=== PATIENT | female | born 1955 | race Caucasian/White ===

== ENCOUNTER 2017-03-29 13:55 | Emergency (ER) | payer MEDICAID ==
[2017-03-29] MEDS ORDERED: NS 0.9% 1000 ML* 1,000 ML IV ONE (14:28)
[2017-03-29 16:38] LABS: Hematocrit 40 % (35-47); Hemoglobin 13.1 g/dl (12.0-16.0); Mean Corpuscular HGB Conc 32 g/dl (31-36); Mean Corpuscular Hemoglobin 29 pg (27-31); Mean Corpuscular Volume 89 fL (80-97); Mean Platelet Volume 8 um3 (7.4-10.4); Red Blood Count 4.53 10^6/ul (4.0-5.4); Red Cell Distribution Width 14 % (10.5-15); White Blood Count 8.1 10^3/ul (3.5-10.8)
[2017-03-29 16:55] LABS: ALT 22 U/L (7-52); Albumin 3.6 g/dL (3.2-5.2); Alkaline Phosphatase 75 U/L (34-104); BUN/Creatinine Ratio 47.8 (8-20); Blood Urea Nitrogen 22 mg/dL (6-24); CO2 Carbon Dioxide 26 mmol/L (22-32); Calcium 9.4 mg/dL (8.6-10.3); Chloride 101 mmol/L (101-111); Creatine Kinase 81 U/L (10-223); EGFR African American 177.6 (>60); EGFR Non-African American 138.1 (>60); Globulin 3.6 g/dL (2-4); Glucose 75 mg/dL (70-100); Sodium 134 mmol/L (133-145); Total Protein 7.2 g/dL (6.4-8.9)
--- NOTE | 2017-03-29 17:13 | RAD ---
INDICATION: Unresponsive COMPARISON: Chest x-ray October 06, 2016 TECHNIQUE: AP seated and lateral views were obtained. FINDINGS: Bones/Soft Tissues: There are no acute bony findings. There is prior cervical fusion Cardiomediastinal: The heart is normal in size. Lungs: There are 5 suspicious for a right hilar and/or right middle lobe infiltrate although positioning is suboptimal. Pleura: There are no pleural effusions. Other: None IMPRESSION: LIMITED EXAMINATION DUE TO POSITIONING. POSSIBLE RIGHT-SIDED INFILTRATE
[2017-03-29 17:19] LABS: TSH (Thyroid Stimulating Horm) 0.96 mcIU/mL (0.34-5.60)
[2017-03-29] MEDS ORDERED: Levofloxacin 750 MG IVPREMIX(* 750 MG/150 ML BAG IVPB ONE (17:43)
[2017-03-29 17:56] LABS: Troponin I 0.03 ng/mL (<0.04)
[2017-03-29 18:02] LABS: Urine Bacteria 1+ (Absent); Urine Bilirubin Negative (Negative); Urine Glucose Negative (Negative); Urine Nitrite Positive (Negative)
[2017-03-29 18:09] LABS: C Reactive Protein 37.55 mg/L (< 5.00); Magnesium 1.8 mg/dL (1.9-2.7)
[2017-03-29 20:33] VITALS: BP 138/74
--- NOTE | 2017-03-29 21:53 | ED ---
Marie Argueta Anna, scribed for Isidro Haas MD on 03/29/17 at 1433 . Altered Mental Status - HPI Summary HPI Summary: Patient is a 61 y/o female coming to [facility] presenting after an episode of altered mental status that occurred this afternoon. The patient was sitting in her chair when she became unresponsive and kept falling asleep. The staff at [facility] reported her as unrousable. Upon arrival at [facility], the patient is awake. She reports that she feels fine. She has occasionally felt dizzy while turning in bed the last few days. Denies fever, chills, cough, CP, SOB, YU, diarrhea, constipation. Patient history is significant for MS. Patient medications were reviewed on this visit. - History Of Current Complaint Chief Complaint: EDAltMentalStatus Stated Complaint: UNRESPONSIVE Time Seen by Provider: 03/29/17 14:25 Hx Obtained From: Patient - Allergies/Home Medications Allergies/Adverse Reactions: Allergies Allergy/AdvReac Type Severity Reaction Status Date / Time Methylprednisolone Allergy Intermediate Rash Verified 10/07/16 04:00 [From Solu-Medrol] Penicillin G Allergy Intermediate Hives Verified 10/07/16 04:00 PMH/Surg Hx/FS Hx/Imm Hx Endocrine/Hematology History: Denies: Hx Diabetes Cardiovascular History: Denies: Hx Hypertension, Hx Pacemaker/ICD Respiratory History: Denies: Hx Chronic Obstructive Pulmonary Disease (COPD) History: Denies: Hx Dialysis, Hx Renal Disease Musculoskeletal History: Reports: Other Musculoskeletal History - cervical spine dysectomy Sensory History: Reports: Hx Contacts or Glasses Denies: Hx Hearing Aid Opthamlomology History: Reports: Hx Contacts or Glasses Neurological History: Denies: Hx Dementia, Hx Seizures Psychiatric History: Denies: Hx Eating Disorder, Hx Panic Disorder - Surgical History Surgery Procedure, Year, and Place: , CSP DISCECTOMY (WITH PLATES) Infectious Disease History: Yes Infectious Disease History: Reports: Hx Shingles Denies: Traveled Outside the [place] in Last 30 Days - Family History Known Family History: Positive: Other - Denies FHx psychotic disorders, schizophrenia, mood disorders - Social History Alcohol Use: None Substance Use Type: Reports: None Smoking Status (MU): Never Smoked Tobacco Review of Systems Negative: Fever, Chills Negative: Chest Pain Negative: Shortness Of Breath, Cough Gastrointestinal: Other - Denies constipation Negative: Diarrhea Negative: Headache Psychological: Other - Altered mental status. Dizziness. All Other Systems Reviewed And Are Negative: Yes Physical Exam - Summary Physical Exam Summary: VITAL SIGNS: Reviewed. GENERAL: Patient is a well-developed and nourished female who is lying comfortable in the stretcher. Patient is not in any acute respiratory distress. HEAD AND FACE: No signs of trauma. No ecchymosis, hematomas or skull depressions. No sinus tenderness. EYES: PERRLA, EOMI x 2, No injected conjunctiva, no nystagmus. EARS: Hearing grossly intact. Ear canals and tympanic membranes are within normal limits. MOUTH: Oropharynx within normal limits. NECK: Supple, trachea is midline, no adenopathy, no JVD, no carotid bruit, no c- spine tenderness, neck with full ROM. CHEST: Symmetric, no tenderness at palpation LUNGS: Clear to auscultation bilaterally. No wheezing or crackles. CVS: Regular rate and rhythm, S1 and S2 present, no murmurs or gallops appreciated. ABDOMEN: Soft, non-tender. No signs of distention. No rebound no guarding, and no masses palpated. Bowel sounds are normal. EXTREMITIES: Contracted knees secondary to MS. NEURO: Alert and oriented x 3. No acute neurological deficits. Speech is normal and follows commands. SKIN: Dry and scaly Triage Information Reviewed: Yes Vital Signs On Initial Exam: Initial Vitals Temp Pulse Resp BP Pulse Ox 98.1 F 74 20 124/92 99 03/29/17 14:06 03/29/17 14:06 03/29/17 14:06 03/29/17 14:06 03/29/17 14:06 Vital Signs Reviewed: Yes Diagnostics - Vital Signs Vital Signs Temp Pulse Resp BP Pulse Ox 03/29/17 14:06 98.1 F 74 20 124/92 99 - Laboratory Lab Results: Lab Results 03/29/17 03/29/17 03/29/17 Range/Units 16:25 16:25 16:25 WBC 8.1 (3.5-10.8) 10^3/ul RBC 4.53 (4.0-5.4) 10^6/ul Hgb 13.1 (12.0-16.0) g/dl Hct 40 (35-47) % MCV 89 (80-97) fL MCH 29 (27-31) pg MCHC 32 (31-36) g/dl RDW 14 (10.5-15) % Plt Count 353 (150-450) 10^3/ul MPV 8 (7.4-10.4) um3 Neut % (Auto) 55.8 (38-83) % Lymph % (Auto) 34.5 (25-47) % Cherry % (Auto) 7.7 (1-9) % Eos % (Auto) 1.5 (0-6) % Baso % (Auto) 0.5 (0-2) % Absolute Neuts (auto) 4.5 (1.5-7.7) 10^3/ul Absolute Lymphs (auto) 2.8 (1.0-4.8) 10^3/ul Absolute Monos (auto) 0.6 (0-0.8) 10^3/ul Absolute Eos (auto) 0.1 (0-0.6) 10^3/ul Absolute Basos (auto) 0 (0-0.2) 10^3/ul Absolute Nucleated RBC 0.01 10^3/ul Nucleated RBC % 0.1 Sodium 134 (133-145) mmol/L Potassium TNP Chloride 101 (101-111) mmol/L Carbon Dioxide 26 (22-32) mmol/L Anion Gap TNP BUN 22 (6-24) mg/dL Creatinine 0.46 L (0.51-0.95) mg/dL Est GFR ( Amer) 177.6 (>60) Est GFR (Non-Af Amer) 138.1 (>60) BUN/Creatinine Ratio 47.8 H (8-20) Glucose 75 (70-100) mg/dL Lactic Acid 0.7 (0.5-2.0) mmol/L Calcium 9.4 (8.6-10.3) mg/dL Magnesium TNP Total Bilirubin 0.40 (0.2-1.0) mg/dL AST TNP ALT 22 (7-52) U/L Alkaline Phosphatase 75 (34-104) U/L Total Creatine Kinase 81 (10-223) U/L Troponin I 0.03 (<0.04) ng/mL C-Reactive Protein (< 5.00) mg/L Total Protein 7.2 (6.4-8.9) g/dL Albumin 3.6 (3.2-5.2) g/dL Globulin 3.6 (2-4) g/dL Albumin/Globulin Ratio 1.0 (1-3) TSH 0.96 (0.34-5.60) mcIU/mL Urine Color Urine Appearance Urine pH (5-9) Ur Specific Rogers (1.010-1.030) Urine Protein (Negative) Urine Ketones (Negative) Urine Blood (Negative) Urine Nitrate (Negative) Urine Bilirubin (Negative) Urine Urobilinogen (Negative) Ur Leukocyte Esterase (Negative) Urine WBC (Auto) (Absent) Urine RBC (Auto) (Absent) Ur Squamous Epith Cells (Absent) Amorphous Crystals (Absent) Urine Bacteria (Absent) Urine Glucose (Negative) 03/29/17 03/29/17 Range/Units 17:41 17:41 WBC (3.5-10.8) 10^3/ul RBC (4.0-5.4) 10^6/ul Hgb (12.0-16.0) g/dl Hct (35-47) % MCV (80-97) fL MCH (27-31) pg MCHC (31-36) g/dl RDW (10.5-15) % Plt Count (150-450) 10^3/ul MPV (7.4-10.4) um3 Neut % (Auto) (38-83) % Lymph % (Auto) (25-47) % Cherry % (Auto) (1-9) % Eos % (Auto) (0-6) % Baso % (Auto) (0-2) % Absolute Neuts (auto) (1.5-7.7) 10^3/ul Absolute Lymphs (auto) (1.0-4.8) 10^3/ul Absolute Monos (auto) (0-0.8) 10^3/ul Absolute Eos (auto) (0-0.6) 10^3/ul Absolute Basos (auto) (0-0.2) 10^3/ul Absolute Nucleated RBC 10^3/ul Nucleated RBC % Sodium (133-145) mmol/L Potassium 4.2 Chloride (101-111) mmol/L Carbon Dioxide (22-32) mmol/L Anion Gap BUN (6-24) mg/dL Creatinine (0.51-0.95) mg/dL Est GFR ( Amer) (>60) Est GFR (Non-Af Amer) (>60) BUN/Creatinine Ratio (8-20) Glucose (70-100) mg/dL Lactic Acid (0.5-2.0) mmol/L Calcium (8.6-10.3) mg/dL Magnesium 1.8 L Total Bilirubin (0.2-1.0) mg/dL AST 17 ALT (7-52) U/L Alkaline Phosphatase (34-104) U/L Total Creatine Kinase (10-223) U/L Troponin I (<0.04) ng/mL C-Reactive Protein 37.55 H (< 5.00) mg/L Total Protein (6.4-8.9) g/dL Albumin (3.2-5.2) g/dL Globulin (2-4) g/dL Albumin/Globulin Ratio (1-3) TSH (0.34-5.60) mcIU/mL Urine Color Yellow Urine Appearance Cloudy Urine pH 7.0 (5-9) Ur Specific Rogers 1.013 (1.010-1.030) Urine Protein 1+(30 mg/dl) H (Negative) Urine Ketones Trace H (Negative) Urine Blood Negative (Negative) Urine Nitrate Positive H (Negative) Urine Bilirubin Negative (Negative) Urine Urobilinogen Negative (Negative) Ur Leukocyte Esterase 2+ H (Negative) Urine WBC (Auto) 3+(>20/hpf) H (Absent) Urine RBC (Auto) 3+(>10/hpf) H (Absent) Ur Squamous Epith Cells Present H (Absent) Amorphous Crystals Present H (Absent) Urine Bacteria 1+ H (Absent) Urine Glucose Negative (Negative) Result Diagrams: 03/29/17 16:25 03/29/17 17:41 Lab Statement: Any lab studies that have been ordered have been reviewed, and results considered in the medical decision making process. - Radiology CXR Xray Interpretation: Positive (See Comments) Radiology Interpretation Completed By: Radiologist - IMPRESSION: LIMITED EXAMINATION DUE TO POSITIONING. POSSIBLE RIGHT-SIDED INFILTRATE - EKG 1730 Cardiac Rate: NL - 83 bpm, Other Rate EKG Rhythm: Sinus Rhythm ST Segment: Normal Ectopy: None EKG Interpretation: No ST elevation Altered Mental Statu Course/Dx - Course Course Of Treatment: Patient is a 61 y/o female coming to [facility] presenting after an episode of altered mental status that occurred this afternoon. The patient was sitting in her chair when she became unresponsive and kept falling asleep. The staff at [facility] reported her as unrousable. Upon arrival at [facility], the patient is awake. She reports that she feels fine. She has occasionally felt dizzy while turning in bed the last few days. Denies fever, chills, cough, CP, SOB, YU, diarrhea, constipation. Patient history is significant for MS. Patient medications were reviewed on this visit. Assessment/Plan: Test results WNL except for Creatinine of .46. UA with positive nitrates, therefore positive UTI. CXR shows pt has PNA. Pt was placed on Levaquin, which will cover PNA and UTI. I did not perform a head CT since patient is A+Ox 3 and back to her base line. She has no complaints. Pt is hemodynamically stable and A&Ox3. She will be discharged home with follow up from her PCP. Patient was given instructions to return to the ED if she develops fever, chills, AMS, worsening symptoms. She understands and agrees, - Diagnoses Discharge Diagnoses: UTI (urinary tract infection), PNA (pneumonia) Discharge - Discharge Plan Condition: Stable Disposition: HOME Prescriptions: Levofloxacin TAB* [Levaquin TAB*] 750 mg PO DAILY #9 tab Patient Education Materials: Levofloxacin (By mouth), Urinary Tract Infection in Women (ED), Pneumonia (ED) Referrals: Jodie Tucker MD [Primary Care Provider] - Additional Instructions: Follow up with primary care physician in 2-3 days. Return to ED for new or worsening symptoms. The documentation as recorded by the Marie mojica Anna accurately reflects the service I personally performed and the decisions made by , Isidro Haas MD.
--- NOTE | 2017-03-31 09:59 | PN ---
Progress Note - Progress Note Note: Patient urine culture grew Citrobacter amalonaticus >100,000/ patient place on levofloxacin will wait for final culture
== END 2017-03-29 20:29 | disposition home or self-care (01) ==
LOC: ED 13:55
DX: N39.0 Urinary tract infection, site not specified (principal); J18.9 Pneumonia, unspecified organism; R42 Dizziness and giddiness
CPT/HCPCS: 36415; 71020; 80053; 81003; 81015; 82550; 83605; 83735; 84443; 84484; 85025; 86140; 87077; 87086; 87186; 93005; 96365; 96366; 99283

== ENCOUNTER 2017-08-27 13:54 | Emergency (ER) | payer MEDICAID ==
[2017-08-27] MEDS ORDERED: NS 0.9% 1000 ML* 1,000 ML IV ONE (14:46)
[2017-08-27 15:36] LABS: Hematocrit 42 % (35-47); Hemoglobin 13.7 g/dl (12.0-16.0); Mean Corpuscular HGB Conc 33 g/dl (31-36); Mean Corpuscular Hemoglobin 29 pg (27-31); Mean Corpuscular Volume 88 fL (80-97); Mean Platelet Volume 7 um3 (7.4-10.4); Red Blood Count 4.72 10^6/ul (4.0-5.4); Red Cell Distribution Width 14 % (10.5-15); White Blood Count 11.2 10^3/ul (3.5-10.8)
[2017-08-27 15:53] LABS: Troponin I 0.01 ng/mL (<0.04)
[2017-08-27 16:00] LABS: ALT 16 U/L (7-52); AST 21 U/L (13-39); Albumin 4.1 g/dL (3.2-5.2); Alkaline Phosphatase 79 U/L (34-104); Anion Gap 4 mmol/L (2-11); BUN/Creatinine Ratio 53.7 (8-20); Blood Urea Nitrogen 29 mg/dL (6-24); CO2 Carbon Dioxide 35 mmol/L (22-32); Calcium 9.9 mg/dL (8.6-10.3); Chloride 100 mmol/L (101-111); Creatine Kinase 614 U/L (10-223); EGFR African American 147.1 (>60); EGFR Non-African American 114.4 (>60); Globulin 4.5 g/dL (2-4); Glucose 73 mg/dL (70-100); Magnesium 2.2 mg/dL (1.9-2.7); Potassium 3.5 mmol/L (3.5-5.0); Sodium 139 mmol/L (133-145); Total Protein 8.6 g/dL (6.4-8.9)
[2017-08-27 16:10] LABS: Acetaminophen < 15 mcg/mL
[2017-08-27 16:25] LABS: TSH (Thyroid Stimulating Horm) 1.15 mcIU/mL (0.34-5.60)
--- NOTE | 2017-08-27 18:16 | RAD ---
INDICATION: Cough COMPARISON: March 29, 2017 TECHNIQUE: An AP portable view obtained at 1748 hours is submitted. FINDINGS: Bones/Soft Tissues: There are no acute bony findings. There is prior cervical fusion. Cardiomediastinal: The cardiomediastinal silhouette is normal. Lungs: There are no definite infiltrates. Pleura: There are no pleural effusions. Other: None IMPRESSION: NO ACTIVE DISEASE.
[2017-08-27] MEDS ORDERED: Azithromycin TAB* 250 MG PO ONE (18:20)
[2017-08-27 19:22] VITALS: BP 138/65
--- NOTE | 2017-08-28 18:19 | ED ---
Jeffery Argueta Thomas, scribed for Isidro Haas MD on 08/27/17 at 1536 . Complex/Multi-Sys Presentation - HPI Summary HPI Summary: The pt is a 62 y/o F with a Hx of multiple sclerosis BIBA after she was found unresponsive. In the ED, the patient is awake and alert. She has been dealing with a cold recently and c/o fatigue, a headache, and a cough. She denies fever , CP, SOB, and dizziness. The lower extremities are contracted secondary to MS. - History Of Current Complaint Chief Complaint: EDAltMentalStatus Time Seen by Provider: 08/27/17 14:31 Hx Obtained From: Patient Onset/Duration: Lasting Hours - BIBA after found unresponsive earlier todays, Resolved Severity Currently: None Aggravating Factor(s): None. Alleviating Factor(s): Sponteneous resolution. Associated Signs And Symptoms: Positive: Other - Unresponsive, fatigue, headache , cough; NEGATIVE: fever, CP, SOB, dizziness - Allergies/Home Medications Allergies/Adverse Reactions: Allergies Allergy/AdvReac Type Severity Reaction Status Date / Time Methylprednisolone Allergy Intermediate Rash Verified 10/07/16 04:00 [From Solu-Medrol] Penicillin G Allergy Intermediate Hives Verified 10/07/16 04:00 Home Medications: Home Medications Carboxymethylcellulose Sodium [Refresh Tears] 0.5 % BOTH EYES Q6HR PRN 08/27/17 [History Confirmed 08/27/17] Cholecalciferol TAB* [Vitamin D TAB*] 2,000 units PO EVERY OTHER DAY 08/27/17 [ History Confirmed 08/27/17] Cyclosporine 0.05% OPHTH (NF) [Restasis 0.05% OPHTH] 1 drop BOTH EYES BID [History Confirmed 08/27/17] Miconazole TOPICAL CREAM 2%* [Monistat 2%*] 1 applic TOPICAL QPM 08/27/17 [ History Confirmed 08/27/17] Multivitamins/Minerals TAB* [Theragran/minerals TAB*] 1 tab PO DAILY 08/27/17 [ History Confirmed 08/27/17] tiZANidine TAB* [Zanaflex TAB*] 4 mg PO QID 08/27/17 [History Confirmed 08/27/17 ] PMH/Surg Hx/FS Hx/Imm Hx Previously Healthy: No Endocrine/Hematology History: Denies: Hx Diabetes Cardiovascular History: Denies: Hx Hypertension, Hx Pacemaker/ICD Respiratory History: Denies: Hx Chronic Obstructive Pulmonary Disease (COPD) History: Denies: Hx Dialysis, Hx Renal Disease Musculoskeletal History: Reports: Other Musculoskeletal History - cervical spine dysectomy Sensory History: Reports: Hx Contacts or Glasses Denies: Hx Hearing Aid Opthamlomology History: Reports: Hx Contacts or Glasses Neurological History: Denies: Hx Dementia, Hx Seizures Psychiatric History: Denies: Hx Eating Disorder, Hx Panic Disorder - Surgical History Surgery Procedure, Year, and Place: , CSP DISCECTOMY (WITH PLATES) Infectious Disease History: No Infectious Disease History: Reports: Hx Shingles Denies: Traveled Outside the [place] in Last 30 Days - Family History Known Family History: Positive: Other - Denies FHx psychotic disorders, schizophrenia, mood disorders - Social History Alcohol Use: None Hx Substance Use: No Substance Use Type: Reports: None Hx Tobacco Use: No Smoking Status (MU): Never Smoked Tobacco Review of Systems Positive: Fatigue. Negative: Fever Negative: Chest Pain Positive: Cough. Negative: Shortness Of Breath Neurological: Other - Unresponsive (prior to arrival-awake and alert in the ED) ; NEGATIVE: dizziness Positive: Headache All Other Systems Reviewed And Are Negative: Yes Physical Exam - Summary Physical Exam Summary: VITAL SIGNS: Reviewed. GENERAL: ~Patient is a well-developed and nourished female who is lying comfortable in the stretcher. ~Patient is not in any acute respiratory distress. HEAD AND FACE: No signs of trauma. ~No ecchymosis, hematomas or skull depressions. No sinus tenderness. EYES: PERRLA, EOMI x 2, No injected conjunctiva, no nystagmus. EARS: Hearing grossly intact. Ear canals and tympanic membranes are within normal limits. MOUTH: Oropharynx within normal limits. NECK: Supple, trachea is midline, no adenopathy, no JVD, no carotid bruit, no c- spine tenderness, neck with full ROM. CHEST: Symmetric, no tenderness at palpation LUNGS: She has bilateral crackles. No wheezing. CVS: Regular rate and rhythm, S1 and S2 present, no murmurs or gallops appreciated. ABDOMEN: Soft, non-tender. No signs of distention. No rebound no guarding, and no masses palpated. Bowel sounds are normal. EXTREMITIES: No edema, no cyanosis or clubbing. She has constricted lower extremities secondary to multiple sclerosis. There is hypotonia in the lower extremities. NEURO: Alert and oriented x 3. No acute neurological deficits. Speech is normal and follows commands. SKIN: Dry and warm. Triage Information Reviewed: Yes Vital Signs On Initial Exam: Initial Vitals Temp Pulse Resp BP Pulse Ox 96.9 F 65 20 135/73 95 08/27/17 14:01 08/27/17 14:01 08/27/17 14:01 08/27/17 14:01 08/27/17 14:01 Vital Signs Reviewed: Yes Diagnostics - Vital Signs Vital Signs Temp Pulse Resp BP Pulse Ox 08/27/17 15:00 10 150/80 08/27/17 14:30 71 19 136/80 95 08/27/17 14:23 67 12 135/73 94 08/27/17 14:17 69 94 08/27/17 14:01 96.9 F 65 20 135/73 95 - Laboratory Lab Results: Lab Results 08/27/17 08/27/17 08/27/17 Range/Units 15:20 15:20 15:20 WBC 11.2 H (3.5-10.8) 10^3/ul RBC 4.72 (4.0-5.4) 10^6/ul Hgb 13.7 (12.0-16.0) g/dl Hct 42 (35-47) % MCV 88 (80-97) fL MCH 29 (27-31) pg MCHC 33 (31-36) g/dl RDW 14 (10.5-15) % Plt Count 526 H D (150-450) 10^3/ul MPV 7 L (7.4-10.4) um3 Neut % (Auto) 64.3 (38-83) % Lymph % (Auto) 26.3 (25-47) % [place] % (Auto) 6.1 (1-9) % Eos % (Auto) 2.4 (0-6) % Baso % (Auto) 0.9 (0-2) % Absolute Neuts (auto) 7.2 (1.5-7.7) 10^3/ul Absolute Lymphs (auto) 2.9 (1.0-4.8) 10^3/ul Absolute Monos (auto) 0.7 (0-0.8) 10^3/ul Absolute Eos (auto) 0.3 (0-0.6) 10^3/ul Absolute Basos (auto) 0.1 (0-0.2) 10^3/ul Absolute Nucleated RBC 0 10^3/ul Nucleated RBC % 0 Sodium 139 (133-145) mmol/L Potassium 3.5 (3.5-5.0) mmol/L Chloride 100 L (101-111) mmol/L Carbon Dioxide 35 H (22-32) mmol/L Anion Gap 4 (2-11) mmol/L BUN 29 H (6-24) mg/dL Creatinine 0.54 (0.51-0.95) mg/dL Est GFR ( Amer) 147.1 (>60) Est GFR (Non-Af Amer) 114.4 (>60) BUN/Creatinine Ratio 53.7 H (8-20) Glucose 73 (70-100) mg/dL Lactic Acid 0.7 (0.5-2.0) mmol/L Calcium 9.9 (8.6-10.3) mg/dL Magnesium 2.2 (1.9-2.7) mg/dL Total Bilirubin 0.30 (0.2-1.0) mg/dL AST 21 (13-39) U/L ALT 16 (7-52) U/L Alkaline Phosphatase 79 (34-104) U/L Total Creatine Kinase 614 H (10-223) U/L Troponin I 0.01 (<0.04) ng/mL Total Protein 8.6 (6.4-8.9) g/dL Albumin 4.1 (3.2-5.2) g/dL Globulin 4.5 H (2-4) g/dL Albumin/Globulin Ratio 0.9 L (1-3) TSH 1.15 (0.34-5.60) mcIU/mL Acetaminophen < 15 mcg/mL Result Diagrams: 08/27/17 15:20 08/27/17 15:20 Lab Statement: Any lab studies that have been ordered have been reviewed, and results considered in the medical decision making process. - Radiology CXR Xray Interpretation: No Acute Changes - No active disease. ED physician has reviewed this report and agrees. Radiology Interpretation Completed By: Radiologist - EKG 15:25 Cardiac Rate: NL - 64 BPM EKG Rhythm: Sinus Rhythm EKG Interpretation: No ST elevations. TWI in II and III. Complex Multi-Symp Course/Dx Assessment/Plan: The pt is a 62 y/o F with a Hx of multiple sclerosis BIBA after she was found unresponsive. In the ED, the patient is awake and alert. She has been dealing with a cold recently and c/o fatigue, a headache, and a cough. She denies fever, CP, SOB, and dizziness. The lower extremities are contracted secondary to MS. Test results are without significant abnormalities except WBC 11.2, platelet count 526, and CPK is 614. CXR shows no active disease. Since the patient is having this productive cough, I believe the patient is dealing with bronchitis. Initially, EMS reported that the patient was unresponsive. However, the patient denies this and reports that she was always alert and oriented x3. She reports that she was tired and sleepy but not unresponsive. Therefore, since the patient is feeling better, she request discharge back to the halfway. She was given Azithromycin. The patient is alert and oriented x3 and back to baseline. - Diagnoses Provider Diagnoses: Bronchitis Discharge - Discharge Plan Condition: Stable Disposition: HOME Prescriptions: Azithromycin TAB* [Zithromax TAB (Z-RALPH) 250 mg #6 tabs] 250 mg PO DAILY #4 tab Patient Education Materials: Acute Bronchitis (ED) Referrals: Jodie Tucker MD [Primary Care Provider] - 3 Days Additional Instructions: Follow up with your primary care provider in 3 days. Return to the emergency department for any new or worsening symptoms. The documentation as recorded by the Jeffery mojica Thomas accurately reflects the service I personally performed and the decisions made by , Isidro Haas MD.
== END 2017-08-27 19:20 | disposition home or self-care (01) ==
LOC: ED 13:54
DX: J40 Bronchitis, not specified as acute or chronic (principal); R53.83 Other fatigue; R51 Headache; R05 Cough
CPT/HCPCS: 36415; 71010; 80053; 80329; 82550; 83605; 83735; 84443; 84484; 85025; 93005; 96360; 99285; A9270-GY; G0480

== ENCOUNTER 2018-10-04 09:47 | Inpatient (IN) | payer MEDICAID ==
[2018-10-04] MEDS ORDERED: NS 0.9% 1000 ML* 1,000 ML IV ONE ×3 (09:58→13:15)
--- NOTE | 2018-10-04 10:11 | ED ---
Shortness of Breath - HPI Summary HPI Summary: This pt is a 63 y/o female presenting to [facility] via EMS from [facility] for SOB x3 days. Pt reports she is unable to get a deep breath in. Per EMS pt was saturating on room air at 87% and increased to 92% with 4L of oxygen. EMS administered a duoneb and pt improved a bit more. Pt denies fever, chills, chest pain, calf pain, abd pain, vomiting. Pt also reports she has had vaginal bleeding for the past 3 days. She had an ultrasound 2 days ago and it was normal. Pt notes they were unable to figure out what was causing it. Pt is able to get around with a wheel chair. Denies hx of COPD or asthma. Pt does not use oxygen at baseline. She is a former smoker. - History of Current Complaint Time Seen by Provider: 10/04/18 09:51 Hx Obtained From: Patient, EMS Onset/Duration: Lasting Days - 3, Still Present Current Severity: Moderate Dyspnea At: Rest Aggrevating Factors: Nothing Alleviating Factors: Nothing Associated Signs & Symptoms: Negative - Allergy/Home Medications Allergies/Adverse Reactions: Allergies Allergy/AdvReac Type Severity Reaction Status Date / Time methylprednisolone Allergy Intermediate Rash Verified 10/04/18 15:53 penicillin G Allergy Intermediate Hives Verified 10/04/18 15:53 Home Medications: Home Medications Acetaminophen [Acetaminophen Extra Strength] 1,000 mg PO Q8HR PRN 10/04/18 [ History Confirmed 10/04/18] Aspirin EC TAB* [Ecotrin EC Low Dose 81 MG*] 81 mg PO DAILY 10/04/18 [History Confirmed 10/04/18] Aspirin EC TAB* [Ecotrin EC TAB*] 325 mg PO DAILY PRN 10/04/18 [History Confirmed 10/04/18] Baclofen TAB* [Lioresal TAB*] 30 mg PO QID 10/04/18 [History Confirmed 10/04/18 ] Carboxymethylcellulose Sodium [Refresh] 1 % BOTH EYES QID PRN 10/04/18 [History Confirmed 10/04/18] Cholecalciferol (Vitamin D3) [Vitamin D3] 4,000 unit PO DAILY 10/04/18 [History Confirmed 10/04/18] Cyclosporine 0.05% OPHTH (NF) [Restasis 0.05% OPHTH] 1 drop BOTH EYES BID [History Confirmed 10/04/18] Donepezil TAB* [Aricept 5 MG TAB*] 10 mg PO QPM 10/04/18 [History Confirmed 02/16] Dronabinol CAP* [Marinol CAP*] 5 mg PO QID 10/04/18 [History Confirmed 10/04/18] Hydrocortisone 1% CREAM* [Hytone Cream 1%*] 1 applic TOPICAL DAILY PRN 10/04/18 [History Confirmed 10/04/18] Ketoconazole [Nizoral A-D] 125 ml TOPICAL SUWEFR 10/04/18 [History Confirmed 02/16] Meclizine TAB* [Antivert 12.5 TAB*] 25 mg PO Q6HR PRN 10/04/18 [History Confirmed 10/04/18] Methylphenidate TAB* [Ritalin TAB*] 10 mg PO BID 10/04/18 [History Confirmed 02/16] Methylphenidate TAB* [Ritalin TAB*] 20 mg PO DAILY 10/04/18 [History Confirmed 10/04/18] Miconazole Nitrate [Antifungal] 1 % TOPICAL QPM 10/04/18 [History Confirmed 02/16] Mv-Min/Vit C/Glut/Lysine/Hb124 [Airborne] 1 tab PO Q4HR PRN 10/04/18 [History Confirmed 10/04/18] Oxybutynin TAB* [Ditropan TAB*] 15 mg PO BID 10/04/18 [History Confirmed ] Polyethylene Glycol 3350* [Miralax*] 17 gm PO DAILY PRN 10/04/18 [History Confirmed 10/04/18] Skin Cleanser [Baby Wash] 1 liq TOPICAL QPM 10/04/18 [History Confirmed 10/04/18 ] Triamcinolone 0.1% CREAM(NF) [Kenalog Cream 0.1%(NF)] 1 applic TOPICAL TUTHSA [History Confirmed 10/04/18] tiZANidine TAB* [Zanaflex TAB*] 4 mg PO QID 10/04/18 [History Confirmed 10/04/18 ] PMH/Surg Hx/FS Hx/Imm Hx Endocrine/Hematology History: Denies: Hx Diabetes Cardiovascular History: Denies: Hx Hypertension, Hx Pacemaker/ICD Respiratory History: Denies: Hx Asthma, Hx Chronic Obstructive Pulmonary Disease (COPD) History: Denies: Hx Dialysis, Hx Renal Disease Musculoskeletal History: Reports: Other Musculoskeletal History - cervical spine dysectomy Sensory History: Reports: Hx Contacts or Glasses Denies: Hx Hearing Aid Opthamlomology History: Reports: Hx Contacts or Glasses Neurological History: Denies: Hx Dementia, Hx Seizures Psychiatric History: Denies: Hx Eating Disorder, Hx Panic Disorder - Surgical History Surgery Procedure, Year, and Place: , CSP DISCECTOMY (WITH PLATES) Infectious Disease History: Reports: Hx Shingles - Family History Known Family History: Positive: Other - Denies FHx psychotic disorders, schizophrenia, mood disorders - Social History Alcohol Use: None Hx Substance Use: No Substance Use Type: Reports: None Hx Tobacco Use: No Smoking Status (MU): Never Smoked Tobacco Review of Systems Negative: Fever, Chills Negative: Chest Pain Positive: Shortness Of Breath Negative: Abdominal Pain, Vomiting Genitourinary: Other - POS: vaginal bleeding Negative: Other - calf pain All Other Systems Reviewed And Are Negative: Yes Physical Exam - Summary Physical Exam Summary: VITAL SIGNS: Reviewed. GENERAL: Patient is a well-developed and nourished female who is lying comfortable in the stretcher. Patient is SOB but is able to speak in full sentences. HEAD AND FACE: No signs of trauma. No ecchymosis, hematomas or skull depressions. No sinus tenderness. EYES: PERRLA, EOMI x 2, No injected conjunctiva, no nystagmus. EARS: Hearing grossly intact. Ear canals and tympanic membranes are within normal limits. MOUTH: Oropharynx within normal limits. NECK: Supple, trachea is midline, no adenopathy, no JVD, no carotid bruit, no c- spine tenderness, neck with full ROM. CHEST: Symmetric, no tenderness at palpation LUNGS: Decreased breath sounds especially in both bases of the lungs. Some crackles. No wheezing. CVS: Regular rate and rhythm, S1 and S2 present, no murmurs or gallops appreciated. ABDOMEN: Soft, non-tender. Abdomen is distended. No rebound, no guarding, and no masses palpated. Positive bowel sounds. EXTREMITIES: contracted. NEURO: Alert and oriented x 3. No acute neurological deficits. Speech is normal and follows commands. SKIN: Dry and warm. Pt has 3 decubitus ulcers, stage 2, on both buttocks. Triage Information Reviewed: Yes Vital Signs On Initial Exam: Initial Vitals Temp Pulse Resp BP Pulse Ox 97.3 F 93 23 140/88 95 10/04/18 10:04 10/04/18 10:04 10/04/18 10:04 10/04/18 10:04 10/04/18 10:04 Vital Signs Reviewed: Yes Diagnostics - Laboratory Result Diagrams: 10/04/18 10:24 10/04/18 10:24 Lab Statement: Any lab studies that have been ordered have been reviewed, and results considered in the medical decision making process. - Radiology Chest XR Radiology Interpretation Completed By: Radiologist Summary of Radiographic Findings: IMPRESSION: No active cardiopulmonary disease is noted. Dr. Haas has reviewed this report. - EKG 10:03 Cardiac Rate: NL - at 91 bpm EKG Rhythm: Sinus Rhythm EKG Comparison: No Significant Change - Similar to prior EKG on 08/27/17. Summary of EKG Findings: No ST elevations. Inverted T waves in V1-V4. Course/Dx - Course Assessment/Plan: This pt is a 63 y/o female presenting to [facility] via EMS from [facility] for SOB x3 days. Pt reports she is unable to get a deep breath in. Per EMS pt was saturating on room air at 87% and increased to 92% with 4L of oxygen. EMS administered a duoneb and pt improved a bit more. Pt denies fever, chills, chest pain, calf pain, abd pain, vomiting. Pt also reports she has had vaginal bleeding for the past 3 days. She had an ultrasound 2 days ago and it was normal. Pt notes they were unable to figure out what was causing it. Pt is able to get around with a wheelchair. Denies hx of COPD or asthma. Pt does not use oxygen at baseline. She is a former smoker. In the ED course the patient remained stable. I was informed by the nurse that the patient admits criteria for sepsis. Therefore the patient was given IV fluids and started on Rocephin as a broad-spectrum antibiotic. Anesthetic Rocephin since I believe the symptoms are coming from her lungs. Chest x-ray impression: No acute pathology. Blood work without any significant abnormality except for potassium of 3.4 for which the patient was given potassium chloride. The CRP is 22.2. Lactic acid is 0.7. In the ED course the patient was given almost 3 L of IV fluids, we placed a Tinoco catheter since we could not get urine from the patient and it seems that the patient is dry. There was no urine produced up to this point. We performed a bladder scan and it was reported that the bladder scan is only 80 cc at this time. I discussed my physical exam, findings and test results with Dr. Sheppard from the hospitalist services and she agrees to admit patient to her services. Patient is hemodynamically stable, alert and oriented x 3. - Diagnoses Provider Diagnoses: Dehydration, Dyspnea - Physician Notifications Discussed Care of Patient With: Maria Sheppard - hospitalist Time Discussed With Above Provider: 13:27 Instructed by Provider To: Admit As Inpatient Discharge - Sign-Out/Discharge Documenting (check all that apply): Patient Departure [place] [facility] [place] completed and their final reports reviewed: Yes - Discharge Plan Condition: Stable Disposition: ADMITTED TO [facility] - Billing Disposition and Condition Condition: STABLE Disposition: Admitted to [facility] - Attestation Statements Document Initiated by Jennifer: Yes Documenting Scribe: Noa Brunson Provider For Whom Pamellaibe is Documenting (Include Credential): Isidro Haas MD Scribe Attestation: I, Noa Brunson, scribed for Isidro Haas MD on 10/04/18 at 1834. Scribe Documentation Reviewed: Yes Provider Attestation: The documentation as recorded by the Noa mojica accurately reflects the service I personally performed and the decisions made by me, Isidro Haas MD Status of Scribe Document: Viewed
[2018-10-04] MEDS ORDERED: cefTRIAXone(*) 1 GM in NS 0.9% 50 ML* 50 ML IVPB ONE (10:14)
[2018-10-04 10:40] LABS: ABS Basophils 0.1 10^3/ul (0-0.2); ABS Eosinophils 0.1 10^3/ul (0-0.6); ABS Lymphocytes 2.9 10^3/ul (1.0-4.8); ABS Monocytes 0.7 10^3/ul (0-0.8); ABS Neutrophils 4.6 10^3/ul (1.5-7.7); ABS Nucleated RBC 0 10^3/ul; Hematocrit 39 % (35-47); Hemoglobin 12.9 g/dl (12.0-16.0); Lymphocyte % 34.7 %; Mean Corpuscular HGB Conc 33 g/dl (31-36); Mean Corpuscular Hemoglobin 29 pg (27-31); Mean Corpuscular Volume 89 fL (80-97); Mean Platelet Volume 7.9 fL (7.4-10.4); Nucleated Red Blood Cells % 0.1; Platelet Count 411 10^3/ul (150-450); Red Blood Count 4.42 10^6/ul (4.00-5.40); Red Cell Distribution Width 14 % (10.5-15); White Blood Count 8.5 10^3/ul (3.5-10.8)
[2018-10-04 11:03] LABS: INR 0.98 (0.77-1.02)
[2018-10-04 11:14] LABS: EGFR Non-African American 140.7 (>60)
[2018-10-04] MEDS ORDERED: Potassium Chlor TAB* 20 MEQ TAB.ER PO ONE (11:26)
[2018-10-04] MEDS ORDERED: Acetaminophen TAB* 325 MG PO ONE (12:14)
[2018-10-04] MEDS ORDERED: Albuterol 2.5 MG/3 ML NEB.SOL* (0.083%) INH PRN (15:42)
[2018-10-04] MEDS ORDERED: Senna TAB PO PRN (15:44)
[2018-10-04] MEDS ORDERED: Meclizine TAB* 12.5 MG PO PRN (15:44)
[2018-10-04] MEDS ORDERED: Polyethylene Glycol 3350* 17 GM PACKET PO PRN (15:44)
[2018-10-04] MEDS ORDERED: Iohexol 350* (CONTRAST) 500 ML MDV IV ONE (17:00)
[2018-10-04 18:35] LABS: Urine Appearance Cloudy; Urine Specific Gravity 1.009 (1.010-1.030)
[2018-10-04] MEDS: Dronabinol CAP* 2.5 MG PO SCH ×2 (18:35→21:12)
[2018-10-04 18:36] LABS: Urine Color Red
[2018-10-04] MEDS: Baclofen TAB* 20 MG PO SCH ×2 (18:36→21:12)
[2018-10-04] MEDS: tiZANidine TAB* 2 MG PO SCH ×2 (18:37→21:12)
[2018-10-04] MEDS: Donepezil TAB* 5 MG PO SCH (18:38)
[2018-10-04 18:45] LABS: Urine Red Blood Cell 3+(>10/hpf) (Absent); Urine White Blood Cell 3+(>20/hpf) (Absent)
[2018-10-04] MEDS: Oxybutynin TAB* 5 MG PO SCH (21:13)
[2018-10-04] MEDS: Azithromycin IV(*) 500 MG in NS 0.9% 250 ML* 250 ML IVPB SCH (22:27)
[2018-10-05] MEDS: Acetaminophen TAB* 325 MG PO PRN ×2 (01:37→07:43)
--- NOTE | 2018-10-05 03:30 | HP ---
CC: Aleta Reis * HISTORY AND PHYSICAL: DATE OF ADMISSION: 10/04/18 PROVIDER: Mariana Herr NP PRIMARY CARE PROVIDER: Aleta Reis. ATTENDING PHYSICIAN WHILE IN THE HOSPITAL: Maria Chapa MD * (dictated by Mariana Herr NP) CHIEF COMPLAINT: 1. Bloody urine. 2. Shortness of breath. HISTORY OF PRESENT ILLNESS: Ms. Salas is a 63-year-old female with a past medical history significant for MS, depression, urinary incontinence, who presented to the emergency room with complaints of bloody urine and increased shortness of breath. The patient reports that she had increased shortness of breath over the past 3 days and complained of headache and shortness of breath and bloody urine. So, she presented to the emergency room for further evaluation. She denies any fever. Denies any decreased appetite. Denies any chest pain or edema. Denies any cough, hemoptysis. She does report shortness of breath. Denies any nausea, vomiting, diarrhea. Denies any abdominal pain. She does report gross hematuria. Denies any dysuria. She is chronically incontinent. Denies any focal weakness or sensory loss. Denied other than her baseline as she does have MS and does have contractures, visual complaints. Denies any dysphagia, arthralgias, myalgias. Denies any rashes. She does report sores on her buttock. Denies any psychosis or anxiety. Due to her symptoms of shortness of breath and hematuria, we were asked to see and evaluate her for admission. PAST MEDICAL HISTORY: Significant for: 1. Depression. 2. Multiple sclerosis. 3. History of urinary incontinence. PAST SURGICAL HISTORY: 1. Cervical diskectomy. 2. . HOME MEDICATIONS: 1. Oxybutynin 15 mg p.o. b.i.d. 2. Aspirin 81 mg p.o. daily. 3. Zanaflex 4 mg p.o. 4 times a day. 4. Restasis 1 drop to both eyes b.i.d. 5. Enteric-coated aspirin 325 mg p.o. daily p.r.n. 6. MiraLAX 17 g p.o. daily p.r.n. 7. Acetaminophen 1000 mg p.o. q.8 hours as needed. 8. Aricept 10 mg p.o. p.m. 9. Vitamin D 4000 units p.o. daily. 10. Refresh 1% both eyes 4 times a day p.r.n. 11. Nizoral AD 125 mL topical Wednesday, Wednesday, and Wednesday. 12. Baclofen 30 mg p.o. 4 times a day. 13. Hydrocortisone 1% cream topically p.r.n. 14. Senna 2 tabs p.o. b.i.d. p.r.n. 15. Antivert 25 mg p.o. q.6 hours p.r.n. 16. Kenalog cream 1 topically Wednesday, , and Wednesday. 17. Miconazole 1% topical q.p.m. 18. Ritalin 20 mg p.o. daily. 19. Ritalin 10 mg p.o. b.i.d. 20. Marinol 5 mg p.o. 4 times a day. ALLERGIES: To METHYLPREDNISOLONE and PENICILLIN G. FAMILY HISTORY: Reviewed and noncontributory. SOCIAL HISTORY: The patient quit smoking approximately 10 years ago. Reports occasional alcohol use. Denies any illicit drug use. She is a current resident at [facility]. Surrogate decision maker in the event she is unable to make her own decisions is her son, Evin Salas. His phone number is . She is a full code. REVIEW OF SYSTEMS: There is no documented fever. There has been no significant weight change. No double vision, no ear discharge, no rhinorrhea, no sore throat. Denies any chest pain, orthopnea. Does report shortness of breath. Denies any cough, congestion or hemoptysis. Denies any nausea, vomiting, or diarrhea. Denies any abdominal pain. Does report gross hematuria. Denies any dysuria. Does have chronic urinary incontinence. Denies changes in vision, dysphagia. Denies any arthralgias, myalgias. Does report sores to buttocks. Denies any psychosis or anxiety. Review of 14 systems was completed, all others were negative. PHYSICAL EXAMINATION GENERAL: At this time, Ms. Salas is a 63-year-old female. She appears comfortable resting on the stretcher in the emergency room. She is not in any acute distress. VITAL SIGNS: Temperature was 98.9, heart rate 77, respirations 20, O2 saturation 100% on 2 L liters nasal cannula, blood pressure 149/64. HEENT: Head is atraumatic, normocephalic. Eyes: EOMs are intact. Sclerae anicteric and not pale. Oral mucosa is moist. NECK: Supple. LUNGS: Diminished bilaterally. No wheezes. A few scattered rhonchi. CARDIOVASCULAR: S1, S2. Regular rate and rhythm. No murmurs, rubs, or gallops. ABDOMEN: Soft and nontender. Bowel sounds are present x4. EXTREMITIES: Pedal pulses are +2 bilaterally. She does have contracture to the left arm and right lower leg. She is able to move. Does have minimal movement to all 4 extremities. NEUROLOGIC: She is awake, alert and oriented x3. Speech is clear. SKIN: Open areas noted to buttocks. DIAGNOSTIC STUDIES/LAB DATA: WBCs are 8.5, RBCs 4.42, hemoglobin 12.9, hematocrit is 39, platelet count was 411, INR was 0.98, APTT was 41.0, D-dimer less than 200. Sodium was 139, potassium 3.4, chloride was 97, carbon dioxide was 31, anion gap was 11, BUN was 13, creatinine 0.45, lactic acid was 0.7, calcium 9.4, ASTs are 13, ALTs are 10, alkaline phosphatase was 79. C-reactive protein was 22.2. BNP was 15. Urine color is red, urine appearance is cloudy. Specific gravity is 1.009. Urine wbc's are 3+, rbc's 3+. Chest x-ray, no active cardiopulmonary disease. Electrocardiogram shows sinus rhythm at a rate of 91. He had a CTA of the chest, radiologist impression: There is bilateral scattered regions of parenchymal consolidation noted at the lung bases concerning for infectious versus inflammatory process. No evidence of pulmonary embolus. ASSESSMENT AND PLAN: Ms. Salas is a 63-year-old female, who presented to the emergency room from [facility] today for evaluation of hematuria and shortness of breath. We were asked to see and evaluate her due to her shortness of breath and hematuria. 1. Shortness of breath. The patient does have bilateral consolidations noted on CT scan. I will place her on azithromycin, ceftriaxone as this is related to pneumonia. We will continue oxygen support as needed. I will get a procalcitonin, urine for Strep pneumoniae and legionella. She has blood cultures that are currently pending. We will obtain sputum culture if the patient develops productive cough. 2. Hematuria. The patient does have gross hematuria. Her urine culture is currently pending. She did receive ceftriaxone 1 g in the emergency room. She does have a history of ESBL and E. coli in her urine. At this time, culture is pending and we will adjust antibiotics as necessary. I will also get a renal and bladder ultrasound to evaluate for gross hematuria. We will consult Urology in the a.m. 3. Multiple sclerosis. Continue her Zanaflex 4 mg 4 times a day and baclofen 30 mg p.o. 4 times a day. 4. DVT prophylaxis. I will place her on SCDs as chemical prophylaxis is contraindicated at this time as the patient does have gross hematuria. 5. Code status. She is a full code. 6. Fluids, electrolytes, and nutrition. She can have a regular diet. TIME SPENT: Time spent on this admission was 60 minutes, greater than half the time was spent with the patient and his obtaining my history and physical, the other half of the time was spent going over my plan of care and implementing my plan of care. I have discussed this with my attending, Dr. Maria Chapa, she is in agreement with my plan. MARIANA HERR, MARBLE CUTTER OPERATOR [id number]/CPS #: [id number] MTDD
[2018-10-05] MEDS: traMADol TAB* 50 MG PO PRN ×2 (04:16→12:38)
[2018-10-05 06:56] LABS: ABS Basophils 0.1 10^3/ul (0-0.2); ABS Eosinophils 0.1 10^3/ul (0-0.6); ABS Lymphocytes 2.4 10^3/ul (1.0-4.8); ABS Monocytes 0.8 10^3/ul (0-0.8); ABS Neutrophils 4.3 10^3/ul (1.5-7.7); ABS Nucleated RBC 0 10^3/ul; Eosinophil % 1.3 %; Hematocrit 38 % (35-47); Hemoglobin 12.4 g/dl (12.0-16.0); Lymphocyte % 31.4 %; Mean Corpuscular HGB Conc 33 g/dl (31-36); Mean Corpuscular Hemoglobin 30 pg (27-31); Mean Corpuscular Volume 90 fL (80-97); Mean Platelet Volume 7.8 fL (7.4-10.4); Nucleated Red Blood Cells % 0.2; Platelet Count 330 10^3/ul (150-450); Red Blood Count 4.17 10^6/ul (4.00-5.40); Red Cell Distribution Width 14 % (10.5-15); White Blood Count 7.7 10^3/ul (3.5-10.8)
[2018-10-05 07:24] LABS: EGFR Non-African American 201.3 (>60)
[2018-10-05] MEDS ORDERED: Aspirin EC TAB* 81 MG TAB.EC PO SCH (09:00)
[2018-10-05] MEDS: cefTRIAXone(*) 1 GM in NS 0.9% 50 ML* 50 ML IVPB SCH (10:50)
[2018-10-05] MEDS: tiZANidine TAB* 2 MG PO SCH ×4 (10:53→21:14)
[2018-10-05] MEDS: Oxybutynin TAB* 5 MG PO SCH ×2 (10:53→21:14)
[2018-10-05] MEDS: Methylphenidate TAB* 10 MG PO SCH ×4 (10:53→21:09)
[2018-10-05] MEDS: Dronabinol CAP* 2.5 MG PO SCH ×4 (10:53→21:14)
[2018-10-05] MEDS: Baclofen TAB* 20 MG PO SCH ×4 (10:54→21:06)
[2018-10-05] MEDS ORDERED: Iohexol 300* (CONTRAST) 10 ML SDV IV ONE (17:14)
[2018-10-05] MEDS: Donepezil TAB* 5 MG PO SCH (17:46)
--- NOTE | 2018-10-05 20:37 | PN ---
Subjective Date of Service: 10/05/18 Interval History: patient c/o headache . denies neck pain.denies fever or chills denies n/v/d . denies abd pain . Does continue to have hematuria. denies chest pain or shortness of breath. reports that breath has improved since yesterday Family History: Unchanged from Admission Social History: Unchanged from Admission Past Medical History: Unchanged from Admission Objective Active Medications: Acetaminophen (Tylenol Tab*) 650 mg PO Q4H PRN PRN Reason: FEVER/PAIN Last Admin: 10/05/18 07:43 Dose: 650 mg Albuterol (Ventolin 2.5 Mg/3 Ml Neb.Romelia*) 2.5 mg INH [id number] AWAKE PRN PRN Reason: sob/wheezing Baclofen (Lioresal Tab*) 30 mg PO QID [facility] Last Admin: 10/05/18 17:42 Dose: 30 mg Donepezil HCl (Aricept Tab*) 10 mg PO QPM [facility] Last Admin: 10/05/18 17:46 Dose: 10 mg Dronabinol (Marinol Cap*) 5 mg PO QID [facility] Last Admin: 10/05/18 17:42 Dose: 5 mg Ceftriaxone Sodium 1 gm/ (Sodium Chloride) 50 mls @ 200 mls/hr IVPB Q24H [facility] Last Admin: 10/05/18 10:50 Dose: 200 mls/hr Azithromycin 500 mg/ Sodium (Chloride) 250 mls @ 250 mls/hr IVPB Q24H [facility] Last Admin: 10/04/18 22:27 Dose: 250 mls/hr Meclizine HCl (Antivert Tab*) 25 mg PO Q6HR PRN PRN Reason: DIZZINESS Methylphenidate HCl (Ritalin Tab*) 20 mg PO DAILY@0800 [facility] Last Admin: 10/05/18 10:53 Dose: 20 mg Methylphenidate HCl (Ritalin Tab*) 10 mg PO BID@1200,1600 [facility] Last Admin: 10/05/18 12:49 Dose: 10 mg Oxybutynin Chloride (Ditropan Tab*) 15 mg PO BID [facility] Last Admin: 10/05/18 10:53 Dose: 15 mg Polyethylene Glycol/Electrolytes (Miralax*) 17 gm PO DAILY PRN PRN Reason: CONSTIPATION Last Admin: 10/05/18 01:38 Dose: 17 gm Senna (Senokot Tab*) 2 tab PO BID PRN PRN Reason: CONSTIPATION Last Admin: 10/05/18 01:38 Dose: 2 tab Tizanidine HCl (Zanaflex Tab*) 4 mg PO QID MIHIR Last Admin: 10/05/18 17:41 Dose: 4 mg Tramadol HCl (Ultram*) 50 mg PO Q8H PRN PRN Reason: PAIN Last Admin: 10/05/18 12:38 Dose: 50 mg Vital Signs - 8 hr 10/05/18 10/05/18 10/05/18 12:38 12:39 12:40 Temperature Pulse Rate Respiratory 18 18 18 Rate Blood Pressure (mmHg) O2 Sat by Pulse Oximetry 10/05/18 10/05/18 10/05/18 13:44 13:56 15:39 Temperature 97.8 F 97.4 F Pulse Rate 83 76 Respiratory 18 20 16 Rate Blood Pressure 124/64 93/46 (mmHg) O2 Sat by Pulse 98 100 Oximetry 10/05/18 10/05/18 10/05/18 15:44 17:42 19:40 Temperature 97.5 F Pulse Rate 73 Respiratory 16 16 16 Rate Blood Pressure 116/59 (mmHg) O2 Sat by Pulse 99 Oximetry 10/05/18 10/05/18 20:00 20:04 Temperature Pulse Rate Respiratory 20 16 Rate Blood Pressure (mmHg) O2 Sat by Pulse Oximetry Oxygen Devices in Use Now: Nasal Cannula Appearance: appear uncomfortable resting in bed, no acute distress Eyes: No Scleral Icterus Ears/Nose/Mouth/Throat: Clear Oropharnyx, Mucous Membranes Moist Neck: NL Appearance and Movements; NL JVP, Trachea Midline, - - diminshed in the bases bilat Respiratory: Clear to Auscultation Cardiovascular: NL Sounds; No Murmurs; No JVD, No Edema Abdominal: NL Sounds; No Tenderness; No Distention Extremities: No Edema, No Clubbing, Cyanosis, - - left arm and right leg contracted Skin: - - small healing wound noted to coccyx and open area noted to right inner buttock Neurological: Alert and Oriented x 3 Nutrition: Taking PO's Result Diagrams: 10/05/18 06:28 10/05/18 06:28 Microbiology and Other Data: Microbiology 10/04/18 10:20 Aerobic Blood Culture - Preliminary Blood Venous No Growth Day 1 Anaerobic Blood Culture - Preliminary No Growth Day 1 10/04/18 10:24 Aerobic Blood Culture - Preliminary Blood Venous No Growth Day 1 Anaerobic Blood Culture - Preliminary No Growth Day 1 10/04/18 17:30 Nasal Screen MRSA (PCR) - Final Nasal Mrsa Not Detected Assess/Plan/Problems-Billing Assessment: Ms slade is a 63 y.o female with a pmhx of MS, depression and urinary incontinence who presented to the emergency room with shortness of breath and blood in the urine. - Patient Problems (1) Pneumonia Current Visit: Yes Status: Acute Code(s): J18.9 - PNEUMONIA, UNSPECIFIED ORGANISM SNOMED Code(s): 194342946 Comment: CTA of the chest shows bilat consolidation - will continue azithromycin and ceftriaxone blood culture pending (2) Hematuria Current Visit: Yes Status: Acute Code(s): R31.9 - HEMATURIA, UNSPECIFIED SNOMED Code(s): 54849911 Comment: consulted DR. arroyo- will get urogram gross hematuria will continue to monitor h/h kidney and bladder ultrasound showed - bilat hydronephrosis and collasped bladder (3) Multiple sclerosis exacerbation Current Visit: No Status: Acute Priority: Medium Code(s): G35 - MULTIPLE SCLEROSIS SNOMED Code(s): 383078667 Comment: stable continue medications as per home supportive care (4) DVT prophylaxis Current Visit: Yes Status: Acute Code(s): MQX8783 - SNOMED Code(s): 091080936 Comment: scd (5) Full code status Current Visit: Yes Status: Acute Code(s): Z78.9 - OTHER SPECIFIED HEALTH STATUS SNOMED Code(s): 279406022
--- NOTE | 2018-10-05 21:05 | PN ---
Progress Note - Progress Note Date of Service: 10/05/18 Note: CAT call for unresponsive behavior. RN went in to give meds and patient was unresponsive. Vitals WNL, 100% on oxygen. Patient unresponsive to sternal rub , not moving any air. Concern for GCS <8 and unable to protect her airway. Plans for intubation and then patient woke up yelling that we were hurting her and rubbing her chest. States she was aware of why we were doing it but it hurt and she states she was trying to communicate but was unable to. No neuro deficits. DDx; sleep paralysis vs partial seizure. Plan to keep on floor with frequent neuro checks. Spoke with Dr. Marquez
[2018-10-05] MEDS: Azithromycin IV(*) 500 MG in NS 0.9% 250 ML* 250 ML IVPB SCH (23:19)
[2018-10-06 01:13] LABS: Urine Appearance Cloudy; Urine Blood 3+ (Negative); Urine Color Yellow; Urine Ketones 1+ (Negative); Urine Protein 1+(30 mg/dL) (Negative); Urine Red Blood Cell 3+(>10/hpf) (Absent); Urine Specific Gravity 1.039 (1.010-1.030); Urine Urobilinogen Negative (Negative); Urine White Blood Cell 3+(>20/hpf) (Absent)
[2018-10-06 01:22] LABS: ABS Basophils 0 10^3/ul (0-0.2); ABS Eosinophils 0.2 10^3/ul (0-0.6); ABS Lymphocytes 2.3 10^3/ul (1.0-4.8); ABS Neutrophils 5.6 10^3/ul (1.5-7.7); ABS Nucleated RBC 0 10^3/ul; Eosinophil % 1.8 %; Hematocrit 39 % (35-47); Hemoglobin 12.7 g/dl (12.0-16.0); Lymphocyte % 25.1 %; Mean Corpuscular HGB Conc 32 g/dl (31-36); Mean Corpuscular Hemoglobin 29 pg (27-31); Mean Corpuscular Volume 91 fL (80-97); Mean Platelet Volume 7.4 fL (7.4-10.4); Nucleated Red Blood Cells % 0; Platelet Count 363 10^3/ul (150-450); Red Blood Count 4.34 10^6/ul (4.00-5.40); Red Cell Distribution Width 14 % (10.5-15)
--- NOTE | 2018-10-06 03:30 | CONS ---
CONSULTATION NOTE: DATE OF CONSULT: 10/05/18 LOCATION: Patient is on the 4th floor. HISTORY OF PRESENT ILLNESS: I was asked by Ms. Carmenza Coppola, from the hospitalist service, to see this 63-year-old white female, who was admitted with gross hematuria. Ms. Salas has had multiple sclerosis for many years. This resulted in significant contractures of her knees and of her hip joints. She has been in chronic diapers because of urge urinary incontinence and also because of difficulty getting out of bed to use the bathroom or to use the bed ascencio. She has had history of recurrent urinary tract infections and her urine cultures last year grew Citrobacter. The patient presented to the emergency room yesterday because of shortness of breath and 3 weeks' history of on and off gross hematuria. The hematuria was totally asymptomatic, not associated with any flank or abdominal pain and with no changes in her voiding. She did not have any fever or chills. Her lab work showed normal CBC and differential and normal serum creatinine. Urinalysis and cultures are pending. The patient had a renal ultrasound, which showed mild bilateral hydronephrosis but no other abnormalities. The bladder was empty. On interview and examination today, she is lying in bed. She has contractures of her knee and of her hip joints. There is no CVA tenderness and no suprapubic tenderness. After my initial evaluation, I requested a CT urogram. The study was performed this afternoon. The study showed normal kidneys without any hydronephrosis or renal masses and no abnormal filling defects in the ureters or the collecting system. The bladder is empty and could not be well visualized. There was significant amount of stool indicating impaction. IMPRESSION: Gross hematuria with history of multiple sclerosis, overactive bladder, urge urinary incontinence, and recurrent urinary tract infections, and distant history of smoking with normal kidneys and ureters by CT urogram. PLAN: We will await the result of the urine culture. If the urine culture is positive, then the hematuria can be explained on that basis and would re- evaluate after she is fully treated. If the urine culture is negative, then the patient will need cystoscopy to rule out any bladder lesions. [id number]/CPS #: [id number] MTDD
[2018-10-06] MEDS: Dronabinol CAP* 2.5 MG PO SCH ×4 (09:24→22:13)
[2018-10-06] MEDS: Methylphenidate TAB* 10 MG PO SCH ×3 (09:24→17:41)
[2018-10-06] MEDS: Baclofen TAB* 20 MG PO SCH ×4 (09:25→21:25)
[2018-10-06] MEDS: cefTRIAXone(*) 1 GM in NS 0.9% 50 ML* 50 ML IVPB SCH (10:33)
[2018-10-06] MEDS: Oxybutynin TAB* 5 MG PO SCH ×2 (12:35→21:29)
[2018-10-06] MEDS: tiZANidine TAB* 2 MG PO SCH ×4 (12:36→21:29)
--- NOTE | 2018-10-06 15:20 | PN ---
Subjective Date of Service: 10/06/18 Interval History: Patient was seen today in ICU, s/p Acute respiratory failure yesterday and altered mental status manifested by transient period of unresponsiveness and respiratory acidosis with hypercapnea, that required being transferred to ICU and placement on Bipap. this morning the patient is fully awake and alert and able to follow up all commands. She endorses the fact that while she could not respond to medical staff during the CAT call last night, she was able to hear and feel everything but could not move her extremities nor could she talk. She express no concerns today. She denies any headache this morning (for which she was taking tramadol) Social History: Unchanged from Admission Past Medical History: Unchanged from Admission Objective Active Medications: Acetaminophen (Tylenol Tab*) 650 mg PO Q4H PRN PRN Reason: FEVER/PAIN Last Admin: 10/05/18 07:43 Dose: 650 mg Albuterol (Ventolin 2.5 Mg/3 Ml Neb.Romelia*) 2.5 mg INH [id number] AWAKE PRN PRN Reason: sob/wheezing Baclofen (Lioresal Tab*) 30 mg PO QID [facility] Last Admin: 10/06/18 12:36 Dose: 30 mg Donepezil HCl (Aricept Tab*) 10 mg PO QPM [facility] Last Admin: 10/05/18 17:46 Dose: 10 mg Dronabinol (Marinol Cap*) 5 mg PO QID [facility] Last Admin: 10/06/18 12:37 Dose: 5 mg Ceftriaxone Sodium 1 gm/ (Sodium Chloride) 50 mls @ 200 mls/hr IVPB Q24H [facility] Last Admin: 10/06/18 10:33 Dose: 200 mls/hr Azithromycin 500 mg/ Sodium (Chloride) 250 mls @ 250 mls/hr IVPB Q24H [facility] Last Admin: 10/05/18 23:19 Dose: 250 mls/hr Meclizine HCl (Antivert Tab*) 25 mg PO Q6HR PRN PRN Reason: DIZZINESS Methylphenidate HCl (Ritalin Tab*) 20 mg PO DAILY@0800 [facility] Last Admin: 10/06/18 09:24 Dose: 20 mg Methylphenidate HCl (Ritalin Tab*) 10 mg PO BID@1200,1600 [facility] Last Admin: 10/06/18 12:42 Dose: 10 mg Oxybutynin Chloride (Ditropan Tab*) 15 mg PO 0900,2100 [facility] Last Admin: 10/06/18 12:35 Dose: 15 mg Polyethylene Glycol/Electrolytes (Miralax*) 17 gm PO DAILY PRN PRN Reason: CONSTIPATION Last Admin: 10/05/18 01:38 Dose: 17 gm Senna (Senokot Tab*) 2 tab PO BID PRN PRN Reason: CONSTIPATION Last Admin: 10/05/18 01:38 Dose: 2 tab Tizanidine HCl (Zanaflex Tab*) 4 mg PO QID [facility] Last Admin: 10/06/18 12:36 Dose: 4 mg Vital Signs - 8 hr 10/06/18 10/06/18 10/06/18 07:15 07:30 07:45 Temperature Pulse Rate 84 77 76 Respiratory 22 14 19 Rate Blood Pressure 148/70 141/77 131/66 (mmHg) O2 Sat by Pulse 97 98 97 Oximetry 10/06/18 10/06/18 10/06/18 07:50 08:00 08:01 Temperature 98.4 F Pulse Rate 86 89 Respiratory 20 19 Rate Blood Pressure 146/74 (mmHg) O2 Sat by Pulse 98 99 Oximetry 10/06/18 10/06/18 10/06/18 08:15 08:30 08:45 Temperature Pulse Rate 93 82 82 Respiratory 17 19 17 Rate Blood Pressure 159/75 140/71 158/69 (mmHg) O2 Sat by Pulse 96 99 99 Oximetry 10/06/18 10/06/18 10/06/18 09:00 09:15 09:30 Temperature Pulse Rate 83 80 87 Respiratory 21 15 16 Rate Blood Pressure 149/86 144/76 158/75 (mmHg) O2 Sat by Pulse 99 100 99 Oximetry 10/06/18 10/06/18 10/06/18 09:46 10:00 10:01 Temperature Pulse Rate 88 86 89 Respiratory 19 24 24 Rate Blood Pressure 138/64 149/81 (mmHg) O2 Sat by Pulse 98 98 99 Oximetry 10/06/18 10/06/18 10/06/18 10:15 10:30 10:45 Temperature Pulse Rate 85 95 90 Respiratory 21 18 20 Rate Blood Pressure 164/92 167/90 151/80 (mmHg) O2 Sat by Pulse 99 95 99 Oximetry 10/06/18 10/06/18 10/06/18 11:00 11:01 11:15 Temperature Pulse Rate 88 88 86 Respiratory 19 11 13 Rate Blood Pressure 146/77 145/75 (mmHg) O2 Sat by Pulse 99 99 100 Oximetry 10/06/18 10/06/18 10/06/18 11:30 11:45 12:00 Temperature 97 F Pulse Rate 86 91 82 Respiratory 22 26 14 Rate Blood Pressure 133/77 136/82 139/71 (mmHg) O2 Sat by Pulse 98 99 100 Oximetry 10/06/18 10/06/18 10/06/18 12:01 12:15 12:30 Temperature Pulse Rate 83 80 79 Respiratory 14 17 17 Rate Blood Pressure 148/72 147/81 (mmHg) O2 Sat by Pulse 100 100 99 Oximetry Oxygen Devices in Use Now: Nasal Cannula Appearance: awake, alert Eyes: No Scleral Icterus Ears/Nose/Mouth/Throat: NL Teeth, Lips, Gums, Clear Oropharnyx Neck: NL Appearance and Movements; NL JVP, Trachea Midline Respiratory: Symmetrical Chest Expansion and Respiratory Effort, - - diminished at bases Cardiovascular: NL Sounds; No Murmurs; No JVD, RRR Abdominal: NL Sounds; No Tenderness; No Distention Extremities: No Edema, - - bilateral upper and lower extremeties contracted with muscular hypotrophy Neurological: Alert and Oriented x 3 Result Diagrams: 10/06/18 01:12 10/05/18 06:28 Microbiology and Other Data: Microbiology 10/04/18 10:20 Aerobic Blood Culture - Preliminary Blood Venous No Growth Day 1 Anaerobic Blood Culture - Preliminary No Growth Day 1 10/04/18 10:24 Aerobic Blood Culture - Preliminary Blood Venous No Growth Day 1 Anaerobic Blood Culture - Preliminary No Growth Day 1 10/04/18 17:30 Nasal Screen MRSA (PCR) - Final Nasal Mrsa Not Detected Assess/Plan/Problems-Billing Assessment: Ms slade is a 63 y.o female with a pmhx of MS, depression and urinary incontinence who presented to the emergency room with shortness of breath and blood in the urine. - Patient Problems (1) UTI (urinary tract infection) Current Visit: Yes Status: Acute Comment: - Urine culture shows weak positivity for morganella morganii only 10-25K; Whether it is sufficient to trigger the hematuria is hard to be certain. - I will continue treatment (as the culture could have been partially treated before the specimen was collected) for now and reasess post treatment as she may still required cystoscopy. Will follow up with urology. (2) Hematuria Current Visit: Yes Status: Acute Code(s): R31.9 - HEMATURIA, UNSPECIFIED SNOMED Code(s): 25569810 Comment: - Consulted Dr. Sandoval - Input appreciated. CTY Urogram unremarkable - kidney and bladder ultrasound showed - bilat hydronephrosis and collasped bladder - Urine culture shows weak positivity for morganella morganii only 10-25K; Whether it is sufficient to trigger the hematuria is hard to be certain. - I will continue treatment (as the culture could have been partially treated before the specimen was collected) for now and reasess post treatment as she may still required cystoscopy. Will follow up with urology. (3) Pneumonia Current Visit: Yes Status: Acute Code(s): J18.9 - PNEUMONIA, UNSPECIFIED ORGANISM SNOMED Code(s): 663290639 Comment: - CTA of the chest shows bilat consolidation; will continue azithromycin Day # 2 and ceftriaxone Day # 2 - blood culture so far negative (4) Altered mental status Current Visit: No Status: Acute Priority: High Code(s): R41.82 - ALTERED MENTAL STATUS, UNSPECIFIED SNOMED Code(s): 447944475 Comment: - I suspect it was multifactorial due to acute cystitis, associated with muscle relaxant superimposed with tramadol in the setting of pneumonaie - Improving slowly; Will keep her in ICU overnight and in am if she has uneventful night will transfer out from ICU. - Patient and I discussed tramadol in length and agreed to discontinue it as it will put her at risk of respiratory depression, espesically now that she has no headache (5) Multiple sclerosis exacerbation Current Visit: No Status: Acute Priority: Medium Code(s): G35 - MULTIPLE SCLEROSIS SNOMED Code(s): 704492922 Comment: stable continue medications as per home supportive care (6) DVT prophylaxis Current Visit: Yes Status: Acute Code(s): ZNP4636 - SNOMED Code(s): 932210185 Comment: scd due to gross hematuria
[2018-10-06] MEDS: Donepezil TAB* 5 MG PO SCH (17:41)
[2018-10-06] MEDS: Azithromycin IV(*) 500 MG in NS 0.9% 250 ML* 250 ML IVPB SCH (21:30)
[2018-10-07 06:49] LABS: ABS Basophils 0.1 10^3/ul (0-0.2); ABS Eosinophils 0.1 10^3/ul (0-0.6); ABS Lymphocytes 2.3 10^3/ul (1.0-4.8); ABS Monocytes 0.6 10^3/ul (0-0.8); ABS Neutrophils 3.2 10^3/ul (1.5-7.7); ABS Nucleated RBC 0 10^3/ul; Eosinophil % 1.8 %; Hematocrit 38 % (35-47); Hemoglobin 12.1 g/dl (12.0-16.0); Lymphocyte % 36.3 %; Mean Corpuscular HGB Conc 32 g/dl (31-36); Mean Corpuscular Hemoglobin 29 pg (27-31); Mean Corpuscular Volume 90 fL (80-97); Nucleated Red Blood Cells % 0; Platelet Count 381 10^3/ul (150-450); Red Blood Count 4.17 10^6/ul (4.00-5.40); Red Cell Distribution Width 14 % (10.5-15); White Blood Count 6.3 10^3/ul (3.5-10.8)
[2018-10-07 07:06] LABS: EGFR Non-African American 182.1 (>60)
[2018-10-07] MEDS: Oxybutynin TAB* 5 MG PO SCH ×2 (09:59→20:52)
[2018-10-07] MEDS: Baclofen TAB* 20 MG PO SCH ×4 (10:00→20:50)
[2018-10-07] MEDS: Methylphenidate TAB* 10 MG PO SCH ×3 (10:00→18:16)
[2018-10-07] MEDS: tiZANidine TAB* 2 MG PO SCH ×4 (10:01→20:50)
[2018-10-07] MEDS: Dronabinol CAP* 2.5 MG PO SCH ×4 (10:02→20:52)
[2018-10-07] MEDS: cefTRIAXone(*) 1 GM in NS 0.9% 50 ML* 50 ML IVPB SCH (10:21)
[2018-10-07 13:00] LABS: Urine Appearance Cloudy; Urine Blood 3+ (Negative); Urine Color Yellow; Urine Ketones 1+ (Negative); Urine Protein 2+(100 mg/dL) (Negative); Urine Red Blood Cell 3+(>10/hpf) (Absent); Urine Specific Gravity 1.016 (1.010-1.030); Urine Urobilinogen Negative (Negative); Urine White Blood Cell 2+(11-20/hpf) (Absent)
--- NOTE | 2018-10-07 16:47 | PN ---
Subjective Date of Service: 10/07/18 Interval History: Patient seen today, much more awake. doing well. Asking to have regular diet. no concerns overnight. Taking po well. Did not have any respiratory distress overnight Social History: Unchanged from Admission Past Medical History: Unchanged from Admission Objective Active Medications: Acetaminophen (Tylenol Tab*) 650 mg PO Q4H PRN PRN Reason: FEVER/PAIN Last Admin: 10/05/18 07:43 Dose: 650 mg Albuterol (Ventolin 2.5 Mg/3 Ml Neb.Romelia*) 2.5 mg INH [id number] AWAKE PRN PRN Reason: sob/wheezing Azithromycin (Zithromax Tab*) 250 mg PO BEDTIME [facility] Baclofen (Lioresal Tab*) 30 mg PO QID [facility] Last Admin: 10/07/18 13:13 Dose: 30 mg Donepezil HCl (Aricept Tab*) 10 mg PO QPM [facility] Last Admin: 10/06/18 17:41 Dose: 10 mg Dronabinol (Marinol Cap*) 5 mg PO QID [facility] Last Admin: 10/07/18 13:11 Dose: 5 mg Ceftriaxone Sodium 1 gm/ (Sodium Chloride) 50 mls @ 200 mls/hr IVPB Q24H [facility] Last Admin: 10/07/18 10:21 Dose: 200 mls/hr Meclizine HCl (Antivert Tab*) 25 mg PO Q6HR PRN PRN Reason: DIZZINESS Methylphenidate HCl (Ritalin Tab*) 20 mg PO DAILY@0800 [facility] Last Admin: 10/07/18 10:00 Dose: 20 mg Methylphenidate HCl (Ritalin Tab*) 10 mg PO BID@1200,1600 [facility] Last Admin: 10/07/18 13:22 Dose: 10 mg Oxybutynin Chloride (Ditropan Tab*) 15 mg PO 0900,2100 [facility] Last Admin: 10/07/18 09:59 Dose: 15 mg Polyethylene Glycol/Electrolytes (Miralax*) 17 gm PO DAILY PRN PRN Reason: CONSTIPATION Last Admin: 10/05/18 01:38 Dose: 17 gm Senna (Senokot Tab*) 2 tab PO BID PRN PRN Reason: CONSTIPATION Last Admin: 10/05/18 01:38 Dose: 2 tab Tizanidine HCl (Zanaflex Tab*) 4 mg PO QID [facility] Last Admin: 12/07/18 13:12 Dose: 4 mg Vital Signs - 8 hr 10/07/18 10/07/18 10/07/18 10:02 11:31 13:11 Temperature 98.1 F Pulse Rate 104 Respiratory 16 16 16 Rate Blood Pressure 105/55 (mmHg) O2 Sat by Pulse 95 Oximetry Oxygen Devices in Use Now: None Appearance: Awake, alert. no acute distress Eyes: No Scleral Icterus, - - EOMI Ears/Nose/Mouth/Throat: NL Teeth, Lips, Gums, Mucous Membranes Moist Neck: NL Appearance and Movements; NL JVP, Trachea Midline Respiratory: Symmetrical Chest Expansion and Respiratory Effort, Clear to Auscultation Cardiovascular: NL Sounds; No Murmurs; No JVD, RRR Abdominal: NL Sounds; No Tenderness; No Distention Extremities: No Edema Neurological: Alert and Oriented x 3 Result Diagrams: 10/07/18 06:17 10/07/18 06:17 Microbiology and Other Data: Microbiology 10/04/18 10:20 Aerobic Blood Culture - Preliminary Blood Venous No Growth Day 1 Anaerobic Blood Culture - Preliminary No Growth Day 1 10/04/18 10:24 Aerobic Blood Culture - Preliminary Blood Venous No Growth Day 1 Anaerobic Blood Culture - Preliminary No Growth Day 1 10/04/18 17:30 Nasal Screen MRSA (PCR) - Final Nasal Mrsa Not Detected Assess/Plan/Problems-Billing Assessment: Ms slade is a 63 y.o female with a pmhx of MS, depression and urinary incontinence who presented to the emergency room with shortness of breath and blood in the urine. - Patient Problems (1) UTI (urinary tract infection) Current Visit: Yes Status: Acute Comment: - Urine culture shows weak positivity for morganella morganii only 10-25K; Whether it is sufficient to trigger the hematuria is hard to be certain. - I will continue treatment (as the culture could have been partially treated before the specimen was collected) for now and reasess post treatment as she may still required cystoscopy. Will follow up with urology. - UA much cleared today. will try to d/c see in am and refer for outpatient urology (2) Hematuria Current Visit: Yes Status: Acute Code(s): R31.9 - HEMATURIA, UNSPECIFIED SNOMED Code(s): 46459510 Comment: - Consulted Dr. Sandoval - Input appreciated. CTY Urogram unremarkable - kidney and bladder ultrasound showed - bilat hydronephrosis and collasped bladder - Urine culture shows weak positivity for morganella morganii only 10-25K; Whether it is sufficient to trigger the hematuria is hard to be certain. - I will continue treatment (as the culture could have been partially treated before the specimen was collected) for now and reasess post treatment as she may still required cystoscopy. Will follow up with urology. - UA much cleared today. will try to d/c see in am and refer for outpatient urology (3) Pneumonia Current Visit: Yes Status: Acute Code(s): J18.9 - PNEUMONIA, UNSPECIFIED ORGANISM SNOMED Code(s): 660883067 Comment: - CTA of the chest shows bilat consolidation; will continue azithromycin Day # 3 and ceftriaxone Day # 3 - blood culture so far negative (4) Altered mental status Current Visit: No Status: Acute Priority: High Code(s): R41.82 - ALTERED MENTAL STATUS, UNSPECIFIED SNOMED Code(s): 930906005 Comment: - I suspect it was multifactorial consistent with metabolic encephalopathy due acute cystitis, in the setting of pneumonaie as well as drug induced encephalopaty of combination of muscle relaxant and tramadol - Improving slowly; Will keep her in ICU overnight and in am if she has uneventful night will transfer out from ICU. - Patient and I discussed tramadol in length and agreed to discontinue it as it will put her at risk of respiratory depression, espesically now that she has no headache (5) Multiple sclerosis exacerbation Current Visit: No Status: Acute Priority: Medium Code(s): G35 - MULTIPLE SCLEROSIS SNOMED Code(s): 870320475 Comment: stable continue medications as per home supportive care (6) DVT prophylaxis Current Visit: Yes Status: Acute Code(s): YWL9391 - SNOMED Code(s): 333753475 Comment: scd due to gross hematuria Status and Disposition: Discharge potential Wednesday to intermediate
[2018-10-07] MEDS: Donepezil TAB* 5 MG PO SCH (18:01)
[2018-10-07] MEDS: Azithromycin TAB* 250 MG PO SCH (20:51)
[2018-10-08] MEDS: tiZANidine TAB* 2 MG PO SCH ×4 (08:26→20:25)
[2018-10-08] MEDS: Methylphenidate TAB* 10 MG PO SCH ×3 (08:26→17:06)
[2018-10-08] MEDS: Oxybutynin TAB* 5 MG PO SCH ×2 (08:27→20:28)
[2018-10-08] MEDS: Baclofen TAB* 20 MG PO SCH ×4 (08:28→20:26)
[2018-10-08] MEDS: Dronabinol CAP* 2.5 MG PO SCH ×4 (10:18→20:25)
[2018-10-08] MEDS: cefTRIAXone(*) 1 GM in NS 0.9% 50 ML* 50 ML IVPB SCH (10:19)
--- NOTE | 2018-10-08 10:55 | PN ---
Subjective Date of Service: 10/08/18 Interval History: Patient seen, she is not in any distress. She slept well. denies any fever or chills. Her hematuria resolved. clear yellow. Plan to return to [facility] in am Social History: Unchanged from Admission Past Medical History: Unchanged from Admission Objective Active Medications: Acetaminophen (Tylenol Tab*) 650 mg PO Q4H PRN PRN Reason: FEVER/PAIN Last Admin: 10/05/18 07:43 Dose: 650 mg Albuterol (Ventolin 2.5 Mg/3 Ml Neb.Romelia*) 2.5 mg INH [id number] AWAKE PRN PRN Reason: sob/wheezing Azithromycin (Zithromax Tab*) 250 mg PO BEDTIME [facility] Last Admin: 10/07/18 20:51 Dose: 250 mg Baclofen (Lioresal Tab*) 30 mg PO QID [facility] Last Admin: 10/08/18 08:28 Dose: 30 mg Donepezil HCl (Aricept Tab*) 10 mg PO QPM [facility] Last Admin: 10/07/18 18:01 Dose: 10 mg Dronabinol (Marinol Cap*) 5 mg PO QID [facility] Last Admin: 10/08/18 10:18 Dose: 5 mg Ceftriaxone Sodium 1 gm/ (Sodium Chloride) 50 mls @ 200 mls/hr IVPB Q24H [facility] Last Admin: 10/08/18 10:19 Dose: 200 mls/hr Meclizine HCl (Antivert Tab*) 25 mg PO Q6HR PRN PRN Reason: DIZZINESS Methylphenidate HCl (Ritalin Tab*) 20 mg PO DAILY@0800 [facility] Last Admin: 10/08/18 08:26 Dose: 20 mg Methylphenidate HCl (Ritalin Tab*) 10 mg PO BID@1200,1600 [facility] Last Admin: 10/07/18 18:16 Dose: 10 mg Oxybutynin Chloride (Ditropan Tab*) 15 mg PO 0900,2100 [facility] Last Admin: 10/08/18 08:27 Dose: 15 mg Polyethylene Glycol/Electrolytes (Miralax*) 17 gm PO DAILY PRN PRN Reason: CONSTIPATION Last Admin: 10/05/18 01:38 Dose: 17 gm Senna (Senokot Tab*) 2 tab PO BID PRN PRN Reason: CONSTIPATION Last Admin: 10/05/18 01:38 Dose: 2 tab Tizanidine HCl (Zanaflex Tab*) 4 mg PO QID [facility] Last Admin: 10/08/18 08:26 Dose: 4 mg Vital Signs - 8 hr 10/08/18 10/08/18 10/08/18 04:58 07:38 10:18 Temperature 97.4 F 98.4 F Pulse Rate 67 73 Respiratory 18 24 16 Rate Blood Pressure 156/70 146/64 (mmHg) O2 Sat by Pulse 96 87 Oximetry Oxygen Devices in Use Now: None Appearance: Awake, alert. no distress Eyes: No Scleral Icterus, - - EOMI Ears/Nose/Mouth/Throat: Clear Oropharnyx, Mucous Membranes Moist Neck: NL Appearance and Movements; NL JVP, Trachea Midline Respiratory: Symmetrical Chest Expansion and Respiratory Effort, Clear to Auscultation Cardiovascular: NL Sounds; No Murmurs; No JVD, RRR Abdominal: NL Sounds; No Tenderness; No Distention Extremities: - - contracted, bilateral. Skin: - - sacral decub x 3 present on admission at sacral Result Diagrams: 10/07/18 06:17 10/07/18 06:17 Microbiology and Other Data: Microbiology 10/04/18 10:20 Aerobic Blood Culture - Preliminary Blood Venous No Growth Day 1 Anaerobic Blood Culture - Preliminary No Growth Day 1 10/04/18 10:24 Aerobic Blood Culture - Preliminary Blood Venous No Growth Day 1 Anaerobic Blood Culture - Preliminary No Growth Day 1 10/04/18 17:30 Nasal Screen MRSA (PCR) - Final Nasal Mrsa Not Detected Assess/Plan/Problems-Billing Assessment: Ms slade is a 63 y.o female with a pmhx of MS, depression and urinary incontinence who presented to the emergency room with shortness of breath and blood in the urine. - Patient Problems (1) Pneumonia Current Visit: Yes Status: Acute Code(s): J18.9 - PNEUMONIA, UNSPECIFIED ORGANISM SNOMED Code(s): 325424698 Comment: - CTA of the chest shows bilat consolidation; will continue azithromycin Day # 4 and ceftriaxone Day # 4, will change to vantin 200 mg bid on discharge to complete 10 days course - blood culture so far negative (2) UTI (urinary tract infection) Current Visit: Yes Status: Acute Comment: - Urine culture shows weak positivity for morganella morganii only 10-25K; Whether it is sufficient to trigger the hematuria is hard to be certain. - I will continue treatment (as the culture could have been partially treated before the specimen was collected) for now and reasess post treatment as she may still required cystoscopy. Will follow up with urology. - UA much cleared today. will d/c see and refer for outpatient urology (3) Hematuria Current Visit: Yes Status: Acute Code(s): R31.9 - HEMATURIA, UNSPECIFIED SNOMED Code(s): 54736952 Comment: - Consulted Dr. Sandoval - Input appreciated. CTY Urogram unremarkable - kidney and bladder ultrasound showed - bilat hydronephrosis and collasped bladder - Urine culture shows weak positivity for morganella morganii only 10-25K; Whether it is sufficient to trigger the hematuria is hard to be certain. - I will continue treatment (as the culture could have been partially treated before the specimen was collected) for now and reasess post treatment as she may still required cystoscopy. Will follow up with urology. - UA much cleared today. gio d/c see in and refer for outpatient urology (4) Altered mental status Current Visit: No Status: Acute Priority: High Code(s): R41.82 - ALTERED MENTAL STATUS, UNSPECIFIED SNOMED Code(s): 305925967 Comment: - I suspect it was multifactorial consistent with metabolic encephalopathy due acute cystitis, in the setting of pneumonaie as well as drug induced encephalopaty of combination of muscle relaxant and tramadol - Improving slowly; Will keep her in ICU overnight and in am if she has uneventful night will transfer out from ICU. - Patient and I discussed tramadol in length and agreed to discontinue it as it will put her at risk of respiratory depression, espesically now that she has no headache (5) Multiple sclerosis exacerbation Current Visit: No Status: Acute Priority: Medium Code(s): G35 - MULTIPLE SCLEROSIS SNOMED Code(s): 307225838 Comment: stable continue medications as per home supportive care (6) DVT prophylaxis Current Visit: Yes Status: Acute Code(s): PWL7280 - SNOMED Code(s): 984565562 Comment: scd due to gross hematuria Status and Disposition: Discharge potential Wednesday to [facility]
[2018-10-08] MEDS: Donepezil TAB* 5 MG PO SCH (17:02)
[2018-10-08] MEDS: Azithromycin TAB* 250 MG PO SCH (20:28)
[2018-10-08] MEDS ORDERED: Amitriptyline TAB* 50 MG PO SCH (21:00)
[2018-10-09 08:11] VITALS: BP 147/67
[2018-10-09] MEDS: Oxybutynin TAB* 5 MG PO SCH (08:29)
[2018-10-09] MEDS: Baclofen TAB* 20 MG PO SCH (08:30)
[2018-10-09] MEDS: Dronabinol CAP* 2.5 MG PO SCH (08:31)
[2018-10-09] MEDS: tiZANidine TAB* 2 MG PO SCH (08:31)
[2018-10-09] MEDS: Methylphenidate TAB* 10 MG PO SCH (08:31)
--- NOTE | 2018-10-09 09:25 | PN ---
Subjective Date of Service: 10/09/18 Interval History: Patient seen today, in bed tolerating breakfast well. No acute disease. No distress. she had a good night. No fever or chills. 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 Social History: Unchanged from Admission Past Medical History: Unchanged from Admission Objective Active Medications: Acetaminophen (Tylenol Tab*) 650 mg PO Q4H PRN PRN Reason: FEVER/PAIN Last Admin: 10/05/18 07:43 Dose: 650 mg Albuterol (Ventolin 2.5 Mg/3 Ml Neb.Romelia*) 2.5 mg INH [id number] AWAKE PRN PRN Reason: sob/wheezing Amitriptyline HCl (Elavil Tab*) 150 mg PO BEDTIME [facility] Last Admin: 10/08/18 20:58 Dose: 150 mg Azithromycin (Zithromax Tab*) 250 mg PO BEDTIME [facility] Last Admin: 10/08/18 20:28 Dose: 250 mg Baclofen (Lioresal Tab*) 30 mg PO QID [facility] Last Admin: 10/09/18 08:30 Dose: 30 mg Donepezil HCl (Aricept Tab*) 10 mg PO QPM [facility] Last Admin: 10/08/18 17:02 Dose: 10 mg Dronabinol (Marinol Cap*) 5 mg PO QID [facility] Last Admin: 10/09/18 08:31 Dose: 5 mg Ceftriaxone Sodium 1 gm/ (Sodium Chloride) 50 mls @ 200 mls/hr IVPB Q24H [facility] Last Admin: 10/08/18 10:19 Dose: 200 mls/hr Meclizine HCl (Antivert Tab*) 25 mg PO Q6HR PRN PRN Reason: DIZZINESS Methylphenidate HCl (Ritalin Tab*) 20 mg PO DAILY@0800 [facility] Last Admin: 10/09/18 08:31 Dose: 20 mg Methylphenidate HCl (Ritalin Tab*) 10 mg PO BID@1200,1600 [facility] Last Admin: 10/08/18 17:06 Dose: 10 mg Oxybutynin Chloride (Ditropan Tab*) 15 mg PO 0900,2100 [facility] Last Admin: 10/09/18 08:29 Dose: 15 mg Polyethylene Glycol/Electrolytes (Miralax*) 17 gm PO DAILY PRN PRN Reason: CONSTIPATION Last Admin: 10/05/18 01:38 Dose: 17 gm Senna (Senokot Tab*) 2 tab PO BID PRN PRN Reason: CONSTIPATION Last Admin: 10/05/18 01:38 Dose: 2 tab Tizanidine HCl (Zanaflex Tab*) 4 mg PO QID [facility] Last Admin: 10/09/18 08:31 Dose: 4 mg Vital Signs - 8 hr 10/09/18 10/09/18 10/09/18 03:26 08:00 08:31 Temperature 97.0 F 97.4 F Pulse Rate 69 72 Respiratory 18 16 16 Rate Blood Pressure 140/69 147/67 (mmHg) O2 Sat by Pulse 90 96 Oximetry Oxygen Devices in Use Now: None Appearance: awake alert. no distress Eyes: No Scleral Icterus, - Ears/Nose/Mouth/Throat: NL Teeth, Lips, Gums, Clear Oropharnyx Neck: NL Appearance and Movements; NL JVP, Trachea Midline Respiratory: Symmetrical Chest Expansion and Respiratory Effort, Clear to Auscultation Cardiovascular: NL Sounds; No Murmurs; No JVD, RRR Abdominal: NL Sounds; No Tenderness; No Distention Extremities: - - + contracture and increase spasticity. Skin shows positive livedo reticularis to both upper and lower extremeties. these has been present chronically as acknowledge by patient Neurological: Alert and Oriented x 3, - - increase spasticity Result Diagrams: 10/07/18 06:17 10/07/18 06:17 Microbiology and Other Data: Microbiology 10/04/18 10:20 Aerobic Blood Culture - Preliminary Blood Venous No Growth Day 1 Anaerobic Blood Culture - Preliminary No Growth Day 1 10/04/18 10:24 Aerobic Blood Culture - Preliminary Blood Venous No Growth Day 1 Anaerobic Blood Culture - Preliminary No Growth Day 1 10/04/18 17:30 Nasal Screen MRSA (PCR) - Final Nasal Mrsa Not Detected Assess/Plan/Problems-Billing Assessment: Ms slade is a 63 y.o female with a pmhx of MS, depression and urinary incontinence who presented to the emergency room with shortness of breath and blood in the urine. - Patient Problems (1) Pneumonia Current Visit: Yes Status: Acute Code(s): J18.9 - PNEUMONIA, UNSPECIFIED ORGANISM SNOMED Code(s): 162899603 Comment: - CTA of the chest shows bilat consolidation; she needs one more day of azithromycin to complete 5 days. will change ceftriaxone Day # 4 to vantin 200 mg bid to complete 10 days course, - blood culture so far negative (2) UTI (urinary tract infection) Current Visit: Yes Status: Acute Comment: - Urine culture shows weak positivity for morganella morganii only 10-25K; Whether it is sufficient to trigger the hematuria is hard to be certain. - I will continue treatment (as the culture could have been partially treated before the specimen was collected) for now and reasess post treatment as she may still required cystoscopy. Will follow up with urology. - UA much cleared today. will d/c see and refer for outpatient urology (3) Hematuria Current Visit: Yes Status: Acute Code(s): R31.9 - HEMATURIA, UNSPECIFIED SNOMED Code(s): 65701191 Comment: - Consulted Dr. Sandoval - Input appreciated. CTY Urogram unremarkable - kidney and bladder ultrasound showed - bilat hydronephrosis and collasped bladder - Urine culture shows weak positivity for morganella morganii only 10-25K; Whether it is sufficient to trigger the hematuria is hard to be certain. - I will continue treatment (as the culture could have been partially treated before the specimen was collected) for now and reasess post treatment as she may still required cystoscopy. Will follow up with urology. - UA much cleared today. gio d/c see in and refer for outpatient urology (4) Altered mental status Current Visit: No Status: Resolved Priority: High Code(s): R41.82 - ALTERED MENTAL STATUS, UNSPECIFIED SNOMED Code(s): 773824623 Comment: - I suspect it was multifactorial consistent with metabolic encephalopathy due acute cystitis, in the setting of pneumonaie as well as drug induced encephalopaty of combination of muscle relaxant and tramadol - Improving slowly; Will keep her in ICU overnight and in am if she has uneventful night will transfer out from ICU. - Patient and I discussed tramadol in length and agreed to discontinue it as it will put her at risk of respiratory depression, espesically now that she has no headache (5) Multiple sclerosis exacerbation Current Visit: No Status: Chronic Priority: Medium Code(s): G35 - MULTIPLE SCLEROSIS SNOMED Code(s): 432246502 Comment: stable continue medications as per home supportive care (6) DVT prophylaxis Current Visit: Yes Status: Acute Code(s): UWP3116 - SNOMED Code(s): 914314938 Comment: scd due to gross hematuria Status and Disposition: Discharge potential Wednesday to [facility]
[2018-10-09] MEDS: cefTRIAXone(*) 1 GM in NS 0.9% 50 ML* 50 ML IVPB SCH (10:00)
--- NOTE | 2018-10-09 11:50 | DS ---
CC: PCP; Dr. Parker DISCHARGE SUMMARY: DATE OF ADMISSION: 10/04/18 DATE OF DISCHARGE: 10/09/18 FINAL DISCHARGE DIAGNOSES: 1. Bilateral pneumonia. 2. Urinary tract infection. 3. Hematuria. 4. Toxic metabolic encephalopathy secondary to her cystitis with pneumonia, complicated with the reji g-induced muscle relaxants along with tramadol, requiring BIPAP treatment for respiratory failure. 5. Status post respiratory failure secondary to metabolic toxic encephalopathy. 6. Multiple sclerosis. 7. Livedo reticularis. HISTORY OF PRESENT ILLNESS: This is a 63-year-old female who presented to [facility] on 12/05/17 for shortness of breath and blood in the urine associated with urinary incontinence and short ness of breath progression over the past 3 days. She also has underlying history of multiple scleros is and she resides at [facility]. On presentation in the emergency room, her physical exam was rebekah rly unremarkable with no temperature, normal blood pressure; however, she did have gross hematuria on insertion of her Tinoco catheter, and her diagnostic study revealed evidence of UTI on her urinalysis . Therefore, the patient was admitted, placed on IV antibiotic and a CT angiogram of the chest revea led bilateral parenchymal consolidation suggestive of pneumonia but no evidence of PE. She was start ed on ceftriaxone and azithromycin, and over the course of 24 to 48 hours she did improve but on 04/18, she was found to be unresponsive, difficult to arouse with evidence of respiratory acidosis on her ABG with pH of 7.33, pCO2 of 72, and she was transferred to ICU for BIPAP treatment and rescue BI PAP. I did evaluate the patient the following morning, 10/06/18. She was off the BIPAP, awake, aler t. I did review her medication and I discontinued her tramadol, which she was taking in addition to h er amitriptyline, Zanaflex, and baclofen. I believe with the combination of her multi-drug and polyp harmacy of opiate therapy with tramadol, muscle relaxant, and tricyclic with underlying multiple scle rosis must have caused slight decrease of her respiratory drive causing hypercapnia and respiratory a cidosis. The patient agreed with discontinuation of tramadol. She was transferred out of the ICU an d she was maintained on IV antibiotic therapy. She continued to improve without any acute event over the next few days and today she was seen and evaluated. She had been stable. Vitals unremarkable. She will still have one more day of azithromycin for which I would switch to p.o. and I will transit ion her from ceftriaxone to Vantin to complete a total 10-day course therapy. For her hematuria, she was consulted with Urology, Dr. Parker who saw her. He recommended to rule out UTI, which did com e back positive for Morganella morganii whether it was partially treated before cultures, was hard to determine. Nonetheless, her hematuria resolved and repeat urine culture on 10/07/18 revealed no growth, which probably sensitive to ceftriaxone as well. Nonetheless, I would recommend t o have followup with Dr. Parker as an outpatient for further recommendation for her UTI and cystiti s along with hematuria. Therefore, the patient was seen and evaluated by me this morning and she was deemed stable for discharge. PHYSICAL EXAMINATION: Temperature 97.4, pulse 72, respiratory rate 16, satting 96%, pressure 147/67. Generally, she is awake, alert. She does have evidence of livedo reticularis which the patient say s is chronic. Her upper and lower extremities have increased spasticity. Lower extremities are cont racted. She does have stage 1 to 2 sacral ulcer on the buttocks, which has been present prior to adm ission. Her lungs are clear to auscultation. Trachea is midline. Cardiovascular: S1, S2. Regular rate and rhythm. Abdomen: Positive bowel sounds, soft, nontender, nondistended. DISCHARGE MEDICATIONS: 1. Baclofen 30 mg 4 times a day, resume. 2. Aricept 10 mg at night. 3. Marinol 5 mg 4 times a day. 4. Meclizine 25 mg q.6 hours p.r.n. 5. Reglan 10 mg b.i.d. 6. Reglan 20 mg daily. 7. Oxybutynin 15 mg b.i.d. 8. Zanaflex 4 mg 4 times a day. 9. Tylenol 1 g every 8 hours as needed. 10. Amitriptyline 150 mg at bedtime. 11. Aspirin 81 mg daily. 12. Azithromycin 250 mg daily for 1 more day. 13. Refresh liquid gel 1% to both eyes 4 times a day. 14. Vantin 200 mg b.i.d. for 6 more days. 15. Vitamin D 4000 units daily. 16. Cyclosporin 1 drop twice a day. 17. Hydrocortisone 1 application daily. 18. Ketoconazole shampoo daily. 19. Miconazole antifungal cream q.p.m. 20. Multivitamin daily. 21. MiraLax 17 g daily. 22. Senna 2 tabs b.i.d. 23. Triamcinolone 1 application daily. DISCHARGE INSTRUCTIONS: 1. I recommended to complete her antibiotic as prescribed, azithromycin for 1 day, Vantin for 6 days . 2. I recommend to repeat a chest x-ray in about 4 to 6 weeks to ensure complete resolution of her in filtrate. 3. I recommend to follow up with Urology, Dr. Parker, in 1 to 2 weeks for her hematuria. [id number]/[facility] #: [id number]
== END 2018-10-09 11:10 | DRG 139 ==
LOC: ED 09:47 → MEDTELE 14:47 → MED 16:04 → MEDTELE 16:08 → OBSVTOIN 10-05 15:26 → ICU 10-05 23:41 → MEDTELE 10-06 22:05
PROVIDERS: ADMIT Internal Medicine; ATTEND Internal Medicine
PROC: 5A09357 Assistance with Respiratory Ventilation, Less than 24 Consecutive Hours, Continuous Positive Airway Pressure (ICD-10-PCS; principal; 2018-10-05)
DX: J18.9 Pneumonia, unspecified organism (principal); J96.02 Acute respiratory failure with hypercapnia; G92 Toxic encephalopathy; E87.2 Acidosis; N39.0 Urinary tract infection, site not specified; L89.302 Pressure ulcer of unspecified buttock, stage 2; G35 Multiple sclerosis; B96.89 Other specified bacterial agents as the cause of diseases classified elsewhere; R31.0 Gross hematuria; T40.4X5A Adverse effect of other synthetic narcotics, initial encounter; Y92.230 Patient room in hospital as the place of occurrence of the external cause; X58.XXXA Exposure to other specified factors, initial encounter; R23.1 Pallor; F32.9 Major depressive disorder, single episode, unspecified; R32 Unspecified urinary incontinence; Z79.1 Long term (current) use of non-steroidal anti-inflammatories (NSAID); Z79.82 Long term (current) use of aspirin; Z79.899 Other long term (current) drug therapy; Z88.0 Allergy status to penicillin; Z88.8 Allergy status to other drugs, medicaments and biological substances; Z87.891 Personal history of nicotine dependence
CPT/HCPCS: 36415; 36600; 70450; 71045; 71275; 74178; 76377; 76770; 80048; 80053; 80076; 81003; 81015; 82140; 82550; 82553; 82803; 83605; 83735; 83880; 84100; 84484; 85025; 85379; 85610; 85730; 86140; 87040; 87077; 87086; 87186; 87641; 93005; 94660; 99285; A9270-GY; G0378; J0456; J0696; Q9967

== ENCOUNTER 2019-04-20 08:26 | Observation (INO) | payer MEDICAID ==
--- NOTE | 2019-04-20 09:57 | ED ---
Complex/Multi-Sys Presentation - HPI Summary HPI Summary: This patient is a 63 year old F presenting to [facility] via ambulance with a chief complaint of SOB since AMS and SOB per EMS. The patient rates the pain 0/10 in severity. Symptoms aggravated by nothing. Symptoms alleviated by nothing. Patient reports being depressed and fatigue. Pt denies any fever, chills, erythema of eyes, sore throat, CP, SOB, cough, abdominal pain, N/V, dysuria, hematuria, myalgia, edema, rash, dizziness, or YU. Pt was sent to ER from [facility] after a night of AMS per staff. Per staff, the patient kept yelling help, help. Patient Staff was unable to get VS as patient was too restless. She stated she did not feel well. Patient was alert and oriented to place and name. - History Of Current Complaint Chief Complaint: EDGeneral Time Seen by Provider: 04/20/19 08:49 Hx Obtained From: Patient, EMS, Other: - medical records Timing: Intermittent, Lasting: Severity Currently: None Aggravating Factor(s): nothing Alleviating Factor(s): nothing Associated Signs And Symptoms: Positive: Other - negative - hematuria. Negative : Headache, Chest Pain, Nausea, Vomiting, Abdominal Pain, Dysuria, Fever - Allergies/Home Medications Allergies/Adverse Reactions: Allergies Allergy/AdvReac Type Severity Reaction Status Date / Time methylprednisolone Allergy Intermediate Rash Verified 04/20/19 08:59 penicillin G Allergy Intermediate Hives Verified 04/20/19 08:59 tramadol AdvReac Severe See Comment Verified 04/20/19 08:59 PMH/Surg Hx/FS Hx/Imm Hx Previously Healthy: No Endocrine/Hematology History: Denies: Hx Diabetes Cardiovascular History: Denies: Hx Hypertension, Hx Pacemaker/ICD Respiratory History: Denies: Hx Asthma, Hx Chronic Obstructive Pulmonary Disease (COPD) History: Denies: Hx Dialysis, Hx Renal Disease Musculoskeletal History: Reports: Other Musculoskeletal History - cervical spine dysectomy Sensory History: Reports: Hx Contacts or Glasses Denies: Hx Hearing Aid Opthamlomology History: Reports: Hx Contacts or Glasses Neurological History: Denies: Hx Dementia, Hx Seizures Psychiatric History: Denies: Hx Eating Disorder, Hx Panic Disorder - Surgical History Surgical History: Yes Surgery Procedure, Year, and Place: , CSP DISCECTOMY (WITH PLATES) Infectious Disease History: No Infectious Disease History: Reports: Hx of Known/Suspected MRSA - hx in 2015, Hx Shingles Denies: Traveled Outside the [place] in Last 30 Days - Family History Known Family History: Positive: Other - Denies FHx psychotic disorders, schizophrenia, mood disorders - Social History Alcohol Use: None Hx Substance Use: No Substance Use Type: Reports: None Hx Tobacco Use: No Smoking Status (MU): Never Smoked Tobacco Do You Chew or Dip Tobacco: No Have You Chewed or Dipped Tobacco in the LAST YEAR: No Have You Smoked in the Last Year: No Review of Systems Positive: Fatigue. Negative: Fever, Chills Negative: Erythema Negative: Sore Throat Negative: Chest Pain Negative: Shortness Of Breath, Cough Negative: Abdominal Pain, Vomiting, Nausea Negative: dysuria, hematuria Negative: Myalgia, Edema Negative: Rash Neurological: Other - negative - dizziness Negative: Headache Positive: Depressed All Other Systems Reviewed And Are Negative: Yes Physical Exam - Summary Physical Exam Summary: Constitutional: Well-developed, Well-nourished, Alert. (-) Distressed Skin: Warm, Dry HENT: Oral muscosa dry, Normocephalic; Atraumatic Eyes: Conjunctiva normal Neck: Musculoskeletal ROM normal neck. (-) JVD, (-) Stridor, (-) Tracheal deviation Cardio: Rhythm regular, rate normal, Heart sounds normal; Intact distal pulses; The pedal pulses are 2+ and symmetric. Radial pulses are 2+ and symmetric. (-) Murmur Pulmonary/Chest wall: Effort normal. (-) Respiratory distress, (-) Wheezes, (-) Rales Abd: Soft, (-) tenderness, (-) Distension, (-) Guarding, (-) Rebound Musculoskeletal: Lower extremity bandaged, Brace on right ankle, Lower extremity weak symmetric bilaterally, (-) Edema, Lymph: (-) Cervical adenopathy Neuro: Disoriented, Speech is slow Psych: Mood and affect Normal GCS: 13 (Best eye response 4/4, best motor response 5/6, best verbal response 4/5) Triage Information Reviewed: Yes Vital Signs On Initial Exam: Initial Vitals Temp Pulse Resp BP Pulse Ox 97.9 F 79 20 146/89 100 04/20/19 08:33 04/20/19 08:33 04/20/19 08:33 04/20/19 08:33 04/20/19 08:33 Vital Signs Reviewed: Yes - Smooth Coma Scale Best Eye Response: 4 - Spontaneous Best Motor Response: 5 - Purposeful Movement Best Verbal Response: 4 - Confused Coma Scale Total: 13 Diagnostics - Vital Signs Vital Signs Temp Pulse Resp BP Pulse Ox 04/20/19 08:34 78 100 04/20/19 08:33 97.9 F 78 20 146/89 100 - Laboratory Result Diagrams: 04/20/19 09:00 04/20/19 10:30 Lab Statement: Any lab studies that have been ordered have been reviewed, and results considered in the medical decision making process. - Radiology CXR Radiology Interpretation Completed By: Radiologist Summary of Radiographic Findings: IMPRESSION: NO ACTIVE CARDIOPULMONARY DISEASE. These findings were reviewed by Dr. Romo. - CT BRAIN CT Interpretation Completed By: Radiologist Summary of CT Findings: IMPRESSION: LIMITED STUDY. NO ACUTE INTRACRANIAL PATHOLOGY. These findings were reviewed by Dr. Romo. - EKG 0903 Cardiac Rate: NL - 79 BPM EKG Rhythm: Sinus Rhythm Summary of EKG Findings: 79 BPM, sinus rhythm, no STEMI Re-Evaluation - Re-Evaluation First Eval Re-Evaluation Time: 11:40 Comment: I discussed admission with the patient. She is agreeable. Complex Multi-Symp Course/Dx Course Of Treatment: This patient is a 63 year old F presenting to [facility] via ambulance with a chief complaint of SOB since AMS and SOB per EMS. The patient rates the pain 0/10 in severity. Symptoms aggravated by nothing. Symptoms alleviated by nothing. Patient reports being depressed and fatigue. Pt denies any fever, chills, erythema of eyes, sore throat, CP, SOB, cough, abdominal pain , N/V, dysuria, hematuria, myalgia, edema, rash, dizziness, or YU. Pt was sent to ER from [facility] after a night of AMS per staff. Per staff , the patient kept yelling help, help. Patient Staff was unable to get VS as patient was too restless. She stated she did not feel well. Patient was alert and oriented to place and name. Physical Exam findings show GCS: 13 (Best eye response 4/4, best motor response 5/6, best verbal response 4/5), lower extremity bandaged, brace on right ankle, lower extremity weak, symmetric bilaterally, oral muscosa dry, speech is slow, and patient is disoriented. Lab results show Chloride 99, creatinine 0.50, BUN/creatinine ratio 24.0, urine protein 1+(30 mg/dl) A, urine ketones trace A, urine blood 3+ A, urine nitrate positive A, Ur leukocyte esterase 2+ A, urine WBC (Auto) 2+ (11-20/hpf) A, Urine RBC (auto) 3+ (>10/hpf) A, Ur squamous epith cells present A, urine bacteria 1+ A. CT Brain Impression: LIMITED STUDY. NO ACUTE INTRACRANIAL PATHOLOGY. EKG at 0903: 79 BPM, sinus rhythm, no STEMI. CXR Impression: NO ACTIVE CARDIOPULMONARY DISEASE. During the ED Course, the patient was given cefTRIAXone. The patient is diagnosed with multiple sclerosis, UTI, and delirium. She is admitted to Dr. Blanton, hospitalist. She agrees with plan. - Diagnoses Provider Diagnoses: Multiple sclerosis, UTI (urinary tract infection), Delirium - Physician Notifications Discussed Care Of Patient With: Carie Blanton - hospitalist Time Discussed With Above Provider: 11:35 Instructed by Provider To: Other - I discussed the patient's case with Dr. Blanton , hospitalist. Dr. Blanton agrees to admit patient. Discharge - Sign-Out/Discharge Documenting (check all that apply): Patient Departure - admit Patient Received Moderate/Deep Sedation with Procedure: No - Discharge Plan Condition: Stable Disposition: ADMITTED TO [facility] - Billing Disposition and Condition Condition: STABLE Disposition: Admitted to [facility] - Attestation Statements Document Initiated by Scribe: Yes Documenting Scribe: Alexandre Boggs Provider For Whom Scribe is Documenting (Include Credential): Dr. Harry Romo MD Scribe Attestation: Alexandre Argueta, scribed for Dr. Harry Romo MD on 04/20/19 at 2. Status of Scribe Document: Ready
[2019-04-20 10:26] LABS: Urine Appearance Cloudy; Urine Bacteria 1+ (Absent); Urine Bilirubin Negative (Negative); Urine Blood 3+ (Negative); Urine Color Amber; Urine Glucose Negative (Negative); Urine Ketones Trace (Negative); Urine Nitrite Positive (Negative); Urine Protein 1+(30 mg/dL) (Negative); Urine Red Blood Cell 3+(>10/hpf) (Absent); Urine Specific Gravity 1.013 (1.010-1.030); Urine Squamous Epithelial Cell Present (Absent); Urine Urobilinogen Negative (Negative); Urine White Blood Cell 2+(11-20/hpf) (Absent)
[2019-04-20 11:12] LABS: Albumin 3.8 g/dL (3.2-5.2); Albumin/Globulin Ratio 1.2 (1-3); Calcium 9.6 mg/dL (8.6-10.3); EGFR African American 150.8 (>60); EGFR Non-African American 124.6 (>60); Globulin 3.1 g/dL (2-4); Potassium 4.3 mmol/L (3.5-5.0); Total Bilirubin 0.2 mg/dL (0.2-1.0); Total Protein 6.9 g/dL (6.4-8.9)
[2019-04-20] MEDS ORDERED: cefTRIAXone(*) 1 GM in NS 0.9% 50 ML* 50 ML IVPB ONE (11:13)
[2019-04-20 11:47] LABS: ABS Eosinophils 0.2 10^3/ul (0-0.6); ABS Lymphocytes 2.2 10^3/ul (1.0-4.8); ABS Monocytes 0.5 10^3/ul (0-0.8); Eosinophil % 2.3 %; Hematocrit 41 % (35-47); Hemoglobin 12.9 g/dL (12.0-16.0); Lymphocyte % 31.9 %; Mean Corpuscular HGB Conc 32 g/dL (31-36); Mean Corpuscular Hemoglobin 29 pg (27-31); Mean Corpuscular Volume 92 fL (80-97); Mean Platelet Volume 8.1 fL (7.4-10.4); Platelet Count 379 10^3/uL (150-450); Red Blood Count 4.39 10^6 /uL (3.70-4.87); Red Cell Distribution Width 15 % (10-15); White Blood Count 6.9 10^3/uL (3.5-10.8)
[2019-04-20] MEDS ORDERED: Acetaminophen TAB* 325 MG PO PRN (12:56)
[2019-04-20] MEDS ORDERED: NS 0.9% 1000 ML** 1,000 ML IV SCH (13:00)
[2019-04-20] MEDS ORDERED: VIT C PO PRN (13:12)
[2019-04-20] MEDS ORDERED: LYSINE PO PRN (13:12)
[2019-04-20] MEDS ORDERED: [UNRECOGNIZED DRUG - OTHER] PO PRN (13:12)
[2019-04-20] MEDS ORDERED: GLUT PO PRN (13:12)
[2019-04-20] MEDS ORDERED: MV MIN PO PRN (13:12)
[2019-04-20] MEDS ORDERED: Senna TAB PO PRN (13:12)
[2019-04-20] MEDS ORDERED: Polyethylene Glycol 3350* 17 GM PACKET PO PRN (13:12)
[2019-04-20] MEDS ORDERED: Carboxymethylcellulos 1% OPTH* 1 DROP AMP BOTH EYES PRN (13:17)
--- NOTE | 2019-04-20 16:07 | HP ---
CC: [facility] MEDICINE HISTORY AND PHYSICAL: DATE OF ADMISSION: 04/20/19 PROVIDER: Mariana Mitchell NP PRIMARY CARE PROVIDER: [facility]. ATTENDING PHYSICIAN WHILE IN THE HOSPITAL: Dr. Carie Blanton * (dictated by Mariana Mitchell NP) CHIEF COMPLAINT: Fatigue, altered mental status. HISTORY OF PRESENT ILLNESS: Ms. Salas is a 63-year-old female with past medical history significant for MS, depression, urinary incontinence, paraplegia , depression, history of urinary tract infections, who currently resides at [facility]. Per the emergency room record, the patient was at [facility] and overnight had some altered mental status per the staff. Per the staff, the patient was yelling for help, help and the staff was unable to get vital signs because the patient was too restless. The patient was stating that she did not feel well and the patient was only oriented to her name. Due to these symptoms, EMS was called and the patient was brought to the emergency room for further evaluation. While in the emergency room, the patient had routine lab work drawn. Vital signs were taken. She had a chest x-ray and CT of the head which were within normal limits and she was found to have a urinary tract infection. Due to her altered mental status and underlying urinary tract infection, we were asked to see and evaluate her for admission. PAST MEDICAL HISTORY: Significant for: 1. Depression. 2. Multiple sclerosis. 3. History of urinary incontinence with UTIs. 4. Paraplegia. PAST SURGICAL HISTORY: 1. Cervical diskectomy. 2. . HOME MEDICATIONS: Include: 1. Acetaminophen 1000 mg every 8 hours as needed for pain. 2. Airborne chewable 1 tab every 4 hours as needed for cold symptoms. 3. Amitriptyline 150 mg 1 tablet by mouth at bedtime for depression. 4. Aspirin 325 mg 1 tab every 24 hours as needed for pain. 5. Aspirin 81 mg p.o. daily. 6. Baclofen 30 mg 4 times a day. 7. Calazime skin protectant paste apply to left buttock every 12 hours. 8. Donepezil 10 mg 1 tab daily. 9. MiraLAX 17 g p.o. daily. 10. Hydrocortisone cream to arms as needed for dry skin. 11. lotion to face as needed for dry skin. 12. Marinol 5 mg 4 times a day as appetite stimulant. 13. Meclizine 25 mg every 6 hours as needed for dizziness. 14. Methylphenidate 10 mg 1 tablet by mouth 2 times daily. 15. Methylphenidate 20 mg by mouth in the morning. 16. Multivitamin 1 tab daily. 17. Ketoconazole shampoo Wednesday and Wednesday. 18. Oxybutynin 15 mg twice daily. 19. Refresh liquid tears 1 drop to both eyes 4 times a day as needed for dry eyes. 20. Restasis 1 drop to both eyes 2 times a day for dry eyes. 21. Senna Plus 2 tabs at bedtime. 22. Senna Plus 2 tabs in the morning. 23. Vitamin D3 4000 units p.o. daily. 24. Zanaflex 4 mg 1 tab 4 times a day for MS. ALLERGIES: 1. METHYLPREDNISOLONE. 2. PENICILLIN G. 3. TRAMADOL. FAMILY HISTORY: Reviewed and noncontributory. SOCIAL HISTORY: The patient quit smoking approximately 11 years ago. She denies any alcohol or illicit drug use. She is a current resident at [facility]. She is wheelchair bound. Surrogate decision maker in the event she is unable to make her own decisions is her son, Evin Salas. According to the detention records, his phone number is [phone]. She is a full code. She does have a MOLST form in her chart, which has been signed and updated. REVIEW OF SYSTEMS: There is no documented fever, no significant weight change. The patient denies any double vision, rhinorrhea, or sore throat. She denies any chest pain, orthopnea. She denies any shortness of breath, cough, congestion or hemoptysis. She denies any nausea, vomiting, or diarrhea. She denies any abdominal pain. Denies any dysuria. She does have chronic urinary incontinence. Denies dysphagia, arthralgias, myalgias, worse than normal. Denies any psychosis or anxiety. She does report fatigue. A review of 14 systems was completed, all others were negative. PHYSICAL EXAMINATION GENERAL: At this time, Ms. Salas is a 63-year-old female. She appears comfortable, resting on the stretcher in the emergency room. She is in no acute distress. She is oriented to self. She is confused to place and time. VITAL SIGNS: Blood pressure is 143/75, heart rate 84, respirations are 18, O2 saturation 98%, temperature was 97.9. HEENT: Head is atraumatic, normocephalic. Eyes: EOMs are intact. Sclerae anicteric and not pale. Oral mucosa is dry. She does have a red rash noted around her nose. NECK: Supple. LUNGS: Clear to auscultation bilaterally. No wheezes, rales or rhonchi. CARDIAC: S1, S2. Regular rate and rhythm. No murmurs, rubs, or gallops. ABDOMEN: Soft and nontender. Bowel sounds are present x4. She has no suprapubic tenderness. EXTREMITIES: She does have mild swelling noted to bilateral feet. Pedal pulses are +2 bilaterally. She does have contracture of her left arm and right lower leg. She does have minimal movement of all 4 extremities. She does have dressing that is dry and intact to her left great toe. She does have an open ulceration noted to her left great toe. There is no surrounding erythema or drainage noted to the dressing. Her right foot is with mild redness. There is no open ulcerations on her heels. NEUROLOGIC: She is awake, alert, oriented to person. She is confused to place and time. Her speech is clear. SKIN: She does have an open ulcer noted to her left great toe. Dressing is intact. There is no drainage. Surrounding skin is pink without associated erythema or warmth. DIAGNOSTIC STUDIES AND LABORATORY DATA: WBCs are 6.9, RBCs 4.39, hemoglobin 12.9, hematocrit is 41, platelet count is 379. Sodium 137, potassium 4.3, chloride 99, carbon dioxide was 31, anion gap was 7, BUN was 12, creatinine 0.50. Glucose was 95, calcium 9.6, T. bili 0.20, ASTs were 17, ALTs were 15, alkaline phosphatase was 64, troponin 0.00, T. protein was 6.9. Urine color was dmitry, cloudy. PH was 7.0, specific gravity 1.013, urine protein was 1+, ketones were trace, blood was 3+, nitrites were positive. Bilirubin, urobilinogen were both negative. Urine leukocyte esterase was 2+, wbc's were 2+ , rbc's were 3+, squamous epithelial cells were present. Bacteria was 1+, glucose was negative. She had a CT of the brain, radiologist's impression: Limited study. No acute intracranial pathology. She had a chest x-ray, radiologist's impression: No active cardiopulmonary disease. She had an electrocardiogram which showed sinus rhythm at a rate of 79. The EKG tracing is poor with lot of artifact noted in the EKG. ASSESSMENT AND PLAN: Ms. Salas is a 63-year-old female who presented to the emergency room from [facility] with altered mental status, found to have a urinary tract infection. We were asked to see and evaluate her due to her altered mental status and a urinary tract infection. She will be admitted inpatient for: 1. Altered mental status. I suspect her underlying altered mental status is related to her underlying urinary tract infection. We will treat her urinary tract infection with ceftriaxone. I will give her gentle hydration overnight. We will repeat a CBC and BMP in the a.m. The patient's last urinary culture from October of 2018 grew out Morganella morganii which was susceptible to the ceftriaxone, so we will continue with ceftriaxone at this time. If her susceptibility or bacteria growth is not susceptible, we will change antibiotics to a broader coverage at the time the susceptibility is available. 2. Urinary tract infection. She will be continued on ceftriaxone 1 g q.24 hours. I will give her IV hydration overnight, normal saline at 75 cc/h. Her urine culture is currently pending. Blood cultures are also currently pending. The patient is afebrile at this time without a white count and previous urine culture from October 2018 grew Morganella morganii which was susceptible to ceftriaxone at that time. Urine culture and sensitivity is currently pending at this time. 3. Multiple sclerosis. We will continue on her Zanaflex and baclofen as previously prescribed as well as Aricept. 4. DVT prophylaxis: I will give her Lovenox subcu. 5. Code status: She is a full code. 6. Fluid, electrolytes, and nutrition: She can have a regular diet. TIME SPENT: Time spent on this admission was approximately 60 minutes, greater than half that time was spent at the bedside reviewing events leading thus far to her hospitalization, performing physical exam, and reviewing my plan of care. I have discussed this with my attending, Dr. Carie Blanton; she is in agreement with my plan. MARIANA MITCHELL, ASSISTANT ATTORNEY GENERAL [id number]/[facility] #: [id number] [facility] HOSPITALReynaldo
[2019-04-20] MEDS: tiZANidine TAB* 2 MG PO SCH ×2 (16:13→22:49)
[2019-04-20] MEDS: Enoxaparin(*) 40 MG/0.4 ML SYR SUBCUT SCH (16:13)
[2019-04-20] MEDS: Baclofen TAB* 10 MG PO SCH ×2 (16:14→22:49)
[2019-04-20] MEDS: Dronabinol CAP* 2.5 MG PO SCH ×2 (16:14→22:48)
[2019-04-20] MEDS: Methylphenidate TAB* 10 MG PO SCH (16:36)
[2019-04-20] MEDS ORDERED: Donepezil TAB* 5 MG PO SCH (18:00)
[2019-04-20] MEDS ORDERED: Amitriptyline TAB* 50 MG PO SCH (21:00)
[2019-04-20] MEDS: Oxybutynin TAB* 5 MG PO SCH (22:49)
[2019-04-21] MEDS ORDERED: LORazepam TAB(*) 0.5 MG PO ONE (02:30)
[2019-04-21 06:39] LABS: ABS Eosinophils 0.2 10^3/ul (0-0.6); ABS Lymphocytes 2.7 10^3/ul (1.0-4.8); ABS Monocytes 0.8 10^3/ul (0-0.8); ABS Neutrophils 3.9 10^3/ul (1.5-7.7); Hematocrit 36 % (35-47); Hemoglobin 12.1 g/dL (12.0-16.0); Lymphocyte % 35.3 %; Mean Corpuscular HGB Conc 33 g/dL (31-36); Mean Corpuscular Hemoglobin 30 pg (27-31); Mean Corpuscular Volume 90 fL (80-97); Mean Platelet Volume 7.8 fL (7.4-10.4); Platelet Count 380 10^3/uL (150-450); Red Cell Distribution Width 15 % (10-15); White Blood Count 7.6 10^3/uL (3.5-10.8)
[2019-04-21 07:02] LABS: BUN/Creatinine Ratio 23.1 (8-20); EGFR African American 144.1 (>60); EGFR Non-African American 119.1 (>60)
[2019-04-21] MEDS ORDERED: Methylphenidate TAB* 10 MG PO SCH (08:00)
[2019-04-21] MEDS ORDERED: Cholecalciferol TAB* 1000 UNITS PO SCH (09:00)
[2019-04-21] MEDS ORDERED: Aspirin EC TAB* 81 MG TAB.EC PO SCH (09:00)
[2019-04-21] MEDS: Oxybutynin TAB* 5 MG PO SCH (09:12)
[2019-04-21] MEDS: Dronabinol CAP* 2.5 MG PO SCH ×2 (09:12→15:00)
[2019-04-21] MEDS: tiZANidine TAB* 2 MG PO SCH ×2 (09:12→15:00)
[2019-04-21] MEDS: Baclofen TAB* 10 MG PO SCH ×2 (09:12→15:00)
[2019-04-21] MEDS ORDERED: cefTRIAXone(*) 1 GM in NS 0.9% 50 ML* 50 ML IVPB SCH (11:00)
[2019-04-21] MEDS: Enoxaparin(*) 40 MG/0.4 ML SYR SUBCUT SCH (15:01)
[2019-04-21] MEDS: Methylphenidate TAB* 10 MG PO SCH (15:10)
[2019-04-21 15:29] VITALS: BP 143/67
--- NOTE | 2019-04-21 16:24 | DS ---
DISCHARGE SUMMARY: DATE OF ADMISSION: 04/20/19 DATE OF DISCHARGE: 04/21/19 PRIMARY CARE PROVIDER: Dr. Giraldo at [facility]. ATTENDING PHYSICIAN WHILE IN THE HOSPITAL: Dr. Carie Blanton * (dictated by SUSAN Allen). PRIMARY DIAGNOSES: 1. Urinary tract infection. 2. Altered mental status, resolved, likely related to urinary tract infection. SECONDARY DIAGNOSES: 1. Depression. 2. Multiple sclerosis. 3. History of urinary incontinence with frequent urinary tract infections. 4. Paraplegia. STUDIES WHILE IN THE HOSPITAL: CT brain on 04/20/19, no intracranial pathology. Chest x-ray on 04/20/19, no active cardiopulmonary disease. Pertinent lab data: White blood cell count 6.9 on date of admission. Urinalysis, 3+ blood, positive nitrite, 1+ protein, trace ketones, +2 leukocyte esterase, +2 white blood cell, +3 red blood cell, squamous cells present, bacteria +1. Blood culture, no growth to date. HISTORY OF PRESENT ILLNESS/HOSPITAL COURSE: Erendira Salas is a 63-year-old white female with past medical history significant for frequent UTIs and urinary incontinence, MS., paraplegia, who presented to the emergency department from [facility] where she is a long-term resident due to nursing staff finding her to have altered mental status. Please see admitting history and physical dictated by Mariana Herr NP, for further details. During her hospital stay , she was not found to have a leukocytosis. She was afebrile during her hospital stay and did not meet criteria for sepsis at any point during her hospital stay. On the date of discharge, she is returned to her baseline mental status. She has no complaints. She denies hematuria and dysuria. She denies fever, chills, chest pain, abdominal pain, difficulty breathing. The urine culture is currently growing in the lab. However, the culture has not yet been determined at the time of discharge. The patient was given ceftriaxone during her hospital stay to treat her UTI. Given that the patient was stable, asymptomatic, and without evidence of sepsis, it was deemed safe to discharge the patient back to [facility]. REVIEW OF SYSTEMS: An 11-point review of systems was completed and all pertinent positives and negatives are above in the HPI and all other systems are negative. PHYSICAL EXAM: General: Thin elderly white female lying in hospital bed, appearing in no acute distress. Head: Normocephalic, atraumatic. Eyes: PERRL. Sclerae anicteric. ENT: Mucous membranes moist. Neck: Supple without JVD. Lungs: Clear to auscultation throughout. Cardiac: Regular rate and rhythm without murmurs, rubs, or gallops. Abdomen: Soft, nontender. Bowel sounds normoactive x4 quadrants. No suprapubic tenderness. Extremities: No cyanosis, clubbing, or edema. Small dry wound to the left knee. Positive contracture of her left arm. Neuro: The patient is alert and oriented to self , location, time and situation. No focal deficits. Able to move all extremities. DISCHARGE PLAN: Diet: Regular unrestricted diet. Activity: The patient may return to her normal activity as tolerated; the patient uses wheelchair at baseline. The patient is to take the 10-day supply of Cefdinir 300 mg p.o. b.i.d. The providers at [facility] should follow up on the urine culture and sensitivity and adjust the medication as needed. Especially given that the patient does have a history of ESBL E. coli in her urine. There are no cultures or sensitivities at this time; however, the lab did confirm that there is bacterial growth. It would be of benefit to also follow the blood culture, which has no growth at this point. The patient should return to the emergency department if she again experiences altered mental status, she begins experiencing dysuria or hematuria or fever or chills, suprapubic or flank pain, or chest pain or difficulty breathing. The patient is to return to taking her normal home medications. In addition to this new antibiotic. DISCHARGE MEDICATIONS: 1. Cefdinir 300 mg p.o. b.i.d. x10 days. Continued home medications: 1. Miconazole cream 1% topical q.p.m. 2. Zanaflex 2 mg p.o. 4 times a day. 3. Triamcinolone 1 application topically Wednesday, , Wednesday. 4. Skin cleanser 1 liquid topical q.p.m. 5. Senna 2 tabs p.o. b.i.d. p.r.n. 6. MiraLAX 17 g p.o. daily p.r.n. 7. Cyclosporine 0.05% ophthalmic solution 1 drop both eyes b.i.d. 8. Vitamin D3 4000 units p.o. daily. 9. Refresh Liquigel 1% both eyes q.i.d. p.r.n. 10. Oxybutynin 15 mg p.o. b.i.d. 11. Airborne effervescent tablet 1 tab p.o. q.4 hours p.r.n. 12. Ritalin 10 mg p.o. b.i.d. 13. Ritalin 20 mg p.o. daily. 14. Meclizine 25 mg p.o. q.6 hours p.r.n. 15. Ketoconazole 125 mL topical Wednesday, Wednesday, Wednesday. 16. Marinol cap 5 mg p.o. 4 times a day. 17. Hydrocortisone 1% cream topically daily p.r.n. 18. Donepezil 10 mg p.o. q.p.m. 19. Baclofen 30 mg p.o. q.i.d. 20. Aspirin 81 mg daily. 21. Amitriptyline 150 mg p.o. at bedtime. 22. Acetaminophen 1000 mg p.o. q.8 hours p.r.n. CONDITION ON DISCHARGE: Stable. DISPOSITION: To [facility]. TIME SPENT: Approximately 40 minutes was spent on this discharge, approximately half of this time spent at bedside. SUSAN ALLEN [id number]/[facility] #: [id number] PR[place]CE
== END 2019-04-21 17:50 ==
LOC: ED 08:26 → MED 12:56 → INTOOBSV 12:56
PROVIDERS: ADMIT Internal Medicine; ATTEND Internal Medicine
DX: N39.0 Urinary tract infection, site not specified (principal); R41.82 Altered mental status, unspecified; F32.9 Major depressive disorder, single episode, unspecified; G35 Multiple sclerosis; G82.20 Paraplegia, unspecified; Z87.440 Personal history of urinary (tract) infections; Z79.899 Other long term (current) drug therapy; Z79.82 Long term (current) use of aspirin; Z88.0 Allergy status to penicillin; R53.83 Other fatigue; E53.8 Deficiency of other specified B group vitamins
CPT/HCPCS: 36415; 70450; 71045; 80048; 80053; 81003; 81015; 84484; 85025; 87040; 87077; 87086; 87186; 87641; 93005; 96365; 96372; 96375; 99284; A9270-GY; G0378; J0696; J1650

== ENCOUNTER 2019-04-22 12:47 | Inpatient (IN) | payer MEDICAID ==
--- NOTE | 2019-04-22 13:06 | ED ---
Shortness of Breath - HPI Summary HPI Summary: 63 year old F [facility] with a chief complaint of difficulty breathing since this morning. The patient rates the pain 0/10 in severity. Symptoms aggravated by nothing. Symptoms alleviated by nothing. Patient reports that she is "not able to get a full cough out." Patient was discharged yesterday [place] [facility] [place] being admitted x1 night for dx UTI. - History of Current Complaint Chief Complaint: EDShortnessOfBreath Time Seen by Provider: 04/22/19 12:56 Hx Obtained From: Patient Onset/Duration: Sudden Onset, Lasting Hours - this morning, Still Present Timing: Constant Current Severity: None Aggravating Factors: Nothing Alleviating Factors: Nothing - Allergy/Home Medications Allergies/Adverse Reactions: Allergies Allergy/AdvReac Type Severity Reaction Status Date / Time methylprednisolone Allergy Intermediate Rash Verified 04/20/19 08:59 penicillin G Allergy Intermediate Hives Verified 04/20/19 08:59 tramadol AdvReac Severe See Comment Verified 04/20/19 08:59 PMH/Surg Hx/FS Hx/Imm Hx Previously Healthy: No Endocrine/Hematology History: Denies: Hx Diabetes Cardiovascular History: Denies: Hx Hypertension, Hx Pacemaker/ICD Respiratory History: Denies: Hx Asthma, Hx Chronic Obstructive Pulmonary Disease (COPD) History: Denies: Hx Dialysis, Hx Renal Disease Musculoskeletal History: Reports: Other Musculoskeletal History - cervical spine dysectomy Sensory History: Reports: Hx Contacts or Glasses Denies: Hx Cataracts, Hx Eye Injury, Hx Eye Prosthesis, Hx Glaucoma, Hx Legally Blind, Hx Macular Degeneration, Hx Vision Problem, Hx Deafness, Hx Hearing Aid, Other Sensory Impairments Opthamlomology History: Reports: Hx Contacts or Glasses Denies: Hx Cataracts, Hx Eye Injury, Hx Eye Prosthesis, Hx Glaucoma, Hx Legally Blind, Hx Macular Degeneration, Hx Vision Problem, Other Sensory Impairments Neurological History: Reports: Other Neuro Impairments/Disorders - ms Denies: Hx Dementia, Hx Seizures Psychiatric History: Denies: Hx Eating Disorder, Hx Panic Disorder - Surgical History Surgery Procedure, Year, and Place: , CSP DISCECTOMY (WITH PLATES) Infectious Disease History: No Infectious Disease History: Reports: Hx of Known/Suspected MRSA - hx in 2014, Hx Shingles Denies: Traveled Outside the [place] in Last 30 Days - Family History Known Family History: Positive: Other - Denies FHx psychotic disorders, schizophrenia, mood disorders - Social History Alcohol Use: None Hx Substance Use: No Substance Use Type: Reports: None Hx Tobacco Use: No Smoking Status (MU): Never Smoked Tobacco Have You Smoked in the Last Year: No Review of Systems Negative: Fever Positive: Other - difficulty breathing, "not able to get a full cough out" All Other Systems Reviewed And Are Negative: Yes Physical Exam - Summary Physical Exam Summary: VITAL SIGNS: Reviewed. GENERAL: Patient is a well-developed and nourished FEMALE who is lying comfortable in the stretcher. Patient is not in any acute respiratory distress. HEAD AND FACE: No signs of trauma. No ecchymosis, hematomas or skull depressions. No sinus tenderness. EYES: PERRLA, EOMI x 2, No injected conjunctiva, no nystagmus. EARS: Hearing grossly intact. Ear canals and tympanic membranes are within normal limits. MOUTH: Oropharynx within normal limits. NECK: Supple, trachea is midline, no adenopathy, no JVD, no carotid bruit, no c- spine tenderness, neck with full ROM. CHEST: Symmetric, no tenderness at palpation LUNGS: Decreased breath sounds bilaterally, crackles in bases CVS: Regular rate and rhythm, S1 and S2 present, no murmurs or gallops appreciated. ABDOMEN: Soft, non-tender. No signs of distention. No rebound no guarding, and no masses palpated. Bowel sounds are normal. EXTREMITIES: Patient is contracted in the lower and upper extremities NEURO: Alert and oriented x 3. No acute neurological deficits. Speech is normal and follows commands. SKIN: Dry and warm. Triage Information Reviewed: Yes Vital Signs On Initial Exam: Initial Vitals Temp Pulse Resp BP Pulse Ox 96.6 F 88 18 132/84 94 04/22/19 12:55 04/22/19 12:55 04/22/19 12:55 04/22/19 12:55 04/22/19 12:55 Vital Signs Reviewed: Yes Diagnostics - Vital Signs Vital Signs Temp Pulse Resp BP Pulse Ox 04/22/19 12:55 96.6 F 88 18 132/84 94 - Laboratory Result Diagrams: 04/22/19 13:48 04/22/19 13:48 Lab Statement: Any lab studies that have been ordered have been reviewed, and results considered in the medical decision making process. - Radiology CXR Radiology Interpretation Completed By: Radiologist Summary of Radiographic Findings: 1. Airspace consolidation at the RIGHT lung base medially is new compared with the prior exam concerning for pneumonia. ED physician has reviewed this report. - CT Brain CT Interpretation Completed By: Radiologist Summary of CT Findings: 1. Involutional change most prominent at the frontal lobes. 2. No acute CT abnormality of the brain. 3. Correlate for potential acute sphenoid sinusitis. ED physician has reviewed this report. Re-Evaluation - Re-Evaluation First Eval Re-Evaluation Time: 17:54 Comment: Patient is desating. Her O2 sat is in the 80s. She will be placed on 2L oxygen. Course/Dx - Course Assessment/Plan: 63 year old F brought in by ambulance to [facility] from [facility] with a chief complaint of difficulty breathing since this morning. The patient rates the pain 0/10 in severity. Symptoms aggravated by nothing. Symptoms alleviated by nothing. Patient reports that she is "not able to get a full cough out." Patient was [place] yesterday [place] [facility] [place] being admitted x1 night for dx UTI. Blood test results without any significant abnormality except for glucose of 105,. Head Ct impression IMPRESSION: #. Involutional change most prominent at the frontal lobes. #. No acute CT abnormality of the brain. #. Correlate for potential acute sphenoid sinusitis. CXR IMPRESSION: #. Airspace consolidation at the RIGHT lung base medially is new compared with the prior exam concerning for pneumonia. The patient was already on antibiotics therefore, she was started on Levaquin and cefepime. I discuss my physical exam and test results with Dr. Blanton from the hospitalist services and he agrees to admit patient to his services. Patient is hemodynamically stable alert and oriented x 3. After the patient was admitted to hospitalist services, Dr. Blanton came to the ED and examined the patient, and does not think that patient has pneumonia. She thinks that patient can be discharged back to senior care with a prescription for Bactrim which Dr. Blanton prescribed. Therefore, we'll discharge patient for Dr. Blanton back to senior care. The patient became tachycardic and hypoxic before discharge. I discussed the findings and test results with Dr. Doshi who agrees to admit the patient. The patient will be admitted to the hospitalist services. - Diagnoses Provider Diagnoses: Pneumonia - Physician Notifications Discussed Care of Patient With: Carie Blanton Time Discussed With Above Provider: 16:14 Instructed by Provider To: Other - Dr. Blanton, hospitalist, agrees to admit patient. Spoke with Dr. Doshi, hospitalist, at 1754 who agrees to come see the patient. Discharge - Sign-Out/Discharge Documenting (check all that apply): Patient Departure - Admit Patient Received Moderate/Deep Sedation with Procedure: No - Discharge Plan Condition: Stable Disposition: ADMITTED TO [facility] - Billing Disposition and Condition Condition: STABLE Disposition: Admitted to [facility] - Attestation Statements Document Initiated by Scribe: Yes Documenting Scribe: Milana Tena Provider For Whom Jennifer is Documenting (Include Credential): Isidro Haas MD Scribe Attestation: Milana Argueta, scribed for Isidro Haas MD on 04/22/19 at 1912. Scribe Documentation Reviewed: Yes Provider Attestation: The documentation as recorded by the scribeMilana accurately reflects the service I personally performed and the decisions made by ks, Isidro Haas MD Status of Scribe Document: Viewed
[2019-04-22 14:04] LABS: ABS Basophils 0.1 10^3/ul (0-0.2); ABS Eosinophils 0.1 10^3/ul (0-0.6); ABS Lymphocytes 1.7 10^3/ul (1.0-4.8); ABS Monocytes 0.4 10^3/ul (0-0.8); ABS Neutrophils 4.3 10^3/ul (1.5-7.7); Eosinophil % 1.4 %; Hematocrit 38 % (35-47); Hemoglobin 12.4 g/dL (12.0-16.0); Lymphocyte % 26.4 %; Mean Corpuscular HGB Conc 33 g/dL (31-36); Mean Corpuscular Hemoglobin 30 pg (27-31); Mean Corpuscular Volume 91 fL (80-97); Mean Platelet Volume 8.3 fL (7.4-10.4); Platelet Count 378 10^3/uL (150-450); Red Blood Count 4.15 10^6 /uL (3.70-4.87); Red Cell Distribution Width 15 % (10-15); White Blood Count 6.6 10^3/uL (3.5-10.8)
[2019-04-22 14:16] LABS: Albumin 3.8 g/dL (3.2-5.2); Albumin/Globulin Ratio 1.2 (1-3); BUN/Creatinine Ratio 37.2 (8-20); C Reactive Protein 6.32 mg/L (<8.01); Calcium 9.5 mg/dL (8.6-10.3); EGFR African American 179.4 (>60); EGFR Non-African American 148.3 (>60); Globulin 3.3 g/dL (2-4); Potassium 4.1 mmol/L (3.5-5.0); Total Bilirubin 0.3 mg/dL (0.2-1.0); Total Protein 7.1 g/dL (6.4-8.9)
[2019-04-22 14:21] LABS: CKMB ng/mL 4.9 ng/mL (0.6-6.3)
[2019-04-22] MEDS ORDERED: Cefepime(*) 2 GM in NS 0.9% 50 ML* 50 ML IVPB ONE (16:01)
[2019-04-22] MEDS ORDERED: Levofloxacin 750 MG IVPREMIX(* 750 MG/150 ML BAG IVPB ONE (16:01)
[2019-04-22] MEDS ORDERED: Furosemide IV* 10 MG/ML 2 ML VIAL (20 MG) IV ONE (16:30)
[2019-04-22] MEDS ORDERED: Cefepime 2 GM in Dextrose(*) 2 GM/50 ML BAG IV ONE (16:30)
[2019-04-22] MEDS ORDERED: Acetaminophen TAB* 325 MG PO PRN (16:42)
--- NOTE | 2019-04-22 18:20 | CONS ---
CC: Dr. Giraldo; Dr. Haas * CONSULTATION REPORT: DATE OF CONSULT: 04/22/19 PRIMARY CARE PROVIDER: Dr. Giraldo from [facility]. REASON FOR CONSULT: Right lower lobe pneumonia. Consultation was requested by Dr. Haas from the emergency department in regards of the patient's possibility of admission. CHIEF COMPLAINT: Shortness of breath. HISTORY OF PRESENT ILLNESS: Erendira Salas is a 63-year-old female with history of multiple sclerosis, who is paraplegic due to that and who is a long-term resident of [facility]. Erendira was admitted from 04/20/19 to 04/21/19 for likely UTI. At this point, the urine cultures just resulted as ESBL E. coli, sensitive to Zosyn and Bactrim. Erendira was given cefdinir to go home with since at that point sensitivities were not back. She had been doing well despite that. Due to her multiple sclerosis, she does not have symptoms of urinary tract infection and she would not be able to have any problems with specific sensation once again due to multiple sclerosis. She stated that today in the morning she was somewhat short of breath and apparently she needed to be suctioned, but when she is visited in the emergency department room, her oxygen saturations are 98% on room air and she is pleasant and wishes to go back to [facility]. The patient was initially sent from [facility] for evaluation of desaturation and shortness of breath. The patient denies any cough or fevers. The patient's chest x-ray showed right lower lobe infiltrate and Dr. Haas asked me to evaluate the patient for possibility of admission for pneumonia. PAST MEDICAL HISTORY: 1. Depression. 2. Multiple sclerosis. 3. History of urinary incontinence with frequent UTIs and ESBL resistant bacteria in the past. 4. History of paraplegia. PAST SURGICAL HISTORY: 1. Status post cervical diskectomy. 2. History of . MEDICATIONS AT HOME: Include: 1. Cefdinir 300 mg twice a day. 2. Zanaflex 4 mg 4 times a day. 3. Triamcinolone cream 1 application on Tuesdays, , and Saturdays to affected area of the face. 4. Skin cleanser q.p.m. 5. Senna 2 tabs b.i.d. p.r.n. 6. MiraLAX 17 g daily p.r.n. 7. Oxybutynin 15 mg b.i.d. 8. Multivitamin 1 tablet daily. 9. Miconazole 1% solution apply to affected areas p.r.n. 10. Ritalin 10 mg b.i.d. and 20 mg in the morning. 11. Antivert 25 mg every 6 hours p.r.n. 12. Ketoconazole lotion on Wednesday, Wednesdays, and Fridays. 13. Marinol cap 5 mg 4 times a day. 14. Aricept 10 mg q.p.m. 15. Restasis eye drops 1 drop both eyes b.i.d. 16. Vitamin D3 4000 units daily. 17. Refresh eye gel 1% both eyes 4 times a day p.r.n. 18. Baclofen 30 mg 4 times a day. 19. Aspirin 81 mg daily. 20. Amitriptyline 150 mg at bedtime. 21. Acetaminophen 1000 mg every 8 hours p.r.n. ALLERGIES: Include METHYLPREDNISOLONE, PENICILLIN G, and TRAMADOL. FAMILY HISTORY: Reviewed and noncontributory. SOCIAL HISTORY: The patient is a long-term resident of [facility]. As her surrogate, she names her son, Evin Salas. REVIEW OF SYSTEMS: The patient stated that she did feel short of breath earlier on today. She denies any cough. She denies any fevers. She denies any problems with urinary symptoms, but she is chronically incontinent. She has chronic paraplegia. She denies any skin wounds. All the remaining 12 systems were reviewed with the patient and were otherwise negative. PHYSICAL EXAM: Blood pressure of 157/72, heart rate of 86 and regular, respiratory rate 19, oxygen saturation 98% on room air, temperature of 96.6. General: The patient is a pleasant 63-year-old female, who is in no acute distress. Alert, awake, and oriented x3. HEENT: Head: Atraumatic, normocephalic. Eyes: Pupils equal, reactive to light and accommodation. Oropharynx clear. Mucosa moist. Neck: Supple. No JVD. No bruits bilaterally. Cardiovascular: Regular rate and rhythm. No murmur. Respiratory : Crackles at right lung base, otherwise clear. Abdomen: Slightly distended, soft, nontender. Bowel sounds are present in all 4 quadrants. Extremities: There is no edema. Pulses are +2 bilaterally. No clubbing or cyanosis. On neuro evaluation, speech is clear. Cranial nerves II through XII grossly intact. The patient is contracted in the left arm. The right arm motor strength is 4+/5. Bilateral lower extremity motor strength is 3+/5. They are contracted at the knees. Psychiatric Evaluation: The patient is pleasant and cooperative with evaluation with no evidence of anxiety or depression. DIAGNOSTIC STUDIES/LAB DATA: Laboratory data showed sodium of 138, potassium 4.1, chloride 101, carbon dioxide 32, BUN 16, creatinine 0.43. Liver function tests unremarkable. Troponin of 0. C-reactive protein of 6.3. White blood cell count of 6.6, hemoglobin of 12.4, hematocrit of 38, and platelets of 378. ABG showed pH of 7.40, pCO2 of 57, pO2 of 75. Urinalysis was not obtained yet. Portable chest x-ray, impression: "Airspace consolidation in the right lung base medially is new compared to the prior exam concerning for pneumonia." The patient's EKG showed normal sinus rhythm with heart rate of 87 beats per minute with no significant ST changes. Brain CT, impression: "Involutional change most prominent in the frontal lobes. No acute abnormality of the brain. Correlate with potential acute sphenoid sinusitis." ASSESSMENT AND PLAN: The patient's shortness of breath and new consolidation at the right lung base with what appears to be fluid in the fissure when I reviewed chest x-ray myself is likely due to mild fluid overload in a patient who was hospitalized and received intravenous fluids in the past 48 hours. I do not believe the patient has new hospital-acquired pneumonia. It would be very rapid evolution of pneumonia in a patient who just was in the hospital 24 hours ago for just 24 hours. In addition to that, the patient's C-reactive protein is not indicative of any new acute infectious process at this point. In regards to the patient's diagnosed 24 hours ago urinary tract infection, the urinalysis was positive and urine cultures obtained 2 days ago on 04/20/19 are growing ESBL E. coli sensitive to Zosyn, tetracycline, nitrofurantoin, meropenem and gentamicin. They are also sensitive to Bactrim. The patient is allergic to PENICILLINS. At this point, I believe the best choice is for the patient to be placed on Bactrim at least for 5 days and that was recommended and discussed with Dr. Haas. If the patient had developing pneumonia, Bactrim should also cover that infection. For the patient's likely fluid overload and fluid in the right lung fissure, I recommended 20 mg of IV Lasix to be administered in the ED and that is already being done. In regards of the remaining chronic conditions, I am not changing the patient's medications. At this point, the recommendation is for the patient to be discharged back to [facility] with treatment of her extended-spectrum beta-lactamase Escherichia coli urinary tract infection with Bactrim. She can follow up with her doctor at [facility] on Wednesday or Wednesday depending on when available. The above-mentioned was discussed with Dr. Haas, who agrees with the plan. Thank you very much for allowing me to see your patient in consultation. TIME SPENT: Approximately 55 minutes was spent on the patient's consultation, more than half that time was spent [id number] with the patient in the patient' s room. [id number]/[facility] #: [id number] PRINCE
[2019-04-22] MEDS ORDERED: Meclizine TAB* 12.5 MG PO PRN (18:28)
[2019-04-22] MEDS ORDERED: Senna TAB PO PRN (18:28)
[2019-04-22] MEDS ORDERED: Polyethylene Glycol 3350* 17 GM PACKET PO PRN (18:28)
[2019-04-22] MEDS ORDERED: Vancomycin per Pharmacy* NOTE FOLLOW UP PRN (18:55)
[2019-04-22] MEDS ORDERED: Meropenem 1 GM PREMIX(*) 1 GM/50 ML BAG IV SCH (19:00)
[2019-04-22] MEDS ORDERED: Vancomycin(*) 1,000 MG in NS 0.9% 250 ML* 250 ML IVPB SCH ×2 (19:00→20:30)
[2019-04-22] MEDS ORDERED: Zosyn per Pharmacy* NOTE FOLLOW UP SCH (19:00)
[2019-04-22] MEDS ORDERED: Vancomycin per Pharmacy* NOTE FOLLOW UP SCH (19:00)
[2019-04-22] MEDS ORDERED: Vancomycin(*) 1,000 MG - ED ONCE IVPB ONE ×2 (19:00)
--- NOTE | 2019-04-22 19:25 | HP ---
AMENDED REPORT NOW INCLUDES DESIGNATED COSIGNER HISTORY AND PHYSICAL: ADDENDUM: DATE OF ADMISSION: 04/22/19 ATTENDING PROVIDER: Carie Blanton MD * (DICTATED BY KLARISSA MORGAN NP) Ms. Salas was evaluated again in the emergency room at the request of Dr. Haas. Since Dr. Blanton's evaluation, the patient has become more hypoxic and tachycardic. Initially, her heart rate was running in the 80s and now is running about 115. She is also currently on 3 L nasal cannula with O2 saturation of 89% to 90%. On examination, Ms. Salas states that she does not feel short of breath, although she has been told that she is. She has diminished lung sounds bilaterally. I note that she has a normal white blood cell count and normal CRP, which makes pneumonia less likely. She was given 20 mg of Lasix out of concern that perhaps she had mild CHF in the setting of recent administration of IV fluids for urinary tract infection. t this time, I would like to add on a D-dimer to rule out pulmonary embolism because the etiology of her tachycardia and hypoxia is unclear and do not seem to be clearly attributable to CHF or pneumonia. The patient's troponin is normal. Her BNP is only 21. She does have a urinary tract infection with ESBL coli and for now, we plan to treat with meropenem for a UTI and question of possible pneumonia, though this seems less likely. We will repeat all her labs in the a.m. We will be watching her closely. She will have oxygen therapy available. We will make adjustments to the plan of care based on the clinical course going forward. KLARISSA MORGAN NP [id number]/[facility] #: [id number] PRINCE
[2019-04-22] MEDS: Meropenem 1 GM PREMIX(*) 1 GM/50 ML BAG IV SCH (20:33)
[2019-04-22] MEDS: Baclofen TAB* 10 MG PO SCH (20:33)
[2019-04-22] MEDS: Amitriptyline TAB* 50 MG PO SCH (20:33)
[2019-04-22] MEDS: Docusate CAP* 100 MG PO SCH (20:34)
[2019-04-22] MEDS: Dronabinol CAP* 2.5 MG PO SCH (20:34)
[2019-04-22] MEDS: Oxybutynin TAB* 5 MG PO SCH (20:37)
[2019-04-22] MEDS: tiZANidine TAB* 2 MG PO SCH (20:38)
[2019-04-22] MEDS: Heparin VIAL(*) 5000 UNITS/ML VIAL (FIVE THOUSAND) SUBCUT SCH (20:44)
[2019-04-22] MEDS: Melatonin 3 MG TAB PO PRN (22:39)
[2019-04-23] MEDS: Meropenem 1 GM PREMIX(*) 1 GM/50 ML BAG IV SCH ×3 (01:21→18:01)
[2019-04-23] MEDS: Heparin VIAL(*) 5000 UNITS/ML VIAL (FIVE THOUSAND) SUBCUT SCH ×3 (05:32→20:04)
[2019-04-23 05:46] LABS: ABS Eosinophils 0.1 10^3/ul (0-0.6); ABS Lymphocytes 2.4 10^3/ul (1.0-4.8); ABS Monocytes 0.8 10^3/ul (0-0.8); Eosinophil % 1.7 %; Hematocrit 36 % (35-47); Hemoglobin 11.7 g/dL (12.0-16.0); Lymphocyte % 37.8 %; Mean Corpuscular HGB Conc 33 g/dL (31-36); Mean Corpuscular Hemoglobin 30 pg (27-31); Mean Corpuscular Volume 91 fL (80-97); Mean Platelet Volume 7.7 fL (7.4-10.4); Nucleated Red Blood Cells % 0.1; Platelet Count 306 10^3/uL (150-450); Red Blood Count 3.91 10^6 /uL (3.70-4.87); Red Cell Distribution Width 15 % (10-15); White Blood Count 6.3 10^3/uL (3.5-10.8)
[2019-04-23 06:02] LABS: BUN/Creatinine Ratio 37.8 (8-20); Calcium 9.2 mg/dL (8.6-10.3); EGFR African American 170.3 (>60); EGFR Non-African American 140.7 (>60); Potassium 3.8 mmol/L (3.5-5.0)
[2019-04-23] MEDS: Baclofen TAB* 10 MG PO SCH ×4 (10:16→19:57)
[2019-04-23] MEDS: Methylphenidate TAB* 10 MG PO SCH ×3 (10:16→16:30)
[2019-04-23] MEDS: Oxybutynin TAB* 5 MG PO SCH ×2 (10:16→19:55)
[2019-04-23] MEDS: Dronabinol CAP* 2.5 MG PO SCH ×4 (10:17→19:56)
[2019-04-23] MEDS: tiZANidine TAB* 2 MG PO SCH ×4 (10:17→19:57)
[2019-04-23] MEDS: Aspirin EC TAB* 81 MG TAB.EC PO SCH (10:17)
[2019-04-23] MEDS: Docusate CAP* 100 MG PO SCH ×2 (10:17→19:57)
[2019-04-23] MEDS ORDERED: Albuterol/Ipratropium NEB.SOL* Albuterol 2.5 MG/Ipratropium 0.5 MG 3 ML INH ONE (14:04)
--- NOTE | 2019-04-23 14:16 | ECHO ---
*[facility]* [place] [address] Fax #: [phone] Transthoracic Echocardiogram Patient: , Height: 65 in / Erendira S 165.1 cm : 1955 Weight: 124.7 lb / Study Date: 04/23/2019 56.7 kg Age: 63 BP: 97 / 56 Gender: F BMI/BSA: 20.8 kg/m^2 HR: 81 bpm / 1.62 m^2 *Mathematics Department Chair: * Jie Balderrama [facility] *Referring Physician: * Cecilia JeanReading Physician: * Abdoulaye Donis MD Indications: SOB. History: Multiple sclerosis. Conclusions Summary: 1. Left ventricle: The cavity size is normal. Wall thickness is normal. Systolic function is normal. The estimated ejection fraction is 55-60%. Wall motion is normal; there are no regional wall motion abnormalities. 2. Right ventricle: The cavity size is normal. Systolic function is normal. 3. Left atrium: The atrium is normal in size. 4. Pulmonary arteries: Systolic pressure can not be accurately estimated. 5. No significant valvular abnormalities noted Recommendations: None prior for comparison at time of interpretation. Study data: Transthoracic echocardiogram. Procedure: Transthoracic echocardiography was performed. Image quality was adequate. Complete 2D, spectral Doppler, and color flow Doppler. Location: Bedside. Patient status: Inpatient. Patient room number: 433. Rhythm: Normal sinus rhythm. Findings Left ventricle: The cavity size is normal. Wall thickness is normal. Systolic function is normal. The estimated ejection fraction is 55-60%. Wall motion is normal; there are no regional wall motion abnormalities. Left ventricular diastolic function parameters are indeterminate. Right ventricle: The cavity size is normal. Systolic function is normal. Left atrium: The atrium is normal in size. Right atrium: The atrium is normal in size. Mitral valve: The leaflets are normal thickness. There is no evidence of stenosis. There is no significant regurgitation. Aortic valve: The leaflets are normal thickness. There is no evidence of stenosis. There is no significant regurgitation. Tricuspid valve: The leaflets are normal thickness. There is no evidence of stenosis. There is no significant regurgitation. Pulmonic valve: Not well visualized. The leaflets are normal thickness. There is no significant regurgitation. Aorta: Aortic arch: The aortic arch is poorly visualized. The aortic root is not dilated. Pericardium: There is no significant pericardial effusion. Pulmonary arteries: Not well visualized. Systolic pressure can not be accurately estimated. Systemic veins: Inferior vena cava: The vessel is normal in size. The respirophasic diameter changes are in the normal range (>= 50%). Measurements Left ventricle Value Ref Right atrium Value Ref ROSI, LAX 4.3 cm 3.8 - 5.2 SI dim, ES 4.7 cm 3.4 - 5.3 ESD, LAX 3.0 cm 2.2 - 3.5 ML dim, ES, A4C 3.7 cm 2.6 - 4.4 FS, LAX 31 % 27 - 45 Estimated RAP 3 mm Hg --------- PW, ED, LAX 0.8 cm 0.6 - 0.9 EF 58 % 54 - 74 Aortic valve Value Ref E', lat roseanna, TDI (L) 4.6 cm/sec >=10.0 Roseanna diam, ED 2.3 cm ------ --- E/e', lat roseanna, 13 Peak v, S 1.04 m/sec --------- TDI VTI, S 15.8 cm --------- E', med roseanna, TDI (L) 5.9 cm/sec >=7.0 Mean grad, S 2.0 mm Hg ------ --- E/e', med roseanna, 10 Peak grad, S 4.0 mm Hg --------- TDI E', avg, TDI 5.3 cm/sec Mitral valve Value Ref E/e', avg, TDI 11 <=14 Peak E 0.59 m/sec ------ --- Peak A 0.53 m/sec --------- LVOT Value Ref Decel time 158 ms --------- Peak mann, S 0.76 m/sec Peak E/A ratio 1.1 --------- Mean grad, S 1 mm Hg Pulmonic valve Value Ref Ventricular septum Value Ref Peak v, S 0.59 m/sec --------- IVS, ED (H) 1.0 cm 0.6 - 0.9 Peak grad, S 1.0 mm Hg --------- Right ventricle Value Ref Aortic root Value Ref ROSI, LAX 2.7 cm Root diam 2.8 cm <3.9 Left atrium Value Ref Ascending aorta Value Ref AP dim, ES 3.00 cm 2.70 - AAo AP diam, S 2.8 cm --------- 3.80 ML dim, A4C 2.9 cm Inferior vena cava Value Ref SI dim, A4C 4.1 cm Diam 1.4 cm --------- Vol/bsa, ES, 1-p 17 ml/m^2 11 - 40 A4C Legend: (L) and (H) cesar values outside specified reference range. Prepared and electronically signed by Abdoulaye Donis MD 04/23/2019 14:16
[2019-04-23] MEDS: Donepezil TAB* 5 MG PO SCH (16:30)
--- NOTE | 2019-04-23 17:05 | PN ---
Subjective Date of Service: 04/23/19 Interval History: Patient feels her breathing is comfortable. She denies SOB, dyspnea, chest pain , fever/chills, abd pain, flank pain. Objective Active Medications: Acetaminophen (Tylenol Tab*) 650 mg PO Q4H PRN PRN Reason: FEVER/PAIN Amitriptyline HCl (Elavil Tab*) 150 mg PO BEDTIME [facility] Last Admin: 04/22/19 20:33 Dose: 150 mg Aspirin (Aspirin Ec Tab*) 81 mg PO DAILY [facility] Last Admin: 04/23/19 10:17 Dose: 81 mg Baclofen (Lioresal Tab*) 30 mg PO QID [facility] Last Admin: 04/23/19 16:27 Dose: 30 mg Docusate Sodium (Colace Cap*) 100 mg PO BID [facility] Last Admin: 04/23/19 10:17 Dose: 100 mg Donepezil HCl (Aricept Tab*) 10 mg PO QPM [facility] Last Admin: 04/23/19 16:30 Dose: 10 mg Dronabinol (Marinol Cap*) 5 mg PO QID [facility] Last Admin: 04/23/19 16:27 Dose: 5 mg Heparin Sodium (Porcine) (Heparin Vial(*)) 5,000 units SUBCUT Q8HR [facility] Last Admin: 04/23/19 12:56 Dose: 5,000 units Meropenem (Merrem 1 Gm Premix(*)) 1 gm in 50 mls @ 100 mls/hr IV Q8H [facility]; Protocol Last Admin: 04/23/19 10:18 Dose: 100 mls/hr Meclizine HCl (Antivert Tab*) 25 mg PO Q6HR PRN PRN Reason: DIZZINESS Melatonin (Melatonin) 3 mg PO BEDTIME PRN PRN Reason: INSOMNIA Last Admin: 04/22/19 22:39 Dose: 3 mg Methylphenidate HCl (Ritalin Tab*) 10 mg PO BID@1300,1700 [facility] Last Admin: 04/23/19 16:30 Dose: 10 mg Methylphenidate HCl (Ritalin Tab*) 20 mg PO DAILY@0800 [facility] Last Admin: 04/23/19 10:16 Dose: 20 mg Oxybutynin Chloride (Ditropan Tab*) 15 mg PO BID [facility] Last Admin: 04/23/19 10:16 Dose: 15 mg Polyethylene Glycol/Electrolytes (Miralax*) 17 gm PO DAILY PRN PRN Reason: CONSTIPATION Senna (Senokot Tab*) 2 tab PO BID PRN PRN Reason: CONSTIPATION Tizanidine HCl (Zanaflex Tab*) 4 mg PO QID MIHIR Last Admin: 04/23/19 16:27 Dose: 4 mg Vital Signs - 8 hr 04/23/19 04/23/19 04/23/19 10:17 11:32 12:08 Temperature 97.4 F Pulse Rate 82 Respiratory 20 18 20 Rate Blood Pressure 98/47 (mmHg) O2 Sat by Pulse 92 Oximetry 04/23/19 04/23/19 04/23/19 12:24 14:40 15:19 Temperature Pulse Rate 75 Respiratory 17 Rate Blood Pressure (mmHg) O2 Sat by Pulse 92 92 93 Oximetry 04/23/19 04/23/19 16:00 16:27 Temperature 97.6 F Pulse Rate 80 Respiratory 20 20 Rate Blood Pressure 106/70 (mmHg) O2 Sat by Pulse 100 Oximetry Oxygen Devices in Use Now: None Appearance: Thin, white female who appears older than stated age laying in hospital bed appearing in NAD Eyes: No Scleral Icterus, PERRLA Ears/Nose/Mouth/Throat: Mucous Membranes Moist Neck: NL Appearance and Movements; NL JVP Respiratory: Symmetrical Chest Expansion and Respiratory Effort, - - diminished lung sounds Cardiovascular: NL Sounds; No Murmurs; No JVD, RRR Abdominal: - - abd soft, nontender, nondistended Extremities: No Edema, No Clubbing, Cyanosis, - - left UE contracture Skin: - - dry region erythema surrounding yoli oral region Neurological: Alert and Oriented x 3, - - no focal deficits Result Diagrams: 04/24/19 10:01 04/23/19 05:10 Microbiology and Other Data: Microbiology 04/22/19 13:47 Aerobic Blood Culture - Preliminary Blood Venous No Growth Day 1 Anaerobic Blood Culture - Preliminary No Growth Day 1 04/22/19 13:47 Aerobic Blood Culture - Preliminary Blood Venous No Growth Day 1 Anaerobic Blood Culture - Preliminary No Growth Day 1 Assess/Plan/Problems-Billing Assessment: 63 yo female with PMHx MS, paraplegia, urinary incontinence and frequent UTIs, and depression presents to the ED from [facility] due to patient newly requiring 3L oxygen. - Patient Problems (1) Acute respiratory failure with hypoxia Code(s): J96.01 - ACUTE RESPIRATORY FAILURE WITH HYPOXIA SNOMED Code(s): 76529880 Comment: -required 3L oxygen at admission -recent hospitalization with large volume IV fluid administration, possibility of pulmonary edema -echo demonstrates EF 55-60%, pulmonary edema seems less likely at this point -nursing at [facility] reports patient choked on morning pills on day of presentation -aspiration pneumonia possible, CXR has questionable consolidation in right lower lobe -currently O2 sats >90% on RA -continuing meropenem for coverage of both possible aspiration PNA and known ESBL E.coli UTI, will convert to po augmentin at discharge -ordered incentive spirometry and flutter valve -cyanotic right toes today, ABG pending (2) UTI (urinary tract infection) Comment: -recently discharged and urine sensitivities now demonstrate ESBL E. coli -continue meropenem -patient asymptomatic, afebrile, without leukocytosis -will convert to po bactrim at discharge (3) Multiple sclerosis Code(s): G35 - MULTIPLE SCLEROSIS SNOMED Code(s): 77443689 Comment: -continue baclofen, marinol, donepezil, prn zanaflex (4) Depression Code(s): F32.9 - MAJOR DEPRESSIVE DISORDER, SINGLE EPISODE, UNSPECIFIED SNOMED Code(s): 45415908 Comment: -continue amitriptyline (5) DVT prophylaxis Code(s): GBM4777 - SNOMED Code(s): 919185810 Comment: -heparin subQ (6) Full code status Code(s): Z78.9 - OTHER SPECIFIED HEALTH STATUS SNOMED Code(s): 280803179
[2019-04-23] MEDS: Melatonin 3 MG TAB PO PRN (23:43)
[2019-04-24] MEDS: Amitriptyline TAB* 50 MG PO SCH ×2 (00:01→21:21)
[2019-04-24] MEDS: Meropenem 1 GM PREMIX(*) 1 GM/50 ML BAG IV SCH ×3 (01:26→17:57)
[2019-04-24] MEDS ORDERED: Vancomycin Trough Check NOTE FOLLOW UP ONE (05:30)
[2019-04-24] MEDS: Heparin VIAL(*) 5000 UNITS/ML VIAL (FIVE THOUSAND) SUBCUT SCH ×3 (05:47→21:20)
[2019-04-24] MEDS: Oxybutynin TAB* 5 MG PO SCH ×2 (08:53→21:21)
[2019-04-24] MEDS: Aspirin EC TAB* 81 MG TAB.EC PO SCH (08:53)
[2019-04-24] MEDS: Dronabinol CAP* 2.5 MG PO SCH ×4 (08:54→21:20)
[2019-04-24] MEDS: Docusate CAP* 100 MG PO SCH ×2 (08:54→21:22)
[2019-04-24] MEDS: tiZANidine TAB* 2 MG PO SCH ×4 (08:54→21:21)
[2019-04-24] MEDS: Methylphenidate TAB* 10 MG PO SCH ×3 (08:54→18:08)
[2019-04-24] MEDS: Baclofen TAB* 10 MG PO SCH ×4 (08:54→21:22)
[2019-04-24 10:10] LABS: ABS Basophils 0.1 10^3/ul (0-0.2); ABS Eosinophils 0.2 10^3/ul (0-0.6); ABS Lymphocytes 2.2 10^3/ul (1.0-4.8); ABS Monocytes 0.5 10^3/ul (0-0.8); ABS Neutrophils 2.4 10^3/ul (1.5-7.7); Eosinophil % 3.4 %; Hematocrit 34 % (35-47); Hemoglobin 11.1 g/dL (12.0-16.0); Mean Corpuscular HGB Conc 33 g/dL (31-36); Mean Corpuscular Hemoglobin 30 pg (27-31); Mean Corpuscular Volume 91 fL (80-97); Mean Platelet Volume 7.6 fL (7.4-10.4); Nucleated Red Blood Cells % 0.1; Platelet Count 314 10^3/uL (150-450); Red Blood Count 3.67 10^6 /uL (3.70-4.87); Red Cell Distribution Width 15 % (10-15); White Blood Count 5.3 10^3/uL (3.5-10.8)
--- NOTE | 2019-04-24 11:12 | PN ---
Subjective Date of Service: 04/24/19 Interval History: Patient feels she has a difficult time taking a deep breath, which started overnight. She denies fever/chills, chest pain, abd pain, dizziness, blurred vision. Later in the day, patient reports epigastric pain. Denies feeling anxious. Does not improve with tums. Objective Active Medications: Acetaminophen (Tylenol Tab*) 650 mg PO Q4H PRN PRN Reason: FEVER/PAIN Amitriptyline HCl (Elavil Tab*) 150 mg PO BEDTIME [facility] Last Admin: 04/24/19 00:01 Dose: 150 mg Aspirin (Aspirin Ec Tab*) 81 mg PO DAILY [facility] Last Admin: 04/24/19 08:53 Dose: 81 mg Baclofen (Lioresal Tab*) 30 mg PO QID [facility] Last Admin: 04/24/19 08:54 Dose: 30 mg Docusate Sodium (Colace Cap*) 100 mg PO BID [facility] Last Admin: 04/24/19 08:54 Dose: 100 mg Donepezil HCl (Aricept Tab*) 10 mg PO QPM [facility] Last Admin: 04/23/19 16:30 Dose: 10 mg Dronabinol (Marinol Cap*) 5 mg PO QID [facility] Last Admin: 04/24/19 08:54 Dose: 5 mg Heparin Sodium (Porcine) (Heparin Vial(*)) 5,000 units SUBCUT Q8HR [facility] Last Admin: 04/24/19 05:47 Dose: 5,000 units Meropenem (Merrem 1 Gm Premix(*)) 1 gm in 50 mls @ 100 mls/hr IV Q8H [facility]; Protocol Last Admin: 04/24/19 01:26 Dose: 100 mls/hr Meclizine HCl (Antivert Tab*) 25 mg PO Q6HR PRN PRN Reason: DIZZINESS Melatonin (Melatonin) 3 mg PO BEDTIME PRN PRN Reason: INSOMNIA Last Admin: 04/23/19 23:43 Dose: 3 mg Methylphenidate HCl (Ritalin Tab*) 10 mg PO BID@1300,1700 [facility] Last Admin: 04/23/19 16:30 Dose: 10 mg Methylphenidate HCl (Ritalin Tab*) 20 mg PO DAILY@0800 [facility] Last Admin: 04/24/19 08:54 Dose: 20 mg Oxybutynin Chloride (Ditropan Tab*) 15 mg PO BID [facility] Last Admin: 04/24/19 08:53 Dose: 15 mg Polyethylene Glycol/Electrolytes (Miralax*) 17 gm PO DAILY PRN PRN Reason: CONSTIPATION Senna (Senokot Tab*) 2 tab PO BID PRN PRN Reason: CONSTIPATION Tizanidine HCl (Zanaflex Tab*) 4 mg PO QID [facility] Last Admin: 04/24/19 08:54 Dose: 4 mg Vital Signs - 8 hr 04/24/19 04/24/19 04/24/19 04:43 07:41 08:54 Temperature 96.8 F 95.4 F Pulse Rate 65 62 Respiratory 16 16 16 Rate Blood Pressure 107/60 100/60 (mmHg) O2 Sat by Pulse 92 90 Oximetry 04/24/19 09:10 Temperature 95.7 F Pulse Rate Respiratory Rate Blood Pressure (mmHg) O2 Sat by Pulse Oximetry Oxygen Devices in Use Now: None Appearance: Thin, elderly white female laying in hospital bed appearing in NAD Eyes: No Scleral Icterus, PERRLA Ears/Nose/Mouth/Throat: Mucous Membranes Moist Neck: NL Appearance and Movements; NL JVP Respiratory: Symmetrical Chest Expansion and Respiratory Effort, - - diminished lung sounds but otherwise clear Cardiovascular: NL Sounds; No Murmurs; No JVD, RRR Abdominal: - - abd soft, nontender, nondistended Extremities: No Edema, - - cold and cyanotic right toes; difficulty palpating right DP pulse but PT pulse intact 2/4 Skin: - - some mottling to bilateral UEs Neurological: Alert and Oriented x 3, - - sensation to light touch intact to toes Result Diagrams: 04/24/19 10:01 04/23/19 05:10 Microbiology and Other Data: Microbiology 04/22/19 13:47 Aerobic Blood Culture - Preliminary Blood Venous No Growth Day 1 Anaerobic Blood Culture - Preliminary No Growth Day 1 04/22/19 13:47 Aerobic Blood Culture - Preliminary Blood Venous No Growth Day 1 Anaerobic Blood Culture - Preliminary No Growth Day 1 Assess/Plan/Problems-Billing Assessment: 63 yo female with PMHx MS, paraplegia, urinary incontinence and frequent UTIs, and depression presents to the ED from [facility] due to patient newly requiring 3L oxygen. - Patient Problems (1) Acute respiratory failure with hypoxia Code(s): J96.01 - ACUTE RESPIRATORY FAILURE WITH HYPOXIA SNOMED Code(s): 36993250 Comment: -required 3L oxygen at admission -recent hospitalization with large volume IV fluid administration, possibility of pulmonary edema -echo demonstrates EF 55-60%, pulmonary edema seems less likely at this point -nursing at [facility] reports patient choked on morning pills on day of presentation -aspiration pneumonia possible, CXR has questionable consolidation in right lower lobe -currently O2 sats >90% on RA -continuing meropenem for coverage of both possible aspiration PNA and known ESBL E.coli UTI, will convert to po augmentin at discharge -ordered incentive spirometry and flutter valve (2) UTI (urinary tract infection) Comment: -recently discharged and urine sensitivities now demonstrate ESBL E. coli -continue meropenem -patient asymptomatic, afebrile, without leukocytosis -will convert to po bactrim at discharge (3) Toe cyanosis Code(s): R23.0 - CYANOSIS SNOMED Code(s): 131305470 Comment: -cyanotic right toes today, neurovascularly intact -occurring in setting of hypothermia and hypoxia, though hypoxia is resolving; ABG with oxygen of 71 -would perhaps benefit from SON if continues despite continued resolution of hypothermia and hypoxia (4) Hypothermia Code(s): T68.XXXA - HYPOTHERMIA, INITIAL ENCOUNTER SNOMED Code(s): 057193623 Comment: -confirmed with rectal temp of 95.7 F, however later resolved to 97.4 after temperature of hospital room increased; bear hugger had been ordered but not yet delivered by time of resolution -CBC without leukocytosis or leukopenia and all VS otherwise normal, does not meet criteria for sepsis at this time -lactic acid wnl -ABG with hypercapnia and mild hypoxemia but normal pH (5) Epigastric pain Code(s): R10.13 - EPIGASTRIC PAIN SNOMED Code(s): 83108266 Comment: -troponin negative, EKG without ischemic changes -not resolved with tums; famotidine not recommended due to increasing tizanidine which could cause sedation -will add PPI and continue to monitor, possibly dyspepsia; will check lipase if persists (6) Multiple sclerosis Code(s): G35 - MULTIPLE SCLEROSIS SNOMED Code(s): 53667716 Comment: -continue baclofen, marinol, donepezil, prn zanaflex (7) Depression Current Visit: Yes Status: Acute Code(s): F32.9 - MAJOR DEPRESSIVE DISORDER , SINGLE EPISODE, UNSPECIFIED SNOMED Code(s): 51475685 Comment: -continue amitriptyline (8) DVT prophylaxis Code(s): XGH9011 - SNOMED Code(s): 310647335 Comment: -heparin subQ (9) Full code status Code(s): Z78.9 - OTHER SPECIFIED HEALTH STATUS SNOMED Code(s): 252500894 Status and Disposition: continuing inpatient treatment; patient should remain hospitalized to observe temperature for 24 hours
[2019-04-24] MEDS ORDERED: Calcium Carbonate CHEW TAB* 500 MG (TUMS) PO PRN (14:03)
[2019-04-24] MEDS ORDERED: Ketorolac INJ* 15 MG/ML 1 ML VIAL IV PUSH ONE (15:54)
[2019-04-24] MEDS: Pantoprazole TAB * 40 MG TAB PO SCH (17:56)
[2019-04-24] MEDS: Donepezil TAB* 5 MG PO SCH (17:57)
[2019-04-24] MEDS ORDERED: Albuterol/Ipratropium NEB.SOL* Albuterol 2.5 MG/Ipratropium 0.5 MG 3 ML INH SCH (21:00)
[2019-04-25] MEDS ORDERED: Albuterol/Ipratropium NEB.SOL* Albuterol 2.5 MG/Ipratropium 0.5 MG 3 ML INH PRN (01:00)
[2019-04-25] MEDS: Meropenem 1 GM PREMIX(*) 1 GM/50 ML BAG IV SCH ×2 (02:59→10:38)
[2019-04-25] MEDS: Heparin VIAL(*) 5000 UNITS/ML VIAL (FIVE THOUSAND) SUBCUT SCH (06:19)
[2019-04-25 07:41] LABS: ABS Eosinophils 0.2 10^3/ul (0-0.6); ABS Monocytes 0.6 10^3/ul (0-0.8); ABS Neutrophils 2.2 10^3/ul (1.5-7.7); Eosinophil % 3.5 %; Hematocrit 36 % (35-47); Lymphocyte % 39.9 %; Mean Corpuscular HGB Conc 33 g/dL (31-36); Mean Corpuscular Hemoglobin 30 pg (27-31); Mean Corpuscular Volume 91 fL (80-97); Mean Platelet Volume 7.5 fL (7.4-10.4); Nucleated Red Blood Cells % 0.1; Platelet Count 330 10^3/uL (150-450); Red Blood Count 3.96 10^6 /uL (3.70-4.87); Red Cell Distribution Width 15 % (10-15); White Blood Count 5.1 10^3/uL (3.5-10.8)
[2019-04-25 07:57] LABS: BUN/Creatinine Ratio 38.6 (8-20); Calcium 9.4 mg/dL (8.6-10.3); EGFR African American 174.7 (>60); EGFR Non-African American 144.4 (>60)
[2019-04-25] MEDS: Methylphenidate TAB* 10 MG PO SCH ×2 (09:39→13:18)
[2019-04-25] MEDS: Aspirin EC TAB* 81 MG TAB.EC PO SCH (09:40)
[2019-04-25] MEDS: tiZANidine TAB* 2 MG PO SCH ×2 (09:40→13:19)
[2019-04-25] MEDS: Baclofen TAB* 10 MG PO SCH ×2 (09:40→13:19)
[2019-04-25] MEDS: Oxybutynin TAB* 5 MG PO SCH (09:40)
[2019-04-25] MEDS: Pantoprazole TAB * 40 MG TAB PO SCH (09:40)
[2019-04-25] MEDS: Docusate CAP* 100 MG PO SCH (09:40)
[2019-04-25] MEDS: Dronabinol CAP* 2.5 MG PO SCH ×2 (09:41→13:19)
[2019-04-25 11:35] VITALS: BP 108/64
--- NOTE | 2019-04-25 14:14 | DS ---
CC: Goldie Giraldo DO, [facility] * DISCHARGE SUMMARY: DATE OF ADMISSION: 04/22/19 DATE OF DISCHARGE: 04/25/19 PRIMARY CARE PHYSICIAN: Goldie Giraldo DO. PRIMARY DIAGNOSES: 1. Urinary tract infection 2. Pulmonary edema likely from prior IV fluid resuscitation. SECONDARY DIAGNOSES: 1. Multiple sclerosis. 2. Depression. 3. Paraplegia. DISCHARGE MEDICATIONS: 1. Bactrim 1 double strength tablet twice a day for 5 more days. 2. Tizanidine 4 mg every 4 hours as needed for muscle spasm. 3. Oxybutynin 15 mg twice a day. 4. Methylphenidate 30 mg in the morning and 10 mg in the evening. 5. Meclizine 25 mg every 6 hours as needed. 6. Ketoconazole topical. 7. Dronabinol 5 mg 4 times a day. 8. Donepezil 10 mg nightly. 9. Baclofen 30 mg 4 times a day as needed for muscle spasm. 10. Aspirin 81 mg daily. 11. Amitriptyline 150 mg nightly. 12. Vitamin D3 4000 units daily. HISTORY OF PRESENT ILLNESS: Ms. Salas is a 63-year-old woman with MS complicated by paraplegia, frequent UTIs with recent admission 2 days prior to this presentation for likely UTI. By time of discharge, those urine cultures had not yet resulted with sensitivities and the patient had been discharged on cefdinir. Now, the urine cultures resulted as ESBL E. coli sensitive to Zosyn and Bactrim. Due to the patient's MS, she has not exhibited symptoms of UTI since discharge and did not have these symptoms during prior admission. The patient states that on day of presentation, she was somewhat short of breath and apparently required suctioning at [facility]. HOSPITAL COURSE: When she presented to the emergency room, her oxygen saturations were 90% on room air and the patient expressed desire to go back to [facility]. Medicine was consulted for further management. Initially, hospitalist consult recommended that the patient be switched to Bactrim and discharged back to her nursing facility. However, in ER, the patient became nearly hypoxic, requiring 3 L of oxygen to maintain O2 saturations above 90%. Given evidence of fluid overload in right lung fissures, she was started on IV Lasix 20 mg and admitted to Medicine. By the next morning, she no longer had oxygen requirements and was again denying symptoms and asking to return to her detention. D-dimer was checked given the patient was tachycardic at the time of hypoxia and this resulted less than 200. Throughout admission, the patient had no leukocytosis nor elevated CRP. During hospitalization, the patient was covered with meropenem, as there was initially concern for aspiration pneumonia on top of needing to cover for ESBL E. coli seen in urine during previous admission, but it was thought more likely that the patient had possibly aspiration pneumonitis given her normal CRP and rapid improvement of hypoxia with 1 dose of furosemide. On the day of discharge, the patient had denied 10-point review of systems. PHYSICAL EXAM: Afebrile. Heart rate 80, blood pressure 108/64, respiratory rate 18, oxygen saturation 96% on room air. In general, she is a chronically ill appearing woman in no acute distress lying flat on her back without increased work of breathing. She is alert and interactive. HEENT: Moist mucous membranes. Neck: No JVD. Lungs: Clear to auscultation bilaterally. Heart: Regular rate and rhythm. No murmurs, gallops, or rubs. Abdomen: Soft , nontender, nondistended. Extremities: Warm and well perfused without edema. Contractures of upper and lower extremities noted. Scattered scabs over lower extremities. Skin: Face notable for seborrheic dermatitis with dry flaky erythematous skin around the skin flexures. PERTINENT STUDIES AND LABS: WBC 5.3. Creatinine 0.54. CRP 6. BNP 21. Urine cultures from 04/20/19 with ESBL E. coli over 100,000 CFUs. Sensitive to gentamicin, meropenem, nitrofurantoin, tetracycline, Zosyn, and Bactrim; resistant to cephalosporins. Chest x-ray with airspace consolidation at the right lung base, medial, new compared to prior exam. Brain CT with involutional change, most prominent at the frontal lobes. No acute CT abnormality of the brain. Kidney ultrasound was normal with mild bladder wall thickening suggestive of cystitis. DISCHARGE PLAN: The patient is to return to [facility] and will continue to be seen by Dr. Goldie Giraldo. The patient to continue Bactrim for 5 more days after discharge to complete course for cystitis with ESBL with sensitivities listed above. Otherwise, her home medications have not been changed. She should resume regular unrestricted diet with a normal level of activity as tolerated. She uses a wheelchair at baseline. The patient should return to the emergency department if she experiences recurrence of hypoxia and shortness of breath or has fevers, chills, or abdominal pain. DISPOSITION: [facility]. CONDITION: Improved. TIME SPENT: Approximately 60 minutes were spent on discharge of this patient, more than half of which was spent with care and coordination at bedside for interview and exam. [id number]/[facility] #: [id number] PRINCE
== END 2019-04-25 14:05 | DRG 133 ==
LOC: ED 12:47 → MEDTELE 18:24 → OBSVTOIN 04-23 12:00
PROVIDERS: ADMIT Internal Medicine; ATTEND Internal Medicine
DX: J96.01 Acute respiratory failure with hypoxia (principal); J81.1 Chronic pulmonary edema; G82.20 Paraplegia, unspecified; N30.90 Cystitis, unspecified without hematuria; G35 Multiple sclerosis; F32.9 Major depressive disorder, single episode, unspecified; B96.29 Other Escherichia coli [E. coli] as the cause of diseases classified elsewhere; E87.70 Fluid overload, unspecified; R00.0 Tachycardia, unspecified; R10.13 Epigastric pain; R23.0 Cyanosis; R68.0 Hypothermia, not associated with low environmental temperature; R32 Unspecified urinary incontinence; Z79.82 Long term (current) use of aspirin; Z87.440 Personal history of urinary (tract) infections; Z88.8 Allergy status to other drugs, medicaments and biological substances; Z88.0 Allergy status to penicillin; Z88.6 Allergy status to analgesic agent
CPT/HCPCS: 36415; 36600; 70450; 71046; 76770; 80048; 80053; 82550; 82553; 82803; 83605; 83880; 84484; 85025; 85379; 85730; 86140; 87040; 93005; 93306; 94640; 99285; A9270-GY; G0378; J0692; J1644; J1885; J1940; J2185; J3370

== ENCOUNTER 2019-04-29 14:40 | Inpatient (IN) | payer MEDICAID ==
--- NOTE | 2019-04-29 15:09 | ED ---
Respiratory - HPI Summary HPI Summary: This patient is a 63 year old F brought to ED via EMS with a chief complaint of respiratory distress since 1449 today. Per [facility] staff, patient had some mottling. Per EMS, patient was not verbally responsive. She uses 2L O2 NC at home, and EMS increased this to 4L and gave Duoneb. After treatment, patient was verbally responsive. Patient was recently diagnosed with UTI and was admitted to [facility] on 04/22/19 for similar respiratory symptoms. The patient rates the pain 0/10 in severity. Symptoms aggravated by nothing. Symptoms alleviated by nothing. Patient denies CP, fever, cough. - History of Current Complaint Chief Complaint: EDShortnessOfBreath Stated Complaint: "RESPIRATORY DISTRESS PER EMS" Hx Obtained From: Patient, EMS Onset/Duration: Resolved Initial Severity: Moderate Current Severity: None Pain Intensity: 0 Sputum Amount: None Aggravating Factor(s): Nothing Alleviating Factor(s): Nothing Associated Signs and Symptoms: Negative - CP, fever, cough, SOB - Allergy/Home Medications Allergies/Adverse Reactions: Allergies Allergy/AdvReac Type Severity Reaction Status Date / Time methylprednisolone Allergy Intermediate Rash Verified 04/29/19 14:46 penicillin G Allergy Intermediate Hives Verified 04/29/19 14:46 tramadol AdvReac Severe See Comment Verified 04/29/19 14:46 PMH/Surg Hx/FS Hx/Imm Hx Endocrine/Hematology History: Denies: Hx Diabetes Cardiovascular History: Denies: Hx Hypertension, Hx Pacemaker/ICD Respiratory History: Denies: Hx Asthma, Hx Chronic Obstructive Pulmonary Disease (COPD) History: Denies: Hx Dialysis, Hx Renal Disease Musculoskeletal History: Reports: Other Musculoskeletal History - cervical spine dysectomy Sensory History: Reports: Hx Contacts or Glasses Denies: Hx Cataracts, Hx Eye Injury, Hx Eye Prosthesis, Hx Glaucoma, Hx Legally Blind, Hx Macular Degeneration, Hx Vision Problem, Hx Deafness, Hx Hearing Aid, Other Sensory Impairments Opthamlomology History: Reports: Hx Contacts or Glasses Denies: Hx Cataracts, Hx Eye Injury, Hx Eye Prosthesis, Hx Glaucoma, Hx Legally Blind, Hx Macular Degeneration, Hx Vision Problem, Other Sensory Impairments Neurological History: Reports: Other Neuro Impairments/Disorders - ms Denies: Hx Dementia, Hx Seizures Psychiatric History: Denies: Hx Eating Disorder, Hx Panic Disorder - Surgical History Surgery Procedure, Year, and Place: , CSP DISCECTOMY (WITH PLATES) Infectious Disease History: No Infectious Disease History: Reports: Hx of Known/Suspected MRSA - hx in 2015, Hx Shingles Denies: Traveled Outside the [place] in Last 30 Days - Family History Known Family History: Positive: Other - Denies FHx psychotic disorders, schizophrenia, mood disorders - Social History Alcohol Use: None Hx Substance Use: No Substance Use Type: Reports: None Hx Tobacco Use: No Smoking Status (MU): Never Smoked Tobacco Have You Smoked in the Last Year: No Review of Systems Negative: Fever Negative: Chest Pain Positive: Shortness Of Breath. Negative: Cough All Other Systems Reviewed And Are Negative: Yes Physical Exam - Summary Physical Exam Summary: Appearance: Well appearing, no pain distress Skin: warm, dry, reflects adequate perfusion Head/face: normal Eyes: EOMI, DES ENT: normal Neck: supple, non-tender Respiratory: decreased breath sounds Cardiovascular: tachycardic Abdomen: non-tender, soft Musculoskeletal: extremities contracted Neuro: normal, sensory motor intact, A&Ox3 Triage Information Reviewed: Yes Vital Signs On Initial Exam: Initial Vitals Temp Pulse Resp BP Pulse Ox 99.7 F 111 19 117/78 97 04/29/19 14:46 04/29/19 14:46 04/29/19 14:46 04/29/19 14:46 04/29/19 14:46 Vital Signs Reviewed: Yes Diagnostics - Vital Signs Vital Signs Temp Pulse Resp BP Pulse Ox 04/29/19 14:46 99.7 F 111 19 117/78 97 - Laboratory Result Diagrams: 04/29/19 16:14 04/29/19 16:14 Lab Statement: Any lab studies that have been ordered have been reviewed, and results considered in the medical decision making process. - Radiology CXR Radiology Interpretation Completed By: Radiologist Summary of Radiographic Findings: No active cardiopulmonary disease is noted. Dr. Lucia has reviewed this radiology report. - EKG 1537 Cardiac Rate: Tachycardia - 109 Summary of EKG Findings: Sinus tachycardia at [address] changes. Disposition - Course Course Of Treatment: This patient is a 63 year old F brought to ED via EMS with a chief complaint of respiratory distress since 1449 today. In the ED course, patient received Solu Medrol and Duoneb. EKG at 1537 revealed sinus tachycardia at [address] changes. CXR revealed no active cardiopulmonary disease is noted. Blood work obtained. Discussed patient case with Dr. Sheppard, hospitalist , who recommended a chest CTA and accepted the patient for admission to [facility]. Patient will be admitted with dx of dyspnea and bronchospasm to rule out PE. Patient understands and agrees with this plan. - Differential Dx - Cardiopulmonary Differential Diagnoses - Cardiopulmonary: Acute Dyspnea, Chest Wall Pain, Exacerbation Of COPD, Pulmonary Embolism - Diagnoses Provider Diagnoses: Dyspnea, Bronchospasm, Multiple sclerosis - Physician Notifications Discussed Care Of Patient With: Maria Sheppard Time Discussed With Above Provider: 18:11 Instructed by Provider To: Other - Discussed patient case with Dr. Sheppard, hospitalist, who recommended a chest CTA and accepted the patient for admission to [facility]. - Critical Care Time Critical Care Time: 30-74 min Discharge - Sign-Out/Discharge Documenting (check all that apply): Patient Departure - Admit Patient Received Moderate/Deep Sedation with Procedure: No - Discharge Plan Condition: Fair Disposition: ADMITTED TO [facility] Referrals: Goldie Giraldo DO [Doctor of Osteopathy] - - Billing Disposition and Condition Condition: FAIR Disposition: Admitted to [facility] - Attestation Statements Document Initiated by Scribe: Yes Documenting Scribe: Сергей Mai Provider For Whom Scribe is Documenting (Include Credential): Nahun Lucia MD Scribe Attestation: Сергей Argueta, scribed for Nahun Lucia MD on 04/29/19 at 1845. Scribe Documentation Reviewed: Yes Provider Attestation: The documentation as recorded by the Сергей mojica accurately reflects the service I personally performed and the decisions made by me, Nahun Lucia MD Status of Scribe Document: Viewed
[2019-04-29] MEDS ORDERED: Albuterol/Ipratropium NEB.SOL* Albuterol 2.5 MG/Ipratropium 0.5 MG 3 ML INH ONE (15:15)
[2019-04-29] MEDS ORDERED: methylPREDNISolone 125 MG* 2 ML VIAL IV ONE (15:15)
[2019-04-29 16:22] LABS: ABS Basophils 0.1 10^3/ul (0-0.2); ABS Eosinophils 0.1 10^3/ul (0-0.6); ABS Lymphocytes 1.9 10^3/ul (1.0-4.8); ABS Neutrophils 6.5 10^3/ul (1.5-7.7); Eosinophil % 0.8 %; Hematocrit 41 % (35-47); Hemoglobin 13.7 g/dL (12.0-16.0); Lymphocyte % 19.9 %; Mean Corpuscular HGB Conc 34 g/dL (31-36); Mean Corpuscular Hemoglobin 31 pg (27-31); Mean Corpuscular Volume 91 fL (80-97); Mean Platelet Volume 8.2 fL (7.4-10.4); Nucleated Red Blood Cells % 0.1; Platelet Count 366 10^3/uL (150-450); Red Blood Count 4.48 10^6 /uL (3.70-4.87); Red Cell Distribution Width 15 % (10-15); White Blood Count 9.5 10^3/uL (3.5-10.8)
[2019-04-29 16:30] LABS: Activated Partial Thrombo Time 44.8 seconds (26.0-38.0); INR 1.05 (0.82-1.09)
[2019-04-29 16:38] LABS: Albumin 3.9 g/dL (3.2-5.2); Albumin/Globulin Ratio 1.1 (1-3); BUN/Creatinine Ratio 41.1 (8-20); Calcium 9.9 mg/dL (8.6-10.3); EGFR African American 132.3 (>60); EGFR Non-African American 109.3 (>60); Globulin 3.5 g/dL (2-4); Potassium 4.5 mmol/L (3.5-5.0); Total Bilirubin 0.3 mg/dL (0.2-1.0); Total Protein 7.4 g/dL (6.4-8.9)
[2019-04-29] MEDS ORDERED: Iohexol 350* (CONTRAST) 500 ML MDV IV ONE (18:19)
[2019-04-29 18:44] LABS: Urine Appearance Clear; Urine Bacteria Absent (Absent); Urine Bilirubin Negative (Negative); Urine Blood Negative (Negative); Urine Color Yellow; Urine Glucose Negative (Negative); Urine Ketones Trace (Negative); Urine Nitrite Negative (Negative); Urine Protein Negative (Negative); Urine Red Blood Cell Trace(0-2/hpf) (Absent); Urine Specific Gravity 1.014 (1.010-1.030); Urine Squamous Epithelial Cell Present (Absent); Urine Urobilinogen Negative (Negative); Urine White Blood Cell 1+(6-10/hpf) (Absent)
[2019-04-29] MEDS ORDERED: Polyethylene Glycol 3350* 17 GM PACKET PO PRN (20:09)
[2019-04-29] MEDS ORDERED: Senna TAB PO PRN (20:09)
[2019-04-29] MEDS ORDERED: Meclizine TAB* 12.5 MG PO PRN (20:09)
[2019-04-29] MEDS ORDERED: Hydrocortisone 1% CREAM* 30 GM TUBE TOPICAL PRN (20:09)
[2019-04-29 20:11] LABS: C Reactive Protein 10.95 mg/L (<8.01)
[2019-04-29] MEDS ORDERED: Acetaminophen TAB* 325 MG PO PRN (20:17)
[2019-04-29] MEDS ORDERED: Albuterol/Ipratropium NEB.SOL* Albuterol 2.5 MG/Ipratropium 0.5 MG 3 ML INH PRN (20:18)
[2019-04-29] MEDS: Amitriptyline TAB* 50 MG PO SCH (21:33)
[2019-04-29] MEDS: Heparin VIAL(*) 5000 UNITS/ML VIAL (FIVE THOUSAND) SUBCUT SCH (21:33)
[2019-04-29] MEDS: Oxybutynin TAB* 5 MG PO SCH (22:03)
[2019-04-29] MEDS: CMCS:Cyclosporine 0.05% OPHTH (NF) 0.4 ML VIAL BOTH EYES SCH ×2 (22:03→22:33)
[2019-04-29] MEDS: Dronabinol CAP* 2.5 MG PO SCH (22:04)
[2019-04-29] MEDS: tiZANidine TAB* 2 MG PO SCH (22:04)
[2019-04-29] MEDS: Baclofen TAB* 20 MG PO SCH (22:33)
--- NOTE | 2019-04-30 01:42 | HP ---
CC: [facility] * HISTORY AND PHYSICAL: DATE OF ADMISSION: 04/29/19 PRIMARY CARE PROVIDER: Dr. Goldie Giraldo at [facility]. ATTENDING PHYSICIAN: Dr. Ling Curtis * (dictated by Malika Hahn NP). CHIEF COMPLAINT: Dyspnea. HISTORY OF PRESENT ILLNESS: Ms. Salas is a 63-year-old female with past medical history significant for multiple sclerosis, depression, urinary incontinence, paraplegia, recurrent urinary tract infections who resides at [facility]. The patient initially presented on 04/20/19 to the emergency room with complaints of fatigue and altered mental status. At that time, she was admitted and diagnosed with urinary tract infection. Her altered mental status was felt to be secondary to that. She was discharged back to [facility] on 04/21/19 on cefdinir to treat her urinary tract infection. She again returned to the emergency room on 04/22/19 and was treated for urinary tract infection as the urine culture from the previous admission had grown an ESBL E. coli and Morganella morganii. She was also found to have pulmonary edema secondary to the IV fluids that she received during that admission. She was discharged back to [facility] on 04/25/19. According to the nursing notes at [facility], she had been on 2 L of nasal cannula satting 94% since her return. She was reporting body spasms and feeling hot though her body was cool to the touch. She reported not feeling well, she was unable to really describe this. She was noted to be pale and her extremities, where they are normally a light purple, were felt to be a more darker purple. They were unable to obtain O2 sat. She was seen by a provider at the longterm, this was on 04/27/19. She had a chest x-ray yesterday showing basilar atelectasis. The longterm this morning noted that the patient was 91% on 2 L via nasal cannula with diminished lung sounds. They discussed with the provider admissions counselor. She was also having difficulty eating and drinking, taking her meds because she was unable to keep her head still and would not stop speaking with arm twitching, her face was noted to be blotchy and red. She was too weak to operate her electric wheelchair. She received a one time dose of 40 mg of Lasix due to her low O2 sat and abnormal lung sounds. The patient was again unable to take her pills. The on-call was called again and recommendations were made to send the patient to the emergency room for further evaluation. While in the emergency room, the patient had labs. They were fairly unremarkable. She was noted to have a CO2 of 33, which is consistent with previous results. Troponin of 0.00. She had a normal CBC. Urinalysis showing trace ketones, 2+ leukocyte esterase, 1+ wbc's, squamous epithelial cells present. She had a blood gas on 4 L nasal cannula showing pH of 7.42, pCO2 of 64, pO2 of 132, bicarb 35.8, O2 sat 99.9, base excess 14. She had a chest x- ray showing no acute disease. She had an EKG showing ST depressions in leads V3 to V4, sinus tachycardia. She had a chest CTA, showed no pulmonary embolism or additional findings to correlate with the patient's symptomatology, mild emphysema with stable bibasilar parenchymal scarring. She was referred to the hospitalist service for possible admission. She denies fevers, chills, chest pain, nausea, vomiting, diarrhea, abdominal pain, urinary symptoms such as dysuria. She has urinary incontinence at baseline. She reports shortness of breath, but this has improved since being in the emergency room. She denies abdominal pain or constipation. Denies any joint pain, dizziness, lightheadedness. States that she is just feeling unwell. PAST MEDICAL HISTORY: 1. Multiple sclerosis. 2. Depression. 3. Paraplegia. 4. Frequent urinary tract infections and urinary incontinence. PAST SURGICAL HISTORY: 1. Status post C-spine diskectomy. 2. Status post section. HOME MEDICATIONS: Include: 1. MiraLAX 17 g by mouth daily as needed for constipation. 2. Meclizine 25 mg by mouth every 6 hours as needed for dizziness. 3. Amitriptyline 150 mg by mouth at bedtime. 4. Airborne Multivitamin 1 tablet by mouth every 4 hours as needed for congestion. 5. Ketoconazole shampoo 1% apply to scalp and hair topically every Wednesday and every evening shift. 6. Cyclosporine emulsion 0.05% one drop to both eyes every morning and bedtime. 7. Vitamin D 4000 units by mouth daily. 8. Oxybutynin ER 50 mg by mouth every morning and night for bladder spasms. 9. Tizanidine 4 mg by mouth 4 times daily as needed for muscle spasms. 10. Marinol 5 mg by mouth 4 times daily for appetite stimulation. 11. Ritalin 20 mg by mouth every morning. 12. Calamine skin protectant to left buttock daily. 13. Acetaminophen 1000 mg by mouth every 8 hours. 14. Aspirin 81 mg by mouth daily. 15. Senna 8.6 mg 2 tablets by mouth every 12 hours as needed for constipation. 16. Carboxymethylcellulose sodium gel 1% applied to both eyes every 6 hours as needed for dry eye. 17. Donepezil 10 mg by mouth at bedtime. 18. Baclofen 30 mg by mouth 4 times daily for muscle spasms. 19. Clotrimazole 1% applied to toenails topically every evening for toenail fungus. 20. Bactrim 1 tablet by mouth twice daily, due to end on 04/30/19. 21. Ritalin 1 tablet by mouth 2 times daily for MS. 22. Lasix 40 mg by mouth 1 time daily today. ALLERGIES: 1. METHYLPREDNISOLONE. 2. PENICILLIN G. 3. TRAMADOL. FAMILY HISTORY: Reviewed and noncontributory. SOCIAL HISTORY: She is a smoker, quit smoking approximately 11 years ago. Denies alcohol or recreational drug use. Her surrogate decision maker would be her son, Evin Salas, if she is unable to make decisions for herself. REVIEW OF SYSTEMS: I performed a 10-point review of systems. All the pertinent positives and negatives are mentioned in the history of present illness. Remaining review of systems are negative. PHYSICAL EXAMINATION GENERAL APPEARANCE: Alert, ill-appearing female, lying in bed, in no acute distress. VITAL SIGNS: Temperature 98.7, heart rate 100, respiratory rate 19, O2 sat 96% on 4 L via nasal cannula, blood pressure 116/72. HEENT: Normocephalic, atraumatic. Pupils equal and reactive to light. Extraocular movements are intact. NECK: Supple. No lymphadenopathy. RESPIRATORY: No accessory muscle use. The lungs are clear and diminished bilateral to auscultation. CARDIOVASCULAR: Regular rhythm. S1, S2 present. No murmurs, rubs, or gallops heard. Rate is tachycardic. ABDOMEN: Bowel sounds present x4. Abdomen is large, soft, and nontender. EXTREMITIES: Mild bilateral lower extremity edema. MUSCULOSKELETAL: No clubbing or cyanosis noted. The patient has bilateral upper extremity contractures. She has contractures to her lower extremities. She does have minimal movement in her extremities. NEUROLOGIC: Alert and oriented to person and place. Cranial nerves II through XII are grossly intact. PSYCHOLOGIC: Calm and cooperative. SKIN: There is an erythematous rash over her nose and around her mouth. DIAGNOSTIC STUDIES/LAB DATA: Sodium 135, potassium 4.5, chloride 95, CO2 of 33 , BUN 23, creatinine 0.56, glucose 116. White blood cell count 9.5, hemoglobin 13.7, hematocrit 41, platelet count 366. Troponin 0.00. ABG shows pH 7.42, pCO2 of 64, pO2 of 134, O2 sat 99.9%, bicarb is 35, and base excess 14 on 4 L via nasal cannula. Urinalysis is significant for leukocyte esterase, 2+ wbc's, 1+ squamous epithelial cells present. EKG shows a sinus tachycardia with a rate of 109. There are ST depression and T - wave inversions in leads V3 to V6. The T-wave inversion is consistent with previous results, but the ST depression is new when compared to previous EKG from 04/24/19. Chest x-ray from today, no active cardiopulmonary disease. Chest CTA from today, no pulmonary emboli. No additional findings to correlate with the patient's symptomatology. Mild emphysema with stable bibasilar parenchymal scarring. IMPRESSION: Ms. Salas is a 63-year-old female with past medical history significant for multiple sclerosis who is wheelchair bound, depression, paraplegia, frequent urinary tract infections who presented to the emergency room for third time in just over a week with complaints of dyspnea. She will be admitted as an observation for dyspnea. ASSESSMENT: 1. Dyspnea. Differential includes pulmonary embolism, pneumonia, atelectasis, chronic obstructive pulmonary disease exacerbation, complication of multiple sclerosis. There is no pulmonary embolism seen on CTA or signs of pneumonia. CTA does show emphysema, so this could represent a chronic obstructive pulmonary disease exacerbation. She is feeling better after receiving Solu- Medrol and DuoNeb in the emergency room. Additionally, I question if her symptoms could be secondary to a complication from her multiple sclerosis such as weakening of her diaphragm muscles. Continue DuoNebs as needed for shortness of breath and hold off on steroids. We can consider discussing the case with Neurology in the morning to see if they have any thoughts on if this is related to her multiple sclerosis. Additionally, I have ordered an incentive spirometer. Give oxygen as needed. She is currently satting in the mid 90s on 4 L via nasal cannula. 2. Abnormal EKG. There is new ST depression seen on the EKG in leads V3-V6. The T wave inversions have been present in the past. She denies chest pain and has had 2 negative troponins in the emergency room. I suspect that the EKG changes are secondary to her rate is she is tachycardic in the low 100s. Will check another EKG and see if the ST depression has changed. 3. Multiple sclerosis. She will be continued on her home Ritalin and tizanidine. 4. Recurrent urinary tract infections. Her urinalysis is unremarkable at this time. She has recently completed a course of treatment for an extended- spectrum beta-lactamase Escherichia coli urinary tract infection. I suspect she has neurogenic bladder secondary to her multiple sclerosis that contributes to her urinary incontinence and her recurrent urinary tract infections. 5. Fluids, electrolytes, and nutrition. Regular diet. 6. Code status. Full code. She has a MOLST on her chart that has been signed. 7. DVT prophylaxis. She is a moderate risk. She will have subcu heparin. 8. Disposition. Observation. TIME SPENT: Time for this admission was approximately 50 minutes, greater than half of that was spent with the patient discussing past medical history, the events leading to her arrival today, and performing physical examination. The case has been reviewed with the attending, Dr. Curtis, who agrees with the plan of care. Reviewed by YOHAN LYNNE 05/05/19 1151 [id number]/[facility] #: [id number] PRINCE
[2019-04-30] MEDS: Heparin VIAL(*) 5000 UNITS/ML VIAL (FIVE THOUSAND) SUBCUT SCH ×3 (05:17→22:34)
[2019-04-30] MEDS: Methylphenidate TAB* 10 MG PO SCH ×3 (09:31→18:10)
[2019-04-30] MEDS: Aspirin EC TAB* 81 MG TAB.EC PO SCH (09:36)
[2019-04-30] MEDS: Baclofen TAB* 20 MG PO SCH ×4 (09:38→22:31)
[2019-04-30] MEDS: Dronabinol CAP* 2.5 MG PO SCH ×4 (09:47→23:04)
[2019-04-30] MEDS: Oxybutynin TAB* 5 MG PO SCH ×2 (09:49→22:31)
[2019-04-30] MEDS: tiZANidine TAB* 2 MG PO SCH ×4 (09:50→22:30)
[2019-04-30] MEDS: CMCS:Cyclosporine 0.05% OPHTH (NF) 0.4 ML VIAL BOTH EYES SCH ×2 (09:51→22:34)
[2019-04-30 13:28] LABS: ABS Lymphocytes 1.7 10^3/ul (1.0-4.8); ABS Monocytes 0.7 10^3/ul (0-0.8); Eosinophil % 0.2 %; Hematocrit 37 % (35-47); Hemoglobin 12.2 g/dL (12.0-16.0); Lymphocyte % 19.8 %; Mean Corpuscular HGB Conc 33 g/dL (31-36); Mean Corpuscular Hemoglobin 31 pg (27-31); Mean Corpuscular Volume 92 fL (80-97); Mean Platelet Volume 8.1 fL (7.4-10.4); Platelet Count 389 10^3/uL (150-450); Red Cell Distribution Width 14 % (10-15); White Blood Count 8.5 10^3/uL (3.5-10.8)
[2019-04-30 13:45] LABS: BUN/Creatinine Ratio 48.1 (8-20); Calcium 9.6 mg/dL (8.6-10.3); EGFR African American 144.1 (>60); EGFR Non-African American 119.1 (>60); Potassium 4.2 mmol/L (3.5-5.0)
--- NOTE | 2019-04-30 14:28 | PN ---
Subjective Date of Service: 04/30/19 Interval History: Received call from RN that patient has noted to be retaining a large amount of urine in the ED and required straight cath. This morning at post void patient was retaining over 300 mls. Ordered placed for see. Resting in bed on assessment. Patient is currently on 2L NC (which is her baseline at [facility]). She is alert and oriented. She denies sob. She reports that she is breathing at her baseline. Denies cp, palpitations, nausea, vomiting, fever, chills. Objective Active Medications: Acetaminophen (Tylenol Tab*) 650 mg PO Q4H PRN PRN Reason: FEVER/PAIN Albuterol/Ipratropium (Duoneb (Albuterol 2.5 Mg/Ipratropium 0.5 Mg)) 1 neb INH Q4H PRN PRN Reason: SOB/WHEEZING Amitriptyline HCl (Elavil Tab*) 150 mg PO BEDTIME [facility] Last Admin: 04/29/19 21:33 Dose: 150 mg Aspirin (Aspirin Ec Tab*) 81 mg PO DAILY [facility] Last Admin: 04/30/19 09:36 Dose: 81 mg Baclofen (Lioresal Tab*) 30 mg PO QID [facility] Last Admin: 04/30/19 13:32 Dose: 30 mg Cyclosporine (Restasis 0.05% [facility]) 1 drop BOTH EYES BID [facility]; Protocol Last Admin: 04/30/19 09:51 Dose: 1 drop Donepezil HCl (Aricept Tab*) 10 mg PO QPM [facility] Dronabinol (Marinol Cap*) 5 mg PO QID [facility] Last Admin: 04/30/19 13:32 Dose: 5 mg Heparin Sodium (Porcine) (Heparin Vial(*)) 5,000 units SUBCUT Q8HR [facility] Last Admin: 04/30/19 13:32 Dose: 5,000 units Hydrocortisone (Hytone Cream 1%*) 1 applic TOPICAL DAILY PRN PRN Reason: DRY SKIN Last Admin: 04/30/19 13:32 Dose: 1 applic Meclizine HCl (Antivert Tab*) 25 mg PO Q6HR PRN PRN Reason: DIZZINESS Last Admin: 04/29/19 21:33 Dose: 25 mg Methylphenidate HCl (Ritalin Tab*) 10 mg PO BID@1300,1700 [facility] Last Admin: 04/30/19 13:32 Dose: 10 mg Methylphenidate HCl (Ritalin Tab*) 20 mg PO DAILY@0800 [facility] Last Admin: 04/30/19 09:31 Dose: 20 mg Oxybutynin Chloride (Ditropan Tab*) 15 mg PO BID [facility] Last Admin: 04/30/19 09:49 Dose: 15 mg Polyethylene Glycol/Electrolytes (Miralax*) 17 gm PO DAILY PRN PRN Reason: CONSTIPATION Senna (Senokot Tab*) 2 tab PO BID PRN PRN Reason: CONSTIPATION Last Admin: 04/29/19 21:34 Dose: 2 tab Tizanidine HCl (Zanaflex Tab*) 4 mg PO QID [facility] Last Admin: 04/30/19 13:32 Dose: 4 mg Vital Signs - 8 hr 04/30/19 04/30/19 04/30/19 07:55 08:00 09:47 Temperature 97.8 F Pulse Rate 74 Respiratory 12 14 Rate Blood Pressure 102/58 (mmHg) O2 Sat by Pulse 100 96 Oximetry 04/30/19 04/30/19 13:20 13:32 Temperature Pulse Rate Respiratory 14 14 Rate Blood Pressure (mmHg) O2 Sat by Pulse Oximetry Oxygen Devices in Use Now: Nasal Cannula Appearance: Comfortable, NAD Eyes: No Scleral Icterus Ears/Nose/Mouth/Throat: Clear Oropharnyx, Mucous Membranes Moist Neck: NL Appearance and Movements; NL JVP Respiratory: Symmetrical Chest Expansion and Respiratory Effort, - - Deecreased aeration, but otherwise clear Cardiovascular: NL Sounds; No Murmurs; No JVD, RRR, No Edema Abdominal: NL Sounds; No Tenderness; No Distention Lymphatic: No Cervical Adenopathy Extremities: - - Contracted. Discoloraton of bilateral feet. Possible poor circulation Skin: - - Patient has reddened scaly rash to face and scabs to bilateral LEs Neurological: Alert and Oriented x 3 Nutrition: Taking PO's Result Diagrams: 04/30/19 13:14 04/30/19 13:14 Additional Lab and Data: Laboratory Results - last 24 hr 04/29/19 04/29/19 04/29/19 16:14 16:14 16:14 WBC RBC Hgb Hct MCV MCH MCHC RDW Plt Count MPV Neut % (Auto) Lymph % (Auto) [place] % (Auto) Eos % (Auto) Baso % (Auto) Absolute Neuts (auto) Absolute Lymphs (auto) Absolute Monos (auto) Absolute Eos (auto) Absolute Basos (auto) Absolute Nucleated RBC Nucleated RBC % INR (Anticoag Therapy) 1.05 APTT 44.8 H Sodium 135 Potassium 4.5 Chloride 95 L Carbon Dioxide 33 H Anion Gap 7 BUN 23 Creatinine 0.56 Est GFR ( Amer) 132.3 Est GFR (Non-Af Amer) 109.3 BUN/Creatinine Ratio 41.1 H Glucose 116 H Lactic Acid 0.8 Calcium 9.9 Total Bilirubin 0.30 AST 21 ALT 14 Alkaline Phosphatase 66 Troponin I 0.00 C-Reactive Protein 10.95 H B-Natriuretic Peptide Total Protein 7.4 Albumin 3.9 Globulin 3.5 Albumin/Globulin Ratio 1.1 Urine Color Urine Appearance Urine pH Ur Specific [place] Urine Protein Urine Ketones Urine Blood Urine Nitrate Urine Bilirubin Urine Urobilinogen Ur Leukocyte Esterase Urine WBC (Auto) Urine RBC (Auto) Ur Squamous Epith Cells Urine Bacteria Urine Glucose 04/29/19 04/29/19 04/29/19 16:14 18:30 18:40 WBC RBC Hgb Hct MCV MCH MCHC RDW Plt Count MPV Neut % (Auto) Lymph % (Auto) [place] % (Auto) Eos % (Auto) Baso % (Auto) Absolute Neuts (auto) Absolute Lymphs (auto) Absolute Monos (auto) Absolute Eos (auto) Absolute Basos (auto) Absolute Nucleated RBC Nucleated RBC % INR (Anticoag Therapy) APTT Sodium Potassium Chloride Carbon Dioxide Anion Gap BUN Creatinine Est GFR ( Amer) Est GFR (Non-Af Amer) BUN/Creatinine Ratio Glucose Lactic Acid Calcium Total Bilirubin AST ALT Alkaline Phosphatase Troponin I 0.00 C-Reactive Protein B-Natriuretic Peptide 11 Total Protein Albumin Globulin Albumin/Globulin Ratio Urine Color Yellow Urine Appearance Clear Urine pH 6.0 Ur Specific [place] 1.014 Urine Protein Negative Urine Ketones Trace A Urine Blood Negative Urine Nitrate Negative Urine Bilirubin Negative Urine Urobilinogen Negative Ur Leukocyte Esterase 2+ A Urine WBC (Auto) 1+(6-10/hpf) A Urine RBC (Auto) Trace(0-2/hpf) Ur Squamous Epith Cells Present A Urine Bacteria Absent Urine Glucose Negative 04/30/19 04/30/19 13:14 13:14 WBC 8.5 RBC 4.00 Hgb 12.2 Hct 37 MCV 92 MCH 31 MCHC 33 RDW 14 Plt Count 389 MPV 8.1 Neut % (Auto) 70.9 Lymph % (Auto) 19.8 [place] % (Auto) 8.6 Eos % (Auto) 0.2 Baso % (Auto) 0.5 Absolute Neuts (auto) 6.0 Absolute Lymphs (auto) 1.7 Absolute Monos (auto) 0.7 Absolute Eos (auto) 0.0 Absolute Basos (auto) 0.0 Absolute Nucleated RBC 0.0 Nucleated RBC % 0.0 INR (Anticoag Therapy) APTT Sodium 134 L Potassium 4.2 Chloride 93 L Carbon Dioxide 38 H Anion Gap 3 BUN 25 H Creatinine 0.52 Est GFR ( Amer) 144.1 Est GFR (Non-Af Amer) 119.1 BUN/Creatinine Ratio 48.1 H Glucose 149 H Lactic Acid Calcium 9.6 Total Bilirubin AST ALT Alkaline Phosphatase Troponin I C-Reactive Protein B-Natriuretic Peptide Total Protein Albumin Globulin Albumin/Globulin Ratio Urine Color Urine Appearance Urine pH Ur Specific [place] Urine Protein Urine Ketones Urine Blood Urine Nitrate Urine Bilirubin Urine Urobilinogen Ur Leukocyte Esterase Urine WBC (Auto) Urine RBC (Auto) Ur Squamous Epith Cells Urine Bacteria Urine Glucose Diagnostic Imaging: EXAM DATE/TIME: 04/29/2019 6:55 PM COMPARISON: CTA CHEST CTA CHEST 10/04/2018 7:34 PM FINDINGS: Pulmonary arteries: Pulmonary arteries are well opacified to the subsegmental branches. Normal caliber main pulmonary artery. No filling defects throughout the pulmonary artery tree. Aorta: Normal caliber aorta with no evidence of dissection or rupture. Thyroid: No thyroid nodules. Lungs: Parenchymal scarring posterior lower lobes bilaterally, left greater than right, unchanged from prior study. Mild centrilobular emphysematous disease. No masses or consolidation. No bronchiectasis, peribronchial thickening, or luminal defects. Pleural space: Normal. No pneumothorax. No pleural effusion. Heart: Normal. No cardiomegaly. No pericardial effusion. Lymph nodes: Normal. No enlarged lymph nodes. Bones/joints: The thoracic spine demonstrates mild degenerative changes at multiple levels. No acute fractures. No suspicious bone lesions. Soft tissues: Normal. IMPRESSION: 1. No pulmonary emboli. No additional findings to correlate with patient's symptomatology. 2. Mild emphysema with stable bibasilar parenchymal scarring. Assess/Plan/Problems-Billing Assessment: 63 yr old female from [facility] with pmh of MS, depression, paraplegia, recurrent uti; who presented to ED due to concern for increase oxygen need, dyspnea, and discoloration of extremities - Patient Problems (1) Dyspnea Comment: - On admission patient was requiring 4L NC, but she is now at her baseline 2L and saturating wnl. - Patient reports breathing is at baseline. - Concern for frequent aspiration, therefore, swallow evaluation by speech therapy ordered. (2) Recurrent urinary tract infection Comment: - Patient has hx of recurrent UTIs - Current UA is unremarkable - Patient noted to be significantly retaining and requiring straight cath in ED. Also retaining on floor, therefore, see placed. - Frequent UTIs and incontinence could be secondary to retention. - May need see at discharge and follow up with Urology (3) Hypoxia Comment: - Improved - Now on home oxygen supplementation of 2L (4) Urinary retention Comment: - As above under "Reucrrent Urinary Tract Infections" (5) Depression Comment: - Amitriptyline (6) Multiple sclerosis Comment: - Continue baclofen, marinol, donepezil, prn zanaflex, and ritilan (7) DVT prophylaxis Comment: -heparin subQ Status and Disposition: Discharge when medically stable Attending: Craie Blanton
[2019-04-30] MEDS: Donepezil TAB* 5 MG PO SCH (18:10)
[2019-04-30] MEDS: Amitriptyline TAB* 50 MG PO SCH (22:32)
[2019-05-01] MEDS: Heparin VIAL(*) 5000 UNITS/ML VIAL (FIVE THOUSAND) SUBCUT SCH ×3 (06:16→22:05)
[2019-05-01 06:33] LABS: Hematocrit 34 % (35-47); Hemoglobin 11.3 g/dL (12.0-16.0); Mean Corpuscular HGB Conc 33 g/dL (31-36); Mean Corpuscular Hemoglobin 30 pg (27-31); Mean Corpuscular Volume 92 fL (80-97); Red Blood Count 3.74 10^6 /uL (3.70-4.87); Red Cell Distribution Width 14 % (10-15); White Blood Count 8.9 10^3/uL (3.5-10.8)
[2019-05-01 06:44] LABS: BUN/Creatinine Ratio 61.8 (8-20); Calcium 8.5 mg/dL (8.6-10.3); EGFR African American 235.3 (>60); EGFR Non-African American 194.5 (>60)
[2019-05-01 07:49] LABS: Potassium 4.3 mmol/L (3.5-5.0)
[2019-05-01 08:32] LABS: ABS Basophils 0.1 10^3/ul (0-0.2); ABS Eosinophils 0.2 10^3/ul (0-0.6); ABS Monocytes 1.1 10^3/ul (0-0.8); ABS Neutrophils 4.6 10^3/ul (1.5-7.7); Eosinophil % 2.2 %; Lymphocyte % 33.3 %; Nucleated Red Blood Cells % 0.1; Platelet Count Platelets clumped. 10^3/uL (150-450)
[2019-05-01] MEDS ORDERED: Morphine 4 MG/ML VIAL (1 ml) 4 MG/ML VIAL IV ONE (13:45)
[2019-05-01] MEDS: Aspirin EC TAB* 81 MG TAB.EC PO SCH (14:53)
[2019-05-01] MEDS: tiZANidine TAB* 2 MG PO SCH ×4 (14:53→21:07)
[2019-05-01] MEDS: Dronabinol CAP* 2.5 MG PO SCH ×3 (14:53→21:05)
[2019-05-01] MEDS: Oxybutynin TAB* 5 MG PO SCH ×2 (14:53→21:06)
[2019-05-01] MEDS: Baclofen TAB* 20 MG PO SCH ×3 (14:53→21:04)
[2019-05-01] MEDS: Methylphenidate TAB* 10 MG PO SCH ×3 (14:53→17:57)
[2019-05-01] MEDS: CMCS:Cyclosporine 0.05% OPHTH (NF) 0.4 ML VIAL BOTH EYES SCH ×2 (14:58→21:05)
--- NOTE | 2019-05-01 15:01 | PN ---
Subjective Date of Service: 05/01/19 Interval History: CAT call this am for choking with breakfast. Patient was eating breakfast and seemed to have aspirated scrambled eggs. Patient unable to produce a strong cough and required suctioning. Patient complaining of pain thereafter and had some low saturations. Respiratory was at the bedside, patient remained stable throughout the episode. Patient denied any other symptoms, no fever or chills, no acute SOB, no further complaints. Objective Active Medications: Acetaminophen (Tylenol Tab*) 650 mg PO Q4H PRN PRN Reason: FEVER/PAIN Albuterol/Ipratropium (Duoneb (Albuterol 2.5 Mg/Ipratropium 0.5 Mg)) 1 neb INH Q4H PRN PRN Reason: SOB/WHEEZING Amitriptyline HCl (Elavil Tab*) 150 mg PO BEDTIME [facility] Last Admin: 04/30/19 22:32 Dose: 150 mg Aspirin (Aspirin Ec Tab*) 81 mg PO DAILY [facility] Last Admin: 05/01/19 14:53 Dose: Not Given Baclofen (Lioresal Tab*) 30 mg PO QID [facility] Last Admin: 05/01/19 14:53 Dose: Not Given Cyclosporine (Restasis 0.05% [facility]) 1 drop BOTH EYES BID [facility]; Protocol Last Admin: 04/30/19 22:34 Dose: 1 drop Donepezil HCl (Aricept Tab*) 10 mg PO QPM [facility] Last Admin: 04/30/19 18:10 Dose: 10 mg Dronabinol (Marinol Cap*) 5 mg PO QID [facility] Last Admin: 05/01/19 14:53 Dose: Not Given Heparin Sodium (Porcine) (Heparin Vial(*)) 5,000 units SUBCUT Q8HR [facility] Last Admin: 05/01/19 06:16 Dose: 5,000 units Hydrocortisone (Hytone Cream 1%*) 1 applic TOPICAL DAILY PRN PRN Reason: DRY SKIN Last Admin: 04/30/19 13:32 Dose: 1 applic Meclizine HCl (Antivert Tab*) 25 mg PO Q6HR PRN PRN Reason: DIZZINESS Last Admin: 04/29/19 21:33 Dose: 25 mg Methylphenidate HCl (Ritalin Tab*) 10 mg PO BID@1300,1700 [facility] Last Admin: 05/01/19 14:53 Dose: Not Given Methylphenidate HCl (Ritalin Tab*) 20 mg PO DAILY@0800 [facility] Last Admin: 05/01/19 14:54 Dose: Not Given Oxybutynin Chloride (Ditropan Tab*) 15 mg PO BID [facility] Last Admin: 05/01/19 14:53 Dose: Not Given Polyethylene Glycol/Electrolytes (Miralax*) 17 gm PO DAILY PRN PRN Reason: CONSTIPATION Senna (Senokot Tab*) 2 tab PO BID PRN PRN Reason: CONSTIPATION Last Admin: 04/29/19 21:34 Dose: 2 tab Tizanidine HCl (Zanaflex Tab*) 4 mg PO QID [facility] Last Admin: 05/01/19 14:54 Dose: Not Given Vital Signs - 8 hr 05/01/19 14:43 Respiratory 12 Rate Oxygen Devices in Use Now: Nasal Cannula Appearance: alert, mild distress Eyes: No Scleral Icterus, PERRLA Ears/Nose/Mouth/Throat: Mucous Membranes Moist Neck: NL Appearance and Movements; NL JVP, Trachea Midline Respiratory: Symmetrical Chest Expansion and Respiratory Effort, - - bilateral rhonchi with course breath sound pre-suction, improved post suction Cardiovascular: NL Sounds; No Murmurs; No JVD, RRR Abdominal: NL Sounds; No Tenderness; No Distention Extremities: No Edema, No Clubbing, Cyanosis Skin: No Rash or Ulcers, - - LE mottling at baseline, pulses intact Neurological: - - paraplegia 2/2 MS Lines/Tubes/Other Access: Clean, Dry and Intact Tinoco - clear urine Result Diagrams: 05/01/19 05:57 05/01/19 05:57 Additional Lab and Data: Laboratory Results - last 24 hr 04/29/19 04/29/19 04/29/19 16:14 16:14 16:14 WBC RBC Hgb Hct MCV MCH MCHC RDW Plt Count MPV Neut % (Auto) Lymph % (Auto) Mayes % (Auto) Eos % (Auto) Baso % (Auto) Absolute Neuts (auto) Absolute Lymphs (auto) Absolute Monos (auto) Absolute Eos (auto) Absolute Basos (auto) Absolute Nucleated RBC Nucleated RBC % INR (Anticoag Therapy) 1.05 APTT 44.8 H Sodium 135 Potassium 4.5 Chloride 95 L Carbon Dioxide 33 H Anion Gap 7 BUN 23 Creatinine 0.56 Est GFR ( Amer) 132.3 Est GFR (Non-Af Amer) 109.3 BUN/Creatinine Ratio 41.1 H Glucose 116 H Lactic Acid 0.8 Calcium 9.9 Total Bilirubin 0.30 AST 21 ALT 14 Alkaline Phosphatase 66 Troponin I 0.00 C-Reactive Protein 10.95 H B-Natriuretic Peptide Total Protein 7.4 Albumin 3.9 Globulin 3.5 Albumin/Globulin Ratio 1.1 Urine Color Urine Appearance Urine pH Ur Specific [place] Urine Protein Urine Ketones Urine Blood Urine Nitrate Urine Bilirubin Urine Urobilinogen Ur Leukocyte Esterase Urine WBC (Auto) Urine RBC (Auto) Ur Squamous Epith Cells Urine Bacteria Urine Glucose 04/29/19 04/29/19 04/29/19 16:14 18:30 18:40 WBC RBC Hgb Hct MCV MCH MCHC RDW Plt Count MPV Neut % (Auto) Lymph % (Auto) Mayes % (Auto) Eos % (Auto) Baso % (Auto) Absolute Neuts (auto) Absolute Lymphs (auto) Absolute Monos (auto) Absolute Eos (auto) Absolute Basos (auto) Absolute Nucleated RBC Nucleated RBC % INR (Anticoag Therapy) APTT Sodium Potassium Chloride Carbon Dioxide Anion Gap BUN Creatinine Est GFR ( Amer) Est GFR (Non-Af Amer) BUN/Creatinine Ratio Glucose Lactic Acid Calcium Total Bilirubin AST ALT Alkaline Phosphatase Troponin I 0.00 C-Reactive Protein B-Natriuretic Peptide 11 Total Protein Albumin Globulin Albumin/Globulin Ratio Urine Color Yellow Urine Appearance Clear Urine pH 6.0 Ur Specific [place] 1.014 Urine Protein Negative Urine Ketones Trace A Urine Blood Negative Urine Nitrate Negative Urine Bilirubin Negative Urine Urobilinogen Negative Ur Leukocyte Esterase 2+ A Urine WBC (Auto) 1+(6-10/hpf) A Urine RBC (Auto) Trace(0-2/hpf) Ur Squamous Epith Cells Present A Urine Bacteria Absent Urine Glucose Negative 04/30/19 04/30/19 13:14 13:14 WBC 8.5 RBC 4.00 Hgb 12.2 Hct 37 MCV 92 MCH 31 MCHC 33 RDW 14 Plt Count 389 MPV 8.1 Neut % (Auto) 70.9 Lymph % (Auto) 19.8 Mayes % (Auto) 8.6 Eos % (Auto) 0.2 Baso % (Auto) 0.5 Absolute Neuts (auto) 6.0 Absolute Lymphs (auto) 1.7 Absolute Monos (auto) 0.7 Absolute Eos (auto) 0.0 Absolute Basos (auto) 0.0 Absolute Nucleated RBC 0.0 Nucleated RBC % 0.0 INR (Anticoag Therapy) APTT Sodium 134 L Potassium 4.2 Chloride 93 L Carbon Dioxide 38 H Anion Gap 3 BUN 25 H Creatinine 0.52 Est GFR ( Amer) 144.1 Est GFR (Non-Af Amer) 119.1 BUN/Creatinine Ratio 48.1 H Glucose 149 H Lactic Acid Calcium 9.6 Total Bilirubin AST ALT Alkaline Phosphatase Troponin I C-Reactive Protein B-Natriuretic Peptide Total Protein Albumin Globulin Albumin/Globulin Ratio Urine Color Urine Appearance Urine pH Ur Specific [place] Urine Protein Urine Ketones Urine Blood Urine Nitrate Urine Bilirubin Urine Urobilinogen Ur Leukocyte Esterase Urine WBC (Auto) Urine RBC (Auto) Ur Squamous Epith Cells Urine Bacteria Urine Glucose Microbiology and Other Data: . Diagnostic Imaging: EXAM DATE/TIME: 04/29/2019 6:55 PM COMPARISON: CTA CHEST CTA CHEST 10/04/2018 7:34 PM FINDINGS: Pulmonary arteries: Pulmonary arteries are well opacified to the subsegmental branches. Normal caliber main pulmonary artery. No filling defects throughout the pulmonary artery tree. Aorta: Normal caliber aorta with no evidence of dissection or rupture. Thyroid: No thyroid nodules. Lungs: Parenchymal scarring posterior lower lobes bilaterally, left greater than right, unchanged from prior study. Mild centrilobular emphysematous disease. No masses or consolidation. No bronchiectasis, peribronchial thickening, or luminal defects. Pleural space: Normal. No pneumothorax. No pleural effusion. Heart: Normal. No cardiomegaly. No pericardial effusion. Lymph nodes: Normal. No enlarged lymph nodes. Bones/joints: The thoracic spine demonstrates mild degenerative changes at multiple levels. No acute fractures. No suspicious bone lesions. Soft tissues: Normal. IMPRESSION: 1. No pulmonary emboli. No additional findings to correlate with patient's symptomatology. 2. Mild emphysema with stable bibasilar parenchymal scarring. Assess/Plan/Problems-Billing Assessment: 63 yr old female from [facility] with pmh of MS, depression, paraplegia, recurrent uti; who presented to ED due to concern for increase oxygen need, dyspnea, and discoloration of extremities - Patient Problems (1) Dyspnea Code(s): R06.00 - DYSPNEA, UNSPECIFIED SNOMED Code(s): 331508741 Comment: - Oxygen requirement changing based on what appears to be low level aspirations ? - Speech eval ordered - Barium swallow today, recommending puree with thin liquids, no clinical signs of aspiration but lacks muscle controll for proper mastication (2) Hypoxia Code(s): R09.02 - HYPOXEMIA SNOMED Code(s): 662139567 Comment: - PRN oxygen, back on 2L (3) Recurrent urinary tract infection Code(s): N39.0 - URINARY TRACT INFECTION, SITE NOT SPECIFIED SNOMED Code(s): 807982129 Comment: - Frequent UTIs in setting of neurogenic bladder, advanced MS and urinary retention - Tinoco placed (4) Depression Current Visit: No Status: Acute Code(s): F32.9 - MAJOR DEPRESSIVE DISORDER, SINGLE EPISODE, UNSPECIFIED SNOMED Code(s): 29377506 Comment: - Amitriptyline (5) Epigastric pain Current Visit: No Status: Acute Code(s): R10.13 - EPIGASTRIC PAIN SNOMED Code(s): 11538967 Comment: - troponin negative, EKG without ischemic changes - Appears to be triggered when eating - Post barium swallow recommends pureed diet, should help with post-prandial pain - Continue PPI (6) Multiple sclerosis Code(s): G35 - MULTIPLE SCLEROSIS SNOMED Code(s): 90825739 Comment: - Continue baclofen, marinol, donepezil, prn zanaflex and methylphenidate (7) Full code status Code(s): Z78.9 - OTHER SPECIFIED HEALTH STATUS SNOMED Code(s): 521840788 Status and Disposition: Discharge back to SNF in AM.
[2019-05-01] MEDS: Morphine 4 MG/ML VIAL (1 ml) 4 MG/ML VIAL IV PRN ×2 (17:44→22:05)
[2019-05-01] MEDS: Donepezil TAB* 5 MG PO SCH (17:48)
[2019-05-01] MEDS: Amitriptyline TAB* 50 MG PO SCH (22:04)
[2019-05-02] MEDS: Heparin VIAL(*) 5000 UNITS/ML VIAL (FIVE THOUSAND) SUBCUT SCH ×2 (05:23→14:28)
[2019-05-02] MEDS: Baclofen TAB* 20 MG PO SCH ×2 (09:00→13:14)
[2019-05-02] MEDS: Aspirin EC TAB* 81 MG TAB.EC PO SCH (09:01)
[2019-05-02] MEDS: Dronabinol CAP* 2.5 MG PO SCH ×2 (09:01→13:15)
[2019-05-02] MEDS: Oxybutynin TAB* 5 MG PO SCH (09:01)
[2019-05-02] MEDS: tiZANidine TAB* 2 MG PO SCH ×2 (09:01→13:15)
[2019-05-02] MEDS: Methylphenidate TAB* 10 MG PO SCH ×2 (10:40→13:15)
[2019-05-02 11:03] VITALS: BP 113/63
[2019-05-02] MEDS: CMCS:Cyclosporine 0.05% OPHTH (NF) 0.4 ML VIAL BOTH EYES SCH (13:15)
--- NOTE | 2019-05-02 14:01 | DS ---
CC: Dr. Goldie Giraldo, [facility] * DISCHARGE SUMMARY/ADMITTING HISTORY AND PHYSICAL TO [facility] DATE OF ADMISSION: 04/29/2019. DATE OF DISCHARGE: 05/02/2019. PRIMARY CARE PHYSICIAN: Dr. Goldie Giraldo. MY ATTENDING PHYSICIAN FOR TODAY: Dr. Maria Chapa * (dictated by Desire Dee NP). HOSPITAL COURSE: Please refer to admitting history and physical on 04/29/2019. In short, Ms. Salas is a 63-year-old female patient with a past medical history significant for advanced MS, depression, urinary incontinence, paraplegia, and recurrent UTI's who was residing at [facility] in her usual state of health when she initially presented to the ED on with complaints of fatigue and some altered mental status. She was admitted with a urinary tract infection at that time. She was discharged back to [facility] 24 hours later on Cefdinir, but then she returned to the ED again on the and was treated for a urinary tract infection a second time. However, her urine culture at that time had grown out ESBL E. coli. She was also found to be in pulmonary edema secondary to fluid overload. She was discharged back to [facility] again on the on two liters of oxygen nasal cannula. Upon return back to [facility] after that second admission, the patient reportedly had continued to have general malaise and some cool extremities with some mottling and lower O2 saturations. She was sent back to the ED for evaluation again. She had a chest x-ray at that time that showed bibasilar atelectasis and some desaturations. They were having trouble keeping her sats at above 90 percent on 2 liters nasal cannula. The patient was also reporting some difficulty with eating and drinking and some generalized weakness and an inability to operate her electric wheelchair. For all of these reasons, she was sent back to the emergency department and then was subsequently admitted for dyspnea and hypoxic respiratory failure with an increased oxygen requirement. After her admission, the patient did have some trouble eating again and the thought was that because of the patient's advancing MS, that she was perhaps having some low level aspirations which was the cause of her increased oxygen requirement. She was set for a speech language pathology evaluation and swallowing evaluation; however, she also was found to have acute urinary retention. She had been retaining a large volume of urine. She was initially straight cathed and then was found to be retaining again. A Tinoco catheter was then placed given her history of frequent UTI's and what is likely a neurogenic bladder secondary to her MS. It was felt that the patient would benefit from a Tinoco catheter at this time. Her urinalysis does appear to be clear and her frequent UTI's are likely secondary to her retention and incontinence. At this time, it was felt to leave the Tinoco catheter in place and have the patient follow-up with Urology as an outpatient. She may need long-term Tinoco catheter treatment, again given the advancement of her disease. In terms of her dyspnea and potential swallowing difficulty with meals, on the morning of 05/01/2019, a clinical assessment team call was placed as the patient was eating breakfast. She started choking and having trouble catching her breath. She did have desaturations into the 80s with tachypnea. Respiratory was at the bedside. She did have deep orotracheal suction which produced a large volume of secretions as well as what appeared to be breakfast items, eggs, and things of that nature. The patient did have a significant amount of pain as well with this aspirate. We kept the patient NPO after that. Her saturations did improve somewhat after the deep suctioning. Speech Language Pathology evaluated her after the episode and did recommend barium swallow under fluoroscopy. She underwent that procedure. She did not appear to be clinically aspirating under the barium swallow; however, she did appear to be having difficulties with mastication and large boluses of food which may have caused her choking episode. Because of her weak musculature, it was determined that the patient is likely just having problems actually chewing her food and being able to pass the food down her esophagus. Dietary modifications were recommended. She was placed on a pureed diet with thin liquids. She was given a few doses of IV Morphine because of the leftover pain she was having after the initial aspiration. This pain has now resolved. She is tolerating her pureed meals. Her oxygen saturation is 95 to 96 percent on her baseline two liters. She has not had any acute overnight events. REVIEW OF SYSTEMS TODAY: The patient denies any fever, fatigue, or chills. No acute shortness of breath. No chest pains, no nausea or vomiting. No cough. No abdominal pains and no further constitutional complaints. PHYSICAL EXAMINATION TODAY: General: She is well-appearing and in no acute distress. Vital Signs: Blood pressure 113/63, heart rate 85, respiratory rate 16, O2 saturation 96 percent on two liters nasal cannula, temperature 97.5. HEENT: The patient is atraumatic, normocephalic. PERRLA. Nonicteric sclera. Oral mucosa is somewhat dry. Skin on the face is also somewhat dry with some erythema around the mouth at her baseline. Neck: Supple. Nontender. No JVD noted. No carotid bruit auscultated. Cardiovascular: S1, S2 present. No murmurs, gallops, or rubs noted. Rate and rhythm are regular. Lungs: Clear bilaterally to auscultation with no wheezing, rhonchi or rales. Abdomen: Soft , nontender, nondistended. Positive bowel sounds all four quadrants. No organomegaly noted. : She has a Tinoco catheter draining clear yellow urine. Musculoskeletal: She has baseline paraplegia with brisk cap refill. Warm extremities. Decreased motor and sensation, again at her baseline consistent with her paraplegia. Neurologic: Baseline paraplegia. Otherwise no acute focal deficits are noted. Psychiatric: She is cooperative, pleasant, and appropriate. Alert and oriented times three. LABORATORY DATA: WBC 8.9, RBC 3.74, hemoglobin 11.3, hematocrit 34, platelets 389; sodium 134, potassium 4.3, chloride 99, BUN 21, creatinine 0.34, GFR 194.5 , glucose 91, lactic acid 0.8, calcium 8.5, total bilirubin 0.30, AST 21, ALT 14 , alk phos 66, troponin 0.00, CRP 10.95, BNP 11, total protein 7.4, albumin 3.9 , globulin 3.5. INR 1.04. Blood gas dated 04/29/2019: pH 7.42, CO2 64, pO2 134, bicarb 35.8, O2 saturation 99.9. Urinalysis showed yellow clear urine, pH of 6, protein negative, trace ketones. Negative for blood, nitrate, bilirubin, urobilinogen. 2+ leukocyte esterase, 1 + WBC, trace RBC, present squamous epithelials cells, absent bacteria, negative for glucose. IMAGING STUDIES: 1. Chest x-ray dated 04/29/2019 shows no active cardiopulmonary disease. 2. CTA of the chest to rule out PE shows no pulmonary emboli, shows mild emphysema with stable bibasilar parenchymal scarring. 3. 05/01/2019, dysphagia screening barium swallow shows fluoroscopic examination of swallowing function and according to the dysphagia severity rating scale, she demonstrated a rating of 3 which was mild to moderate dysphagia with a potential for aspiration. Time for eating was significantly increased with supplemental nutrition possibly indicated. Recommendations are sitting upright with small sips or bites, alternating liquids and solids, tucking of the chin, pureed texture and thin liquids, straws are okay. She did report some retrosternal and hiatal pain after trials of poorly chewed soft solids suggesting esophageal or hiatal dysmotility. DISCHARGE DIAGNOSES: 1. Dyspnea likely secondary to dysphagia. 2. Recurrent urinary tract infection secondary to urinary retention. 3. Urinary retention, now Tinoco dependent. 4. Hypoxia secondary to number one. SECONDARY DIAGNOSES: 1. History of multiple sclerosis. 2. History of paraplegia. 3. History of depression. DISCHARGE MEDICATIONS: 1. Zanaflex 4 mg p.o. 4 times daily. 2. Kenalog cream topical Wednesday, , and Wednesday. 3. Skin cleanser topical in the evening. 4. Senna two tabs p.o. 2 times a day as needed. 5. MiraLax 17 gm daily prn. 6. Ditropan 15 mg p.o. b.i.d. 7. Airborne effervescent tablet one tab q.4 hours as needed. 8. Miconazole antifungal 1% topical in the evening. 9. Methylphenidate 10 mg p.o. b.i.d. and 20 mg p.o. daily. 10. Meclizine 25 mg p.o. q.6 hours as needed. 11. Ketoconazole 125 ml topical on Wednesday, Wednesday, and Wednesday. 12. Hydrocortisone cream one application topical daily as needed. 13. Marinol cap 5 mg p.o. 4 times a day. 14. Donepezil 10 mg in the evening. 15. Restasis eye drops one drop to each eye 2 times a day. 16. Vitamin D3 4,000 units daily. 17. Refresh Liquigel 1% to both eyes 4 times a day as needed. 18. Baclofen 30 mg p.o. 4 times a day. 19. Aspirin 81 mg p.o. daily. 20. Amitriptyline 150 mg at bedtime. 21. Extra Strength Tylenol 1,000 mg p.o. q.8 hours as needed. 22. New Medication: Albuterol nebulizer one neb q.4 hours as needed. 23. Continue oxygen 2 liters nasal cannula continuous and/or prn. DISPOSITION: The patient will be discharged via ambulance transport on oxygen in stable condition to [facility]. FOLLOW-UP: The patient should follow-up with Dr. Goldie Giraldo, medical scientific officer at [facility]. ACTIVITY: Progress activity as tolerated. DIET: Pureed, thin liquids, straws okay as tolerated. Medications as above. TIME SPENT: 45 minutes on discharge planning. DESIRE DEE NP [id number]/CPS #: [id number] [place]
== END 2019-05-02 15:15 | DRG 43 ==
LOC: ED 14:40 → MED 20:06 → OBSVTOIN 05-01 16:30
PROVIDERS: ADMIT Internal Medicine; ATTEND Internal Medicine
PROC: 0T9B70Z Drainage of Bladder with Drainage Device, Via Natural or Artificial Opening (ICD-10-PCS; principal; 2019-05-01)
DX: G35 Multiple sclerosis (principal); J96.91 Respiratory failure, unspecified with hypoxia; G82.20 Paraplegia, unspecified; F32.9 Major depressive disorder, single episode, unspecified; R33.9 Retention of urine, unspecified; R13.10 Dysphagia, unspecified; R10.13 Epigastric pain; N31.9 Neuromuscular dysfunction of bladder, unspecified; N39.498 Other specified urinary incontinence; R94.31 Abnormal electrocardiogram [ECG] [EKG]; X58.XXXA Exposure to other specified factors, initial encounter; Y92.239 Unspecified place in hospital as the place of occurrence of the external cause; T17.920A Food in respiratory tract, part unspecified causing asphyxiation, initial encounter; R06.82 Tachypnea, not elsewhere classified; Z87.440 Personal history of urinary (tract) infections; Z79.82 Long term (current) use of aspirin; Z88.0 Allergy status to penicillin; Z88.8 Allergy status to other drugs, medicaments and biological substances; Z88.6 Allergy status to analgesic agent; Z87.891 Personal history of nicotine dependence; Z99.3 Dependence on wheelchair
CPT/HCPCS: 36415; 71045; 71275; 74230; 80048; 80053; 81003; 81015; 82803; 83605; 83880; 84484; 85025; 85610; 85730; 86140; 87040; 87086; 93005; 99285; A9270-GY; G0378; G8996-GN-CK; G8997-GN-CK; G8998-GN-CK; J1644; J2270; J2930; Q9967

== ENCOUNTER 2019-09-02 12:09 | Inpatient (IN) | payer MEDICAID ==
[2019-09-02] MEDS ORDERED: NS 0.9% 1000 ML** 1,000 ML IV.FLUID IV ONE (12:26)
--- NOTE | 2019-09-02 12:30 | ED ---
Complex/Multi-Sys Presentation - HPI Summary HPI Summary: This patient is a 64 year old F w hx MS, presenting to [facility] by EMS with a chief complaint of fever and low O2 sat since today morning. Pt was recently treated for a decubitus ulcer per EMS, and pt is on Bactrim/zosyn. Pt is alert and oriented x3. Patient reports mild YU. Patient denies coughing, nausea/ vomiting and abdominal pain. Per triage, the patient rates the pain 2/10 in severity. At [facility] patient noted to be febrile, got APAP at 8 am. Was also given zosyn and bactrim at 8 am (hx ESBL) for decubitus ulcer. - History Of Current Complaint Chief Complaint: EDGeneral Time Seen by Provider: 09/02/19 12:18 Hx Obtained From: Patient, EMS Onset/Duration: Gradual Onset, Still Present Timing: Constant Severity Currently: Mild Severity Initially: Mild Character: Typical Headache Aggravating Factor(s): Nothing Alleviating Factor(s): Nothing Associated Signs And Symptoms: Positive: Decreased Responsiveness, Headache, SOB , Fever, Other - infected ulcer. Negative: Cough, Abdominal Pain Related History: Recent Illness - Allergies/Home Medications Allergies/Adverse Reactions: Allergies Allergy/AdvReac Type Severity Reaction Status Date / Time methylprednisolone Allergy Intermediate Rash Verified 09/02/19 12:47 penicillin G Allergy Intermediate Hives Verified 09/02/19 12:47 tramadol AdvReac Severe See Comment Verified 09/02/19 12:47 PMH/Surg Hx/FS Hx/Imm Hx Endocrine/Hematology History: Denies: Hx Diabetes Cardiovascular History: Denies: Hx Hypertension, Hx Pacemaker/ICD Respiratory History: Denies: Hx Asthma, Hx Chronic Obstructive Pulmonary Disease (COPD) History: Denies: Hx Dialysis, Hx Renal Disease Musculoskeletal History: Reports: Other Musculoskeletal History - cervical spine dysectomy Sensory History: Reports: Hx Contacts or Glasses Denies: Hx Cataracts, Hx Eye Injury, Hx Eye Prosthesis, Hx Glaucoma, Hx Legally Blind, Hx Macular Degeneration, Hx Vision Problem, Hx Deafness, Hx Hearing Aid, Other Sensory Impairments Opthamlomology History: Reports: Hx Contacts or Glasses Denies: Hx Cataracts, Hx Eye Injury, Hx Eye Prosthesis, Hx Glaucoma, Hx Legally Blind, Hx Macular Degeneration, Hx Vision Problem, Other Sensory Impairments Neurological History: Reports: Other Neuro Impairments/Disorders - ms Denies: Hx Dementia, Hx Seizures Psychiatric History: Denies: Hx Eating Disorder, Hx Panic Disorder - Surgical History Surgery Procedure, Year, and Place: , CSP DISCECTOMY (WITH PLATES) Infectious Disease History: No Infectious Disease History: Reports: Hx of Known/Suspected MRSA - hx in 2014, Hx Shingles Denies: Traveled Outside the [place] in Last 30 Days - Family History Known Family History: Positive: Other - Denies FHx psychotic disorders, schizophrenia, mood disorders - Social History Alcohol Use: unable to assess Hx Substance Use: No Substance Use Type: Reports: None Hx Tobacco Use: No Smoking Status (MU): Never Smoked Tobacco Have You Smoked in the Last Year: No Review of Systems Positive: Fever Positive: Shortness Of Breath. Negative: Cough Negative: Abdominal Pain Positive: Other - ulcer on buttock Positive: Headache All Other Systems Reviewed And Are Negative: Yes Physical Exam - Summary Physical Exam Summary: Constitutional: Alert. (-) Distressed; chronically ill- appearing Skin: Warm, Dry, L buttock, 5 cm 6cm with pink granulation tissue; 2 pressure wounds to the R knee, 1 pressure wound on left knee HENT: Atraumatic; dry mucous membranes Eyes: Conjunctiva normal Neck: Musculoskeletal ROM normal neck. (-) JVD, (-) Stridor, (-) Nuchal rigidity Cardio: Rhythm regular, rate normal, Heart sounds normal; Intact distal pulses; Radial pulses are 2+ and symmetric. (-) Murmur Pulmonary/Chest wall: Effort normal. (-) Respiratory distress, (-) Wheezes, (-) Rales Abd: Soft, (-) tenderness, (-) Distension, (-) Guarding, (-) Rebound Musculoskeletal: (-) Edema; contractions of lower extremities Lymph: (-) Cervical adenopathy Neuro: Alert, Oriented x3 Psych: Mood and affect Normal Triage Information Reviewed: Yes Vital Signs On Initial Exam: Initial Vitals Temp Pulse Resp BP Pulse Ox 101.0 F 103 19 128/74 98 09/02/19 12:16 09/02/19 12:16 09/02/19 12:16 09/02/19 12:16 09/02/19 12:16 Vital Signs Reviewed: Yes Procedures - Sedation Patient Received Moderate/Deep Sedation with Procedure: No Diagnostics - Vital Signs Vital Signs Temp Pulse Resp BP Pulse Ox 09/02/19 12:16 101.0 F 103 19 128/74 98 - Laboratory Result Diagrams: 09/02/19 12:49 09/02/19 12:48 Lab Statement: Any lab studies that have been ordered have been reviewed, and results considered in the medical decision making process. - Radiology CXR Radiology Interpretation Completed By: Radiologist Summary of Radiographic Findings: CXR reveals, per radiologist, IMPRESSION: #. No compelling evidence for pneumonia. #. Chronic LEFT basilar atelectasis. ED physician has reviewed this radiology report. Re-Evaluation - Re-Evaluation First Eval Change: Improved - UA with 2+ LE, nitrite positive, WBC 12. LA normal. Complex Multi-Symp Course/Dx Course Of Treatment: 64 y/o F w hx MS p/w fever, hypoxia. - PE with ill appearing female, dry MM, pressure ulcer to L buttocks. - CXR clear, buttock wound w minimal drainage. Suspected source of infection. likely , also consider skin and lungs. Plan. Initiated the inpatient sepsis 3 hour provider orderset. IV fluid bolus. serum lactate. blood cultures x 2. broad spectrum antibiotics (vanc here, got zosyn at [facility] at 8 am). transfer to higher level of care - Diagnoses Provider Diagnoses: Fever - Physician Notifications Discussed Care Of Patient With: Maria Sheppard Time Discussed With Above Provider: 14:20 Instructed by Provider To: Other - Discussed case with Dr. Sheppard, who accepts pt for admission. Discharge ED - Sign-Out/Discharge Documenting (check all that apply): Patient Departure - Admit - Discharge Plan Condition: Stable Disposition: ADMITTED TO [facility] Referrals: No Primary Care Phys,NOPCP [Medical Doctor] - - Billing Disposition and Condition Condition: STABLE Disposition: Admitted to [facility] - Attestation Statements Document Initiated by Scribe: Yes Documenting Scribe: Mirna Mart Provider For Whom Scribe is Documenting (Include Credential): Santy Rockwell MD Scribe Attestation: Mirna Argueta, scryashed for Santy Rockwell MD on 09/02/19 at 1606. Scribe Documentation Reviewed: Yes Provider Attestation: The documentation as recorded by the Mirna mojica accurately reflects the service I personally performed and the decisions made by me, Santy Rockwell MD Status of Scribe Document: Viewed
[2019-09-02] MEDS ORDERED: Vancomycin(*) 750 MG in NS 0.9% 250 ML* 250 ML IVPB ONE (13:00)
[2019-09-02] MEDS ORDERED: Vancomycin(*) 1,000 MG VIAL IVPB SCH (13:00)
[2019-09-02 13:03] LABS: ABS Basophils 0.1 10^3/ul (0-0.2); ABS Lymphocytes 1.7 10^3/ul (1.0-4.8); ABS Monocytes 1.1 10^3/ul (0-0.8); ABS Neutrophils 9.9 10^3/ul (1.5-7.7); Eosinophil % 0.3 %; Hematocrit 28 % (35-47); Hemoglobin 9.3 g/dL (12.0-16.0); Lymphocyte % 13.3 %; Mean Corpuscular HGB Conc 33 g/dL (31-36); Mean Corpuscular Hemoglobin 26 pg (27-31); Mean Corpuscular Volume 80 fL (80-97); Mean Platelet Volume 7.1 fL (7.4-10.4); Nucleated Red Blood Cells % 0.1; Platelet Count 642 10^3/uL (150-450); Red Blood Count 3.55 10^6 /uL (3.70-4.87); Red Cell Distribution Width 15 % (10-15); White Blood Count 12.8 10^3/uL (3.5-10.8)
[2019-09-02 13:12] LABS: INR 1.15 (0.82-1.09)
[2019-09-02 13:20] LABS: Albumin/Globulin Ratio 0.8 (1-3); BUN/Creatinine Ratio 57.5 (8-20); Calcium 8.9 mg/dL (8.6-10.3); EGFR African American 194.4 (>60); EGFR Non-African American 160.7 (>60); Globulin 3.6 g/dL (2-4); Potassium 4.2 mmol/L (3.5-5.0); Total Bilirubin 0.2 mg/dL (0.2-1.0); Total Protein 6.6 g/dL (6.4-8.9)
[2019-09-02 13:22] LABS: Troponin I 0.01 ng/mL (<0.04)
[2019-09-02 15:28] LABS: Urine Appearance Turbid; Urine Bacteria Absent (Absent); Urine Bilirubin Negative (Negative); Urine Blood 1+ (Negative); Urine Color Yellow; Urine Glucose Negative (Negative); Urine Ketones Negative (Negative); Urine Nitrite Positive (Negative); Urine Protein 3+(>=500 mg/dL) (Negative); Urine Red Blood Cell Absent (Absent); Urine Urobilinogen Negative (Negative); Urine White Blood Cell Absent (Absent)
[2019-09-02] MEDS ORDERED: Vancomycin per Pharmacy* NOTE FOLLOW UP SCH (16:00)
[2019-09-02] MEDS: NS 0.9% 1000 ML** 1,000 ML IV SCH (17:59)
[2019-09-02] MEDS: Enoxaparin(*) 40 MG/0.4 ML SYR SUBCUT SCH (18:00)
[2019-09-02] MEDS: Cefepime 1 GM in Dextrose(*) 1 GM/50 ML BAG IV SCH (18:11)
[2019-09-02] MEDS: tiZANidine TAB* 2 MG PO SCH ×2 (18:12→21:33)
[2019-09-02] MEDS: Baclofen TAB* 10 MG PO SCH ×2 (18:12→21:31)
[2019-09-02] MEDS: Dronabinol CAP* 2.5 MG PO SCH ×2 (18:12→21:31)
[2019-09-02] MEDS: Acetaminophen TAB* 325 MG PO PRN (18:12)
[2019-09-02] MEDS: Donepezil TAB* 5 MG PO SCH (18:12)
[2019-09-02 19:04] LABS: % Iron Saturation 7 % (15-55); Iron < 20 ug/dL (50-212); Total Iron Binding Capacity 273 mcg/dL (250-450); Transferrin 195 mg/dL (203-362)
[2019-09-02] MEDS: metroNIDAZOLE IV 500 MG/100ML* 500 MG/100 ML BAG IVPB SCH (19:12)
[2019-09-02] MEDS: Methylphenidate TAB* 10 MG PO SCH (19:20)
--- NOTE | 2019-09-02 19:21 | HP ---
CC: Goldie Giraldo DO, at [facility] * ADMISSION HISTORY AND PHYSICAL: DATE OF ADMISSION: 09/02/19 PRIMARY CARE PROVIDER: Goldie Giraldo DO at [facility]. MY ATTENDING WHILE IN THE HOSPITAL: Dr. Maria Chapa.* (DICTATED BY SUSAN AGUILERA) CHIEF COMPLAINT: Tiredness x2 to 3 days. HISTORY OF PRESENT ILLNESS: Ms. Salas is a 64-year-old female with past medical history significant for multiple sclerosis at this time likely secondary progressive, who is a current resident of [facility]. The patient has been having issues for several months with wounds related to her inability to reposition herself in bed and inability to sit in a wheelchair anymore due to lower extremity contractures and has been developing a sacral wound, which has been undergoing wound care at [facility]. This was recently seen by Dr. Giraldo at [facility] and the patient was started on Bactrim and Flagyl due to erythema and worsening smell coming from the wound. The patient had been having one quarter strength Dakin's solution applied to this wound as well. The patient states that last 3 days she has been getting more tired and per nursing staff, she has been getting more confused particularly this morning when she had fever, hypoxia and much significantly worsening confusion. The patient was sent into the emergency department. The patient has no other complaints. The patient's main concern is getting to [place] for her Botox injections for her lower extremity contractures as these are quite uncomfortable for her generally, though she is not in discomfort at this time. The patient in the emergency department was found to have purulent urine, was given vancomycin to supplement her Bactrim and Flagyl for broad spectrum coverage and we were asked by the patient for admission to the hospital. PAST MEDICAL HISTORY: Multiple sclerosis likely secondary progressive, urinary tract infection, paraplegia, depression, lower extremity contractures. PAST SURGICAL HISTORY: Diskectomy of the C-spine, . MEDICATIONS: 1. Aspirin 81 mg p.o. daily. 2. Oxybutynin 15 mg p.o. b.i.d. 3. Cholecalciferol 4000 units p.o. b.i.d. 4. Cyclosporine emulsion 0.05% one drop both eyes twice a day. 5. Tizanidine 4 mg p.o. 4 times daily. 6. Tylenol 1000 mg p.o. q.8 hours as needed. 7. Senna 8.6 mg p.o. q.12 hours as needed for constipation. 8. Carboxymethylcellulose sodium 1% solution every 6 hours as needed for dry eyes. 9. Baclofen 30 mg p.o. 4 times daily for spasm. 10. Amitriptyline 100 mg p.o. nightly. 11. Triamcinolone 1 application topical to face Wednesday, , Wednesday. 12. Ketoconazole 2% shampoo apply topically to face Wednesday, Wednesday and Wednesday. 13. Donepezil 10 mg p.o. daily. 14. Biotin 50 mL p.o. q.12 hours as needed for dry mouth. 15. Docusate 2 tablets by mouth at bedtime for constipation. 16. Marinol 5 mg p.o. daily for appetite stimulation. 17. Methylphenidate 3 tabs in the morning and 1 tab at night. 18. Flagyl 500 mg p.o. twice daily. 19. Ativan 0.5 mg p.o. at bedtime. 20. Bactrim DS 1 tab p.o. twice daily. ALLERGIES: METHYLPREDNISOLONE, PENICILLIN G, TRAMADOL. FAMILY HISTORY: The patient's mother of old age. The patient's father of stroke. The patient has no siblings. SOCIAL HISTORY: The patient quit smoking over 11 years ago. The patient has never abused alcohol or used illicit drugs. The patient developed MS at 22 and has been disabled for most of her life. The patient is not and has one child, Evin Salas who will be her surrogate decision maker. The patient is currently a resident of [facility]. REVIEW OF SYSTEMS: A 10-point review of systems was reviewed and is negative, except as above in the HPI. PHYSICAL EXAMINATION GENERAL: The patient is a 64-year-old female who appears older than stated age , is sitting in the bed, has erythematous rash around her mouth and is in no acute distress. VITAL SIGNS: At the time of evaluation, temperature 97.3, pulse rate 82, respiratory rate 14, oxygen saturation 100% on 4 L, blood pressure 117/70. HEENT: Head: Normocephalic, atraumatic. Sclerae anicteric. No conjunctival injection. Nasal mucosa dry. Oral mucosa dry. No pharyngeal erythema, discharge, or exudate. NECK: Supple, nontender. No lymphadenopathy. No carotid bruits auscultated. No JVD. RESPIRATORY: Clear to auscultation bilaterally. No wheezes, rales, or rhonchi. Good air exchange bilaterally. CARDIAC: Regular rate and rhythm. No clicks, murmurs, gallops, or rubs. Pulses are 2+ in the bilateral dorsalis pedis, posterior tibialis and radial areas. ABDOMEN: Soft, nontender, nondistended. Bowel sounds present and normoactive in all 4 quadrants. No hepatosplenomegaly. No abdominal bruits auscultated. No hepatojugular reflux. GENITOURINARY: No suprapubic or CVA tenderness. NEURO: Cranial nerves II through XII are intact. Alert and oriented to self and place, not to time. Diffuse muscle weakness and contractures spastic. PSYCHIATRIC: Pleasant and cooperative. SKIN: Large tunneling sacral decubitus ulcer, not measured at this time with surrounding erythema. No purulent discharge. Dressing is soaked in urine. Small approximately 1 cm circular open areas on the bilateral knees. Erythematous rash with serpiginous border surrounding the mouth. DIAGNOSTIC STUDIES/LAB DATA: Laboratory data: White blood cell count 12.8, hemoglobin 9.3, platelet count 642. INR 1.15, APTT 37.0. Sodium 135, potassium 4.2, chloride 98, carbon dioxide 32, anion gap 5, BUN 23, creatinine 0.4, glucose 110, lactic acid 0.5, calcium 8.9. Bilirubin 0.2, AST 14, ALT 17, alkaline phosphatase 92. Troponin I 0.01. Protein 6.6, albumin 3.0, globulin 3.6. Urine, yellow, turbid, 3+ protein, 1+ blood, positive nitrite, 2+ leukocyte esterase, negative white blood cells, red blood cells and bacteria. Studies: Chest x-ray read as no compelling evidence for pneumonia, chronic left basilar atelectasis. ASSESSMENT AND PLAN: Impression: Ms. Salas is a 64- year-old female with past medical history significant for advanced likely secondary progressive multiple sclerosis and frequent urinary tract infections as well as recent development of sacral decubitus ulcers, who presents to the emergency department from [facility] for concern for fever, altered mental status, and tachycardia. The patient was admitted to the hospital for sepsis of unknown origin likely urinary or related to her sacral decubitus ulcer. 1. Sepsis, unknown source. The patient on arrival to the emergency department was tachycardic at 103, had an elevated temperature, has an elevated white blood cell count. The patient had no initial hypotension, no elevated lactic acid, but did receive a fluid bolus of 30 mL per kg. The patient was covered appropriately with vancomycin, this was in addition to her Bactrim and Flagyl, which she received outpatient. The patient will be continued on cefepime, Flagyl and vancomycin and the Infectious Disease consult will be obtained for further narrowing. Culture data is pending from her urine, blood and wound at this time. The patient's fever has resolved. The patient's tachycardia has resolved. The patient is perfusing well. 2. Sacral decubitus ulcer. The patient will have aggressive pressure reduction and wet-to-dry dressings. A wound care consult will be obtained for this and for her knees. This wound has been noticed to be tunnelling all the way down to her sacrum. If there is concern for osteomyelitis of the sacrum, an MRI may be obtained, though this will be deferred until Infectious Disease consultation may be obtained. 3. Urinary tract infection. The patient has leukocyte esterase and nitrite in her urine with a high possibility of urinary tract infection. This will be covered by the patient's broad spectrum antibiotics and the culture is pending, though it should be noted that this patient was on antibiotics at the residential and received vancomycin before her urine samples were able to be obtained. 4. Multiple sclerosis. The patient has numerous complications with multiple sclerosis including somnolence, spasms, and neurogenic bladder. Continue chronic treatments for these including baclofen, tizanidine, amitriptyline, methylphenidate, donepezil and oxybutynin. The patient has an appointment next Wednesday with her MS specialist for a Botox injection for her spasms. 5. Anemia. The patient has relatively new onset anemia of unclear cause. The patient does have a low mean corpuscular hemoglobin and a borderline low MCV, but no elevated RDW and iron panel will be checked. Folate and B12 may also be considered to be checked, this is likely related to anemia of chronic disease given the patient's infection that has been becoming chronic. Iron supplementation may be considered if appropriate. The patient does have an elevated BUN to creatinine ratio, but there is a low clinical suspicion for GI bleed at this time given the patient's dehydration and the gradual worsening in her anemia. 6. Depression. Continue the patient's amitriptyline. 7. FEN: The patient will have a regular unrestricted diet and fluids 75 mL an hour at this time given her objective dehydration. 8. Disposition: The patient is admitted to the hospital. Estimated length of stay greater than 2 midnights. 9. Code status: The patient would like to be a full code. The patient's surrogate decision maker will be her son, Evin Salas as above. TIME SPENT: Approximately 60 minutes were spent on the admission of this patient, 30 of which were spent [id number] with the patient obtaining a history and physical and discussing treatment plan. This plan has been discussed with my attending, Dr. Maria Chapa, and she is in agreement. SUSAN AGUILERA [id number]/[facility] #: [id number] [place]
[2019-09-02 19:24] LABS: Ferritin 53.2 ng/mL (11-307)
[2019-09-02] MEDS: Oxybutynin TAB* 5 MG PO SCH (21:33)
[2019-09-02] MEDS: Amitriptyline TAB* 50 MG PO SCH (21:33)
[2019-09-03] MEDS: Vancomycin(*) 1,000 MG in NS 0.9% 250 ML* 250 ML IVPB SCH ×2 (00:47→11:28)
[2019-09-03] MEDS: metroNIDAZOLE IV 500 MG/100ML* 500 MG/100 ML BAG IVPB SCH (01:58)
[2019-09-03] MEDS: Morphine INJ* 2 MG/ML 1 ML SYRINGE (TWO MG - NEW SYRINGE VERSION) IV PRN ×7 (03:33→21:31)
[2019-09-03 05:04] LABS: BUN/Creatinine Ratio 60.6 (8-20); C Reactive Protein 167.33 mg/L (<8.01); Calcium 8.6 mg/dL (8.6-10.3); EGFR African American 242.8 (>60); EGFR Non-African American 200.6 (>60); Magnesium 1.6 mg/dL (1.9-2.7)
[2019-09-03 05:41] LABS: ABS Eosinophils 0.1 10^3/ul (0-0.6); ABS Lymphocytes 0.6 10^3/ul (1.0-4.8); ABS Monocytes 0.8 10^3/ul (0-0.8); ABS Neutrophils 11.5 10^3/ul (1.5-7.7); Eosinophil % 0.7 %; Hematocrit 30 % (35-47); Hemoglobin 9.6 g/dL (12.0-16.0); Lymphocyte % 4.9 %; Mean Corpuscular HGB Conc 32 g/dL (31-36); Mean Corpuscular Hemoglobin 26 pg (27-31); Mean Corpuscular Volume 81 fL (80-97); Mean Platelet Volume 7.4 fL (7.4-10.4); Platelet Count 619 10^3/uL (150-450); Red Blood Count 3.69 10^6 /uL (3.70-4.87); Red Cell Distribution Width 16 % (10-15); White Blood Count 13.1 10^3/uL (3.5-10.8)
[2019-09-03] MEDS: Cefepime 1 GM in Dextrose(*) 1 GM/50 ML BAG IV SCH (05:50)
[2019-09-03] MEDS ORDERED: Magnesium Sulfate 1 GM IV* 1 GM/100 ML BAG IV ONE (06:45)
[2019-09-03] MEDS: NS 0.9% 1000 ML** 1,000 ML IV SCH (07:11)
[2019-09-03] MEDS: Meropenem 1 GM PREMIX(*) 1 GM/50 ML BAG IV SCH ×2 (08:51→16:44)
[2019-09-03] MEDS: Dronabinol CAP* 2.5 MG PO SCH ×5 (10:18→23:39)
[2019-09-03] MEDS: Baclofen TAB* 10 MG PO SCH ×5 (10:19→23:39)
[2019-09-03] MEDS: Aspirin EC TAB* 81 MG TAB.EC PO SCH (10:20)
[2019-09-03] MEDS: Methylphenidate TAB* 10 MG PO SCH ×4 (10:20→16:45)
[2019-09-03] MEDS: Cholecalciferol TAB* 1000 UNITS PO SCH (10:21)
[2019-09-03] MEDS: Clotrimazole 1% CREAM* 45 GM TOPICAL SCH (10:21)
--- NOTE | 2019-09-03 10:53 | PN ---
Subjective Date of Service: 09/03/19 Interval History: Patient overnight complained of SOB, was found to be retaining CO2 and was transferred to the ICU for BiPAP. Patient this Am complains of diffuse pain, she does no describe this to be either in her joints or muscles. Patient denies CP, Dizziness, chills, palpitations. Patient does not complain of significant spasms. Family History: Unchanged from Admission Social History: Unchanged from Admission Past Medical History: Unchanged from Admission Objective Active Medications: Acetaminophen (Tylenol Tab*) 650 mg PO Q6H PRN PRN Reason: MILD PAIN or TEMP > 100.4 Last Admin: 09/02/19 18:12 Dose: 650 mg Amitriptyline HCl (Elavil Tab*) 150 mg PO BEDTIME [facility] Last Admin: 09/02/19 21:33 Dose: 150 mg Aspirin (Aspirin Ec Tab*) 81 mg PO DAILY [facility] Last Admin: 09/03/19 10:20 Dose: 81 mg Baclofen (Lioresal Tab*) 20 mg PO QID [facility] Last Admin: 09/03/19 10:19 Dose: 20 mg Cholecalciferol (Vitamin D Tab*) 4,000 units PO DAILY [facility] Last Admin: 09/03/19 10:21 Dose: 4,000 units Clotrimazole (Clotrimazole 1%*) 1 applic TOPICAL DAILY [facility] Last Admin: 09/03/19 10:21 Dose: 1 applic Donepezil HCl (Aricept Tab*) 10 mg PO QPM [facility] Last Admin: 09/02/19 18:12 Dose: 10 mg Dronabinol (Marinol Cap*) 5 mg PO QID [facility] Last Admin: 09/03/19 10:18 Dose: 5 mg Enoxaparin Sodium (Lovenox(*)) 40 mg SUBCUT Q24H [facility] Last Admin: 09/02/19 18:00 Dose: 40 mg Sodium Chloride (Ns 0.9% 1000 Ml) 1,000 mls @ 75 mls/hr IV PER RATE [facility] Last Admin: 09/03/19 07:11 Dose: 75 mls/hr Vancomycin HCl 1,000 mg/ (Sodium Chloride) 250 mls @ 166.667 mls/hr IVPB Q12H [facility] Last Admin: 09/03/19 00:47 Dose: 166.667 mls/hr Meropenem (Merrem 1 Gm Premix(*)) 1 gm in 50 mls @ 100 mls/hr IV Q8H [facility]; Protocol Last Admin: 09/03/19 08:51 Dose: 100 mls/hr Meclizine HCl (Antivert Tab*) 25 mg PO Q6HR PRN PRN Reason: DIZZINESS Methylphenidate HCl (Ritalin Tab*) 10 mg PO 1200,1600 [facility] Last Admin: 09/02/19 19:20 Dose: 10 mg Methylphenidate HCl (Ritalin Tab*) 20 mg PO DAILY [facility] Last Admin: 09/03/19 10:24 Dose: 20 mg Morphine Sulfate (Morphine Inj (Syringe))*) 2 mg IV Q2H PRN PRN Reason: PAIN - SEVERE Last Admin: 09/03/19 07:30 Dose: 2 mg Ondansetron HCl (Zofran Inj*) 4 mg IV Q6H PRN PRN Reason: NAUSEA Oxybutynin Chloride (Ditropan Tab*) 15 mg PO BID [facility] Last Admin: 09/02/19 21:33 Dose: 15 mg Pharmacy Consult (Vancomycin Per Pharmacy*) 1 note FOLLOW UP .VANC PER PHARMACY [facility]; Protocol Pharmacy Profile Note (Vancomycin Trough Check) 1 note FOLLOW UP 1200 ONE Stop: 09/04/19 12:01 Polyethylene Glycol/Electrolytes (Miralax*) 17 gm PO DAILY PRN PRN Reason: CONSTIPATION Senna (Senokot 8.6 Mg Tab*) 2 tab PO BID PRN PRN Reason: CONSTIPATION Tizanidine HCl (Zanaflex Tab*) 4 mg PO QID [facility] Last Admin: 09/02/19 21:33 Dose: 4 mg Vital Signs - 8 hr 09/03/19 09/03/19 09/03/19 03:00 03:15 03:30 Temperature 99.3 F 99.3 F 99.5 F Pulse Rate 100 102 105 Respiratory 15 15 19 Rate Blood Pressure 132/68 132/63 147/73 (mmHg) O2 Sat by Pulse 99 96 94 Oximetry 09/03/19 09/03/19 09/03/19 03:33 03:45 04:00 Temperature 99.7 F 99.9 F Pulse Rate 104 109 Respiratory 22 15 14 Rate Blood Pressure 135/65 131/73 (mmHg) O2 Sat by Pulse 95 90 Oximetry 09/03/19 09/03/19 09/03/19 04:15 04:30 04:45 Temperature 99.9 F 100.0 F 100.2 F Pulse Rate 108 109 109 Respiratory 17 23 21 Rate Blood Pressure 140/68 134/76 141/65 (mmHg) O2 Sat by Pulse 94 96 95 Oximetry 09/03/19 09/03/19 09/03/19 05:00 05:15 05:29 Temperature 100.2 F 100.4 F Pulse Rate 110 111 Respiratory 23 23 26 Rate Blood Pressure 146/58 144/69 (mmHg) O2 Sat by Pulse 94 94 Oximetry 09/03/19 09/03/19 09/03/19 05:30 05:45 06:00 Temperature 100.6 F 100.6 F 100.8 F Pulse Rate 112 112 112 Respiratory 19 25 19 Rate Blood Pressure 148/75 146/62 145/58 (mmHg) O2 Sat by Pulse 94 94 94 Oximetry 09/03/19 09/03/19 09/03/19 06:15 06:30 06:45 Temperature 100.9 F 100.9 F 100.9 F Pulse Rate 114 114 112 Respiratory 19 16 16 Rate Blood Pressure 137/61 140/58 137/57 (mmHg) O2 Sat by Pulse 93 93 94 Oximetry 09/03/19 09/03/19 09/03/19 07:00 07:15 07:30 Temperature 101.1 F 101.3 F 101.3 F Pulse Rate 115 118 116 Respiratory 19 31 25 Rate Blood Pressure 142/67 137/63 143/70 (mmHg) O2 Sat by Pulse 92 94 90 Oximetry 09/03/19 09/03/19 09/03/19 07:45 08:00 08:15 Temperature 101.5 F 101.5 F 101.5 F Pulse Rate 117 115 Respiratory 23 24 16 Rate Blood Pressure 130/60 137/71 131/57 (mmHg) O2 Sat by Pulse 86 96 Oximetry 09/03/19 09/03/19 09/03/19 08:30 08:45 09:00 Temperature 101.5 F 101.5 F 101.7 F Pulse Rate 116 114 114 Respiratory 27 17 16 Rate Blood Pressure 132/68 141/61 124/54 (mmHg) O2 Sat by Pulse 86 98 100 Oximetry 09/03/19 09/03/19 09/03/19 09:15 09:30 09:45 Temperature 101.7 F 101.7 F 101.7 F Pulse Rate 112 112 Respiratory 16 17 14 Rate Blood Pressure 137/55 132/59 129/61 (mmHg) O2 Sat by Pulse 100 100 Oximetry 09/03/19 10:00 Temperature 101.7 F Pulse Rate Respiratory 16 Rate Blood Pressure 133/62 (mmHg) O2 Sat by Pulse Oximetry Oxygen Devices in Use Now: Nasal Cannula Appearance: Patient is a 64yo female who appears older than stated age and is sitting in the bed in NAD. Eyes: No Scleral Icterus Ears/Nose/Mouth/Throat: NL Teeth, Lips, Gums, Clear Oropharnyx, Mucous Membranes Moist Neck: NL Appearance and Movements; NL JVP, Trachea Midline Respiratory: Symmetrical Chest Expansion and Respiratory Effort, Clear to Auscultation Cardiovascular: NL Sounds; No Murmurs; No JVD, No Edema, - - Tachycardia. Abdominal: NL Sounds; No Tenderness; No Distention, No Hepatosplenomegaly Lymphatic: No Cervical Adenopathy Extremities: No Edema, No Clubbing, Cyanosis Skin: No Nodules or Sclerosis, - - Large sacral ulcer, small dry B/L knee ulcers. Flaking Skin and serpiginous rash on face. Neurological: - - Alert, Oriented only to self. Diffusely contracted and spastic. Result Diagrams: 09/03/19 04:39 09/03/19 04:39 Microbiology and Other Data: Microbiology 09/03/19 00:45 Nasal Screen MRSA (PCR) - Final Nasal Mrsa Detected Assess/Plan/Problems-Billing Assessment: Patient is a 64yo female with a PMH for MS, Frequent UTI, here with sepsis of unknown origin, likely from urine or sacral decubitus ulcer, complicated by acute hypoxic and hypercarbic respiratory failure. - Patient Problems (1) Acute on chronic respiratory failure with hypoxia and hypercapnia Current Visit: Yes Status: Acute Code(s): J96.21 - ACUTE AND CHRONIC RESPIRATORY FAILURE WITH HYPOXIA; J96.22 - ACUTE AND CHRONIC RESPIRATORY FAILURE WITH HYPERCAPNIA SNOMED Code(s): 59455491397958 Comment: - Requiring BiPAP overnight. Repeat CXR shows possible right middle lobe opacity. No other signs of pneumonia. Is being treated adequately for any possible pneumonia - Has previously normal echo and CT chest for previous hospitalization with desaturations. - Most likely cause is overmedication causing respiratory depression, decrease dose of baclofen (Maximum daily dose is 80mg and patient was receiving 120mg). Consider also decreasing tizanidine, monitor closely with use of morphine for pain and dyspnea. - No futher need for BiPAP at this time due to normal pCO2 on ABG. - Down to 4L O2 and saturating well. (2) Sepsis Current Visit: Yes Status: Acute Comment: - Not Improved, Still febrile, tachycardic with leukocytosis - No signs of end-organ dysfunction - Broaden antibiotics and continue fluids - Source likely either in urine or wound - Awaiting cultures. (3) Sacral decubitus ulcer Current Visit: Yes Status: Acute Code(s): L89.159 - PRESSURE ULCER OF SACRAL REGION, UNSPECIFIED STAGE SNOMED Code(s): 559405118 Comment: - Severe, Reports of tunneling to sacrum - No overt signs of infection, wound culture pending - Tinoco cath for aid in wound healing - Wet-to-dry dressings at this time, wound care consult pending. - Vanco and Meropenum for broad-spectrum coverage due to history of ESBL in urine and coming form a SNF. (4) Altered mental status Current Visit: No Status: Resolved Priority: High Code(s): R41.82 - ALTERED MENTAL STATUS, UNSPECIFIED SNOMED Code(s): 114828886 Comment: - Likely due to acute septic encephalopathy and hypercarbic respiraotry failure - Improving. (5) Depression Current Visit: No Status: Acute Code(s): F32.9 - MAJOR DEPRESSIVE DISORDER, SINGLE EPISODE, UNSPECIFIED SNOMED Code(s): 69542670 Comment: - Amitriptyline (6) Multiple sclerosis Current Visit: No Status: Acute Code(s): G35 - MULTIPLE SCLEROSIS SNOMED Code(s): 00834603 Comment: - Continue baclofen at decreased dose, marinol, donepezil, prn zanaflex and methylphenidate - Follow up MS specialist for botox injections. (7) UTI (urinary tract infection) Current Visit: No Status: Acute Comment: - UA positive for LE and Nitrates - Frequent UTI - Continue Vanco and Meropenum pending cultures. - Broadened to Meropenum due to no improvement on Cefepime and Vanco. (8) DVT prophylaxis Current Visit: No Status: Acute Code(s): GGP3658 - SNOMED Code(s): 775288250 Comment: - Lovenox. (9) Full code status Current Visit: No Status: Acute Code(s): Z78.9 - OTHER SPECIFIED HEALTH STATUS SNOMED Code(s): 543901730
[2019-09-03] MEDS ORDERED: tiZANidine TAB* 2 MG PO PRN (11:06)
[2019-09-03] MEDS: Oxybutynin TAB* 5 MG PO SCH ×3 (11:29→23:39)
[2019-09-03] MEDS: Acetaminophen TAB* 325 MG PO PRN (11:35)
[2019-09-03] MEDS: Ibuprofen TAB* 400 MG PO PRN (14:35)
[2019-09-03] MEDS: Enoxaparin(*) 40 MG/0.4 ML SYR SUBCUT SCH (16:44)
[2019-09-03] MEDS: Acetaminophen TAB* 325 MG PO SCH (16:44)
[2019-09-03] MEDS: Donepezil TAB* 5 MG PO SCH (18:15)
[2019-09-03] MEDS: tiZANidine TAB* 2 MG PO SCH (19:35)
[2019-09-03] MEDS: Amitriptyline TAB* 50 MG PO SCH ×2 (21:30→23:38)
[2019-09-03] MEDS ORDERED: fentaNYL* 50 MCG/ML 2 ML VIAL (100 MCG VIAL) IV SLOW PU PRN (21:52)
[2019-09-03] MEDS ORDERED: NS 0.9% 1000 ML** 1,000 ML IV ONE (23:28)
[2019-09-04] MEDS: NS 0.9% 1000 ML** 1,000 ML IV SCH (00:45)
[2019-09-04] MEDS: Meropenem 1 GM PREMIX(*) 1 GM/50 ML BAG IV SCH ×2 (00:48→08:24)
[2019-09-04] MEDS: Acetaminophen TAB* 325 MG PO SCH ×3 (01:03→16:04)
[2019-09-04] MEDS: fentaNYL* 50 MCG/ML 2 ML VIAL (100 MCG VIAL) IV SLOW PU PRN ×4 (01:08→20:56)
[2019-09-04] MEDS ORDERED: diPHENhydraMINE IV* 50 MG/ML 1 ml VIAL (BENADRYL) IV ONE (01:21)
[2019-09-04] MEDS: Vancomycin(*) 1,000 MG in NS 0.9% 250 ML* 250 ML IVPB SCH ×3 (01:34→23:25)
[2019-09-04] MEDS: Morphine INJ* 2 MG/ML 1 ML SYRINGE (TWO MG - NEW SYRINGE VERSION) IV PRN ×3 (03:31→14:03)
[2019-09-04 06:00] LABS: ABS Basophils 0.1 10^3/ul (0-0.2); ABS Eosinophils 0.4 10^3/ul (0-0.6); ABS Lymphocytes 0.9 10^3/ul (1.0-4.8); ABS Monocytes 0.8 10^3/ul (0-0.8); ABS Neutrophils 8.6 10^3/ul (1.5-7.7); Eosinophil % 3.8 %; Hematocrit 28 % (35-47); Lymphocyte % 8.2 %; Mean Corpuscular HGB Conc 33 g/dL (31-36); Mean Corpuscular Hemoglobin 27 pg (27-31); Mean Corpuscular Volume 81 fL (80-97); Mean Platelet Volume 6.9 fL (7.4-10.4); Platelet Count 623 10^3/uL (150-450); Red Cell Distribution Width 16 % (10-15); White Blood Count 10.8 10^3/uL (3.5-10.8)
[2019-09-04 06:14] LABS: BUN/Creatinine Ratio 47.1 (8-20); Calcium 8.2 mg/dL (8.6-10.3); EGFR African American 234.6 (>60); EGFR Non-African American 193.8 (>60); Magnesium 1.8 mg/dL (1.9-2.7); Potassium 3.9 mmol/L (3.5-5.0)
[2019-09-04] MEDS ORDERED: Magnesium Sulfate 2 GM IV* 2 GM/50 ML BAG IVPB ONE (08:09)
[2019-09-04] MEDS: Aspirin EC TAB* 81 MG TAB.EC PO SCH (09:49)
[2019-09-04] MEDS: Baclofen TAB* 10 MG PO SCH ×4 (09:49→20:58)
[2019-09-04] MEDS: Dronabinol CAP* 2.5 MG PO SCH ×4 (09:50→20:58)
[2019-09-04] MEDS: Cholecalciferol TAB* 1000 UNITS PO SCH (09:50)
[2019-09-04] MEDS: Oxybutynin TAB* 5 MG PO SCH ×2 (09:50→20:59)
[2019-09-04] MEDS: Methylphenidate TAB* 10 MG PO SCH ×3 (09:50→16:03)
[2019-09-04] MEDS: Clotrimazole 1% CREAM* 45 GM TOPICAL SCH (09:51)
--- NOTE | 2019-09-04 10:24 | PN ---
Subjective Date of Service: 09/04/19 Interval History: Ms. Salas is not feeling well today. She is having a lot of pain, but is unable to further describe the pain or pinpoint any specific location. When asked about back pain, she does admit to that. She did not sleep well. Denies CP , SOB, N/V. No concerns from nursing. Family History: Unchanged from Admission Social History: Unchanged from Admission Past Medical History: Unchanged from Admission Objective Active Medications: Acetaminophen (Tylenol Tab*) 975 mg PO Q8H [facility] Amitriptyline HCl (Elavil Tab*) 150 mg PO BEDTIME [facility] Aspirin (Aspirin Ec Tab*) 81 mg PO DAILY [facility] Baclofen (Lioresal Tab*) 20 mg PO QID [facility] Cholecalciferol (Vitamin D Tab*) 4,000 units PO DAILY [facility] Clotrimazole (Clotrimazole 1%*) 1 applic TOPICAL DAILY [facility] Donepezil HCl (Aricept Tab*) 10 mg PO QPM [facility] Dronabinol (Marinol Cap*) 5 mg PO QID [facility] Enoxaparin Sodium (Lovenox(*)) 40 mg SUBCUT Q24H [facility] Fentanyl Citrate (Fentanyl*) 50 mcg IV SLOW PU Q4H PRN PAIN - SEVERE Sodium Chloride (Ns 0.9% 1000 Ml) 1,000 mls @ 75 mls/hr IV PER RATE [facility] Vancomycin HCl 1,000 mg/ (Sodium Chloride) 250 mls @ 166.667 mls/hr IVPB Q12H [facility] Meropenem (Merrem 1 Gm Premix(*)) 1 gm in 50 mls @ 100 mls/hr IV Q8H [facility]; Protocol Ibuprofen (Motrin Tab*) 400 mg PO Q6H PRN PAIN-MODERATE/TEMP >/= 100.4 Meclizine HCl (Antivert Tab*) 25 mg PO Q6HR PRN DIZZINESS Methylphenidate HCl (Ritalin Tab*) 10 mg PO 1200,1600 [facility] Methylphenidate HCl (Ritalin Tab*) 20 mg PO DAILY [facility] Morphine Sulfate (Morphine Inj (Syringe))*) 2 mg IV Q2H PRN PAIN - SEVERE Ondansetron HCl (Zofran Inj*) 4 mg IV Q6H PRN NAUSEA Oxybutynin Chloride (Ditropan Tab*) 15 mg PO BID [facility] Polyethylene Glycol/Electrolytes (Miralax*) 17 gm PO DAILY PRN CONSTIPATION Senna (Senokot 8.6 Mg Tab*) 2 tab PO BID PRN CONSTIPATION Tizanidine HCl (Zanaflex Tab*) 4 mg PO QID PRN SPASMS Vital Signs - 8 hr 09/04/19 09/04/19 09/04/19 03:00 03:27 03:31 Temperature 98.4 F 98.2 F Pulse Rate 86 89 Respiratory 17 25 27 Rate Blood Pressure 113/64 (mmHg) O2 Sat by Pulse 99 98 Oximetry 09/04/19 09/04/19 09/04/19 04:00 05:01 09:39 Temperature 98.4 F Pulse Rate 95 Respiratory 34 24 18 Rate Blood Pressure 107/68 (mmHg) O2 Sat by Pulse 96 Oximetry Oxygen Devices in Use Now: OxyMask - 4L Appearance: Elderly female lying in bed in NAD Ears/Nose/Mouth/Throat: Mucous Membranes Moist Neck: NL Appearance and Movements; NL JVP, Trachea Midline Respiratory: Symmetrical Chest Expansion and Respiratory Effort, Clear to Auscultation Cardiovascular: NL Sounds; No Murmurs; No JVD, RRR Abdominal: - - Firm, nontender Extremities: No Edema Neurological: - - Oriented to self Lines/Tubes/Other Access: Clean, Dry and Intact Peripheral IV Nutrition: Taking PO's Result Diagrams: 09/04/19 05:49 09/04/19 05:49 Assess/Plan/Problems-Billing Assessment: Ms. Salas is a 64 yo F with PMH of MS, frequent UTI; here with sepsis of unknown origin, likely from urine or sacral decubitus ulcer, complicated by acute hypoxic and hypercarbic respiratory failure. - Patient Problems (1) Acute respiratory failure with hypoxia and hypercapnia Code(s): J96.01 - ACUTE RESPIRATORY FAILURE WITH HYPOXIA; J96.02 - ACUTE RESPIRATORY FAILURE WITH HYPERCAPNIA Comment: - Requiring up to 4L on admission and BiPAP overnight 09/03/19; now back down to 4L and saturating well - Previously had normal echo and CT chest during previous hospitalization with desaturations - Repeat CXR shows possible right middle lobe opacity, but no other clinical signs of pneumonia - Most likely cause is overmedication causing respiratory depression - Baclofen decreased (MDD is 80mg and patient was receiving 120mg); consider also decreasing tizanidine if symptoms persist - Monitor closely with narcotic use and wean oxygen (2) Sepsis Comment: - Met criteria on admission with fever, tachycardia, leukocytosis; source is suspected UTI vs wound infection - Fever and leukocytosis now resolved; remains slightly tachycardic and tachypneic - No signs of end-organ dysfunction - Wound culture pending, + urine culture - Appreciate ID consult - Continue vanco, meropenem (3) UTI (urinary tract infection) Comment: - History of recurrent UTIs, likely r/t retention - Urine culture growing Proteus - Tinoco in place - Continue vanco, meropenem (4) Sacral decubitus ulcer Code(s): L89.159 - PRESSURE ULCER OF SACRAL REGION, UNSPECIFIED STAGE Comment : - Severe with reports of tunneling to sacrum - On admission dressing was noted to be soaked in urine and patient does carry history of ESBL in urine - Wound culture pending - Tinoco for aid in wound healing - Wound care consult - Wet-to-dry dressings at this time until further recommendations from Wound Care - Continue vanco, meropenem (5) Anemia Code(s): D64.9 - ANEMIA, UNSPECIFIED Comment: - New onset beginning in May - Iron studies indicate iron deficiency, but suspect there may also be a component of AOCD d/t recurrent UTIs - Check stool occult - Start ferrous sulfate (6) Altered mental status Code(s): R41.82 - ALTERED MENTAL STATUS, UNSPECIFIED Comment: - Improving - Likely due to acute septic encephalopathy and hypercarbic respiraotry failure (7) Multiple sclerosis Code(s): G35 - MULTIPLE SCLEROSIS Comment: - Follow up MS specialist for Botox injections at d/c - Continue baclofen (decreased dose), Marinol, donepezil, tizanidine, methylphenidate (8) Depression Code(s): F32.9 - MAJOR DEPRESSIVE DISORDER, SINGLE EPISODE, UNSPECIFIED Comment: - Continue amitriptyline (9) DVT prophylaxis Code(s): CAC0628 - Comment: - Lovenox (10) Full code status Code(s): Z78.9 - OTHER SPECIFIED HEALTH STATUS Comment: Status and Disposition: Inpatient. Anticipate d/c back to [facility] when medically stable. Attending: Carie Blanton
[2019-09-04] MEDS: Ferrous Sulfate TAB* 325 MG PO SCH (11:28)
--- NOTE | 2019-09-04 11:37 | CONS ---
CONSULTATION REPORT: DATE OF CONSULT: 09/04/19 REQUESTING PROVIDER: SUSAN Benitez CONSULTING SERVICE: Infectious Disease. REASON FOR CONSULTATION: Sepsis. IMPRESSION: 1. Sepsis with encephalopathy. Sources include urinary tract infection. She apparently does not have a chronic Tinoco catheter. She has proteus in greater than 100,000 colonies, sensitive to ceftriaxone. She is improving on meropenem and vancomycin. Other possibilities include soft tissue infection associated with her sacral decubitus ulcer. She does not have nuchal rigidity to suggest a meningitis. It seems a little more likely that her mental status change could be due to stomach infection. 2. Progressive multiple sclerosis, residing at [facility]. 3. Chronic lower extremity wounds. 4. History of ESBL urinary tract infection. RECOMMENDATIONS: Continue vancomycin while awaiting the wound culture. We will change her meropenem to ceftriaxone. Obtain wound consult and follow her wound treatments for her decubitus ulcer and legs. HISTORY OF PRESENT ILLNESS: This is a 64-year-old woman with multiple sclerosis , admitted with progressive change in her wounds as well as worsening confusion. She came to the hospital on 09/02/19. Chest x-ray was unremarkable on admission. She was febrile. She initially was treated with vancomycin, cefepime, and Flagyl that was changed to vancomycin and meropenem. She has had improvement in her fever, none overnight, had low-grade temp yesterday evening. White count was initially 12, it is down to 10 today. Urine cultures growing proteus. Blood cultures are negative. Decubitus ulceration culture is pending. She denies pain, but otherwise cannot provide much history which is obtained instead from review of the medical records and discussion with SUSAN Benitez. PAST MEDICAL HISTORY: 1. Multiple sclerosis. 2. Upper and lower extremity contractures. 3. 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 4. History of urinary tract infection. 5. Paraplegia. 6. Depression. 7. Status post C-spine diskectomy. 8. Status post . ALLERGIES: METHYLPREDNISOLONE, PENICILLIN, and TRAMADOL. MEDICATIONS: 1. Tylenol. 2. Amitriptyline. 3. Aspirin. 4. Baclofen. 5. Cholecalciferol. 6. Donepezil. 7. Dronabinol. 8. Enoxaparin. 9. Ferrous sulfate. 10. Ibuprofen as needed. 11. Meclizine as needed. 12. Meropenem 1 g IV every 8 hours. 13. Methylphenidate. 14. Zofran as needed. 15. Oxybutynin. 16. Senna as needed. 17. Tizanidine as needed. 18. Vancomycin 1 g every 12 hours. SOCIAL HISTORY: She lives at [facility]. She is a nonsmoker. No alcohol use. FAMILY HISTORY: The patient's mom from old age, father from stroke. REVIEW OF SYSTEMS: Unobtainable given her current mental status. PHYSICAL EXAM: Vital Signs: Temperature 37, heart rate 90, respiratory rate 30 , blood pressure 107/68, oxygen saturation 96% on facemask with 3 L oxygen supplementation. In general, she is not diaphoretic or in distress. Neurologic : She is awake. She answers some yes/no questions. She has some unintelligible speech that has been repetitive. She has upper and lower extremity contractures. HEENT: There is no conjunctival hemorrhage. Oropharynx without lesions. Neck is supple without mass. There is no nuchal rigidity. Heart is regular rate and rhythm without murmurs, rubs, or gallops. Lungs are clear to auscultation bilaterally. Abdomen: Soft, nontender, nondistended. There are bowel sounds present. Skin: There is no rash or splinter hemorrhage. There is a sacral decubitus ulceration with some surrounding erythema, fibrinous debris. The bilateral [id number] wounds on both legs are wrapped and not undressed today. She does have pain with movement of the legs. Musculoskeletal: There is no spine tenderness to palpation. LABORATORY DATA: White blood cell count 10, hemoglobin 9, platelets 623. Creatinine is 0.3. Please see impressions and recommendations outlined above. Thanks for asking me to see Ms. Salas in consultation. [id number]/[facility] #: [id number] [place]
[2019-09-04] MEDS: cefTRIAXone(*) 1 GM in NS 0.9% 50 ML* 50 ML IVPB SCH (11:48)
[2019-09-04] MEDS ORDERED: Vancomycin Trough Check NOTE FOLLOW UP ONE (12:00)
[2019-09-04] MEDS: Ondansetron INJ* 2 MG/ML VIAL IV PRN (14:03)
[2019-09-04] MEDS: Enoxaparin(*) 40 MG/0.4 ML SYR SUBCUT SCH (16:01)
[2019-09-04] MEDS: Donepezil TAB* 5 MG PO SCH (16:41)
[2019-09-04] MEDS ORDERED: Lorazepam PYXIS KEY PRN (17:17)
[2019-09-04] MEDS: LORazepam INJ* 2 MG/ML 1 ML VIAL IV PUSH PRN (17:35)
[2019-09-04] MEDS: Amitriptyline TAB* 50 MG PO SCH (20:59)
[2019-09-05] MEDS: Senna TAB 8.6 mg* TAB PO PRN ×2 (00:09→20:24)
[2019-09-05] MEDS: Acetaminophen TAB* 325 MG PO SCH ×3 (00:11→18:09)
[2019-09-05] MEDS: Polyethylene Glycol 3350* 17 GM PACKET PO PRN (00:13)
[2019-09-05 05:49] LABS: ABS Eosinophils 0.4 10^3/ul (0-0.6); ABS Lymphocytes 1.5 10^3/ul (1.0-4.8); ABS Neutrophils 5.1 10^3/ul (1.5-7.7); Eosinophil % 4.9 %; Hematocrit 23 % (35-47); Hemoglobin 7.5 g/dL (12.0-16.0); Lymphocyte % 19.1 %; Mean Corpuscular HGB Conc 32 g/dL (31-36); Mean Corpuscular Hemoglobin 26 pg (27-31); Mean Corpuscular Volume 82 fL (80-97); Mean Platelet Volume 6.5 fL (7.4-10.4); Platelet Count 625 10^3/uL (150-450); Red Blood Count 2.87 10^6 /uL (3.70-4.87); Red Cell Distribution Width 16 % (10-15)
[2019-09-05] MEDS: Ibuprofen TAB* 400 MG PO PRN ×2 (05:57→20:24)
[2019-09-05] MEDS: fentaNYL* 50 MCG/ML 2 ML VIAL (100 MCG VIAL) IV SLOW PU PRN ×3 (05:59→18:05)
[2019-09-05] MEDS: Clotrimazole 1% CREAM* 45 GM TOPICAL SCH (10:30)
[2019-09-05] MEDS: Ondansetron INJ* 2 MG/ML VIAL IV PRN (10:31)
[2019-09-05] MEDS: Baclofen TAB* 10 MG PO SCH ×4 (10:35→20:23)
[2019-09-05] MEDS: Methylphenidate TAB* 10 MG PO SCH ×3 (10:35→18:11)
[2019-09-05] MEDS: Aspirin EC TAB* 81 MG TAB.EC PO SCH (10:42)
[2019-09-05] MEDS: Ferrous Sulfate TAB* 325 MG PO SCH (10:42)
[2019-09-05] MEDS: Dronabinol CAP* 2.5 MG PO SCH ×4 (10:42→22:25)
[2019-09-05] MEDS: Cholecalciferol TAB* 1000 UNITS PO SCH (10:43)
[2019-09-05] MEDS: Oxybutynin TAB* 5 MG PO SCH ×2 (10:44→20:24)
[2019-09-05] MEDS: cefTRIAXone(*) 1 GM in NS 0.9% 50 ML* 50 ML IVPB SCH (13:00)
[2019-09-05] MEDS: Morphine INJ* 2 MG/ML 1 ML SYRINGE (TWO MG - NEW SYRINGE VERSION) IV PRN (13:44)
[2019-09-05] MEDS: Vancomycin(*) 1,000 MG in NS 0.9% 250 ML* 250 ML IVPB SCH (13:53)
--- NOTE | 2019-09-05 14:59 | PN ---
Subjective Date of Service: 09/05/19 Interval History: Ms. Salas is feeling better today. She is still very tired. Breathing has improved and she denies SOB. No cough. She denies any pain. No CP or N/V. She is not sure who would help her make medical decisions. No concerns from nursing. Family History: Unchanged from Admission Social History: Unchanged from Admission Past Medical History: Unchanged from Admission Objective Active Medications: Acetaminophen (Tylenol Tab*) 975 mg PO Q8H [facility] Amitriptyline HCl (Elavil Tab*) 150 mg PO BEDTIME [facility] Aspirin (Aspirin Ec Tab*) 81 mg PO DAILY [facility] Baclofen (Lioresal Tab*) 20 mg PO QID [facility] Cholecalciferol (Vitamin D Tab*) 4,000 units PO DAILY [facility] Clotrimazole (Clotrimazole 1%*) 1 applic TOPICAL DAILY [facility] Donepezil HCl (Aricept Tab*) 10 mg PO QPM [facility] Dronabinol (Marinol Cap*) 5 mg PO QID [facility] Enoxaparin Sodium (Lovenox(*)) 40 mg SUBCUT Q24H [facility] Fentanyl Citrate (Fentanyl*) 50 mcg IV SLOW PU Q4H PRN PAIN - SEVERE Ferrous Sulfate (Ferrous Sulfate Tab*) 325 mg PO DAILY [facility] Ceftriaxone Sodium 1 gm/ (Sodium Chloride) 50 mls @ 100 mls/hr IVPB Q24H [facility] Ibuprofen (Motrin Tab*) 400 mg PO Q6H PRN PAIN-MODERATE/TEMP >/= 100.4 Lorazepam (Ativan Inj*) 0.5 mg IV PUSH Q4H PRN ANXIETY Meclizine HCl (Antivert Tab*) 25 mg PO Q6HR PRN DIZZINESS Methylphenidate HCl (Ritalin Tab*) 10 mg PO 1200,1600 [facility] Methylphenidate HCl (Ritalin Tab*) 20 mg PO DAILY [facility] Morphine Sulfate (Morphine Inj (Syringe))*) 2 mg IV Q2H PRN PAIN - SEVERE Ondansetron HCl (Zofran Inj*) 4 mg IV Q6H PRN NAUSEA Oxybutynin Chloride (Ditropan Tab*) 15 mg PO BID [facility] Polyethylene Glycol/Electrolytes (Miralax*) 17 gm PO DAILY PRN CONSTIPATION Senna (Senokot 8.6 Mg Tab*) 2 tab PO BID PRN CONSTIPATION Tizanidine HCl (Zanaflex Tab*) 4 mg PO QID PRN SPASMS Vital Signs - 8 hr 09/05/19 09/05/19 09/05/19 07:55 08:11 10:27 Temperature 99 F Pulse Rate 95 Respiratory 20 24 Rate Blood Pressure 113/53 (mmHg) O2 Sat by Pulse 98 98 Oximetry 09/05/19 09/05/19 09/05/19 10:42 11:17 11:25 Temperature Pulse Rate Respiratory 24 24 12 Rate Blood Pressure (mmHg) O2 Sat by Pulse Oximetry 09/05/19 09/05/19 09/05/19 11:39 13:44 14:10 Temperature 98 F Pulse Rate 83 Respiratory 20 20 20 Rate Blood Pressure 99/46 (mmHg) O2 Sat by Pulse 99 Oximetry Oxygen Devices in Use Now: Nasal Cannula - 4L Appearance: Elderly female lying in bed in NAD Neck: NL Appearance and Movements; NL JVP, Trachea Midline Respiratory: Symmetrical Chest Expansion and Respiratory Effort, Clear to Auscultation Cardiovascular: NL Sounds; No Murmurs; No JVD, RRR Abdominal: NL Sounds; No Tenderness; No Distention Extremities: No Edema Neurological: - - Oriented to self, minimally verbal Lines/Tubes/Other Access: Clean, Dry and Intact Peripheral IV Nutrition: Taking PO's Result Diagrams: 09/05/19 05:40 09/04/19 05:49 Assess/Plan/Problems-Billing Assessment: Ms. Salas is a 64 yo F with PMH of MS, frequent UTI; here with sepsis of unknown origin, likely from urine or sacral decubitus ulcer, complicated by acute hypoxic and hypercarbic respiratory failure. - Patient Problems (1) Acute respiratory failure with hypoxia and hypercapnia Code(s): J96.01 - ACUTE RESPIRATORY FAILURE WITH HYPOXIA; J96.02 - ACUTE RESPIRATORY FAILURE WITH HYPERCAPNIA Comment: - Requiring up to 4L on admission and BiPAP overnight 09/03/19; now back down to 4L and saturating well - Previously had normal echo and CT chest during previous hospitalization with desaturations - Repeat CXR shows possible right middle lobe opacity, but no other clinical signs of pneumonia - Most likely cause is overmedication causing respiratory depression - Baclofen decreased (MDD is 80mg and patient was receiving 120mg); consider also decreasing tizanidine if symptoms persist - Monitor closely with narcotic use and wean oxygen (2) Sepsis Comment: - Met criteria on admission with fever, tachycardia, leukocytosis; source is suspected UTI vs wound infection - Fever and leukocytosis now resolved; remains slightly tachycardic and tachypneic - No signs of end-organ dysfunction - Wound culture pending, + urine culture - Appreciate ID consult - Continue vanco, ceftriaxone (3) UTI (urinary tract infection) Comment: - History of recurrent UTIs, likely r/t retention - Urine culture growing Proteus - Tinoco in place - Continue vanco, ceftriaxone (4) Sacral decubitus ulcer Code(s): L89.159 - PRESSURE ULCER OF SACRAL REGION, UNSPECIFIED STAGE Comment : - Severe with reports of tunneling to sacrum - On admission dressing was noted to be soaked in urine and patient does carry history of ESBL in urine - Wound culture pending - Tinoco for aid in wound healing - Wound care consult - Wet-to-dry dressings at this time until further recommendations from Wound Care - Continue vanco, ceftriaxone (5) Anemia Code(s): D64.9 - ANEMIA, UNSPECIFIED Comment: - New onset beginning in May - Iron studies indicate iron deficiency, but suspect there may also be a component of AOCD d/t recurrent UTIs - Check stool occult - Continue ferrous sulfate (6) Altered mental status Code(s): R41.82 - ALTERED MENTAL STATUS, UNSPECIFIED Comment: - Improving - Likely due to acute septic encephalopathy and hypercarbic respiraotry failure (7) Multiple sclerosis Code(s): G35 - MULTIPLE SCLEROSIS Comment: - Follow up MS specialist for Botox injections at d/c - Continue baclofen (decreased dose), Marinol, donepezil, tizanidine, methylphenidate (8) Depression Code(s): F32.9 - MAJOR DEPRESSIVE DISORDER, SINGLE EPISODE, UNSPECIFIED Comment: - Continue amitriptyline (9) DVT prophylaxis Code(s): EZM4303 - Comment: - Lovenox (10) Full code status Code(s): Z78.9 - OTHER SPECIFIED HEALTH STATUS Comment: Status and Disposition: Inpatient. Anticipate d/c back to [facility] when medically stable. Attending: Carie Blanton
--- NOTE | 2019-09-05 15:08 | PN ---
Progress Note - Progress Note Date of Service: 09/05/19 SOAP: Subjective: CC: Encephalopathy HPI: 64 year old woman with MS, contractures, here with encephalopathy and UTI. She has ongoing pain but is otherwise unable to participate in history. No fever, rash, or diarrhea per RN. Objective: [] Assessment: [] Plan: [] Vital Signs Temp 36.6 C 09/05/19 11:39 Pulse 83 09/05/19 11:39 Resp 20 09/05/19 14:26 BP 99/46 09/05/19 11:39 Pulse Ox 99 09/05/19 11:39 Intake & Output 09/04/19 09/05/19 09/05/19 18:59 06:59 18:59 Intake Total 741 480 0 Output Total 480 1100 300 Balance 261 -620 -300 Intake: IV Fluids 511 Normal Saline 511 Oral 230 480 0 Output: Urine 0 See 480 1100 300 Other: Estimated Void Small Gen:Awake, no distress HEENT: no thrush Neck: supple Heart: Regular Lungs: decr breath sounds at the bases Abd:+BS NTND soft Skin: no rash MSK: upper and lower extremity contracture Laboratory Results - last 24 hr 09/05/19 05:40 WBC 8.0 RBC 2.87 L Hgb 7.5 L Hct 23 L MCV 82 MCH 26 L MCHC 32 RDW 16 H Plt Count 625 H MPV 6.5 L Neut % (Auto) 63.7 Lymph % (Auto) 19.1 Cameron % (Auto) 12.0 Eos % (Auto) 4.9 Baso % (Auto) 0.3 Absolute Neuts (auto) 5.1 Absolute Lymphs (auto) 1.5 Absolute Monos (auto) 1.0 H Absolute Eos (auto) 0.4 Absolute Basos (auto) 0.0 Absolute Nucleated RBC 0.0 Nucleated RBC % 0.0 Impression: 1. Proteus UTI, now with see catheter, leukocytosis improving 2. MS with contracture 3. Sacral decubitus ulcer, present on admission Plan: 1. continue ceftriaxone day 4. DC vancomycin (ordered). Pain control per primary team.
[2019-09-05] MEDS: Donepezil TAB* 5 MG PO SCH (18:10)
[2019-09-05] MEDS: Enoxaparin(*) 40 MG/0.4 ML SYR SUBCUT SCH (18:11)
--- NOTE | 2019-09-05 18:16 | CONSULT ---
Subjective Date of Service: 09/05/19 Interval History: Ms. Salas is a 64 yo female with PMH significant for MS, paraplegia, depression , and bilateral lower extremity contractures; who presented to the emergency room with complaints of fatigue. She was found to have sepsis secondary to a UTI. She presented to the hospital with a known stage 4 sacral pressure ulcer and wounds to bilateral knees. She is followed by Dr. Mickey Forrester at [facility] for her wounds. According to the notes from [facility], the sacral ulcer has been present for over 3 months. The sacral wound is treated with cleaning the area with wound glass cleaner, followed by packing the wound with moist rolled gauze ( using 1/4 strength Dakins solution), cover with ABD pad; change BID. According to [facility] notes the right knee ulcer has been present for about 1 month and the left knee ulcer for about 2.5 months. Suspect these may be secondary to the braces that she wears on her legs. Bilateral knee ulcers treated by washing with wound glass cleaner, followed by applying Hydrogel to the ulcers and lotion to the intact skin, 4x4 gauze, and rolled gauze; change daily. Patient seen and examined at bedside. Family History: Unchanged from Admission Social History: Unchanged from Admission Past Medical History: Unchanged from Admission Review of Systems - Measurements Intake and Output: Intake and Output Last 24 Hours 09/03/19 09/04/19 09/05/19 09/06/19 06:59 06:59 06:59 06:59 Intake Total 3131 1221 0 Output Total 1145 1580 300 Balance 1985 359 -300 Weight Intake: IV Fluids 2310 511 Normal Saline 2310 511 IVPB 701 ABX 701 CEFEPIME Oral 120 710 0 Output: Urine 0 Tinoco 1145 1580 300 Other: Estimated Void Small - Review of Systems Constitutional Symptoms: Negative: Fever, Other - Chills Dermatology: Positive: Other - Wounds to nose, sacrum, and bilateral knees Objective Active Medications: Acetaminophen (Tylenol Tab*) 975 mg PO Q8H [facility] Amitriptyline HCl (Elavil Tab*) 150 mg PO BEDTIME [facility] Aspirin (Aspirin Ec Tab*) 81 mg PO DAILY [facility] Baclofen (Lioresal Tab*) 20 mg PO QID [facility] Cholecalciferol (Vitamin D Tab*) 4,000 units PO DAILY [facility] Clotrimazole (Clotrimazole 1%*) 1 applic TOPICAL DAILY [facility] Donepezil HCl (Aricept Tab*) 10 mg PO QPM [facility] Dronabinol (Marinol Cap*) 5 mg PO QID [facility] Enoxaparin Sodium (Lovenox(*)) 40 mg SUBCUT Q24H [facility] Fentanyl Citrate (Fentanyl*) 50 mcg IV SLOW PU Q4H PRN Reason: PAIN - SEVERE Ferrous Sulfate (Ferrous Sulfate Tab*) 325 mg PO DAILY [facility] Ceftriaxone Sodium 1 gm/ (Sodium Chloride) 50 mls @ 100 mls/hr IVPB Q24H [facility] Ibuprofen (Motrin Tab*) 400 mg PO Q6H PRN Reason: PAIN-MODERATE/TEMP >/= 100.4 Lorazepam (Ativan Inj*) 0.5 mg IV PUSH Q4H PRN Reason: ANXIETY Meclizine HCl (Antivert Tab*) 25 mg PO Q6HR PRN Reason: DIZZINESS Methylphenidate HCl (Ritalin Tab*) 10 mg PO 1200,1600 [facility] Methylphenidate HCl (Ritalin Tab*) 20 mg PO DAILY [facility] Miscellaneous (Ativan Pyxis Yusuf) 1 ea N/A .ATIVAN IV YUSUF PRN Morphine Sulfate (Morphine Inj (Syringe))*) 2 mg IV Q2H PRN Reason: PAIN - SEVERE Ondansetron HCl (Zofran Inj*) 4 mg IV Q6H PRN Reason: NAUSEA Oxybutynin Chloride (Ditropan Tab*) 15 mg PO BID [facility] Pharmacy Profile Note (Vancomycin Trough Check) 1 note FOLLOW UP 1130 ONE Stop: 09/06/19 11:31 Polyethylene Glycol/Electrolytes (Miralax*) 17 gm PO DAILY PRN Reason: CONSTIPATION Senna (Senokot 8.6 Mg Tab*) 2 tab PO BID PRN Reason: CONSTIPATION Tizanidine HCl (Zanaflex Tab*) 4 mg PO QID PRN Reason: SPASMS Vital Signs 09/05/19 09/05/19 09/05/19 11:25 11:39 13:44 Temperature 98 F Pulse Rate 83 Respiratory 12 20 20 Rate Blood Pressure 99/46 (mmHg) O2 Sat by Pulse 99 Oximetry Oxygen Devices in Use Now: Nasal Cannula - 4L Appearance: NAD, sitting up in bed Ears/Nose/Mouth/Throat: Mucous Membranes Moist Respiratory: Symmetrical Chest Expansion and Respiratory Effort Extremities: - - Lower extremity contractures Skin: - - See skin note below Neurological: - - Alert and Oriented to person and place Result Diagrams: 09/08/19 04:10 09/08/19 13:06 Additional Lab and Data: Above labs were pulled into the note, when the note was edited prior to signing. Please see below for labs from the day of consultation. Laboratory Tests 09/02/19 09/04/19 12:48 05:49 Sodium 137 Potassium 3.9 Chloride 104 Carbon Dioxide 30 BUN 16 Creatinine 0.34 L Glucose 78 Total Protein 6.6 Albumin 3.0 L Skin Deviation Note - Skin Deviation Findings Right knee - There is a superficial area with dry yellow eschar. The area measures 0.8 cm x 0.8 cm x 0.1 cm. the surrounding skin is intact. There is no drainage. There is dry skin in the surrounding area. Left knee - There is a superficial area with dry yellow eschar and black dry eschar. The area measures 1.1 cm x 1.5 cm x 0.1 cm. the surrounding skin is intact. There is no drainage. There is dry skin in the surrounding area. Sacrum - There is a deep wound with bone exposed in the wound base. The wound measures 5 cm x 4 cm x 3 cm. There is undermining from about 12 o'clock to 3 o' clock. At 12 o'clock it measures 2 cm, 2 o'clock 3.5 cm, and 3 o'clock 2.5 cm. The surrounding skin is intact, but macerated. There is no drainage noted ( dressing was wet to dry). Not pictured: Left outer nare - There is a superficial open area with red granulation tissue. (this was not measured). The surrounding skin is intact, and there is not drainage. Wound Problem/Plan Assessment: Ms. Gonzalez is a 64 yo female with PMH significant for MS, paraplegia, depression, and bilateral lower extremity contractures; who presented to the emergency room with complaints of fatigue. She was found to have sepsis secondary to a UTI. She presented to the hospital with a known stage 4 sacral pressure ulcer and superficial ulcers to bilateral knees. 1. Bilateral knees with superficial wounds. Possibly secondary to braces that she wears on her legs for her contractures. Recommend applying ABX ointment to ulcers, followed by Telfa (non stick dressing), and rolled gauze, and change daily. 2. Sacrum, stage 4. This wound has been present for over 3 months according to [facility] documentation. The wound appears to be macerated and to moist. Recommend gently packing the wound with calcium alginate rope, cover with an ABD pad folded in half and tape on 2 sides, change daily or as needed for soiling. Consider MRI or bone scan to evaluate for osteomyelitis if the wound isn't healing. Consider checking a prealbumin level to assess nutritional status. 3. Left outer nare ulcer, superficial. Suspect this is secondary to the oximask (senior medical billing specialist associated). Recommend applying ABX ointment daily. 4. Multiple Sclerosis with paraplegia. Wheelchair bound, with UE and LE contractures. 5. Diet. Regular mechanical ground diet. 6. Code Status. Full Code Status. 7. Disposition. Inpatient. Disposition per primary medicine team. TIME SPENT: Time for this wound consultation was 35 minutes and 25 minutes was spent at bedside with the patient discussing past medical history; removing dressings; assessing, measuring, and photographing wounds; reapplying dressings. Is Patient a Wound Clinic Patient: No Comment: Followed by Dr. Forrester at [facility] for wound care Attending: Elaina Tucker
[2019-09-05] MEDS: Meclizine TAB* 12.5 MG PO PRN (20:24)
[2019-09-05] MEDS: Amitriptyline TAB* 50 MG PO SCH (20:24)
[2019-09-05] MEDS: LORazepam INJ* 2 MG/ML 1 ML VIAL IV PUSH PRN (20:25)
[2019-09-06] MEDS ORDERED: NS 0.9% 1000 ML** 1,000 ML IV ONE (00:32)
[2019-09-06] MEDS: Acetaminophen TAB* 325 MG PO SCH ×3 (00:58→17:04)
[2019-09-06 06:07] LABS: ABS Basophils 0.1 10^3/ul (0-0.2); ABS Eosinophils 0.6 10^3/ul (0-0.6); ABS Lymphocytes 2.4 10^3/ul (1.0-4.8); ABS Monocytes 1.2 10^3/ul (0-0.8); ABS Neutrophils 3.3 10^3/ul (1.5-7.7); Eosinophil % 7.7 %; Hematocrit 24 % (35-47); Hemoglobin 7.9 g/dL (12.0-16.0); Lymphocyte % 31.9 %; Mean Corpuscular HGB Conc 33 g/dL (31-36); Mean Corpuscular Hemoglobin 27 pg (27-31); Mean Corpuscular Volume 82 fL (80-97); Mean Platelet Volume 6.7 fL (7.4-10.4); Nucleated Red Blood Cells % 0.1; Platelet Count 566 10^3/uL (150-450); Red Blood Count 2.95 10^6 /uL (3.70-4.87); Red Cell Distribution Width 15 % (10-15); White Blood Count 7.5 10^3/uL (3.5-10.8)
[2019-09-06] MEDS: fentaNYL* 50 MCG/ML 2 ML VIAL (100 MCG VIAL) IV SLOW PU PRN ×3 (09:00→21:16)
[2019-09-06] MEDS: Clotrimazole 1% CREAM* 45 GM TOPICAL SCH (09:02)
[2019-09-06] MEDS: Methylphenidate TAB* 10 MG PO SCH ×3 (09:03→17:06)
[2019-09-06] MEDS: Cholecalciferol TAB* 1000 UNITS PO SCH (09:04)
[2019-09-06] MEDS: Aspirin EC TAB* 81 MG TAB.EC PO SCH (09:04)
[2019-09-06] MEDS: Dronabinol CAP* 2.5 MG PO SCH ×4 (09:05→21:17)
[2019-09-06] MEDS: Ferrous Sulfate TAB* 325 MG PO SCH (09:07)
[2019-09-06] MEDS: Baclofen TAB* 10 MG PO SCH ×4 (09:07→21:17)
[2019-09-06] MEDS: Oxybutynin TAB* 5 MG PO SCH ×2 (09:07→21:17)
[2019-09-06] MEDS: Morphine INJ* 2 MG/ML 1 ML SYRINGE (TWO MG - NEW SYRINGE VERSION) IV PRN ×3 (11:21→23:21)
[2019-09-06] MEDS: busPIRone TAB* 5 MG PO SCH ×2 (11:21→21:17)
[2019-09-06] MEDS ORDERED: Vancomycin Trough Check NOTE FOLLOW UP ONE (11:30)
--- NOTE | 2019-09-06 11:52 | PN ---
Progress Note - Progress Note Date of Service: 09/06/19 SOAP: Subjective: CC: Sepsis with encephalopathy HPI: Ms. Gonzalez is a 64 yo female with PMH significant for MS, paraplegia, depression, and extremity contractures. Reports feeling hot with occasional chills today. She is complaining of right hip pain today. She reports that she is eating some. She is often noted to be anxious and yelling out, unable to state why she is yelling out. Objective: Vital Signs - 8 hr 09/06/19 09/06/19 09/06/19 07:38 09:00 09:05 Temperature 97 F Pulse Rate 81 Respiratory 18 18 18 Rate Blood Pressure 118/69 (mmHg) O2 Sat by Pulse 96 Oximetry Physical Exam: General: NAD, laying in bed Neurological: Alert and Oriented to person and place HEENT: Moist MM, no thrush Cardiovascular: Heart rate regular Respiratory: Lung sounds clear bilateral Abdominal: Bowel sounds present; ABD large, soft and non tender MSK: UE and LE contractures Skin: No rash Laboratory Results - last 24 hr 09/06/19 05:55 WBC 7.5 RBC 2.95 L Hgb 7.9 L Hct 24 L MCV 82 MCH 27 MCHC 33 RDW 15 Plt Count 566 H D MPV 6.7 L Neut % (Auto) 44.2 Lymph % (Auto) 31.9 [place] % (Auto) 15.4 Eos % (Auto) 7.7 Baso % (Auto) 0.8 Absolute Neuts (auto) 3.3 Absolute Lymphs (auto) 2.4 Absolute Monos (auto) 1.2 H Absolute Eos (auto) 0.6 Absolute Basos (auto) 0.1 Absolute Nucleated RBC 0.0 Nucleated RBC % 0.1 Microbiology 09/04/19 09:40 Gram Stain - Final Buttock Wound Culture - Final No Growth Day 2 09/05/19 06:24 Aerobic Blood Culture - Final Blood Venous Not Reportable Anaerobic Blood Culture - Final Not Reportable Blood Culture - Preliminary No Growth Day 1 09/05/19 06:24 Aerobic Blood Culture - Preliminary Blood Venous No Growth Day 1 Anaerobic Blood Culture - Preliminary No Growth Day 1 09/02/19 18:22 Blood Culture - Preliminary Blood Venous No Growth Day 3 09/02/19 12:49 Aerobic Blood Culture - Preliminary Blood Venous No Growth Day 3 Anaerobic Blood Culture - Preliminary No Growth Day 3 09/02/19 15:04 Urine Culture - Final Urine Proteus Mirabilis 09/03/19 00:45 Nasal Screen MRSA (PCR) - Final Nasal Mrsa Detected Assessment: 1. UTI. Urine culture with Proteus. Tinoco catheter in place. Afebrile for 24 hours. Leukocytosis resolved. Blood cultures with no growth to date. 2. MS with contractures. 3. Sacral decubitus ulcer. stage 4 and present on admission. No signs of infection. Plan: Continue ceftriaxone day 03/07.
[2019-09-06] MEDS: Senna TAB 8.6 mg* TAB PO PRN ×2 (11:55→21:28)
[2019-09-06] MEDS: cefTRIAXone(*) 1 GM in NS 0.9% 50 ML* 50 ML IVPB SCH (11:55)
--- NOTE | 2019-09-06 13:44 | CONSULT ---
Palliative / Hospice Consult Ordering Provider: Dominique Jackson - PCPChelsi Referal Reason: Goals of care/senna & PEG/fentanyl & MS - Subjective Code Status: Full Code Advance Directives Location: In Chart - History or Present Illness History or Present Illness: 64yo female resident of [facility] with Multiple Sclerosis presents with tiredness for 2 days, fever and hypoxia. PMH is significant for MS since her early thirties but worse in last 15 yrs, wounds, contractures of lower legs, frequent UTIs, paraplegia and depression. PSHx ex tob user, no drug use, rare ETOH use in past, , has one son Evin who is her HCP which is on chart [phone], she is a retired antique seller. Studies CXR L basilar atelectasis , CXR #2 RML increase in airspace opacification, H/H 7.9/24, plt 566, BUN/Cr 16/ .34, egfr 193.8, Mg 1.8, CRP 167.33, alb 3, INR 1.15, UC P Mirablis, nasal + MRSA, ECHO EF 55-60% 04/22/19. Pt admitted with sepsis secondary to UTI , sacral decubitius and anemia. Pt was transferred to the ICU for hypoxia requiring BIPAP now on 4 liters NC and back on 4S. In the last year she has been admditted 10/05- for dyspnea, 04/20- for AMS & UTI, 04/23- for UTI and pneumonia and 05/01-12/2018 for dyspnea. All history is from the pt and medical records. Lab Values: Abnormal Lab Results 09/06/19 05:55 WBC 7.5 RBC 2.95 L Hgb 7.9 L Hct 24 L MCV 82 MCH 27 MCHC 33 RDW 15 Plt Count 566 H D MPV 6.7 L Neut % (Auto) 44.2 Lymph % (Auto) 31.9 Bonner % (Auto) 15.4 Eos % (Auto) 7.7 Baso % (Auto) 0.8 Absolute Neuts (auto) 3.3 Absolute Lymphs (auto) 2.4 Absolute Monos (auto) 1.2 H Absolute Eos (auto) 0.6 Absolute Basos (auto) 0.1 Absolute Nucleated RBC 0.0 Nucleated RBC % 0.1 Laboratory Last Values WBC 7.5 10^3/uL (3.5-10.8) 09/06/19 05:55 RBC 2.95 10^6 /uL (3.70-4.87) L 09/06/19 05:55 Hgb 7.9 g/dL (12.0-16.0) L 09/06/19 05:55 Hct 24 % (35-47) L 09/06/19 05:55 MCV 82 fL (80-97) 09/06/19 05:55 MCH 27 pg (27-31) 09/06/19 05:55 MCHC 33 g/dL (31-36) 09/06/19 05:55 RDW 15 % (10-15) 09/06/19 05:55 Plt Count 566 10^3/uL (150-450) H D 09/06/19 05:55 MPV 6.7 fL (7.4-10.4) L 09/06/19 05:55 Neut % (Auto) 44.2 % 09/06/19 05:55 Lymph % (Auto) 31.9 % 09/06/19 05:55 Bonner % (Auto) 15.4 % 09/06/19 05:55 Eos % (Auto) 7.7 % 09/06/19 05:55 Baso % (Auto) 0.8 % 09/06/19 05:55 Absolute Neuts (auto) 3.3 10^3/ul (1.5-7.7) 09/06/19 05:55 Absolute Lymphs (auto) 2.4 10^3/ul (1.0-4.8) 09/06/19 05:55 Absolute Monos (auto) 1.2 10^3/ul (0-0.8) H 09/06/19 05:55 Absolute Eos (auto) 0.6 10^3/ul (0-0.6) 09/06/19 05:55 Absolute Basos (auto) 0.1 10^3/ul (0-0.2) 09/06/19 05:55 Absolute Nucleated RBC 0.0 10^3/ul 09/06/19 05:55 Nucleated RBC % 0.1 09/06/19 05:55 INR (Anticoag Therapy) 1.15 (0.82-1.09) H 09/02/19 12:48 APTT 37.0 seconds (26.0-38.0) 09/02/19 12:48 Patient Temperature Not Reportable 09/03/19 08:18 ABG pH 7.37 (7.35-7.45) 09/03/19 08:18 ABG pH (Temp Correct) Not Reportable 09/03/19 08:18 ABG pCO2 45 mmHg (35-45) 09/03/19 08:18 ABG pCO2 (Temp Corrct Not Reportable 09/03/19 08:18 ABG pO2 63 mmHg (80-100) L 09/03/19 08:18 ABG pO2 (Temp Correct Not Reportable 09/03/19 08:18 ABG HCO3 25.0 mmol/L (19-31) 09/03/19 08:18 ABG O2 Saturation 94.2 % (94.0-98.0) 09/03/19 08:18 ABG Base Excess 0.3 mmol/L (-2.0-2.0) 09/03/19 08:18 Respiration Rate Not Reportable 09/03/19 08:18 O2 Delivery Device 4 lpm nc 09/03/19 08:18 Ventilator Type Not Reportable 09/03/19 08:18 Vent Mode Not Reportable 09/03/19 08:18 FiO2 Not Reportable 09/03/19 08:18 Inspiratory Time Not Reportable 09/03/19 08:18 PEEP Not Reportable 09/03/19 08:18 Pressure Support Not Reportable 09/03/19 08:18 Pressure Control Not Reportable 09/03/19 08:18 EPAP Not Reportable 09/03/19 08:18 IPAP Not Reportable 09/03/19 08:18 BiPAP Not Reportable 09/03/19 08:18 Sodium 137 mmol/L (135-145) 09/04/19 05:49 Potassium 3.9 mmol/L (3.5-5.0) 09/04/19 05:49 Chloride 104 mmol/L (101-111) 09/04/19 05:49 Carbon Dioxide 30 mmol/L (22-32) 09/04/19 05:49 Anion Gap 3 mmol/L (2-11) 09/04/19 05:49 BUN 16 mg/dL (6-24) 09/04/19 05:49 Creatinine 0.34 mg/dL (0.51-0.95) L 09/04/19 05:49 Est GFR ( Amer) 234.6 (>60) 09/04/19 05:49 Est GFR (Non-Af Amer) 193.8 (>60) 09/04/19 05:49 BUN/Creatinine Ratio 47.1 (8-20) H 09/04/19 05:49 Glucose 78 mg/dL (70-100) 09/04/19 05:49 Lactic Acid 0.8 mmol/L (0.5-2.0) 09/02/19 18:22 Calcium 8.2 mg/dL (8.6-10.3) L 09/04/19 05:49 Magnesium 1.8 mg/dL (1.9-2.7) L 09/04/19 05:49 Iron < 20 ug/dL (50-212) L 09/02/19 18:22 TIBC 273 mcg/dL (250-450) 09/02/19 18:22 % Saturation 7 % (15-55) L 09/02/19 18:22 Unsat Iron Binding < 258 ug/dL 09/02/19 18:22 Transferrin 195 mg/dL (203-362) L 09/02/19 18:22 Ferritin 53.2 ng/mL (11-307) 09/02/19 18:22 Total Bilirubin 0.20 mg/dL (0.2-1.0) 09/02/19 12:48 AST 14 U/L (13-39) 09/02/19 12:48 ALT 17 U/L (7-52) 09/02/19 12:48 Alkaline Phosphatase 92 U/L (34-104) 09/02/19 12:48 Troponin I 0.01 ng/mL (<0.04) 09/02/19 12:48 C-Reactive Protein 167.33 mg/L (<8.01) H 09/03/19 04:39 Total Protein 6.6 g/dL (6.4-8.9) 09/02/19 12:48 Albumin 3.0 g/dL (3.2-5.2) L 09/02/19 12:48 Globulin 3.6 g/dL (2-4) 09/02/19 12:48 Albumin/Globulin Ratio 0.8 (1-3) L 09/02/19 12:48 Urine Color Yellow 09/02/19 15:04 Urine Appearance Turbid 09/02/19 15:04 Urine pH 7.0 (5-9) 09/02/19 15:04 Ur Specific Mumford 1.010 (1.010-1.030) 09/02/19 15:04 Urine Protein 3+(>=500 mg/dl) (Negative) A 09/02/19 15:04 Urine Ketones Negative (Negative) 09/02/19 15:04 Urine Blood 1+ (Negative) A 09/02/19 15:04 Urine Nitrate Positive (Negative) A 09/02/19 15:04 Urine Bilirubin Negative (Negative) 09/02/19 15:04 Urine Urobilinogen Negative (Negative) 09/02/19 15:04 Ur Leukocyte Esterase 2+ (Negative) A 09/02/19 15:04 Urine WBC (Auto) Absent (Absent) 09/02/19 15:04 Urine RBC (Auto) Absent (Absent) 09/02/19 15:04 Urine Bacteria Absent (Absent) 09/02/19 15:04 Urine Glucose Negative (Negative) 09/02/19 15:04 Vancomycin Trough 9.2 mcg/mL 09/04/19 11:40 - Objective Active Medications: Acetaminophen (Tylenol Tab*) 975 mg PO Q8H [facility] Last Admin: 09/06/19 09:06 Dose: 975 mg Amitriptyline HCl (Elavil Tab*) 150 mg PO BEDTIME [facility] Last Admin: 09/05/19 20:24 Dose: 150 mg Aspirin (Aspirin Ec Tab*) 81 mg PO DAILY [facility] Last Admin: 09/06/19 09:04 Dose: 81 mg Baclofen (Lioresal Tab*) 20 mg PO QID [facility] Last Admin: 09/06/19 09:07 Dose: 20 mg Buspirone HCl (Buspar Tab*) 5 mg PO BID [facility] Last Admin: 09/06/19 11:21 Dose: 5 mg Cholecalciferol (Vitamin D Tab*) 4,000 units PO DAILY [facility] Last Admin: 09/06/19 09:04 Dose: 4,000 units Clotrimazole (Clotrimazole 1%*) 1 applic TOPICAL DAILY [facility] Last Admin: 09/06/19 09:02 Dose: 1 applic Donepezil HCl (Aricept Tab*) 10 mg PO QPM [facility] Last Admin: 09/05/19 18:10 Dose: 10 mg Dronabinol (Marinol Cap*) 5 mg PO QID [facility] Last Admin: 09/06/19 09:05 Dose: 5 mg Enoxaparin Sodium (Lovenox(*)) 40 mg SUBCUT Q24H [facility] Last Admin: 09/05/19 18:11 Dose: 40 mg Fentanyl Citrate (Fentanyl*) 50 mcg IV SLOW PU Q4H PRN PRN Reason: PAIN - SEVERE Last Admin: 09/06/19 09:00 Dose: 50 mcg Ferrous Sulfate (Ferrous Sulfate Tab*) 325 mg PO DAILY [facility] Last Admin: 09/06/19 09:07 Dose: 325 mg Ceftriaxone Sodium 1 gm/ (Sodium Chloride) 50 mls @ 100 mls/hr IVPB Q24H [facility] Last Admin: 09/06/19 11:55 Dose: 100 mls/hr Ibuprofen (Motrin Tab*) 400 mg PO Q6H PRN PRN Reason: PAIN-MODERATE/TEMP >/= 100.4 Last Admin: 09/05/19 20:24 Dose: 400 mg Meclizine HCl (Antivert Tab*) 25 mg PO Q6HR PRN PRN Reason: DIZZINESS Last Admin: 09/05/19 20:24 Dose: 25 mg Methylphenidate HCl (Ritalin Tab*) 10 mg PO 1200,1600 [facility] Last Admin: 09/06/19 11:55 Dose: 10 mg Methylphenidate HCl (Ritalin Tab*) 20 mg PO DAILY [facility] Last Admin: 09/06/19 09:03 Dose: 20 mg Morphine Sulfate (Morphine Inj (Syringe))*) 2 mg IV Q2H PRN PRN Reason: PAIN - SEVERE Last Admin: 09/06/19 11:21 Dose: 2 mg Ondansetron HCl (Zofran Inj*) 4 mg IV Q6H PRN PRN Reason: NAUSEA Last Admin: 09/05/19 10:31 Dose: 4 mg Oxybutynin Chloride (Ditropan Tab*) 15 mg PO BID [facility] Last Admin: 09/06/19 09:07 Dose: 15 mg Polyethylene Glycol/Electrolytes (Miralax*) 17 gm PO DAILY PRN PRN Reason: CONSTIPATION Last Admin: 09/05/19 00:13 Dose: 17 gm Senna (Senokot 8.6 Mg Tab*) 2 tab PO BID PRN PRN Reason: CONSTIPATION Last Admin: 09/06/19 11:55 Dose: 2 tab Tizanidine HCl (Zanaflex Tab*) 4 mg PO QID PRN PRN Reason: SPASMS Vital Signs: Vital Signs: Temp Pulse Resp BP Pulse Ox 97 F 87 12 110/54 92 09/06/19 07:38 09/06/19 11:46 09/06/19 12:29 09/06/19 11:46 09/06/19 11:46 Patient Weight: Weight 63.8 kg Intake and Output: Intake & Output 09/04/19 09/05/19 09/06/19 09/07/19 06:59 06:59 06:59 06:59 Intake Total 3131 1221 1014 480 Output Total 1145 1580 770 300 Balance 1986 -359 244 180 Intake: IV Fluids 2310 511 999 Normal Saline 2310 511 999 IVPB 701 ABX 701 Oral 120 710 0 480 Tinoco Irrigate Amount 15 Output: Urine 0 [place] 1145 1580 770 300 Other: Estimated Void Small ADLs: Meal Record Start: 09/02/19 17: 34 Freq: DAILY@0900,1400,1800 Status: Active Protocol: Created 09/02/19 17:34 System (Rec: 09/02/19 17:34 System MED-C12) Document 09/02/19 18:00 [id number] (Rec: 09/02/19 18:38 [id number] MED-C11) Document 09/03/19 18:00 [id number] (Rec: 09/03/19 18:09 [id number] ICU-C15) Document 09/04/19 14:00 [id number] (Rec: 09/04/19 14:53 IMT1583 TELE-C01) Document 09/04/19 18:00 [id number] (Rec: 09/04/19 18:21 [id number] TELE-C10) Document 09/05/19 09:00 [id number] (Rec: 09/05/19 10:01 LIU1488 TELE-C11) Document 09/05/19 18:00 [id number] (Rec: 09/05/19 18:33 [id number] TELE-C08) Document 09/06/19 09:00 [id number] (Rec: 09/06/19 12:59 TELE-C10) Document 09/06/19 12:59 (Rec: 09/06/19 13:00 [id number] TELE-C10) ADLs: Meal Record Start: 09/03/19 00: 36 Freq: 09,13,18 Status: Inactive Protocol: Created 09/03/19 00:36 [id number] (Rec: 09/03/19 00:36 [id number] ICU-C15) Document 09/03/19 09:00 QWU0518 (Rec: 09/03/19 09:04 [id number] ICU-C10) Document 09/03/19 13:00 [id number] (Rec: 09/03/19 13:43 [id number] ICU-C15) Intake and Output Start: 09/02/19 12: 19 Freq: Status: Complete Protocol: Created 09/02/19 12:19 System (Rec: 09/02/19 12:19 System ED-C35) Intake and Output Start: 09/02/19 17: 34 Freq: DAILY@0600,1400,2200 Status: Active Protocol: Created 09/02/19 17:34 System (Rec: 09/02/19 17:34 System MED-C12) Document 09/03/19 14:00 [id number] (Rec: 09/03/19 15:55 [id number] ICU-C15) Document 09/03/19 22:00 [id number] (Rec: 09/04/19 01:01 VFH1505 ICU-C12) Document 09/04/19 05:44 [id number] (Rec: 09/04/19 05:44 OCY4050 ICU-M33) Document 09/04/19 08:00 EQK6193 (Rec: 09/04/19 09:57 [id number] ICU-C10) Document 09/04/19 09:57 [id number] (Rec: 09/04/19 09:57 [id number] ICU-C10) Document 09/04/19 12:20 DKK1635 (Rec: 09/04/19 13:02 [id number] ICU-C10) Document 09/04/19 14:00 VAW1315 (Rec: 09/04/19 14:54 BLQ3700 TELE-C01) Document 09/04/19 22:00 COD7923 (Rec: 09/04/19 23:05 EBQ5341 TELE-C13) Document 09/05/19 06:00 [id number] (Rec: 09/05/19 06:22 [id number] TELE-C10) Document 09/05/19 14:00 AUB5610 (Rec: 09/05/19 14:50 RJA8733 TELE-C07) Document 09/05/19 22:00 YSL7556 (Rec: 09/05/19 22:10 [id number] TELE-C08) Document 09/06/19 06:00 [id number] (Rec: 09/06/19 06:29 [id number] TELE-C10) Document 09/06/19 12:27 ADZ4010 (Rec: 09/06/19 12:28 SAE8160 TELE-C03) Intake and Output Start: 09/03/19 00: 36 Freq: Q1HR Status: Inactive Protocol: Created 09/03/19 00:36 [id number] (Rec: 09/03/19 00:36 LIW0229 ICU-C15) Document 09/03/19 01:00 EST [id number] (Rec: 09/03/19 01:11 EST [id number] ICU-C15) Document 09/03/19 03:00 [id number] (Rec: 09/03/19 03:08 [id number] ICU-C15) Document 09/03/19 05:00 [id number] (Rec: 09/03/19 05:05 [id number] ICU-C15) Document 09/03/19 05:54 [id number] (Rec: 09/03/19 05:54 [id number] ICU-C15) Document 09/03/19 07:00 SEE1909 (Rec: 09/03/19 07:18 PQM3712 ICU-M33) Document 09/03/19 07:54 YQS1277 (Rec: 09/03/19 07:54 IVP4358 ICU-C15) Document 09/03/19 09:00 JAH2194 (Rec: 09/03/19 10:13 [id number] ICU-M33) Document 09/03/19 10:00 [id number] (Rec: 09/03/19 10:14 WMH6360 ICU-M33) Document 09/03/19 10:14 NHS6536 (Rec: 09/03/19 10:14 [id number] ICU-M33) Document 09/03/19 12:00 [id number] (Rec: 09/03/19 12:06 [id number] ICU-L03) Document 09/03/19 13:00 (Rec: 09/03/19 13:43 ICU-C15) Eyes: No Scleral Icterus Ears/Nose/Mouth/Throat: Mucous Membranes Moist Neck: NL Appearance and Movements; NL JVP, Trachea Midline Cardiovascular: NL Sounds; No Murmurs; No JVD, RRR Respiratory: Symmetrical Chest Expansion and Respiratory Effort Abdominal: NL Sounds; No Tenderness; No Distention Extremities: - - Lower extremity contractures Neurological: - - Alert and Oriented to person and place - Assessment Assessment: 64yo female with multiple sclerosis resident of presents with sepsis secondary to UTI - Plan Consult Plan (MU): Palliative Plan: Long discussion with pt who is coherent but sometimes gets confused,anxious and overwhelmed. She says she has an okay quality of life, she enjoys watching TV and has no issues with eating or toileting with assistance. She can't do any of her ADLs on her own because of contractures. States she is looking into a long term or apartment with 24hr aide care. Pt has not noticed a decline over the last several months and has no weight loss. We discussed MOLST and pt initially wanted DNR/DNI, no feeding tube and trial of noninvasive ventilation, but when I started discussing coming back to hospital she started to say she was confused and didn't want to talk anymore. Pt is unable to use her hands so she calls out a lot to get help and reassurance. I would consider PT/OT consult to see if there is an adaptive device she could use and do some stretching of her extremities. Spoke with son later this evening who is out of town and was unable to meet. Updated him on his mom's condition and discussed MOLST form with him but he says he has to talk with his mom first before completing the form. They have never discussed CPR or intubation. At this time he doesn't think she has a good quality of life. Most likely she will have continued admissions to the hospital because of her UTIs or decubitus and pulmonary issues related to her MS. KPS 40%, PPS 30% - Time On Unit Date of Evaluation: 09/06/19 Hospice Consult Time in: 12:45 Hospice Consult Time Out: 14:15 Hospice Consult Time Total: 90 > 50% of Time Spend In Counseling or Coordinating Care: Yes
--- NOTE | 2019-09-06 15:02 | PN ---
Subjective Date of Service: 09/06/19 Interval History: Ms. Salas is feeling better today. Pain still present in her back, though this is about at her baseline. She is feeling a little SOB, but denies cough. She had a difficult night - did not sleep well and is tired this morning. Denies CP , N/V. She has been able to eat, but is frustrated that she is not getting enough help with meals. Nursing reports episodes of agitation and anxiety, screaming out. Family History: Unchanged from Admission Social History: Unchanged from Admission Past Medical History: Unchanged from Admission Objective Active Medications: Acetaminophen (Tylenol Tab*) 975 mg PO Q8H [facility] Amitriptyline HCl (Elavil Tab*) 150 mg PO BEDTIME [facility] Aspirin (Aspirin Ec Tab*) 81 mg PO DAILY [facility] Baclofen (Lioresal Tab*) 20 mg PO QID [facility] Buspirone HCl (Buspar Tab*) 5 mg PO BID [facility] Cholecalciferol (Vitamin D Tab*) 4,000 units PO DAILY [facility] Clotrimazole (Clotrimazole 1%*) 1 applic TOPICAL DAILY [facility] Donepezil HCl (Aricept Tab*) 10 mg PO QPM [facility] Dronabinol (Marinol Cap*) 5 mg PO QID [facility] Enoxaparin Sodium (Lovenox(*)) 40 mg SUBCUT Q24H [facility] Fentanyl Citrate (Fentanyl*) 50 mcg IV SLOW PU Q4H PRN PAIN - SEVERE Ferrous Sulfate (Ferrous Sulfate Tab*) 325 mg PO DAILY [facility] Ceftriaxone Sodium 1 gm/ (Sodium Chloride) 50 mls @ 100 mls/hr IVPB Q24H [facility] Ibuprofen (Motrin Tab*) 400 mg PO Q6H PRN PAIN-MODERATE/TEMP >/= 100.4 Meclizine HCl (Antivert Tab*) 25 mg PO Q6HR PRN DIZZINESS Methylphenidate HCl (Ritalin Tab*) 10 mg PO 1200,1600 [facility] Methylphenidate HCl (Ritalin Tab*) 20 mg PO DAILY [facility] Morphine Sulfate (Morphine Inj (Syringe))*) 2 mg IV Q2H PRN PAIN - SEVERE Ondansetron HCl (Zofran Inj*) 4 mg IV Q6H PRN NAUSEA Oxybutynin Chloride (Ditropan Tab*) 15 mg PO BID [facility] Polyethylene Glycol/Electrolytes (Miralax*) 17 gm PO DAILY PRN CONSTIPATION Senna (Senokot 8.6 Mg Tab*) 2 tab PO BID PRN CONSTIPATION Tizanidine HCl (Zanaflex Tab*) 4 mg PO QID PRN SPASMS Vital Signs - 8 hr 09/06/19 09/06/19 09/06/19 07:38 08:00 09:00 Temperature 97 F Pulse Rate 81 Respiratory 18 18 18 Rate Blood Pressure 118/69 (mmHg) O2 Sat by Pulse 96 96 Oximetry 09/06/19 09/06/19 09/06/19 09:05 11:21 11:46 Temperature Pulse Rate 87 Respiratory 18 16 12 Rate Blood Pressure 110/54 (mmHg) O2 Sat by Pulse 92 Oximetry Oxygen Devices in Use Now: Nasal Cannula - 4L Appearance: Elderly female lying in bed in NAD Ears/Nose/Mouth/Throat: Mucous Membranes Moist Neck: NL Appearance and Movements; NL JVP, Trachea Midline Respiratory: Symmetrical Chest Expansion and Respiratory Effort, Clear to Auscultation Cardiovascular: NL Sounds; No Murmurs; No JVD, RRR Abdominal: - - Firm, nontender Extremities: - - Mild nonpitting BLE Neurological: - - Oriented to self and place Lines/Tubes/Other Access: Clean, Dry and Intact Peripheral IV Nutrition: Taking PO's Result Diagrams: 09/06/19 05:55 09/04/19 05:49 Assess/Plan/Problems-Billing Assessment: Ms. Salas is a 64 yo F with PMH of MS, frequent UTI; here with sepsis of unknown origin, likely from urine or sacral decubitus ulcer, complicated by acute hypoxic and hypercarbic respiratory failure. - Patient Problems (1) Acute respiratory failure with hypoxia and hypercapnia Code(s): J96.01 - ACUTE RESPIRATORY FAILURE WITH HYPOXIA; J96.02 - ACUTE RESPIRATORY FAILURE WITH HYPERCAPNIA Comment: - Requiring up to 4L on admission and BiPAP overnight 09/03/19; now back down to 4L and saturating well - Previously had normal echo and CT chest during previous hospitalization with desaturations - Repeat CXR shows possible right middle lobe opacity, but no other clinical signs of pneumonia - Most likely cause is overmedication causing respiratory depression - Baclofen decreased (MDD is 80mg and patient was receiving 120mg); consider also decreasing tizanidine if symptoms persist - Monitor closely with narcotic use and wean oxygen (2) UTI (urinary tract infection) Comment: - History of recurrent UTIs, likely r/t retention - Urine culture growing Proteus - Tinoco in place - Continue ceftriaxone (day 5/7) (3) Altered mental status Code(s): R41.82 - ALTERED MENTAL STATUS, UNSPECIFIED Comment: - Improving - Likely due to acute septic encephalopathy and hypercarbic respiraotry failure (4) Sepsis Comment: - Met criteria on admission with fever, tachycardia, leukocytosis; source is UTI - No signs of end-organ dysfunction - Appreciate ID consult; recommends ceftriaxone x7 days (5) Sacral decubitus ulcer Code(s): L89.159 - PRESSURE ULCER OF SACRAL REGION, UNSPECIFIED STAGE Comment : - Severe with reports of tunneling to sacrum - On admission dressing was noted to be soaked in urine and patient does carry history of ESBL in urine - Wound culture pending - Tinoco for aid in wound healing - Wound care consult (6) Anemia Code(s): D64.9 - ANEMIA, UNSPECIFIED Comment: - New onset beginning in May - Iron studies indicate iron deficiency, but suspect there may also be a component of AOCD d/t recurrent UTIs - Check stool occult - Continue ferrous sulfate (7) Multiple sclerosis Code(s): G35 - MULTIPLE SCLEROSIS Comment: - Follow up MS specialist for Botox injections at d/c - Continue baclofen (decreased dose), Marinol, donepezil, tizanidine, methylphenidate (8) Depression Code(s): F32.9 - MAJOR DEPRESSIVE DISORDER, SINGLE EPISODE, UNSPECIFIED Comment: - Continue amitriptyline (9) DVT prophylaxis Code(s): TPO8457 - Comment: - Lovenox (10) Full code status Code(s): Z78.9 - OTHER SPECIFIED HEALTH STATUS Comment: Status and Disposition: Inpatient. Anticipate d/c back to [facility] when IV abx course complete. Attending: Maria Sheppard
[2019-09-06] MEDS: Enoxaparin(*) 40 MG/0.4 ML SYR SUBCUT SCH (17:05)
[2019-09-06] MEDS: Donepezil TAB* 5 MG PO SCH (17:05)
[2019-09-06] MEDS: Amitriptyline TAB* 50 MG PO SCH (21:17)
[2019-09-06] MEDS: Ibuprofen TAB* 400 MG PO PRN (21:17)
[2019-09-07] MEDS: Acetaminophen TAB* 325 MG PO SCH ×3 (00:09→18:41)
[2019-09-07] MEDS: fentaNYL* 50 MCG/ML 2 ML VIAL (100 MCG VIAL) IV SLOW PU PRN ×2 (02:32→06:40)
[2019-09-07] MEDS: Morphine INJ* 2 MG/ML 1 ML SYRINGE (TWO MG - NEW SYRINGE VERSION) IV PRN ×4 (02:54→22:05)
[2019-09-07] MEDS: hydrOXYzine HCL TAB* 10 MG PO PRN ×2 (02:55→19:45)
[2019-09-07 04:27] LABS: ABS Basophils 0.1 10^3/ul (0-0.2); ABS Eosinophils 0.5 10^3/ul (0-0.6); ABS Lymphocytes 2.3 10^3/ul (1.0-4.8); ABS Monocytes 1.1 10^3/ul (0-0.8); ABS Neutrophils 5.3 10^3/ul (1.5-7.7); Eosinophil % 5.8 %; Hematocrit 24 % (35-47); Hemoglobin 7.6 g/dL (12.0-16.0); Mean Corpuscular HGB Conc 32 g/dL (31-36); Mean Corpuscular Hemoglobin 26 pg (27-31); Mean Corpuscular Volume 81 fL (80-97); Mean Platelet Volume 6.6 fL (7.4-10.4); Nucleated Red Blood Cells % 0.1; Platelet Count 639 10^3/uL (150-450); Red Blood Count 2.95 10^6 /uL (3.70-4.87); Red Cell Distribution Width 15 % (10-15); White Blood Count 9.3 10^3/uL (3.5-10.8)
[2019-09-07 04:42] LABS: Blood Urea Nitrogen 15 mg/dL (6-24); Calcium 8.2 mg/dL (8.6-10.3); Chloride 96 mmol/L (101-111); Glucose 103 mg/dL (70-100); Magnesium 1.7 mg/dL (1.9-2.7); Potassium 4.1 mmol/L (3.5-5.0); Sodium 139 mmol/L (135-145)
[2019-09-07 04:50] LABS: Anion Gap 1 mmol/L (2-11); CO2 Carbon Dioxide 42 mmol/L (22-32)
[2019-09-07] MEDS ORDERED: Magnesium Hydroxide LIQ* 30 ML UDC PO PRN (07:13)
[2019-09-07] MEDS: Ibuprofen TAB* 400 MG PO PRN (07:19)
--- NOTE | 2019-09-07 08:09 | PN ---
Subjective Date of Service: 09/07/19 Interval History: Ms. Salas is not feeling well today. She is very anxious this morning. Denies pain, but states she feels as though she cannot catch her breath. She is repeatedly yelling out for help even while I am in the room with her. Denies CP. Nursing reports she had a difficult night - very anxious and only slept for about 4 hours. Tele: NSR 80s, QT 311. Family History: Unchanged from Admission Social History: Unchanged from Admission Past Medical History: Unchanged from Admission Objective Active Medications: Acetaminophen (Tylenol Tab*) 975 mg PO Q8H MIHIR Amitriptyline HCl (Elavil Tab*) 150 mg PO BEDTIME MIHIR Aspirin (Aspirin Ec Tab*) 81 mg PO DAILY MIHIR Baclofen (Lioresal Tab*) 20 mg PO QID MIHIR Buspirone HCl (Buspar Tab*) 10 mg PO TID MIHIR Cholecalciferol (Vitamin D Tab*) 4,000 units PO DAILY MIHIR Clotrimazole (Clotrimazole 1%*) 1 applic TOPICAL DAILY MIHIR Docusate Sodium (Colace Cap*) 100 mg PO BID MIHIR Donepezil HCl (Aricept Tab*) 10 mg PO QPM MIHIR Dronabinol (Marinol Cap*) 5 mg PO QID MIHIR Enoxaparin Sodium (Lovenox(*)) 40 mg SUBCUT Q24H MIHIR Ferrous Sulfate (Ferrous Sulfate Tab*) 325 mg PO DAILY MIHIR Hydroxyzine HCl (Atarax Tab*) 10 mg PO Q6H PRN ANXIETY Ceftriaxone Sodium 1 gm/ (Sodium Chloride) 50 mls @ 100 mls/hr IVPB Q24H MIHIR Ibuprofen (Motrin Tab*) 400 mg PO Q6H PRN PAIN-MODERATE/TEMP >/= 100.4 Magnesium Hydroxide (Milk Of Magnesia Liq*) 30 ml PO BID PRN CONSTIPATION Meclizine HCl (Antivert Tab*) 25 mg PO Q6HR PRN DIZZINESS Methylphenidate HCl (Ritalin Tab*) 10 mg PO 1200,1600 MIHIR Methylphenidate HCl (Ritalin Tab*) 20 mg PO DAILY MIHIR Morphine Sulfate (Morphine Inj (Syringe))*) 2 mg IV Q2H PRN Pain or air hunger Ondansetron HCl (Zofran Inj*) 4 mg IV Q6H PRN NAUSEA Oxybutynin Chloride (Ditropan Tab*) 15 mg PO BID MIHIR Polyethylene Glycol/Electrolytes (Miralax*) 17 gm PO DAILY PRN CONSTIPATION Quetiapine Fumarate (Seroquel Tab*) 50 mg PO BEDTIME MIHIR Senna (Senokot 8.6 Mg Tab*) 2 tab PO BID PRN CONSTIPATION Tizanidine HCl (Zanaflex Tab*) 4 mg PO QID PRN SPASMS Vital Signs - 8 hr 09/07/19 09/07/19 09/07/19 00:30 02:32 02:54 Temperature Pulse Rate Respiratory 16 20 16 Rate Blood Pressure (mmHg) O2 Sat by Pulse Oximetry 09/07/19 09/07/19 09/07/19 02:55 04:21 04:30 Temperature 98.2 F Pulse Rate 83 Respiratory 16 16 16 Rate Blood Pressure 121/65 (mmHg) O2 Sat by Pulse 97 Oximetry Oxygen Devices in Use Now: Nasal Cannula - 4L Appearance: Elderly female lying in bed in NAD, but anxious Ears/Nose/Mouth/Throat: Mucous Membranes Moist Neck: NL Appearance and Movements; NL JVP, Trachea Midline Respiratory: Symmetrical Chest Expansion and Respiratory Effort, Clear to Auscultation Cardiovascular: NL Sounds; No Murmurs; No JVD, RRR Abdominal: NL Sounds; No Tenderness; No Distention Extremities: No Edema Neurological: - - Oriented to self Lines/Tubes/Other Access: Clean, Dry and Intact Peripheral IV Nutrition: Taking PO's Result Diagrams: 09/07/19 04:08 09/07/19 04:08 Assess/Plan/Problems-Billing Assessment: Ms. Salas is a 64 yo F with PMH of MS, frequent UTI; here with sepsis of unknown origin, likely from urine or sacral decubitus ulcer, complicated by acute hypoxic and hypercarbic respiratory failure. - Patient Problems (1) Acute respiratory failure with hypoxia and hypercapnia Code(s): J96.01 - ACUTE RESPIRATORY FAILURE WITH HYPOXIA; J96.02 - ACUTE RESPIRATORY FAILURE WITH HYPERCAPNIA Comment: - Requiring up to 4L on admission and BiPAP overnight 09/03/19; now back down to 4L and saturating well but still feeling SOB - Previously had normal echo and CT chest during previous hospitalization with desaturations - Repeat CXR shows possible right middle lobe opacity, but no other clinical signs of pneumonia - Most likely cause is overmedication causing respiratory depression - Baclofen decreased (MDD is 80mg and patient was receiving 120mg); consider also decreasing tizanidine if symptoms persist - Monitor closely with narcotic use and wean oxygen (2) UTI (urinary tract infection) Comment: - History of recurrent UTIs, likely r/t retention - Urine culture growing Proteus - Tinoco in place - Continue ceftriaxone (day 6/7) (3) Altered mental status Code(s): R41.82 - ALTERED MENTAL STATUS, UNSPECIFIED Comment: - Waxing and waning but overall very anxious - Likely due to acute septic encephalopathy and hypercarbic respiraotry failure - Continue buspirone, morphine, hydroxyzine; add Seroquel (4) Sepsis Comment: - Met criteria on admission with fever, tachycardia, leukocytosis; source is UTI - No signs of end-organ dysfunction - Appreciate ID consult; recommends ceftriaxone x7 days (5) Sacral decubitus ulcer Code(s): L89.159 - PRESSURE ULCER OF SACRAL REGION, UNSPECIFIED STAGE Comment : - Severe with reports of tunneling to sacrum - On admission dressing was noted to be soaked in urine and patient does carry history of ESBL in urine - Wound culture pending - Tinoco for aid in wound healing - Wound care consult (6) Anemia Code(s): D64.9 - ANEMIA, UNSPECIFIED Comment: - New onset beginning in May - Iron studies indicate iron deficiency, but suspect there may also be a component of AOCD d/t recurrent UTIs - Check stool occult - Continue ferrous sulfate (7) Multiple sclerosis Code(s): G35 - MULTIPLE SCLEROSIS Comment: - Follow up MS specialist for Botox injections at d/c - Continue baclofen (decreased dose), Marinol, donepezil, tizanidine, methylphenidate (8) Depression Code(s): F32.9 - MAJOR DEPRESSIVE DISORDER, SINGLE EPISODE, UNSPECIFIED Comment: - Continue amitriptyline (9) DVT prophylaxis Code(s): QQM1188 - Comment: - Lovenox (10) Full code status Code(s): Z78.9 - OTHER SPECIFIED HEALTH STATUS Comment: Status and Disposition: Inpatient. Anticipate d/c back to [facility] when IV abx course complete, likely tomorrow. Attending: Wiliam Jaimes
[2019-09-07] MEDS: Aspirin EC TAB* 81 MG TAB.EC PO SCH (10:28)
[2019-09-07] MEDS: Oxybutynin TAB* 5 MG PO SCH ×2 (10:29→22:06)
[2019-09-07] MEDS: Baclofen TAB* 10 MG PO SCH ×4 (10:29→22:06)
[2019-09-07] MEDS: Dronabinol CAP* 2.5 MG PO SCH ×4 (10:30→22:05)
[2019-09-07] MEDS: Meclizine TAB* 12.5 MG PO PRN (10:30)
[2019-09-07] MEDS: Methylphenidate TAB* 10 MG PO SCH ×3 (10:31→18:41)
[2019-09-07] MEDS: busPIRone TAB* 10 MG PO SCH ×3 (10:32→22:06)
[2019-09-07] MEDS: Senna TAB 8.6 mg* TAB PO PRN ×2 (10:32→22:06)
[2019-09-07] MEDS: Ferrous Sulfate TAB* 325 MG PO SCH (10:33)
[2019-09-07] MEDS: Ondansetron INJ* 2 MG/ML VIAL IV PRN (10:33)
[2019-09-07] MEDS: Docusate CAP* 100 MG PO SCH ×2 (10:33→22:06)
[2019-09-07] MEDS: cefTRIAXone(*) 1 GM in NS 0.9% 50 ML* 50 ML IVPB SCH (11:21)
[2019-09-07] MEDS: Clotrimazole 1% CREAM* 45 GM TOPICAL SCH (11:22)
[2019-09-07] MEDS: Cholecalciferol TAB* 1000 UNITS PO SCH (11:22)
[2019-09-07] MEDS ORDERED: Furosemide IV* 10 MG/ML 2 ML VIAL (20 MG) IV ONE (13:20)
[2019-09-07] MEDS ORDERED: Iron Sucrose* 200 MG in NS 0.9% 100 ML* 100 ML IVPB ONE (15:45)
[2019-09-07] MEDS ORDERED: Sodium Phosphate ADULT ENEMA* 118 ml bottle PR ONE (16:30)
[2019-09-07] MEDS: Enoxaparin(*) 40 MG/0.4 ML SYR SUBCUT SCH (18:41)
[2019-09-07] MEDS: Donepezil TAB* 5 MG PO SCH (18:42)
[2019-09-07] MEDS ORDERED: QUEtiapine TAB* 25 MG PO SCH (21:00)
[2019-09-07] MEDS: Amitriptyline TAB* 50 MG PO SCH (22:07)
[2019-09-08] MEDS: Acetaminophen TAB* 325 MG PO SCH ×3 (02:25→16:22)
[2019-09-08 04:30] LABS: ABS Eosinophils 0.2 10^3/ul (0-0.6); ABS Lymphocytes 2.7 10^3/ul (1.0-4.8); ABS Neutrophils 4.2 10^3/ul (1.5-7.7); Eosinophil % 2.7 %; Hematocrit 25 % (35-47); Hemoglobin 8.3 g/dL (12.0-16.0); Lymphocyte % 32.8 %; Mean Corpuscular HGB Conc 33 g/dL (31-36); Mean Corpuscular Hemoglobin 27 pg (27-31); Mean Corpuscular Volume 81 fL (80-97); Mean Platelet Volume 6.9 fL (7.4-10.4); Nucleated Red Blood Cells % 0.1; Platelet Count 662 10^3/uL (150-450); Red Blood Count 3.13 10^6 /uL (3.70-4.87); Red Cell Distribution Width 15 % (10-15); White Blood Count 8.1 10^3/uL (3.5-10.8)
[2019-09-08 04:39] LABS: Blood Urea Nitrogen 10 mg/dL (6-24); Calcium 8.6 mg/dL (8.6-10.3); Chloride 94 mmol/L (101-111); Glucose 89 mg/dL (70-100); Potassium 3.5 mmol/L (3.5-5.0); Sodium 140 mmol/L (135-145)
[2019-09-08 04:42] LABS: Anion Gap 2 mmol/L (2-11); CO2 Carbon Dioxide 44 mmol/L (22-32)
[2019-09-08] MEDS ORDERED: Sodium Phosphate ADULT ENEMA* 118 ml bottle PR ONE (08:50)
[2019-09-08] MEDS: Oxybutynin TAB* 5 MG PO SCH (09:01)
[2019-09-08] MEDS: Dronabinol CAP* 2.5 MG PO SCH ×3 (09:01→16:21)
[2019-09-08] MEDS: Docusate CAP* 100 MG PO SCH (09:02)
[2019-09-08] MEDS: Ferrous Sulfate TAB* 325 MG PO SCH (09:02)
[2019-09-08] MEDS: Aspirin EC TAB* 81 MG TAB.EC PO SCH (09:02)
[2019-09-08] MEDS: Cholecalciferol TAB* 1000 UNITS PO SCH (09:02)
[2019-09-08] MEDS: Baclofen TAB* 10 MG PO SCH ×3 (09:03→16:22)
[2019-09-08] MEDS: busPIRone TAB* 10 MG PO SCH ×2 (09:03→13:23)
[2019-09-08] MEDS: Clotrimazole 1% CREAM* 45 GM TOPICAL SCH (09:05)
[2019-09-08] MEDS: Methylphenidate TAB* 10 MG PO SCH ×3 (09:11→16:23)
[2019-09-08] MEDS: Senna TAB 8.6 mg* TAB PO PRN (11:00)
[2019-09-08] MEDS: cefTRIAXone(*) 1 GM in NS 0.9% 50 ML* 50 ML IVPB SCH (11:00)
[2019-09-08] MEDS: Polyethylene Glycol 3350* 17 GM PACKET PO PRN (11:00)
[2019-09-08 12:45] VITALS: BP 138/80
[2019-09-08 13:31] LABS: Blood Urea Nitrogen 10 mg/dL (6-24); Calcium 9.2 mg/dL (8.6-10.3); Chloride 94 mmol/L (101-111); Glucose 90 mg/dL (70-100); Potassium 4.1 mmol/L (3.5-5.0); Sodium 140 mmol/L (135-145)
[2019-09-08 14:05] LABS: Anion Gap 7 mmol/L (2-11); CO2 Carbon Dioxide 39 mmol/L (22-32)
--- NOTE | 2019-09-08 16:03 | DS ---
CC: Dr. Goldie Giraldo, [facility] * DISCHARGE SUMMARY: DATE OF ADMISSION: 09/02/19 DATE OF DISCHARGE: 09/08/19 PRIMARY CARE PROVIDER: Dr. Goldie Giraldo. ATTENDING PHYSICIAN: Dr. Noa Martines.* (DICTATED BY DANIELLA JOHNSON NP) PRIMARY DIAGNOSES: 1. Urinary tract infection, Proteus mirabilis. 2. Sepsis. 3. Acute respiratory failure with hypoxia and hypercapnia. 4. Metabolic encephalopathy. 5. Sacral decubitus ulcer. 6. Iron-deficiency anemia. SECONDARY DIAGNOSES: 1. Multiple sclerosis. 2. Depression. 3. Mild dementia. STUDIES WHILE IN THE HOSPITAL: 1. Chest x-ray on 09/02/19 reads as no compelling evidence for pneumonia. Chronic left basilar atelectasis. 2. Chest x-ray on 09/03/19 reads as mildly increased airspace opacification of the right middle lung zone. 3. Chest x-ray on 09/07/19 reads as increased bibasilar airspace opacification. The presence of Edgar B lines suggestive of pulmonary edema; however, infiltrate can have a similar appearance. CONSULTATIONS WHILE IN THE HOSPITAL: 1. Dr. Gibson from Infectious Disease. 2. Dr. Souza from Palliative Care. HISTORY OF PRESENT ILLNESS AND HOSPITAL COURSE: Ms. Salas is a 64-year-old female with past medical history of multiple sclerosis (secondary progressive), recurrent UTIs, paraplegia, depression and lower extremity contractures, who presented to the emergency room on 09/02/19 with complaints of fatigue. Please see the history and physical by SUSAN Benitez, for a complete summary of the events leading up to this hospitalization. In short, the patient has been a long-term resident at [facility]. The patient somewhat recently has developed a stage IV sacral ulcer and had recently been placed on Bactrim and Flagyl due to erythema and a foul smell coming from the wound. The patient reported feeling progressively more fatigued over the past 3 days and nursing staff did note that the patient was becoming more confused than baseline. She was noted to also have fever and hypoxia. In the emergency room, the patient was noted to meet sepsis criteria with fever, tachycardia, and leukocytosis. Lactic acid was normal. She was noted to have some mild CO2 retention on ABG. Urinalysis showed nitrites and leukocyte esterase. Because of these findings, the patient was admitted by the hospitalist service. The source of sepsis was unclear initially and thought to be either secondary to a urinary tract infection or wound infection. She was placed on vanco and meropenem to cover either of these infections. The night of hospital admission , the patient was complaining of shortness of breath. She was found to be retaining CO2 and was transferred to the intensive care unit for a BiPAP. Respiratory status improved the following day and the patient was transferred out of the intensive care unit on 09/03/19. At that point, she was requiring 4 L nasal cannula to maintain saturations in the 90s. The cause of this respiratory failure was not entirely clear, though was felt to be likely secondary to overmedication causing respiratory depression. The patient was noted to be on extremely high doses of baclofen and was also taking tizanidine. Baclofen dosing was decreased. Infectious Disease was consulted. Ultimately, the wound culture did not show any significant growth or evidence of infection, though urine culture did grow greater than 100,000 colonies of Proteus mirabilis, which was multiresistant. Infectious Disease changed antibiotics to ceftriaxone monotherapy and indicated that she should receive 7 days of IV antibiotics due to recurrent urinary tract infections. The patient did have a Tinoco placed on admission and this was kept in place to aid in wound healing. The patient's mental status continued to wax and wane, though generally improved each day. Ultimately, it was felt as though this encephalopathy was both septic and due to hypoxia and hypercapnia. As of yesterday, the patient's mental status had returned to baseline. In addition to these findings, the patient was also noted to be anemic, which is significantly worse from May of this year. H and H as of today are 8.3 and 25. Iron studies did reveal iron deficiency and a stool occult was noted to be negative, so it seems as though this anemia is likely a combination of iron deficiency and anemia of chronic disease potentially due to recurrent urinary tract infections. The patient was noted have an elevated CO2 on BMP today at 44. When that lab was drawn, the patient was saturating 100% on 4 L of oxygen and so it was felt the patient was likely over oxygenated, hence causing CO2 retention. I did have the patient's nurse take her off oxygen. She is now saturating in the low 90s on room air and repeat BMP showed a decreasing carbon dioxide at 39, so I certainly think that over oxygenation was the likely culprit of this retention. The patient did receive a small dose of Lasix yesterday due to some pulmonary edema and respiratory status has improved significantly since that time. The patient was seen in consultation by Dr. Souza from Palliative Care. She did speak with the patient and her son, though no firm decisions were made, and at this time, the patient remains a full code. As of today, she has completed 7 days of antibiotic therapy and is otherwise medically stable. On exam, she is alert and oriented. She has no focal neurological deficits, but does have severe weakness and contractures secondary to MS. Heart has a regular rate and rhythm without murmurs, rubs, or gallops. Lungs are clear to auscultation without rhonchi, wheezes, or rales. There is mild nonpitting edema to bilateral lower extremities. Abdomen is soft, nontender. Physical exam was otherwise benign with the exception of a sacral decubitus, which has a dressing in place. Ms. Salas is stable for discharge today. Most recent vitals are as follows: Temp 98.0, heart rate 51, respiratory rate 17, oxygen saturation 93% on room air , blood pressure 138/80. DISCHARGE MEDICATIONS: New medications: 1. Buspirone 10 mg p.o. t.i.d. 2. Ferrous sulfate 325 mg p.o. daily. 3. Milk of mag 30 mL p.o. b.i.d. p.r.n. constipation. Changed medications: 1. Baclofen 20 mg p.o. 4 times daily (previously was 30 mg 4 times daily). 2. MiraLAX 17 g p.o. daily (previously was p.r.n.) Continued medications: 1. Amitriptyline 150 mg p.o. at bedtime. 2. Aspirin 81 mg p.o. daily. 3. Cholecalciferol 4000 units p.o. daily. 4. Aricept 10 mg p.o. at bedtime. 5. Marinol 5 mg p.o. 4 times daily. 6. Meclizine 25 mg p.o. q.6 hours p.r.n. dizziness. 7. Methylphenidate 10 mg p.o. at 1200 and 1600. 8. Methylphenidate 20 mg p.o. every morning. 9. Oxybutynin 15 mg p.o. b.i.d. 10. Senna 2 tabs p.o. b.i.d. p.r.n. constipation. 11. Tizanidine 4 mg p.o. 4 times daily. 12. Acetaminophen 1000 mg p.o. q.8 hours p.r.n. fever or pain. 13. Refresh 1% one drop both eyes 4 times daily p.r.n. dry eyes. 14. Cyclosporine 0.05% one drop both eyes b.i.d. 15. Ketoconazole 125 mL topically Wednesday, Wednesday, Wednesday. 16. Triamcinolone 0.1% one application topically Wednesday, , Wednesday. DISCHARGE PLAN: Ms. Salas will be discharged back to [facility]. Activity will be as tolerated. Diet will be regular as tolerated. Medications are noted above. I have added daily ferrous sulfate for her iron deficiency and buspirone to manage her anxiety. Baclofen dosing has been decreased, though this may need to be further adjusted. I have intensified the patient's bowel regimen as she has been noted to be quite constipated while here in the hospital. She can continue her other usual medications as noted above. She at this point will be leaving the hospital with a Tinoco catheter in place and this should remain in place at this time due to recurrent urinary tract infections and to aid in the healing of the patient's sacral decubitus ulcer. She will need to follow up with a provider at [facility] within the next few days. She should return to the emergency room or nearest hospital for any worsening of symptoms, shortness of breath, lightheadedness, dizziness, chest discomfort, high fevers, chills, night sweats, loss of consciousness, or any other worrisome signs or symptoms. DISCHARGE CONDITION: Stable. DISCHARGE DISPOSITION: residential facility, [facility]. This is a summarized report of a complex medical history and hospital stay. For further details, please see the entire medical record. TIME SPENT: Approximately 60 minutes was spent on this discharge. DANIELLA JOHNSON, VARIETY SAW OPERATOR [id number]/[facility] #: [id number] [facility]
[2019-09-08] MEDS: Ibuprofen TAB* 400 MG PO PRN (16:22)
[2019-09-08] MEDS: Enoxaparin(*) 40 MG/0.4 ML SYR SUBCUT SCH (16:23)
== END 2019-09-08 17:01 | DRG 720 ==
LOC: ED 12:09 → MED 15:23 → ICU 09-03 00:24 → MEDTELE 09-04 14:50
PROVIDERS: ADMIT Internal Medicine; ATTEND Internal Medicine
DX: A41.9 Sepsis, unspecified organism (principal); J96.22 Acute and chronic respiratory failure with hypercapnia; J96.21 Acute and chronic respiratory failure with hypoxia; G93.41 Metabolic encephalopathy; L89.154 Pressure ulcer of sacral region, stage 4; N39.0 Urinary tract infection, site not specified; J81.1 Chronic pulmonary edema; G82.20 Paraplegia, unspecified; J98.11 Atelectasis; Z16.24 Resistance to multiple antibiotics; B96.4 Proteus (mirabilis) (morganii) as the cause of diseases classified elsewhere; G35 Multiple sclerosis; N31.8 Other neuromuscular dysfunction of bladder; F03.90 Unspecified dementia, unspecified severity, without behavioral disturbance, psychotic disturbance, mood disturbance, and anxiety; F32.9 Major depressive disorder, single episode, unspecified; M62.469 Contracture of muscle, unspecified lower leg; D50.9 Iron deficiency anemia, unspecified; Z79.1 Long term (current) use of non-steroidal anti-inflammatories (NSAID); Z79.82 Long term (current) use of aspirin; Z79.891 Long term (current) use of opiate analgesic; Z79.899 Other long term (current) drug therapy; Z88.0 Allergy status to penicillin; Z88.8 Allergy status to other drugs, medicaments and biological substances; Z82.3 Family history of stroke; Z87.891 Personal history of nicotine dependence
CPT/HCPCS: 36415; 36600; 71045; 80048; 80053; 80202; 81003; 81015; 82272; 82728; 82803; 83540; 83550; 83605; 83735; 84484; 85025; 85610; 85730; 86140; 87040; 87070; 87077; 87086; 87186; 87205; 87641; 94660; 96365; 99285; A9270-GY; J0692; J0696; J1200; J1650; J1756; J1940; J2060; J2185; J2270; J2405; J3010; J3370; J3475

== ENCOUNTER 2019-09-15 03:38 | Emergency (ER) | payer MEDICAID ==
--- NOTE | 2019-09-15 04:11 | ED ---
Altered Mental Status - HPI Summary HPI Summary: Patient is a 64 y/o F w/ Hx of MS who presents to [facility] via EMS from [facility] for reported AMS and hypotension. It is reported that [facility] staff were attempting to give the patient Tylenol and had difficulty awakening the patient. They took patient's vitals and reportedly obtained a BP of 80/53. EMS was called. Upon patient arrival, the patient is alert and oriented x3. BP in ED is 131/69. Patient has no stated complaints at present with exception of being somnolent. Home medications and allergies are reviewed. - History Of Current Complaint Chief Complaint: EDAltMentalStatus Stated Complaint: WEAKNESS PER EMS Hx Obtained From: Patient, EMS Onset/Duration: Resolved - not AMS, not hypotensive Timing: Intermittent Character: Responsiveness Associated Signs And Symptoms: Positive: Negative - Allergies/Home Medications Allergies/Adverse Reactions: Allergies Allergy/AdvReac Type Severity Reaction Status Date / Time methylprednisolone Allergy Intermediate Rash Verified 09/15/19 03:50 penicillin G Allergy Intermediate Hives Verified 09/15/19 03:50 tramadol AdvReac Severe See Comment Verified 09/15/19 03:50 Home Medications: Home Medications Dronabinol CAP* [Marinol CAP*] 5 mg PO QID 09/15/19 [History Confirmed 09/15/19] Methyl Salicylate/Menthol [Muscle Rub Cream] 1 applic TOPICAL Q8H PRN 09/15/19 [ History Confirmed 09/15/19] Mupirocin 2% OINT* [Bactroban 2 % Oint*] 1 applic BOTH NARES BID 09/15/19 [ History Confirmed 09/15/19] traMADol TAB* [Ultram*] 50 mg PO Q12H 09/15/19 [History Confirmed 09/15/19] PMH/Surg Hx/FS Hx/Imm Hx Endocrine/Hematology History: Reports: Hx Blood Disorders, Hx Thyroid Disease Denies: Hx Diabetes Cardiovascular History: Denies: Hx Hypertension, Hx Pacemaker/ICD Respiratory History: Denies: Hx Asthma, Hx Chronic Obstructive Pulmonary Disease (COPD) GI History: Reports: Other GI Disorders - esophagitis History: Denies: Hx Dialysis, Hx Renal Disease Musculoskeletal History: Reports: Other Musculoskeletal History - cervical spine dysectomy Sensory History: Reports: Hx Contacts or Glasses Denies: Hx Cataracts, Hx Eye Injury, Hx Eye Prosthesis, Hx Glaucoma, Hx Legally Blind, Hx Macular Degeneration, Hx Vision Problem, Hx Deafness, Hx Hearing Aid, Other Sensory Impairments Opthamlomology History: Reports: Hx Contacts or Glasses Denies: Hx Cataracts, Hx Eye Injury, Hx Eye Prosthesis, Hx Glaucoma, Hx Legally Blind, Hx Macular Degeneration, Hx Vision Problem, Other Sensory Impairments Neurological History: Reports: Other Neuro Impairments/Disorders - ms Denies: Hx Dementia, Hx Seizures Psychiatric History: Reports: Hx Anxiety Denies: Hx Eating Disorder, Hx Panic Disorder - Surgical History Surgery Procedure, Year, and Place: , CSP DISCECTOMY (WITH PLATES) Infectious Disease History: Yes Infectious Disease History: Reports: Hx of Known/Suspected MRSA - hx in 2014, Hx Shingles Denies: Traveled Outside the [place] in Last 30 Days - Family History Known Family History: Positive: Other - Denies FHx psychotic disorders, schizophrenia, mood disorders - Social History Alcohol Use: None Hx Substance Use: No Substance Use Type: Reports: None Hx Tobacco Use: No Smoking Status (MU): Never Smoked Tobacco Have You Smoked in the Last Year: No Review of Systems Constitutional: Other - reported hypotension; patient notes she is somnolent Neurological: Other - reported AMS All Other Systems Reviewed And Are Negative: Yes Physical Exam - Summary Physical Exam Summary: Appearance: Debilitated woman lying in bed. No acute distress and non-toxic appearance Skin: Warm, dry, no obvious rash Eyes: sclera anicteric, no conjunctival pallor ENT: mucous membranes moist, pharynx appears normal Neck: Supple, nontender Respiratory: Clear to auscultation, no signs of respiratory distress Cardiovascular: Normal S1, S2. No murmurs. Normal distal pulses in tibial and radial bilaterally. Abdomen: Soft, nontender, normal active bowel sounds present Musculoskeletal: Normal, Strength/ROM Intact Neurological: A&Ox3, awake and alert, answering questions appropriately. Somewhat slurred speech. Diffuse motor weakness consistent with diagnosis of MS is noted. Psychiatric: affect is normal, does not appear anxious or depressed Triage Information Reviewed: Yes Vital Signs On Initial Exam: Initial Vitals Temp Pulse Resp BP Pulse Ox 97.7 F 76 18 131/69 96 09/15/19 03:44 09/15/19 03:44 09/15/19 03:44 09/15/19 03:44 09/15/19 03:44 Vital Signs Reviewed: Yes Procedures - Sedation Patient Received Moderate/Deep Sedation with Procedure: No Diagnostics - Vital Signs Vital Signs Temp Pulse Resp BP Pulse Ox 09/15/19 03:44 97.7 F 76 18 131/69 96 - Laboratory Result Diagrams: 09/15/19 04:05 09/15/19 04:05 Lab Statement: Any lab studies that have been ordered have been reviewed, and results considered in the medical decision making process. Altered Mental Statu Course/Dx - Course Course Of Treatment: Patient is a 64 y/o F presenting to [facility] via EMS from [facility] for reported AMS and hypotension. It is reported that [facility] staff were attempting to give the patient Tylenol and had difficulty awakening the patient. They took patient's vitals and reportedly obtained a BP of 80/53. EMS was called. Upon patient arrival, the patient is alert and oriented x3. BP in ED is 131/69. Patient has no stated complaints at present with exception of being somnolent. Patient is a debilitated woman who is in no acute distress and non-toxic in appearance. Patient is A&Ox3, awake and alert, answering questions appropriately. Somewhat slurred speech noted. Diffuse motor weakness consistent with diagnosis of MS is noted. Bloodwork was obtained and WNL with exception of RBC 3.68, Hgb 9.6, Hct 30, MCH 26, RDW 17, plt count 753, MPV 7.2, chloride 98, carbon dioxide 36, creatinine 0.35, BUN/creatinine ratio 60, albumin/globulin ratio 0.8. UA showed positive nitrate, 3+ leukocyte esterase, 3+ WBC, squamous epith cells are present. Patient was discharged back to [facility] with PCP follow up. - Diagnoses Provider Diagnoses: AMS (altered mental status) Discharge ED - Sign-Out/Discharge Documenting (check all that apply): Patient Departure - discharge - Discharge Plan Condition: Stable Disposition: HOME Patient Education Materials: Altered Mental Status (ED) Referrals: Goldie Giraldo DO [Primary Care Provider] - Additional Instructions: Screening lab studies were negative except for some pyuria, which the patient typically has. I would not recommend treating for UTI unless she developed other signs of infection, or were her urine culture to be convincingly positive. - Billing Disposition and Condition Condition: STABLE Disposition: Home - Attestation Statements Document Initiated by Pamellaibe: Yes Documenting Scribe: SHALINI HEARN Provider For Whom Jennifer is Documenting (Include Credential): MARIBELL NAPIER MD Scribe Attestation: I, SHALINI HEARN, scribed for MARIBELL NAPIER MD on 09/15/19 at 1851. Scribe Documentation Reviewed: Yes Provider Attestation: The documentation as recorded by the SHALINI mojica accurately reflects the service I personally performed and the decisions made by me, MARIBELL NAPIER MD Status of Scribe Document: Viewed
[2019-09-15 04:20] LABS: Urine Appearance Cloudy; Urine Bacteria Absent (Absent); Urine Bilirubin Negative (Negative); Urine Blood Negative (Negative); Urine Color Yellow; Urine Glucose Negative (Negative); Urine Ketones Negative (Negative); Urine Nitrite Positive (Negative); Urine Protein Negative (Negative); Urine Red Blood Cell Absent (Absent); Urine Specific Gravity 1.017 (1.010-1.030); Urine Squamous Epithelial Cell Present (Absent); Urine Urobilinogen Negative (Negative); Urine White Blood Cell 3+(>20/hpf) (Absent)
[2019-09-15 04:25] LABS: ABS Basophils 0.1 10^3/ul (0-0.2); ABS Eosinophils 0.2 10^3/ul (0-0.6); ABS Lymphocytes 2.6 10^3/ul (1.0-4.8); ABS Monocytes 0.8 10^3/ul (0-0.8); ABS Neutrophils 2.7 10^3/ul (1.5-7.7); Eosinophil % 3.8 %; Hematocrit 30 % (35-47); Hemoglobin 9.6 g/dL (12.0-16.0); Lymphocyte % 39.9 %; Mean Corpuscular HGB Conc 32 g/dL (31-36); Mean Corpuscular Hemoglobin 26 pg (27-31); Mean Corpuscular Volume 82 fL (80-97); Mean Platelet Volume 7.2 fL (7.4-10.4); Platelet Count 753 10^3/uL (150-450); Red Blood Count 3.68 10^6 /uL (3.70-4.87); Red Cell Distribution Width 17 % (10-15); White Blood Count 6.5 10^3/uL (3.5-10.8)
[2019-09-15 04:32] LABS: Albumin 3.2 g/dL (3.2-5.2); Albumin/Globulin Ratio 0.8 (1-3); Calcium 9.5 mg/dL (8.6-10.3); EGFR African American 226.8 (>60); EGFR Non-African American 187.5 (>60); Globulin 3.8 g/dL (2-4); Potassium 4.5 mmol/L (3.5-5.0); Total Bilirubin 0.2 mg/dL (0.2-1.0)
[2019-09-15 04:44] VITALS: BP 116/54
--- NOTE | 2019-09-17 07:50 | ED ---
Imaging and Labs Follow Up Follow Up Type: Labs/Cultures Labs/Culture Result: Urine culture prelim grew klebsiella PNA in urine Patient was asymptomatic of this at time of ED visit - however had syncope Patient Communication/Plan: It was advised by ED provider to not treat at the time, as she typically colonizes However, this is new colonization will await for sensitivities tomorrow - call patient and treat at that time Patient Communication/Plan: will await sensitivities Provider Diagnoses: AMS (altered mental status)
--- NOTE | 2019-09-17 09:19 | ED ---
Imaging and Labs Follow Up Follow Up Type: Labs/Cultures Labs/Culture Result: ESBL grew Patient Communication/Plan: called to [facility] sensitive to levaquin Patient Communication/Plan: [facility] will place patient on levaquin Provider Diagnoses: AMS (altered mental status)
== END 2019-09-15 04:47 | disposition home or self-care (01) ==
LOC: ED 03:38
DX: R41.82 Altered mental status, unspecified (principal); B96.1 Klebsiella pneumoniae [K. pneumoniae] as the cause of diseases classified elsewhere; B96.89 Other specified bacterial agents as the cause of diseases classified elsewhere; I95.9 Hypotension, unspecified
CPT/HCPCS: 36415; 80053; 81003; 81015; 83605; 85025; 87077; 87086; 87186; 99283

== ENCOUNTER 2019-09-22 22:05 | Emergency (ER) | payer MEDICAID ==
[2019-09-22 23:16] LABS: Urine Appearance Cloudy; Urine Bilirubin Negative (Negative); Urine Blood Negative (Negative); Urine Color Amber; Urine Glucose Negative (Negative); Urine Ketones Trace (Negative); Urine Nitrite Negative (Negative); Urine Protein 1+(30 mg/dL) (Negative); Urine Specific Gravity 1.038 (1.010-1.030); Urine Urobilinogen Negative (Negative)
[2019-09-22 23:26] LABS: Urine Bacteria Absent (Absent); Urine Red Blood Cell 3+(>10/hpf) (Absent); Urine Squamous Epithelial Cell Present (Absent); Urine White Blood Cell 3+(>20/hpf) (Absent)
[2019-09-22] MEDS ORDERED: NS 0.9% 1000 ML** 1,000 ML IV ONE (23:27)
--- NOTE | 2019-09-22 23:29 | ED ---
Complex/Multi-Sys Presentation - HPI Summary HPI Summary: Patient with history of MS presents from [facility] with possible dehydration and decreased blood pressure. Patient is intermittently alert, and somnolent. Denies fever, cough, sore throat, CP, SOB, N/V/D, abdominal pain, change in urine, change in BM while alert. 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 Patient currently taking doxycycline for same. Recent diagnosis of UTI. 700 L or normal saline by EMS. Patient DNR, DNI, comfort measures. - History Of Current Complaint Chief Complaint: EDGeneral Time Seen by Provider: 09/22/19 22:42 Hx Obtained From: Patient Onset/Duration: Gradual Onset, Lasting Days Associated Signs And Symptoms: Positive: Decreased Responsiveness - Allergies/Home Medications Allergies/Adverse Reactions: Allergies Allergy/AdvReac Type Severity Reaction Status Date / Time methylprednisolone Allergy Intermediate Rash Verified 09/22/19 22:50 penicillin G Allergy Intermediate Hives Verified 09/22/19 22:50 tramadol AdvReac Severe See Comment Verified 09/22/19 22:50 Home Medications: Home Medications Albuterol Sulfate 1.25 mg INH Q4HR PRN 09/22/19 [History Confirmed 09/22/19] Cefdinir cap* [Cefdinir 300 MG cap (NF)] 300 mg PO BID 09/22/19 [History Confirmed 09/22/19] DOXYcycline CAP(*) [DOXYcycline 100MG CAP(*)] 100 mg PO BID 09/22/19 [History Confirmed 09/22/19] Gabapentin CAP(*) [Neurontin 100 mg CAP(*)] 100 mg PO TID 09/22/19 [History Confirmed 09/22/19] HYDROcodone/ACETAMIN 5-325 MG* [[place] 5-325 TAB*] 1 tab PO Q6H PRN 09/22/19 [ History Confirmed 09/22/19] LORazepam TAB(*) [Ativan 0.5 MG TAB (*)] 0.5 mg PO Q6H PRN 09/22/19 [History Confirmed 09/22/19] metroNIDAZOLE * [Flagyl] 500 mg PO TID 09/22/19 [History Confirmed 09/22/19] PMH/Surg Hx/FS Hx/Imm Hx Endocrine/Hematology History: Reports: Hx Blood Disorders, Hx Thyroid Disease Denies: Hx Diabetes Cardiovascular History: Denies: Hx Hypertension, Hx Pacemaker/ICD Respiratory History: Denies: Hx Asthma, Hx Chronic Obstructive Pulmonary Disease (COPD) GI History: Reports: Other GI Disorders - esophagitis History: Denies: Hx Dialysis, Hx Renal Disease Musculoskeletal History: Reports: Other Musculoskeletal History - cervical spine dysectomy Sensory History: Reports: Hx Contacts or Glasses Denies: Hx Cataracts, Hx Eye Injury, Hx Eye Prosthesis, Hx Glaucoma, Hx Legally Blind, Hx Macular Degeneration, Hx Vision Problem, Hx Deafness, Hx Hearing Aid, Other Sensory Impairments Opthamlomology History: Reports: Hx Contacts or Glasses Denies: Hx Cataracts, Hx Eye Injury, Hx Eye Prosthesis, Hx Glaucoma, Hx Legally Blind, Hx Macular Degeneration, Hx Vision Problem, Other Sensory Impairments Neurological History: Reports: Other Neuro Impairments/Disorders - ms Denies: Hx Dementia, Hx Seizures Psychiatric History: Reports: Hx Anxiety Denies: Hx Eating Disorder, Hx Panic Disorder - Surgical History Surgery Procedure, Year, and Place: , CSP DISCECTOMY (WITH PLATES) Infectious Disease History: Unable to Obtain/Confirm Infectious Disease History: Reports: Hx of Known/Suspected MRSA - hx in 2014, Hx Shingles Denies: Traveled Outside the [place] in Last 30 Days - Family History Known Family History: Positive: Other - Denies FHx psychotic disorders, schizophrenia, mood disorders - Social History Alcohol Use: None Hx Substance Use: No Substance Use Type: Reports: None Hx Tobacco Use: No Smoking Status (MU): Never Smoked Tobacco Have You Smoked in the Last Year: No Review of Systems Constitutional: Negative Eyes: Negative ENT: Negative Cardiovascular: Negative Respiratory: Negative Gastrointestinal: Negative Genitourinary: Negative Musculoskeletal: Negative Skin: Negative Neurological: Other Psychological: Normal All Other Systems Reviewed And Are Negative: Yes Physical Exam - Summary Physical Exam Summary: Patient intermittently somnolent and alert. No pain with palpation of chest, abdomen, back. Lung sounds clear to auscultation bilaterally. Regular rate and rhythm. Stage IV pressure ulcer on lower back looks clean and dry.4cm x 4cm x 4cm. Stage II pressure ulcer left knee clean and dry and intact. Triage Information Reviewed: Yes Vital Signs On Initial Exam: Initial Vitals Temp 97.7 F 09/22/19 22:12 Vital Signs Reviewed: Yes Appearance: Positive: Well-Appearing Skin: Positive: Warm Head/Face: Positive: Normal Head/Face Inspection Eyes: Positive: Normal Neck: Positive: Supple Respiratory/Lung Sounds: Positive: Clear to Auscultation Cardiovascular: Positive: Normal Abdomen Description: Positive: Nontender Musculoskeletal: Positive: Normal Neurological: Positive: Normal Psychiatric: Positive: Normal AVPU Assessment: Alert - Smooth Coma Scale Best Eye Response: 4 - Spontaneous Best Motor Response: 6 - Obeys Commands Procedures - Sedation Patient Received Moderate/Deep Sedation with Procedure: No Diagnostics - Vital Signs Vital Signs Temp Pulse Resp BP Pulse Ox 09/22/19 23:24 97.3 F 72 15 74/42 100 09/22/19 23:00 97.3 F 78 21 100 09/22/19 22:54 97.3 F 80 20 85/48 100 09/22/19 22:24 97.7 F 84 14 90/64 100 09/22/19 22:20 97.7 F 85 23 90/64 100 09/22/19 22:12 97.7 F - Laboratory Lab Results: Lab Results 09/22/19 Range/Units 23:07 Urine Color [place] Urine Appearance Cloudy Urine pH 5.0 (5-9) Ur Specific [place] 1.038 H (1.010-1.030) Urine Protein 1+(30 mg/dl) A (Negative) Urine Ketones Trace A (Negative) Urine Blood Negative (Negative) Urine Nitrate Negative (Negative) Urine Bilirubin Negative (Negative) Urine Urobilinogen Negative (Negative) Ur Leukocyte Esterase 2+ A (Negative) Urine WBC (Auto) 3+(>20/hpf) A (Absent) Urine RBC (Auto) 3+(>10/hpf) A (Absent) Ur Squamous Epith Cells Present A (Absent) Urine Bacteria Absent (Absent) Urine Glucose Negative (Negative) Urine Ascorbic Acid * A (Negative) Result Diagrams: 09/23/19 00:01 09/23/19 00:01 Lab Statement: Any lab studies that have been ordered have been reviewed, and results considered in the medical decision making process. Complex Multi-Symp Course/Dx Course Of Treatment: Patient with history of MS presents from [facility] with possible dehydration and decreased blood pressure. Patient is intermittently alert, and somnolent. Denies fever, cough, sore throat, CP, SOB, N/V/D, abdominal pain, change in urine, change in BM while alert. 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 Patient currently taking doxycycline for same. Recent diagnosis of UTI. 700 L or normal saline by EMS. Patient DNR, DNI, comfort measures. BP intermittently decreased to 90/50. 2 L of normal saline administered. Vital signs otherwise within normal limits. Hemoglobin 7.9, dropped from 10.13 days ago. Hemoccult negative. BNP 153. COPD 9. BUN/creatinine ratio 106. Chest x -ray negative. UA positive for UTI. Patient started on Levaquin per her most recent microbiology report. Started on Levaquin IV here in the ED. Rx for same. - Diagnoses Provider Diagnoses: Dehydration, UTI (urinary tract infection) Discharge ED - Sign-Out/Discharge Documenting (check all that apply): Patient Departure - Discharge Plan Condition: Stable Disposition: HOME Prescriptions: Levofloxacin TAB* [Levaquin TAB*] 750 mg PO DAILY 7 Days #7 tab Patient Education Materials: Dehydration (ED), Urinary Tract Infection in Women (ED), Anemia (ED) Referrals: Goldie Giraldo DO [Primary Care Provider] - Additional Instructions: Drink fluids to maintain hydration. Take Levaquin as directed for UTI. Follow- up with primary care for further evaluation of anemia.. - Billing Disposition and Condition Condition: STABLE Disposition: Home
[2019-09-23 00:18] LABS: ABS Basophils 0.1 10^3/ul (0-0.2); ABS Eosinophils 0.5 10^3/ul (0-0.6); ABS Lymphocytes 1.3 10^3/ul (1.0-4.8); ABS Monocytes 0.6 10^3/ul (0-0.8); Eosinophil % 6.7 %; Hematocrit 25 % (35-47); Hemoglobin 7.9 g/dL (12.0-16.0); Lymphocyte % 17.1 %; Mean Corpuscular HGB Conc 31 g/dL (31-36); Mean Corpuscular Hemoglobin 26 pg (27-31); Mean Corpuscular Volume 82 fL (80-97); Mean Platelet Volume 7.3 fL (7.4-10.4); Platelet Count 409 10^3/uL (150-450); Red Blood Count 3.07 10^6 /uL (3.70-4.87); Red Cell Distribution Width 17 % (10-15); White Blood Count 7.3 10^3/uL (3.5-10.8)
[2019-09-23 01:47] LABS: Albumin 2.4 g/dL (3.2-5.2); Calcium 8.2 mg/dL (8.6-10.3); Potassium 3.6 mmol/L (3.5-5.0); Total Bilirubin 0.2 mg/dL (0.2-1.0)
[2019-09-23 01:53] LABS: Albumin/Globulin Ratio 0.9 (1-3); BUN/Creatinine Ratio 106.3 (8-20); EGFR African American 251.6 (>60); EGFR Non-African American 207.9 (>60); Globulin 2.8 g/dL (2-4); Total Protein 5.2 g/dL (6.4-8.9)
[2019-09-23] MEDS ORDERED: Levofloxacin 750 MG IVPREMIX(* 750 MG/150 ML BAG IVPB ONE (01:57)
[2019-09-23 02:20] LABS: C Reactive Protein 90.82 mg/L (<8.01)
[2019-09-23 05:18] VITALS: BP 92/50
--- NOTE | 2019-09-25 06:26 | ED ---
Imaging and Labs Follow Up Follow Up Type: Labs/Cultures Labs/Culture Result: Urine culture preliminary shows 25-50,000 Klebsiella pneumonia. Awaiting sensitivities. Patient treated appropriately. Patient Communication/Plan: Patient treated appropriately nothing further at this time. Provider Diagnoses: Dehydration, UTI (urinary tract infection)
--- NOTE | 2019-09-26 06:12 | ED ---
Imaging and Labs Follow Up Follow Up Type: Labs/Cultures Labs/Culture Result: Sensitivities resulted showing positive sensitivity for Levaquin. Patient treated appropriately. Nothing further at this time. Patient Communication/Plan: Patient treated appropriately. Nothing further at this time. Provider Diagnoses: Dehydration, UTI (urinary tract infection)
== END 2019-09-23 05:17 | disposition home or self-care (01) ==
LOC: ED 22:05
DX: E86.0 Dehydration (principal); N39.0 Urinary tract infection, site not specified; E07.9 Disorder of thyroid, unspecified; F41.9 Anxiety disorder, unspecified; Z79.899 Other long term (current) drug therapy; Z88.5 Allergy status to narcotic agent; Z88.0 Allergy status to penicillin; Z88.8 Allergy status to other drugs, medicaments and biological substances
CPT/HCPCS: 36415; 71045; 80053; 81003; 81015; 82270; 83605; 83880; 85025; 86140; 87077; 87086; 87186; 87641; 96361; 96365; 96366; 99284